=== PATIENT | female | born 1945 | race Caucasian/White ===

== ENCOUNTER 2019-04-22 11:31 | Outpatient (CLI) | payer MEDICARE, SELFPAY ==
--- NOTE | 2019-04-22 | USCV_ITS ---
Shilpi Nicole Age: 73 Gender: F : 1945 Exam Date: 04/22/2019 11:58 Ordering Phys: Gaurav Olivera MD Technologist: Mckay Doe Exam Location: [facility] [place] Indication: Abnormal EKG Rhythm: Sinus Patient History: Chest pain, Diabetes mellitus, Hypertension, Hyperlipidemia, Family history Cardiac Medications: Aspirin, Statin, Beta felicitas Medications in past 24 hours: NONE Contrast: Total Dose (mL): Stress Results Protocol: Pharmacologic Peak Dose (???g/kg/min): 40 Duration (min:sec): 11:15 Atropine:(mg) 0.5 Target HR: 123 Double Product: [id number] Resting HR: 77 Resting BP: 182 / 75 Peak HR: 136 Peak BP: 264 / 85 Max Predicted HR: 145 94 % Max Predicted HR Stress Summary: The patient exhibited a hypertensive response with stress. The patient's target heart rate was achieved. BP Response: Abnormal flat BP response during stress Reason for Termination: The patients target heart rate was achieved Cardiac Symptoms: Short of Breath ECG Analysis Resting EKG: The resting EKG reveals sinus rhythm with unusual R wave progression and one premature ventricular contraction. Stress EKG: The stress EKG was without ST changes and is negative for ischemia. Arrhythmia: None MEASUREMENTS (Male/Female) Normal Values FINDINGS Patient's resting blood pressure was 182/75 and increased to 264/71. An adequate heart rate response was achieved to 95% of the maximum predicted heart rate. The baseline echocardiogram reveals normal chamber sizes and normal wall motion. The EKG with dobutamine infusion revealed no new ST changes. The ultrasound with dobutamine revealed no new wall motion disturbances. CONCLUSIONS Dobutamine stress echo negative for ischemia or infarction Baseline hypertension with significant hypertensive response to dobutamine infusion. Dr. Javier Franklin MD (Electronically Signed) Final Date: 22 April 2019 14:59 MTDD
[2019-04-22 11:39] VITALS: BMI 24.5
--- NOTE | 2019-04-22 11:44 | ECG_ITS ---
NAME OF STUDY: DOBUTAMINE STRESS ECHOCARDIOGRAM INDICATION: [Abnormal EKG] RESULTS TO ISAAC POLK MD The study is dictated under a different electronic health record. Please see those notes for details. Electronically Signed On 04-22-2019 14:56:13 LINE SERVICE ATTENDANT by Javier Franklin M.D. [email or web address]
--- NOTE | 2019-04-22 12:01 | SUR.PREOP ---
Patient reports no pain or discomfort prior to the start of the procedure.
[2019-04-22] MEDS: sodium chloride 0.9% 250 ML 100 ML IV (12:21)
[2019-04-22] MEDS: DOBUTtamine 200 MG in sodium chloride 0.9% 34 ML 9 MG IV (12:36)
[2019-04-22] MEDS: atropine 0.1 mg/mL Syr 10 mL 0.5 MG IVP (12:44)
[2019-04-22] MEDS: metoprolol tartrate 1 mg/1 mL SDV 5 mL 5 MG IVP (12:48)
[2019-04-22 13:16] VITALS: BP 179/74; PULSE 82
== END 2019-04-22 11:32 | disposition home or self-care (01) ==
LOC: CDL 11:33
PROVIDERS: Family Provider Family Medicine; PCP Family Medicine; Visit Provider Family Medicine
DX: R94.31 Abnormal electrocardiogram [ECG] [EKG] (principal); R07.9 Chest pain, unspecified; I10 Essential (primary) hypertension; E11.9 Type 2 diabetes mellitus without complications; E78.5 Hyperlipidemia, unspecified; R06.02 Shortness of breath; Z79.82 Long term (current) use of aspirin
CPT/HCPCS: 93017; 93350; 96375; J0461; J1250; J3490; J7050

== ENCOUNTER 2019-07-08 07:31 | Outpatient (CLI) | payer MEDICARE, SELFPAY ==
--- NOTE | 2019-07-08 07:53 | MM_ITS ---
WS: [id number] LEFT DIGITAL MAMMOGRAPHY WITH CAD CLINICAL INFORMATION: LEFT BREAST 6 MO FOLLOW UP HISTORY: Six-month follow-up COMPARISON: December 16, 2018 FINDINGS: Scattered fibroglandular densities of the left breast. Again seen is the well-circumscribed lesion up per outer left breast with associated palpable marker. This is increased in size from previous today measuring 1.9 cm compared to 1.1 cm previous. Adjacent biopsy marker. Additional previously biopsied nodule mid and anterior left breast with adjacent biopsy marker measur ing 7 mm appears stable. Stable scattered punctate calcifications. Ultrasound is pending. ULTRASOUND BREAST LEFT TECHNIQUE: Ultrasound left breast focused area of concern. CLINICAL INFORMATION: LEFT BREAST 6 MO FOLLOW UP COMPARISON: December 16, 2018 FINDINGS: Ultrasound left breast 2:00 position 5 cm from the nipple. Interval increase in size of the complex c ystic left breast lesion with internal and peripheral nodularity and debris. Today this measures 2.1 x 1.5 x 2.1 cm compared to 1.3 x 1.0 cm previous. CONSIDERING INTERVAL INCREASE IN SIZE RECOMMEND REP EAT BIOPSY AND ASPIRATION. Stable cluster of small complex cystic lesions 2:00 position appears stable in size largest measuring 7 to 8 mm Additional cluster of microcysts previously biopsied in the 3:00 position with adjacent biopsy marker appears stable compared to the prior examination measuring 7 x 6 x 7 mm today. MM/[place] [id number] IMPRESSION: BI-RADS: 4B-Suspicious: Intermediate FOLLOW UP: US Guided Biopsy Recommended
== END 2019-07-08 07:32 | disposition home or self-care (01) ==
LOC: RADSHAW 07:34
PROVIDERS: Family Provider Family Medicine; PCP Family Medicine; Visit Provider Family Medicine
DX: R92.8 Other abnormal and inconclusive findings on diagnostic imaging of breast (principal); N64.89 Other specified disorders of breast; N60.02 Solitary cyst of left breast
CPT/HCPCS: 76642; 77065

== ENCOUNTER 2019-07-26 11:43 | Outpatient (CLI) | payer MEDICARE, SELFPAY ==
--- NOTE | 2019-07-26 | US_ITS ---
WS: [id number] ULTRASOUND-GUIDED LEFT BREAST BIOPSY CLINICAL INFORMATION: CYST COMPARISON: None. FINDINGS: The procedure including risks, benefits, and complications were discussed with the patient who agreed to proceed. Using sterile technique patient was prepped and draped in the usual sterile fashion. The complex cystic and solid left breast lesion at the 2:00 position was localized. After 1% lidocain e utilizing real-time ultrasound guidance, utilizing a 20-gauge and 16-gauge aspiration needle, appro ximately 5 cc of bloody fluid was aspirated. Fluid was sent for cytology. Next [id number] cores wer e obtained of the solid components of the 2:00 breast lesion. Subsequently a titanium clip was placed in the biopsy cavity. No immediate complications. Pathology demonstrates: Initial aspirate demonstrates cellular components with inflammation, blood, and cellular debris. Cons ider intraductal papilloma. Additional sampling/tissue recommended. FINAL PATHOLOGY LEFT BREAST TISSUE AT 2:00, CORE NEEDLE BIOPSY: - Benign breast parenchyma with focal fibrosis, chronic inflammation, and features of benign cyst - No calcifications, atypia, or malignancy seen US/[place] [id number] IMPRESSION: 1. Uncomplicated ultrasound-guided left breast biopsy and aspiration. 2. The pathology demonstrates benign breast parenchyma with focal fibrosis and chronic inflammation. No malignancy or atypia. 3. RECOMMEND 6 MONTH LEFT DIAGNOSTIC MAMMOGRAM AND ULTRASOUND POSTBIOPSY TO CO NFIRM STABILITY. BI-RADS: 3-Probably Benign FOLLOW UP: 6 Month Follow-up
--- NOTE | 2019-07-26 | US_ITS ---
WS: [id number] ULTRASOUND-GUIDED LEFT BREAST BIOPSY CLINICAL INFORMATION: CYST COMPARISON: None. FINDINGS: The procedure including risks, benefits, and complications were discussed with the patient who agreed to proceed. Using sterile technique patient was prepped and draped in the usual sterile fashion. The complex cystic and solid left breast lesion at the 2:00 position was localized. After 1% lidocain e utilizing real-time ultrasound guidance, utilizing a 20-gauge and 16-gauge aspiration needle, appro ximately 5 cc of bloody fluid was aspirated. Fluid was sent for cytology. Next [id number] cores wer e obtained of the solid components of the 2:00 breast lesion. Subsequently a titanium clip was placed in the biopsy cavity. No immediate complications. Pathology demonstrates: Initial aspirate demonstrates cellular components with inflammation, blood, and cellular debris. Cons ider intraductal papilloma. Additional sampling/tissue recommended. FINAL PATHOLOGY LEFT BREAST TISSUE AT 2:00, CORE NEEDLE BIOPSY: - Benign breast parenchyma with focal fibrosis, chronic inflammation, and features of benign cyst - No calcifications, atypia, or malignancy seen US/[place] [id number] IMPRESSION: 1. Uncomplicated ultrasound-guided left breast biopsy and aspiration. 2. The pathology demonstrates benign breast parenchyma with focal fibrosis and chronic inflammation. No malignancy or atypia. 3. RECOMMEND 6 MONTH LEFT DIAGNOSTIC MAMMOGRAM AND ULTRASOUND POSTBIOPSY TO CO NFIRM STABILITY. BI-RADS: 3-Probably Benign FOLLOW UP: 6 Month Follow-up
== END 2019-07-26 11:44 | disposition home or self-care (01) ==
LOC: RAD 11:50
PROVIDERS: PCP Family Medicine; Visit Provider Pathology Anatomic Pathology & Clinical Pathology
DX: N63.21 Unspecified lump in the left breast, upper outer quadrant (principal); N60.32 Fibrosclerosis of left breast
CPT/HCPCS: 19000; 19083; 76942; 88112; 88304; 88305; J2001

== ENCOUNTER 2019-08-07 19:53 | Inpatient (IN) | payer MEDICARE, SELFPAY ==
[2019-08-07 19:59] VITALS: BP 128/59; PULSE 87; RESP 16; TEMP 36.7; O2SAT 94; BMI 25.4
--- NOTE | 2019-08-07 20:30 | W.ED.WEAKNES ---
HPI - Weakness General: Chief complaint: Weakness Stated complaint: SOB/ FEVER/ BODY ACHES Time Seen by Provider: 08/07/19 19:56 History of Present Illness: HPI Narrative: 73-year-old female presents with generalized weakness, shortness of breath, and some dizziness. She notes that she began to feel this way last night, but was worse today. At one point walking across her home to get into bed, she could not make it, sat down on the floor, and could not get back up. She was there for several hours, around 4-5. She finally made it to her phone to call EMS. Complaint: generalized weakness Onset (ago): hour(s) Duration: constant Location: generalized Migration: none Severity: severe Relieving factors: none Exacerbating factors: none Context: new medication Associated symptoms: Reports diaphoresis and short of breath; Denies chest pain, chills, confusion, melena, dysuria, fever(s), syncope or vomiting Review of Systems Const: Reports: diaphoresis; Denies: fever(s) or chills Eyes: Denies: blurry vision ENMT: Denies: swelling of lips/tongue, bleeding gums, epistaxis or sinus pain Card: Denies: chest pain or syncope Resp: Denies: dyspnea, productive cough, non-productive cough or wheezing GI: Denies: vomiting or melena : Denies: dysuria, urinary frequency, urinary urgency or hematuria Musc: Denies: neck pain, back pain, joint redness or joint warmth Skin/Breast: Denies: rash, pruritus or erythema Neuro: Denies: confusion Psych: Denies: anxiety PFSH ED PFSH: Medical History Abnormal colonoscopy [address] White Arthralgia Contact dermatitis Diabetes Fibula fracture Gastroenteritis Heart failure with preserved ejection fraction Grade 1 diastolic dysfunction, EF 65% 08/23/2018 HTN (hypertension) Hx of cataract Hypercalcemia IBS (irritable bowel syndrome) Internal hemorrhoids Normal cardiac stress test Osteoporosis Ovarian cancer 1964 Ovarian cancer in remission Retinal detachment Sigmoid polyp Surgical History H/O detached retina repair 1991 H/O oophorectomy 1964 Hx of cholecystectomy Family History Other CAD (coronary artery disease) Hx of myocardial infarction Social History (Updated 08/08/19 @ 00:44 by Michi Villarreal MD) Smoking and tobacco status: never smoked Alcohol intake: never Substance/Drug Use: never Lives independently: Yes Housing: House Physical Exam Const: COMMON NORMALS: patient oriented x3 GENERAL APPEARANCE: well developed ORIENTATION/CONSCIOUSNESS: Yes oriented to person, Yes oriented to place and Yes oriented to time HENMT: COMMON NORMALS: normocephalic, external ears normal and Normal external nose present HEAD & SCALP: normocephalic FACE & SINUS: normal facial exam NOSE: Normal external nose present and No nasal discharge present EXTERNAL EAR: Yes external ears normal MOUTH: tongue normal Eye: COMMON NORMALS: Equal, round and reactive pupils present, EOMs intact bilaterally and conjunctivae normal EYELID: eyelids normal CONJUNCTIVA: Yes conjunctivae normal PUPIL: Yes Equal, round and reactive pupils present Neck/C-Spine: GENERAL: No tracheal deviation Chest: COMMONS NORMALS: normal inspection of the chest CHEST: No tenderness Resp: COMMON NORMALS: clear to auscultation bilaterally EFFORT & INSPECTION: No tachypneic, No respiratory distress, No retractions, No uses accessory muscles and No tracheal deviation AUSCULTATION: clear to auscultation bilaterally, no rhonchi, no wheezes and lung sounds not diminished Cardio: COMMON NORMALS: regular rate and regular rhythm RATE: regular rate RHYTHM: regular rhythm HEART SOUNDS: no murmurs PERIPHERAL PULSES: radial pulses present GI: INSPECTION: No abdominal distension AUSCULTATION: No Hyperactive bowel sounds present and No Hypoactive bowel sounds present PALPATION: No Guarding due to palpation present (GI) and No Rigid due to palpation PERCUSSION: no dullness to percussion and no tympanic to percussion Neuro: COMMON NORMALS: patient oriented x3 and moves all extremities SENSORIUM/ORIENTATION: Yes oriented to person, Yes oriented to place and Yes oriented to time CRANIAL NERVES: Yes CN normal except as noted COORDINATION/BALANCE: [id number] test normal and Normal rapid alternating movements of the distal upper extremity present (Neuro) SPEECH: speech normal GAIT: Yes Unable to assess gait SENSORY EXAM: Yes extremities (Intact) MOTOR EXAM: Pronator motor function not present COORDINATION: [id number] test normal and rapid alternating movement UE normal Psych: COMMON NORMALS: mental status grossly normal Skin: COMMON NORMALS: no rashes or lesions noted GENERAL SKIN EXAM: no rashes or lesions noted Course Vital Signs: Vital signs: Vital Signs Temperature 98.1 F 08/07/19 19:59 Pulse Rate 78 08/08/19 00:09 Respiratory Rate 18 08/08/19 00:09 Blood Pressure 153/73 08/08/19 00:09 Pulse Oximetry 96 08/08/19 00:09 MDM - Weakness MDM Narrative: Medical decision making narrative: 73-year-old female with generalized weakness and shortness of breath. She had a period of diaphoresis as well. Her hemoglobin is 8.3. She says she does not have a history of anemia. Her white blood cell count is 19.4 with left shift. Her bicarbonate level is 19, and CK is mildly elevated. She does not have a fever. There is no pneumonia or urinary tract infection. Her belly is nontender. She will be tested for the coronavirus, although she does not appear to have significant symptoms of that. She lives at home alone. She will be admitted for generalized weakness, and further work-up for her anemia, and leukocytosis with significantly elevated CRP. Lab Data: Labs: Lab Results 08/07/19 08/07/19 08/07/19 Range/Units 20:49 20:49 20:49 WBC 19.4 H (4.0-10.0) 10^3/ uL RBC 2.88 L (4.1-5.3) 10^6/u L Hgb 8.3 L (11.5-15.3) g/dL Hct 26.7 L (37.0-47.0) % MCV 92.7 (81-99) fL MCH 28.8 (28.0-34.0) pg MCHC 31.1 (30.0-36.0) g/dL RDW 15.2 H (12.1-15.1) % Plt Count 282 (130-400) 10^3/c mm MPV 10.6 H (7.4-10.4) fL Neut % (Auto) 86.7 % Lymph % (Auto) 4.9 % [place] % (Auto) 7.1 % Eos % (Auto) 0.4 % Baso % (Auto) 0.2 % Neut # (Auto) 16.8 H (1.8-7.7) 10^3/u L Lymph # (Auto) 1.0 (0.8-4.8) 10^3/u L [place] # (Auto) 1.4 H (0.2-0.9) 10^3/u L Eos # (Auto) 0.1 (0.0-0.8) 10^3/u L Baso # (Auto) 0.0 (0.0-0.1) 10^3/u L Nucleated RBC % (a uto) 0 % Nucleated RBCs # 0.0 /100WBC Sodium 130 L (136-145) mmol/L Potassium 4.1 (3.5-5.1) mmol/L Chloride 95 L (98-107) mmol/L Carbon Dioxide 19 L (22-29) mmol/L Anion Gap 20.1 H (5-19) BUN 27 H (8-23) mg/dL Creatinine 2.2 H (0.5-0.9) mg/dL Glucose 264 H (65-115) mg/dL Calculated Osmolal ity 276 L (285-295) mOsm/k g Lactate 2.1 (0.5-2.2) mmol/L Calcium 9.9 (8.5-10.5) mg/dL Total Bilirubin 0.5 (0.15-1.2) mg/dL AST 40 H (0-32) U/L ALT 26 (0-33) U/L Alkaline Phosphata se 123 H (35-105) IU/L Creatine Kinase 418 H* (26-192) U/L Troponin T Baselin e (0-10) ng/mL Troponin T 120 Min [place] (0-10) ng/mL Delta Troponin T (0-10) ABS# C-Reactive Protein 328.8 H (0.0-4.9) mg/L Total Protein 6.2 L (6.6-8.7) g/dL Albumin 3.1 L (3.5-5.2) g/dL Globulin 3.1 (1.3-4.6) g/dL Procalcitonin (0-0.5) ng/mL Urine Color (Yellow) Urine Appearance (CLEAR) Urine pH (5-7) Ur Specific Gravit y (1.005-1.030) Urine Protein (Negative) Urine Glucose (UA) (Normal) Urine Ketones (Negative) Urine Blood (Negative) Urine Nitrate (Negative) Urine Bilirubin (NEGATIVE) Urine Urobilinogen (Negative) mg/dL Ur Leukocyte Abby ase (Negative) Urine RBC (0-2) /hpf Urine WBC (0-5) /hpf Ur Squamous Epith Cells (0-5) Ur Transition Epit h Cell /hpf Amorphous Sediment Urine Bacteria (NONE) Urine Mucus 08/07/19 08/07/19 08/07/19 Range/Units 20:49 20:49 20:49 WBC (4.0-10.0) 10^3/ uL RBC (4.1-5.3) 10^6/u L Hgb (11.5-15.3) g/dL Hct (37.0-47.0) % MCV (81-99) fL MCH (28.0-34.0) pg MCHC (30.0-36.0) g/dL RDW (12.1-15.1) % Plt Count (130-400) 10^3/c mm MPV (7.4-10.4) fL Neut % (Auto) % Lymph % (Auto) % [place] % (Auto) % Eos % (Auto) % Baso % (Auto) % Neut # (Auto) (1.8-7.7) 10^3/u L Lymph # (Auto) (0.8-4.8) 10^3/u L [place] # (Auto) (0.2-0.9) 10^3/u L Eos # (Auto) (0.0-0.8) 10^3/u L Baso # (Auto) (0.0-0.1) 10^3/u L Nucleated RBC % (a uto) % Nucleated RBCs # /100WBC Sodium (136-145) mmol/L Potassium (3.5-5.1) mmol/L Chloride (98-107) mmol/L Carbon Dioxide (22-29) mmol/L Anion Gap (5-19) BUN (8-23) mg/dL Creatinine (0.5-0.9) mg/dL Glucose (65-115) mg/dL Calculated Osmolal ity (285-295) mOsm/k g Lactate (0.5-2.2) mmol/L Calcium (8.5-10.5) mg/dL Total Bilirubin (0.15-1.2) mg/dL AST (0-32) U/L ALT (0-33) U/L Alkaline Phosphata se (35-105) IU/L Creatine Kinase Cancelled (26-192) U/L Troponin T Baselin e 102 H* (0-10) ng/mL Troponin T 120 Min [place] (0-10) ng/mL Delta Troponin T (0-10) ABS# C-Reactive Protein Cancelled (0.0-4.9) mg/L Total Protein (6.6-8.7) g/dL Albumin (3.5-5.2) g/dL Globulin (1.3-4.6) g/dL Procalcitonin 3.51 H (0-0.5) ng/mL Urine Color (Yellow) Urine Appearance (CLEAR) Urine pH (5-7) Ur Specific Gravit y (1.005-1.030) Urine Protein (Negative) Urine Glucose (UA) (Normal) Urine Ketones (Negative) Urine Blood (Negative) Urine Nitrate (Negative) Urine Bilirubin (NEGATIVE) Urine Urobilinogen (Negative) mg/dL Ur Leukocyte Abby ase (Negative) Urine RBC (0-2) /hpf Urine WBC (0-5) /hpf Ur Squamous Epith Cells (0-5) Ur Transition Epit h Cell /hpf Amorphous Sediment Urine Bacteria (NONE) Urine Mucus 08/07/19 08/07/19 Range/Units 22:30 22:55 WBC (4.0-10.0) 10^3/ uL RBC (4.1-5.3) 10^6/u L Hgb (11.5-15.3) g/dL Hct (37.0-47.0) % MCV (81-99) fL MCH (28.0-34.0) pg MCHC (30.0-36.0) g/dL RDW (12.1-15.1) % Plt Count (130-400) 10^3/c mm MPV (7.4-10.4) fL Neut % (Auto) % Lymph % (Auto) % [place] % (Auto) % Eos % (Auto) % Baso % (Auto) % Neut # (Auto) (1.8-7.7) 10^3/u L Lymph # (Auto) (0.8-4.8) 10^3/u L [place] # (Auto) (0.2-0.9) 10^3/u L Eos # (Auto) (0.0-0.8) 10^3/u L Baso # (Auto) (0.0-0.1) 10^3/u L Nucleated RBC % (a uto) % Nucleated RBCs # /100WBC Sodium (136-145) mmol/L Potassium (3.5-5.1) mmol/L Chloride (98-107) mmol/L Carbon Dioxide (22-29) mmol/L Anion Gap (5-19) BUN (8-23) mg/dL Creatinine (0.5-0.9) mg/dL Glucose (65-115) mg/dL Calculated Osmolal ity (285-295) mOsm/k g Lactate (0.5-2.2) mmol/L Calcium (8.5-10.5) mg/dL Total Bilirubin (0.15-1.2) mg/dL AST (0-32) U/L ALT (0-33) U/L Alkaline Phosphata se (35-105) IU/L Creatine Kinase (26-192) U/L Troponin T Baselin e (0-10) ng/mL Troponin T 120 Min [place] 89.45 H (0-10) ng/mL Delta Troponin T -12.55 L (0-10) ABS# C-Reactive Protein (0.0-4.9) mg/L Total Protein (6.6-8.7) g/dL Albumin (3.5-5.2) g/dL Globulin (1.3-4.6) g/dL Procalcitonin (0-0.5) ng/mL Urine Color Yellow (Yellow) Urine Appearance Sl hazy (CLEAR) Urine pH 6.5 (5-7) Ur Specific Gravit y 1.010 (1.005-1.030) Urine Protein 3+ H (Negative) Urine Glucose (UA) Trace H (Normal) Urine Ketones 1+ H (Negative) Urine Blood Neg (Negative) Urine Nitrate Negative (Negative) Urine Bilirubin Neg (NEGATIVE) Urine Urobilinogen Norm (Negative) mg/dL Ur Leukocyte Abby ase Negative (Negative) Urine RBC 0-4 H (0-2) /hpf Urine WBC 0-4 H (0-5) /hpf Ur Squamous Epith Cells 5-10 H (0-5) Ur Transition Epit h Cell 0-4 /hpf Amorphous Sediment Trace Urine Bacteria 1+ H (NONE) Urine Mucus Trace Discharge Plan Discharge Patient Disposition: Admitted As Inpatient Admit Provider: Michi Villarreal Clinical Impression: Generalized weakness, Leukocytosis, Anemia Condition: Stable Discharge Date/Time: 08/08/19 00:46 Coding Level of Care Code ED Dope House Operator Helper for Chg Fwd Exam Comprehensive
--- NOTE | 2019-08-07 20:38 | CTR_ITS ---
PROCEDURE INFORMATION: Exam: CT Head Without Contrast Exam date and time: 08/07/2019 8:39 PM Age: 73 years old Clinical indication: Malaise or fatigue; Additional info: Weakness TECHNIQUE: Imaging protocol: Computed tomography of the head without contrast. Radiation optimization: All CT scans at this facility use at least one of these dose optimization techniques: automated exposure control; mA and/or kV adjustment per patient size (includes targeted exams where dose is matched to clinical indication); or iterative reconstruction. COMPARISON: No relevant prior studies available. RADIATION DOSE METRICS: Total DLP: 727.44 mGy-cm FINDINGS: Brain: There is mild cortical atrophy. No hemorrhage. Unremarkable white matter. No mass effect. Ventricles: Normal. No ventriculomegaly. Bones/joints: Unremarkable. No acute fracture. Sinuses: Visualized sinuses are unremarkable. No fluid levels. Mastoid air cells: Visualized mastoid air cells are well aerated. Vasculature: Atherosclerotic calcifications are seen in carotid, vertebral and basilar arteries. Soft tissues: Unremarkable. CT/CT head wo con* [id number] IMPRESSION: No acute intracranial abnormality. Radiation Dose CTDIVOL = (mGy): DLP = 727.44 (mGy-cm)
--- NOTE | 2019-08-07 20:38 | XR_ITS ---
WS: [id number] XR chest 1V portable [id number] REASON FOR EXAM: weakness FINDINGS: Low-grade atelectasis in the basilar portion of the left lower lung. This was not seen on p revious exam of September 24, 2016. There is arteriosclerotic changes in the arch the aorta. The remaining lung scruggs are normal. XR/XR chest 1V portable [id number] IMPRESSION: Subsegmental atelectasis left lung base Arteriosclerotic changes.
--- NOTE | 2019-08-07 20:38 | ECG_ITS ---
Measurements Intervals [place] Rate: 90 P: 28 NH: 149 QRS: -17 QRSD: 93 T: 44 QT: 379 QTc: 465 SINUS RHYTHM Compared to ECG 09/14/2016 21:16:54 No significant changes Electronically Signed On 08-08-2019 17:03:39 CDT by Javier Franklin M.D. [email or web address]
[2019-08-07] MEDS: sodium chloride 0.9% 1,000 ML 999 ML IV (20:49)
[2019-08-07 21:07] LABS: Basophils % 0.2 %; Eosinophils # 0.1 10^3/uL (0.0-0.8); Eosinophils % 0.4 %; Hematocrit 26.7 % (37.0-47.0); Hemoglobin 8.3 g/dL (11.5-15.3); Lymphocytes % 4.9 %; Mean Corpuscular HGB Conc 31.1 g/dL (30.0-36.0); Mean Corpuscular Hemoglobin 28.8 pg (28.0-34.0); Mean Corpuscular Volume 92.7 fL (81-99); Mean Platelet Volume 10.6 fL (7.4-10.4); Monocytes # 1.4 10^3/uL (0.2-0.9); Monocytes % 7.1 %; Neutrophils # 16.8 10^3/uL (1.8-7.7); Neutrophils % 86.7 %; Nucleated Red Blood Cells % 0 %; Platelet Count 282 10^3/cmm (130-400); Red Blood Count 2.88 10^6/uL (4.1-5.3); Red Cell Distribution Width 15.2 % (12.1-15.1); White Blood Count 19.4 10^3/uL (4.0-10.0)
[2019-08-07 21:25] LABS: Alanine Aminotransferase 26 U/L (0-33); Albumin Level 3.1 g/dL (3.5-5.2); Alkaline Phosphatase 123 IU/L (35-105); Anion Gap 20.1 (5-19); Aspartate Amino Transferase 40 U/L (0-32); Blood Urea Nitrogen 27 mg/dL (8-23); C Reactive Protein 328.8 mg/L (0.0-4.9); Calcium 9.9 mg/dL (8.5-10.5); Carbon Dioxide 19 mmol/L (22-29); Chloride 95 mmol/L (98-107); Globulin 3.1 g/dL (1.3-4.6); Glucose 264 mg/dL (65-115); Osmolality Calculated 276 mOsm/kg (285-295); Potassium 4.1 mmol/L (3.5-5.1); Sodium 130 mmol/L (136-145); Total Bilirubin 0.5 mg/dL (0.15-1.2); Total Protein 6.2 g/dL (6.6-8.7)
[2019-08-07 21:26] LABS: Lactate (Lactic Acid level) 2.1 mmol/L (0.5-2.2)
[2019-08-07 21:36] LABS: Creatine Phosphokinase 418 U/L (26-192)
[2019-08-07 21:37] VITALS: BP 132/56; PULSE 95; RESP 16; O2SAT 94
[2019-08-07 21:37] LABS: Troponin(5th) Baseline 102 ng/mL (0-10)
--- NOTE | 2019-08-07 22:38 | ECG_ITS ---
Measurements Intervals [place] Rate: 85 P: 26 TX: 179 QRS: -4 QRSD: 90 T: 51 QT: 371 QTc: 443 SINUS RHYTHM Compared to ECG 09/14/2016 21:16:54 No significant changes Electronically Signed On 08-08-2019 17:07:09 CDT by Javier Franklin M.D. [email or web address]
[2019-08-07 22:55] LABS: Troponin 5 2HR 89.45 ng/mL (0-10); Troponin 5 2HR Delta -12.55 ABS# (0-10)
[2019-08-07 23:07] VITALS: BP 134/80; PULSE 87; RESP 18; O2SAT 94
[2019-08-07 23:20] LABS: Add Urine Microscopic? YES; Bilirubin Urine Neg (NEGATIVE); Blood Urine Neg (Negative); Glucose Urine UA Trace (Normal); Ketones Urine 1+ (Negative); Leukocyte Esterase Urine Negative (Negative); Nitrate Urine Negative (Negative); Protein Urine 3+ (Negative); Urine Appearance SL Hazy (CLEAR); Urine Color Yellow (Yellow); Urobilinogen Urine Norm (Negative); pH Urine 6.5 (5-7)
[2019-08-07 23:21] LABS: RBC Urine 0-4 /hpf (0-2); WBC Urine 0-4 /hpf (0-5)
[2019-08-07 23:22] LABS: Add Urine Culture? No; Amorphous Sediment Urine TRACE; Bacteria Urine 1+; Mucus Urine TRACE; Transitional Epi Cells Urine 0-4 /hpf
--- NOTE | 2019-08-07 23:41 | PM.HP ---
Providers/Chief Complaint Primary Care Provider: Vitaliy Morales MD Chief Complaint: SOB/ FEVER/ BODY ACHES History of Present Illness Shilpi Nicole is a 73 year old female who carries diagnosis of hypertension, recently had negative dobutamine stress echo with no prior history of OK or stroke, came in with chief complaint of generalized weakness. she was in her usual state of health i.e. lives alone, independent for daily activities, has not visited her family lately, recently started taking hydrochlorothiazide for hypertension, she is able to carry out her daily activities on her own without any limitations until 1 day ago she started experiencing myalgias and dry hacking cough, she did not notice any fever, chills, nausea, vomiting, diarrhea or dysuria. She is denying constipation, cold intolerance. No recent sick contacts, no exposure to COVID suspects. Her recent [facility] visit was about 3 to 4 weeks ago. She is stating that her myalgia and weakness has gotten so worse to the point that when she got out of her bathroom this evening she felt very dizzy and laid down on the floor. She had no energy to get up and called EMS, she was on the floor for 3 to 4 hours, she was awake, alert, no falls, she did not notice any palpitations, chest pain or weakness of her extremities. After 4 hours she put a lot of effort to get up and called EMS and came to the ER. Diagnosis in the ER revealed normal hemodynamics, orthostasis were not checked in the ER, by the time I saw her she received 1 L normal saline Low sodium and chloride level Positive leukocytosis without any source of infection, chest x-ray showing possible infiltrate in right lower lobe, saturating well on room air Anemia hemoglobin 8.3 Abnormal creatinine, lactic acid normal High CRP EKG is normal however troponin baseline 102 Recent dobutamine stress echo was negative Denying urinary tract infection, UA is negative CK 418 Rectal exam was negative for FOBT the ER, Patient has started taking hydrochlorothiazide, her p.o. intake is very poor, she feels dehydrated Review of Systems Const: Reports: chills, body aches, change in appetite, fatigue and malaise; Denies: fever(s) Eyes: Denies: change in vision ENMT: Denies: throat pain Card: Denies: chest pain Resp: Reports: non-productive cough; Denies: dyspnea GI: Denies: abdominal pain or nausea : Denies: flank pain or difficulty voiding Musc: Reports: muscle cramps; Denies: extremity pain, joint swelling or joint stiffness Skin/Breast: Denies: rash Neuro: Denies: headache(s) Psych: Denies: anxiety Endo: Denies: polyuria José Miguel/Lymph: Denies: easy bruising All/Imm: Denies: urticaria Medications/Allergies Home Medications Medication Instructions Recorded Confirmed Last Taken Type doxycycline hyclate 100 mg capsule 100 mg PO BID #60 cap 05/03/19 Unknown Rx Allergies Allergy/AdvReac Type Severity Reaction Status Date / Time No Known Allergies Allergy Verified 04/22/19 11:59 PFSH Acute PFSH: Medical History Abnormal colonoscopy [address] White Arthralgia Contact dermatitis Diabetes Fibula fracture Gastroenteritis Heart failure with preserved ejection fraction Grade 1 diastolic dysfunction, EF 65% 08/23/2018 HTN (hypertension) Hx of cataract Hypercalcemia IBS (irritable bowel syndrome) Internal hemorrhoids Normal cardiac stress test Osteoporosis Ovarian cancer 1963 Ovarian cancer in remission Retinal detachment Sigmoid polyp Surgical History H/O detached retina repair 1991 H/O oophorectomy 1964 Hx of cholecystectomy Family History Other CAD (coronary artery disease) Hx of myocardial infarction Social History (Updated 08/08/19 @ 00:44 by Michi Villarreal MD) Smoking and tobacco status: never smoked Alcohol intake: never Substance/Drug Use: never Lives independently: Yes Housing: House Vitals/I&O/Wt Last Vital Signs Temp 98.1 F 08/07/19 19:59 Pulse 87 08/07/19 23:07 Resp 18 08/07/19 23:07 BP 134/80 08/07/19 23:07 Pulse Ox 94 08/07/19 23:07 Weight last 48 hrs Weight 58.967 kg Physical Exam Narrative: EXAM NARRATIVE: Head to toe examination Patient laying comfortably in her bed saturating well on room air Experiencing dry and hacking cough S1, S2 no tachycardia Afebrile Abdomen soft nontender nondistended bowel sound present Lungs are clear to auscultation without adventitious sounds J alert oriented x3 GCS 15 No cerebellar signs Neurologically nonfocal exam Good strength of upper and lower extremities on flexion and extension Her mood seems to be low Seems lethargic No signs of hypothyroidism Dry buccal mucosa EOMI, PERRLA Data : 08/07/19 20:49 08/07/19 20:49 A&P Assessment and plan (1) Community acquired pneumonia: Status: Acute (2) Generalized weakness: Status: Acute (3) Leukocytosis: Status: Acute (4) ANA ROSA (acute kidney injury): Status: Acute (5) Diarrhea: Status: Acute (6) Acute blood loss anemia: Status: Acute (7) Dehydration: Status: Acute Additional A&P Information Generalized weakness Acute onset generalized weakness without any active signs of stroke, CT head negative She has been experiencing dry hacking cough No exposure to COVID suspects She recently started taking hydrochlorothiazide for hypertension, she feels dehydrated, she has already received 1 L normal saline in the ER, orthostasis were not obtained before fluid resuscitation Check TSH and B12 level Leukocytosis without sepsis Lactic acid normal, she is not tachycardic, afebrile Saturating well on room air My suspicion is high for community-acquired pneumonia with developing infiltrate/atelectasis of right lower lobe I would start ceftriaxone and azithromycin COVID to be ruled out, will check d-dimer, ferritin, CRP, procalcitonin Acute kidney injury due to dehydration and hydrochlorothiazide use Anticipating provement with slow fluid resuscitation Clinically looks dry Normocytic anemia of unknown etiology 2017 her hemoglobin was 10, current hemoglobin is 8.3 Rectal exam is negative for occult blood She has history of internal hemorrhoids, history of sigmoid polyp She has not noticed any dark-colored stool or active bleeding Chronic diarrhea Patient is stating that she gets diarrhea after taking metformin, No fever or abdominal pain We will check C. difficile panel however risk of C. 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
[2019-08-08] VITALS (59 sets, daily range): BP systolic 108–193; BP diastolic 53–118; PULSE 78–153; RESP 4–52; TEMP 36.7–37.6; O2SAT 92–99
[2019-08-08] MEDS: sodium chloride 0.9% 1,000 ML 100 ML IV (00:03)
[2019-08-08 00:20] LABS: Procalcitonin 3.51 ng/mL (0-0.5)
[2019-08-08 01:24] LABS: D Dimer 3.88 ug/mIFEU (0-0.59)
[2019-08-08 01:34] LABS: Lactate Dehydrogenase 209 U/L (135-214); NT Pro B Type Natriuretic Pept 3773 pg/mL (0-450); Thyroid Stimulating Hormone 1.04 uIU/mL (0.27-4.20)
[2019-08-08] MEDS: albuterol 8 gm MDI 2 PUFF INHALATION ×2 (01:59→09:20)
[2019-08-08 03:36] LABS: Basophils % 0.2 %; Eosinophils % 0.1 %; Hematocrit 23.7 % (37.0-47.0); Hemoglobin 7.1 g/dL (11.5-15.3); Mean Corpuscular Hemoglobin 28.2 pg (28.0-34.0); Mean Platelet Volume 11.4 fL (7.4-10.4); Monocytes # 1.2 10^3/uL (0.2-0.9); Monocytes % 7.4 %; Neutrophils % 85.8 %; Nucleated Red Blood Cells % 0 %; Platelet Count 248 10^3/cmm (130-400); Red Blood Count 2.52 10^6/uL (4.1-5.3); Red Cell Distribution Width 15.4 % (12.1-15.1); White Blood Count 16.3 10^3/uL (4.0-10.0)
[2019-08-08 03:48] LABS: Troponin 5 6HR 79.79 ng/mL (0-10)
[2019-08-08 03:49] LABS: Alanine Aminotransferase 21 U/L (0-33); Albumin Level 2.7 g/dL (3.5-5.2); Alkaline Phosphatase 103 IU/L (35-105); Anion Gap 15.8 (5-19); Aspartate Amino Transferase 31 U/L (0-32); Blood Urea Nitrogen 24 mg/dL (8-23); Calcium 8.2 mg/dL (8.5-10.5); Carbon Dioxide 17 mmol/L (22-29); Chloride 104 mmol/L (98-107); Globulin 2.3 g/dL (1.3-4.6); Glucose 190 mg/dL (65-115); Osmolality Calculated 278 mOsm/kg (285-295); Potassium 3.8 mmol/L (3.5-5.1); Sodium 133 mmol/L (136-145); Total Bilirubin 0.4 mg/dL (0.15-1.2)
[2019-08-08 03:57] LABS: Ferritin 125 ng/mL (15-150); Iron 7 ug/dL (37-145)
[2019-08-08 03:58] LABS: Vitamin B12 > 2000 pg/mL (232-1245)
[2019-08-08 03:59] LABS: Troponin 5 6HR Delta -22.21 ng/L (0-12)
[2019-08-08 04:04] LABS: Creatine Phosphokinase 469 U/L (26-192)
[2019-08-08] MEDS: acetaminophen 325 mg Tablet 650 MG PO ×2 (05:54→22:32)
--- NOTE | 2019-08-08 08:10 | PC.NURSE ---
PT had a BM but there was also urine in the hat when staff went to collect the specimen.
--- NOTE | 2019-08-08 08:50 | PM.PN ---
Subjective Subjective: Interval history: She denies any complaints at this time. Denies shortness of breath, but does confirm she has intermittent cough. Denies any chest pain. When questioned about it does report some orthopnea. Vitals/I&O/Wt Last Vital Signs Temp 98.1 F 08/08/19 08:15 Pulse 87 08/08/19 08:15 Resp 34 H 08/08/19 08:15 BP 152/61 08/08/19 08:15 Pulse Ox 96 08/08/19 08:15 08/07/19 08/08/19 08/08/19 22:59 06:59 14:59 Intake Total 1000 / 1000 240 / 240 Output Total 200 / 200 Balance 1000 / 1000 40 / 40 Weight last 48 hrs Weight 58.967 kg Physical Exam Const: COMMON NORMALS: no acute distress and patient oriented x3 HENMT: COMMON NORMALS: oropharynx normal Neck/C-Spine: GENERAL: Yes JVD Resp: COMMON NORMALS: normal respiratory effort and clear to auscultation bilaterally AUSCULTATION: clear to auscultation bilaterally Cardio: COMMON NORMALS: regular rhythm, S1 normal heart sound present, S2 normal heart sound present and No murmurs present (Cardio) RHYTHM: regular rhythm HEART SOUNDS: S1 normal heart sound present and S2 normal heart sound present GI: COMMON NORMALS: Normal to inspection, nondistended, normoactive bowel sounds present, Soft to palpation and non-tender PALPATION: Yes Soft to palpation Extremity: COMMON NORMALS: no joint enlargement and no pedal edema Neuro: COMMON NORMALS: patient oriented x3 and moves all extremities Skin: COMMON NORMALS: no rashes or lesions noted GENERAL SKIN EXAM: no rashes or lesions noted Data : 08/08/19 02:55 08/08/19 02:55 A&P Assessment and plan (1) Community acquired pneumonia: Intermittent cough during my visit, although otherwise lungs do not sound bad. She is doing all right on room air. Continue antibiotics at this time. Does report some orthopnea. Appears to have some JVD. Will discontinue IV fluids at this time. Pending COVID-19 results. TTE once results are back. Status: Acute (2) Generalized weakness: TSH is normal. At this time treat pneumonia. Does have mild rhabdomyolysis. I do not see a statin, but home medications need to be reconciled. Status: Acute (3) Leukocytosis: With mild improvement Status: Acute (4) ANA ROSA (acute kidney injury): Her baseline creatinine is not known. Looking back she had 2.1 creatinine back in 2017. Today creatinine slightly better 1.9, although has been receiving IV hydration. At this time IV fluid needs to be stopped as above. When asked about it she states that she has had on and off problems with her kidneys. She denies taking NSAIDs at home. Status: Acute (5) Diarrhea: Chronic diarrhea. Pending C. difficile. On metformin. Status: Acute (6) Acute blood loss anemia: CBC with hemoglobin decreased down to 7 this morning. Pending Hemoccult. Started on Protonix twice daily. Continue at this time. Denies NSAID use at home. Some of this most likely is delusional as she has been receiving IV fluids. There is some decrease across all cell lines. We will request iron studies. Ferritin is not elevated. LDH is normal. B12 is not low. Check folic acid. Rectal exam is negative for occult blood She has history of internal hemorrhoids, history of sigmoid polyp She has not noticed any dark-colored stool or active bleeding Status: Acute (7) Dehydration: Resolved. Status: Acute Attestations Medical Necessity Statement*: Continue admission for assessment of management of pneumonia, generalized weakness, anemia, acute kidney injury, in the setting of chronic diarrhea. 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
[2019-08-08] MEDS: pantoprazole DR 40 mg Tablet PO ×2 (09:01→17:12)
[2019-08-08] MEDS: cefTRIAXone 1,000 MG in sodium chloride 0.9% (plus) 50 ML 100 MG IV (09:01)
[2019-08-08] MEDS: azithromycin 250 mg Tablet 500 MG PO (09:01)
[2019-08-08 10:26] LABS: Iron 7 ug/dL (37-145); Percent Saturation 3.4 % (20-50); Total Iron Binding Capacity 203 mcg/dl; Unsaturated Iron Binding 196 ug/dL (112-347)
[2019-08-08 10:51] LABS: Folate Level > 20.0 ng/mL (4.8-37.3)
--- NOTE | 2019-08-08 11:09 | ECG_ITS ---
Measurements Intervals [place] Rate: 120 P: SD: 0 QRS: 7 QRSD: 95 T: 32 QT: 302 QTc: 427 ATRIAL FIBRILLATION WITH RAPID VENTRICULAR RESPONSE ABNORMAL RHYTHM ECG WARNING: DATA QUALITY MAY AFFECT INTERPRETATION INTERPRETATION BASED ON A DEFAULT AGE OF 40 YEARS Compared to ECG 09/14/2016 21:16:54 Sinus rhythm no longer present Electronically Signed On 08-08-2019 17:07:42 CDT by Javier Franklin M.D. [email or web address]
[2019-08-08 11:10] LABS: Glucose Point of Care 173 mg/dL (70-110)
[2019-08-08 11:13] LABS: Glucose Point of Care 236 mg/dL (70-110)
[2019-08-08] MEDS: mirtazapine 15 mg Tablet PO (11:54)
[2019-08-08] MEDS: carvedilol 25 mg Tablet PO ×2 (11:54→22:23)
[2019-08-08] MEDS: FUROsemide 10 mg/mL SDV 4mL 40 MG IVP (12:58)
[2019-08-08] MEDS: ALPRAZolam 0.25 mg Tablet PO ×2 (12:58→17:12)
[2019-08-08 13:05] LABS: Hemoglobin 6.9 g/dL (11.5-15.3)
[2019-08-08] MEDS: metoprolol tartrate 1 mg/1 mL SDV 5 mL 5 MG IV ×2 (14:15→14:40)
[2019-08-08 14:31] LABS: Coronavirus Lab Test PTC NOT DETECTED
--- NOTE | 2019-08-08 15:31 | PC.RESP ---
no treatment due to hhr
[2019-08-08] MEDS: digoxin 250 mcg/ml INJ 2 mL IVP (17:03)
[2019-08-08 17:20] LABS: Partial Thromboplastin Time 37.2 SECONDS (23.9-36.7)
[2019-08-08 17:27] LABS: Magnesium 1.5 mg/dL (1.7-2.3)
--- NOTE | 2019-08-08 17:35 | PC.NURSE ---
Pt taken off bipap for approx 3 min. got very typnic and asking to be put back on bipap. PRBC stated, Dr. Luna on floor, journalists and other writers asked him if he would take and additional look at pt before starting the heparin drip do to drop in Hemaglobin through out day. breath smells like blood some. this was reported also.
--- NOTE | 2019-08-08 17:39 | XR_ITS ---
WS: [id number] XR chest 1V portable [id number] REASON FOR EXAM: dyspnea FINDINGS: Comparisons were made to 11/07 2019. The heart is not enlarged with arteriosclerotic changes . The peripheral lungs are well aerated. There is chronic changes seen in both lung scruggs suggesting m ild interstitial disease. The hilum and apices normal. XR/XR chest 1V portable [id number] IMPRESSION: Chronic obstructive pulmonary disease with mild fibrosis.
[2019-08-08] MEDS: heparin drip 25,000 UNIT/500 ML PREMIX 20 UNIT IV (17:47)
[2019-08-08] MEDS: sodium chloride 0.9% (100 ml) 100 ML 10 ML (18:05)
[2019-08-08] MEDS: FUROsemide 10 mg/mL SDV 4mL 60 MG IVP (19:29)
[2019-08-08] MEDS: magnesium sulfate premix 2 GM/50 ML PIGGYBACK IV ×2 (19:29→20:23)
--- NOTE | 2019-08-08 19:34 | PC.NURSE ---
unable to hang magnesium at this time do to IV compatability. Night nurse, Lulu CRABTREE states she will hang when the blood is done running in IV.
[2019-08-08] MEDS: ipratropium-albuterol 3 mL Neb INHALATION (19:45)
--- NOTE | 2019-08-08 19:46 | PC.NURSE ---
Assessment Upon entry to room pt is resting with eyes closed, Bipap on. Settings 16/6 Fio2 30%. respiratory rate remain fast and shallow at 30bpm. Lungs diminished throughout. Alert and oriented X 4. Apical rhythm is afib, rate improved from dayshift 99-115. 2+ pulses throughout, non-pitting edema to BLE.Skin is pale, dry, with cap refill < 3 seconds. Carver draining clear pale urine. Pt denies pain. Blood and heparin gtt infusing at this time. Call light within reach.
[2019-08-08 22:18] LABS: Glucose Point of Care 200 mg/dL (70-110)
[2019-08-08] MEDS: digoxin 250 mcg/ml INJ 2 mL 125 MCG IVP (22:23)
--- NOTE | 2019-08-08 22:34 | PC.NURSE ---
Heart Rate PRN 125mcg of IV digoxin given at this time for HR afib 120'-130's. BP 165/91.
[2019-08-09] VITALS (74 sets, daily range): BP systolic 83–196; BP diastolic 44–146; PULSE 89–138; RESP 6–59; TEMP 36.6–37.5; O2SAT 90–98
[2019-08-09 00:48] LABS: Hematocrit 27.7 % (37.0-47.0); Hemoglobin 8.8 g/dL (11.5-15.3)
[2019-08-09 00:52] LABS: Partial Thromboplastin Time 151.5 SECONDS (23.9-36.7)
--- NOTE | 2019-08-09 00:59 | PC.NURSE ---
Critical Lab Dr. Villarreal notified by phone at this time for critical PTT 151.5. Received orders to stop drip for three hours, redraw PTT with AM labs and restart drip per protocol. Heparin gtt stopped at this time.
[2019-08-09] MEDS: FUROsemide 10 mg/mL SDV 4mL 60 MG IVP (05:09)
[2019-08-09] MEDS: ALPRAZolam 0.25 mg Tablet PO (05:21)
[2019-08-09] MEDS: acetaminophen 325 mg Tablet 650 MG PO ×2 (05:21→20:10)
[2019-08-09 05:30] LABS: Basophils # 0.1 10^3/uL (0.0-0.1); Basophils % 0.4 %; Eosinophils % 0.2 %; Hemoglobin 9.2 g/dL (11.5-15.3); Lymphocytes # 0.9 10^3/uL (0.8-4.8); Lymphocytes % 6.4 %; Mean Corpuscular HGB Conc 31.7 g/dL (30.0-36.0); Mean Corpuscular Volume 88.1 fL (81-99); Mean Platelet Volume 11.4 fL (7.4-10.4); Monocytes # 0.7 10^3/uL (0.2-0.9); Monocytes % 5.2 %; Neutrophils # 12.3 10^3/uL (1.8-7.7); Neutrophils % 87.1 %; Nucleated Red Blood Cells % 0 %; Platelet Count 271 10^3/cmm (130-400); Red Blood Count 3.29 10^6/uL (4.1-5.3); Red Cell Distribution Width 17.1 % (12.1-15.1); White Blood Count 14.2 10^3/uL (4.0-10.0)
[2019-08-09 05:35] LABS: Partial Thromboplastin Time 36.9 SECONDS (23.9-36.7)
[2019-08-09 05:50] LABS: Alanine Aminotransferase 22 U/L (0-33); Albumin Level 2.9 g/dL (3.5-5.2); Alkaline Phosphatase 125 IU/L (35-105); Anion Gap 17.9 (5-19); Aspartate Amino Transferase 32 U/L (0-32); Blood Urea Nitrogen 28 mg/dL (8-23); Calcium 8.9 mg/dL (8.5-10.5); Carbon Dioxide 18 mmol/L (22-29); Chloride 99 mmol/L (98-107); Globulin 2.1 g/dL (1.3-4.6); Glucose 178 mg/dL (65-115); Osmolality Calculated 273 mOsm/kg (285-295); Potassium 3.9 mmol/L (3.5-5.1); Sodium 131 mmol/L (136-145); Total Bilirubin 0.6 mg/dL (0.15-1.2)
[2019-08-09 05:51] LABS: Digoxin 0.7 ng/mL (0.6-1.2)
[2019-08-09 05:54] LABS: Creatine Phosphokinase 473 U/L (26-192)
--- NOTE | 2019-08-09 06:00 | XR_ITS ---
WS: [id number] XR chest 1V portable [id number] REASON FOR EXAM: Hypoxia FINDINGS: Alveolar infiltrate in the left lower lung is seen. The heart is normal Arteriosclerotic changes in the arch the aorta. The hilum and apices normal. XR/XR chest 1V portable [id number] IMPRESSION: Pneumonia left lower lung.
[2019-08-09 07:14] LABS: Glucose Point of Care 239 mg/dL (70-110)
[2019-08-09 07:45] LABS: Glucose Point of Care 210 mg/dL (70-110)
[2019-08-09] MEDS: mirtazapine 15 mg Tablet PO (08:27)
[2019-08-09] MEDS: azithromycin 250 mg Tablet 500 MG PO (08:27)
[2019-08-09] MEDS: metoprolol tartrate 25 mg Tablet PO ×2 (08:27→15:45)
[2019-08-09] MEDS: cefTRIAXone 1,000 MG in sodium chloride 0.9% (plus) 50 ML 100 MG IV (08:28)
[2019-08-09] MEDS: digoxin 125 mcg Tablet PO (08:28)
[2019-08-09] MEDS: pantoprazole DR 40 mg Tablet PO ×2 (08:29→17:17)
--- NOTE | 2019-08-09 08:34 | NM_ITS ---
WS: [id number] NM pul vent and perfus* [id number] REASON FOR EXAM: dyspnea, AFib, assess for PE TECHNICAL: Ventilation scan with M.D. PA aerosol and perfusion scan with 5.8 mCi technetium labeled M AA FINDINGS: Normal ventilation changes are identified. In the left lung there is prominent perfusion deformity seen in the middle and lower left lung high p robability of pulmonary embolus. NM/NM pul vent and perfus* [id number] IMPRESSION: High probability of pulmonary embolus involving the left lung.
[2019-08-09] MEDS: ipratropium-albuterol 3 mL Neb INHALATION ×3 (08:54→15:03)
--- NOTE | 2019-08-09 09:12 | PM.PN ---
Subjective Subjective: Interval history: She says she is not feeling a whole lot better. Still feeling achy all over. Still feeling dyspneic. No chest pain. No abdominal pain. Vitals/I&O/Wt Last Vital Signs Temp 98.5 F 08/09/19 08:00 Pulse 89 08/09/19 08:54 Resp 22 H 08/09/19 08:54 BP 129/80 08/09/19 08:00 Pulse Ox 94 08/09/19 08:54 08/08/19 08/09/19 08/09/19 22:59 06:59 14:59 Intake Total 690 / 1220 385.667 / 1605.667 Output Total 1330 / 1830 500 / 2330 Balance -640 / -610 -114.333 / -724.333 Weight last 48 hrs Weight 58.967 kg Physical Exam Const: COMMON NORMALS: no acute distress and patient oriented x3 OTHER: Appears in some discomfort. HENMT: COMMON NORMALS: oropharynx normal Neck/C-Spine: GENERAL: Yes JVD Resp: COMMON NORMALS: normal respiratory effort and clear to auscultation bilaterally AUSCULTATION: clear to auscultation bilaterally Cardio: COMMON NORMALS: regular rhythm, S1 normal heart sound present, S2 normal heart sound present and No murmurs present (Cardio) RHYTHM: regular rhythm HEART SOUNDS: S1 normal heart sound present and S2 normal heart sound present GI: COMMON NORMALS: Normal to inspection, nondistended, normoactive bowel sounds present, Soft to palpation and non-tender PALPATION: Yes Soft to palpation Extremity: COMMON NORMALS: no joint enlargement and no pedal edema Neuro: COMMON NORMALS: patient oriented x3 and moves all extremities Skin: COMMON NORMALS: no rashes or lesions noted GENERAL SKIN EXAM: no rashes or lesions noted Urinary Catheter Management^: Carver: Cath Placed During This Visit: yes Reason for Continuing Indwelling Catheter: Accurate Measurement of Urinary Output in Critically Ill Patients Urinary Catheter Date of Insertion: 08/08/19 Urinary Catheter Time of Insertion: 13:00 Data : 08/09/19 04:23 08/09/19 04:23 A&P Assessment and plan (1) Community acquired pneumonia: He is presently feeling dyspneic, with some persistent leukocytosis, hypoxia, will switch out antibiotics to Levaquin, Zosyn. Check MRSA PCR. With dyspnea, hypoxia, A. fib, will also assess for possible PE with VQ scan. Lower extremity Dopplers. Intermittent cough, although otherwise lungs do not sound bad. Likely COPD and mild fibrosis noted on x-ray. Pending TTE COVID-19 negative. Status: Acute (2) Atrial fibrillation with RVR: Yesterday heart rates noted in 130s. New onset A. fib with RVR. He is today improved temporarily after 2 doses of metoprolol IV. Subsequently again heart rates elevated, blood pressure is soft, was given 2 doses of digoxin 0.5 mg by IV. This morning blood pressures are somewhat better. We will switch over from her home dose carvedilol. At this time continue metoprolol 25 mg twice a day. Continue digoxin, level this morning is therapeutic. Assess to exclude possible PE as above. Continue treatment of pneumonia. Continue anticoagulation. If no other obvious cause of her generalized weakness, fatigability, consideration may need to be given to cardioversion. Status: Acute (3) Generalized weakness: TSH is normal. At this time treat pneumonia. Does have mild rhabdomyolysis. Etiology of CK elevation is actually not clear. Will check CK fractions. Check LDH. Troponin T sometimes may be muscular in origin, and concerned may be for inflammatory myopathy. Will request send out troponin I as she did have some elevation. Alternatively troponin may also be elevated secondary to her new onset A. fib with RVR. She does take statin at home, although this has been held. Status: Acute (4) Leukocytosis: With mild improvement Status: Acute (5) ANA ROSA (acute kidney injury): Her baseline creatinine is not known. Looking back she had 2.1 creatinine back in 2017. Today creatinine slightly better 1.9, although has been receiving IV hydration. At this time IV fluid needs to be stopped as above. When asked about it she states that she has had on and off problems with her kidneys. She denies taking NSAIDs at home. Status: Acute (6) Diarrhea: Chronic diarrhea. Pending C. difficile. On metformin. Status: Acute (7) Acute blood loss anemia: She responded well to PRBC transfusion, hemoglobin was down as low as 6.9, up to 8.8. Has tolerated anticoagulation so far. Hemoglobin 9.2 today. We will recheck late this evening. CBC with hemoglobin decreased down to 7 this morning. Pending Hemoccult. Started on Protonix twice daily. Continue at this time. Denies NSAID use at home. Some of this most likely is dilutional as she has been receiving IV fluids. There is some decrease across all cell lines. Again with noted iron deficiency. Once she is out of acute infective episode would benefit from replacement. Ferritin is not elevated. LDH is normal. B12 is not low. Folic acid is not low. Rectal exam is negative for occult blood She has history of internal hemorrhoids, history of sigmoid polyp She has not noticed any dark-colored stool or active bleeding Status: Acute (8) Dehydration: Resolved. Status: Acute Attestations Medical Necessity Statement*: Continue admission for assessment and management of pneumonia, A. fib with RVR, generalized weakness. Coding Level of Care Code Acute Visual Developer for [facility] Fwd Exam Comprehensive Diagnoses Community acquired pneumonia J18.9 Atrial fibrillation with RVR I48.91 Generalized weakness R53.1 Leukocytosis D72.829 ANA ROSA (acute kidney injury) N17.9 Diarrhea R19.7 Acute blood loss anemia D62 Dehydration E86.0
[2019-08-09 10:19] LABS: CKMB 1.8 ng/mL (0-5.34); Lactate Dehydrogenase 231 U/L (135-214)
[2019-08-09 10:29] LABS: Creatine Phosphokinase 450 U/L (26-192)
[2019-08-09] MEDS: levofloxacin-dextrose 5 % 750 MG/150 ML PREMIX 100 MG IV (10:39)
[2019-08-09] MEDS: sodium chloride 0.9% (100 ml) 100 ML (10:42)
[2019-08-09 10:52] LABS: Partial Thromboplastin Time 90.2 SECONDS (23.9-36.7)
[2019-08-09 11:31] LABS: Glucose Point of Care 170 mg/dL (70-110)
[2019-08-09] MEDS: piperacillin-tazobactam 3.375 GM in sodium chloride 0.9% (plus) 50 ML IV ×2 (11:38→21:25)
--- NOTE | 2019-08-09 14:59 | USCV_ITS ---
Shilpi Nicole Age: 73 Gender: F : 1945 Exam Date: 08/09/2019 06:39 Ordering Phys: Willi Torres MD Technologist: Cathy Pruett [place] [facility] [place]: CHF BP: 103 / 58 HR: 115 Rhythm: Sinus Technical Quality: Adequate MEASUREMENTS (Male / Female) Normal Values 2D ECHO LV Diastolic Diameter PLAX 3.7 cm 4.2 - 5.9 / 3.9 - 5.3 cm LV Systolic Diameter PLAX 2.1 cm LV Chamber Size 2.5 cm IVS Diastolic Thickness 1.3 cm 0.6 - 1.0 / 0.6 - 0.9 cm IVS Systolic Thickness 1.6 cm LVPW Diastolic Thickness 1.8 cm 0.6 - 1.0 / 0.6 - 0.9 cm LVPW Systolic Thickness 2.0 cm RV Chamber Size 2.8 cm LVOT Diameter 2.0 cm LV Ejection Fraction 2D Teich 74.7 % LV Ejection Fraction MOD 2C 46.0 % LV Ejection Fraction 2C AL 45.2 % LA Diameter 4.4 cm LA Width 3.8 cm LA Height 4.2 cm RA Width 2.7 cm RA Height 3.5 cm Aorta at Sinotubular Diameter 1.7 cm M-MODE LV Diastolic Diameter MM 4.4 cm 4.2 - 5.9 / 3.9 - 5.3 cm LV Systolic Diameter MM 2.6 cm LV Ejection Fraction MM Teich 72.0 % IVS Diastolic Thickness MM 1.0 cm 0.6 - 1.0 / 0.6 - 0.9 cm IVS Systolic Thickness MM 1.7 cm LVPW Diastolic Thickness MM 0.9 cm 0.6 - 1.0 / 0.6 - 0.9 cm LVPW Systolic Thickness MM 1.6 cm Aortic Annulus Diameter 2.6 cm LA Ao Ratio MM 1.7 MV E Point Septal Separation 0.4 cm DOPPLER AV Peak Velocity 227.0 cm/s LVOT Peak Velocity 110.0 cm/s AV Area Cont Eq vti 1.9 cm squared AV Area Cont Eq pk 1.5 cm squared MV Area PHT 2.8 cm squared Mitral E to A Ratio 2.7 MV E' Velocity 13.0 cm/s Mitral E to MV E' Ratio 7.8 Mitral E to LV E' Lateral Ratio 7.7 Mitral E to LV E' Septal Ratio 7.9 TR Peak Velocity 328.0 cm/s TR Peak Gradient 43.0 mmHg TV Peak E Velocity 70.0 cm/s Right Atrial Pressure 3.0 mmHg Pulmonary Artery Systolic Pressu 46.0 mmHg PV Peak Velocity 112.0 cm/s RV Acceleration Time 0.1 s RV Ejection Time 0.3 s RV AcT/ET 0.3 FINDINGS Left Ventricle Normal left ventricular size and systolic function, EF 65 %. Mild to moderate left ventricular hypertrophy. No gross wall motion normalities. Patient was found to be in atrial fibrillation with rapid ventricular rate, during the study. Segmental wall motion analysis is difficult Right Ventricle Appears to be of normal size ejection fraction Right Atrium Mildly increased right atrial size. Left Atrium Mildly increased left atrial size. Mitral Valve Thickened mitral valve. Moderate mitral annular calcification. Aortic Valve Thickened aortic valve. Tricuspid Valve Mild tricuspid valve regurgitation. Pulmonic Valve Trace pulmonary valve regurgitation. Pericardium No pericardial effusion. Aorta Normal aortic annulus size. CONCLUSIONS Normal left ventricular size and systolic function, EF 65 %. Mild to moderate left ventricular hypertrophy. No gross wall motion normalities. Patient was found to be in atrial fibrillation with rapid ventricular rate, during the study. Segmental wall motion analysis is difficult. Thickened aortic and mitral valves. Moderate mitral annular calcification. Mild biatrial enlargement. Mild tricuspid valve regurgitation. Trace pulmonary valve regurgitation. Mild pulmonary hypertension with an estimated pulmonary artery peak systolic pressure of 46 mmHg. The PA pressure calculation could be misleading because of the poor Doppler signals Because of the arrhythmia and the difference in the technical quality, comparison with the previous study from 08/23/2018 is difficult. The biatrial enlargement appears to be new Dr Cal Torres MD [facility] (Electronically Signed) Final Date: 09 August 2019 09:50 S
--- NOTE | 2019-08-09 16:54 | USCV_ITS ---
Shilpi Nicole Age: 73 Gender: F : 1945 Exam Date: 08/09/2019 06:52 Ordering Phys: Willi Torres MD Technologist: Cathy Pruett Exam Location: [facility] – [place] Indication: EVAL FOR DVT HISTORY: DVT. PROCEDURES: Venous duplex imaging was performed in bilateral lower extremities. In addition, the posterior tibial and peroneal trunk were evaluated. In addition, the posterior tibial and peroneal trunk were evaluated. Serial compression, augmentation maneuvers, and spectral Doppler flow evaluation were performed. FINDINGS: Normal 2-D Doppler and augmentation and compressibility throughout the lower extremity venous structures. Additional imaging through the proximal calf veins also reveals no thrombus. Limited evaluation of the greater saphenous vein is patent with no thrombus.. There is a left lower extremity Landa's cyst noted. CONCLUSIONS No evidence of DVT in the above-mentioned identifiable veins. Possible Landa's cyst in the left popliteal fossa Dr Cal Torres MD [facility] (Electronically Signed) Final Date: 09 August 2019 20:35 S
[2019-08-09 17:11] LABS: Glucose Point of Care 127 mg/dL (70-110)
[2019-08-09] MEDS: metoprolol tartrate 50 mg Tablet PO (17:17)
[2019-08-09 18:04] LABS: Partial Thromboplastin Time 79.6 SECONDS (23.9-36.7)
[2019-08-09] MEDS: labetalol 5 mg/mL SDV 20mL IVP (20:02)
[2019-08-09] MEDS: levalbuterol 0.63 mg/3 mL Neb INHALATION (20:24)
[2019-08-09 20:28] LABS: Gamma Glutamyl Transferase 45 U/L (5-36)
[2019-08-09 21:29] LABS: Glucose Point of Care 151 mg/dL (70-110)
[2019-08-09 22:01] LABS: Hemoglobin 8.8 g/dL (11.5-15.3)
[2019-08-10] VITALS (44 sets, daily range): BP systolic 83–164; BP diastolic 46–104; PULSE 84–114; RESP 6–51; TEMP 36.6–37; O2SAT 94–100
[2019-08-10] MEDS: acetaminophen 325 mg Tablet 650 MG PO ×2 (00:47→20:16)
[2019-08-10 01:04] LABS: Partial Thromboplastin Time 78.7 SECONDS (23.9-36.7)
[2019-08-10] MEDS: heparin drip 25,000 UNIT/500 ML PREMIX 13 UNIT IV (03:30)
--- NOTE | 2019-08-10 06:38 | PC.NURSE ---
SHIFT SUMMARY PT HAS REMAINED ALERT AND ORIENTATED. PT HAS HAD ADEQUATE URINE OUTPUT. PT HAS NO COMPLAINTS AT THIS TIME. PT HAS BEEN ON NC SINCE AROUND MIDNIGHT. PT HAS BEEN TURNED AT HER REQUEST. PT IV REMAINS PATENT. HEPARIN DRIP REMAINS AT 13MLS. WAITING FOR MORNING PTT.
[2019-08-10 06:45] LABS: Basophils % 0.3 %; Eosinophils % 0.3 %; Hematocrit 27.6 % (37.0-47.0); Lymphocytes # 0.9 10^3/uL (0.8-4.8); Lymphocytes % 6.3 %; Mean Corpuscular HGB Conc 32.6 g/dL (30.0-36.0); Mean Corpuscular Hemoglobin 28.6 pg (28.0-34.0); Mean Corpuscular Volume 87.6 fL (81-99); Mean Platelet Volume 10.2 fL (7.4-10.4); Monocytes # 0.8 10^3/uL (0.2-0.9); Monocytes % 5.3 %; Neutrophils # 12.7 10^3/uL (1.8-7.7); Neutrophils % 87.3 %; Nucleated Red Blood Cells % 0 %; Platelet Count 292 10^3/cmm (130-400); Red Blood Count 3.15 10^6/uL (4.1-5.3); White Blood Count 14.6 10^3/uL (4.0-10.0)
[2019-08-10 06:57] LABS: Alanine Aminotransferase 23 U/L (0-33); Albumin Level 2.5 g/dL (3.5-5.2); Alkaline Phosphatase 121 IU/L (35-105); Anion Gap 19.2 (5-19); Aspartate Amino Transferase 44 U/L (0-32); Blood Urea Nitrogen 34 mg/dL (8-23); Carbon Dioxide 18 mmol/L (22-29); Chloride 96 mmol/L (98-107); Globulin 2.7 g/dL (1.3-4.6); Glucose 80 mg/dL (65-115); Osmolality Calculated 266 mOsm/kg (285-295); Potassium 3.2 mmol/L (3.5-5.1); Sodium 130 mmol/L (136-145); Total Bilirubin 0.3 mg/dL (0.15-1.2); Total Protein 5.2 g/dL (6.6-8.7)
[2019-08-10 07:01] LABS: Partial Thromboplastin Time 77.7 SECONDS (23.9-36.7)
[2019-08-10 08:17] LABS: ABG PH Result 7.42 (7.35-7.45); HCO3 ABG 17.9 mmol/L (22-26); PO2 ABG 87.8 mmHg (80.0-100.0)
[2019-08-10 08:18] LABS: Base Excess ABG -5.6 mmol/L (-2.0-2.0); Blood Gas Operator Identificat VOSSA; Oxygen Saturation ABG 97.6; Potassium Level - ABG 3.1 mmol/L (3.5-5.0)
[2019-08-10 08:19] LABS: Blood Gas Sample Type ARTERIAL; HGB O2 Sat 96.1 % (95-100); Ionized Calcium Level - ABG 1.2 mmol/L (1.1-1.4); Oxygen Device NC; Total Hemoglobin 10.4 g/dL (12-16)
[2019-08-10 08:20] LABS: Carboxyhemoglobin 0.6 %THgb (0.4-20.1)
[2019-08-10] MEDS: heparin drip 25,000 UNIT/500 ML PREMIX 12 UNIT IV (08:25)
[2019-08-10 08:32] LABS: Glucose Point of Care 72 mg/dL (70-110)
[2019-08-10] MEDS: mirtazapine 15 mg Tablet PO (09:11)
[2019-08-10] MEDS: metoprolol tartrate 50 mg Tablet PO ×2 (09:11→17:01)
[2019-08-10] MEDS: digoxin 125 mcg Tablet PO (09:11)
[2019-08-10] MEDS: pantoprazole DR 40 mg Tablet PO ×2 (09:11→16:59)
[2019-08-10] MEDS: piperacillin-tazobactam 3.375 GM in sodium chloride 0.9% (plus) 50 ML IV ×2 (10:44→22:21)
[2019-08-10 11:24] LABS: Glucose Point of Care 212 mg/dL (70-110)
[2019-08-10 13:41] LABS: Partial Thromboplastin Time 50.7 SECONDS (23.9-36.7)
[2019-08-10] MEDS: heparin 5,000 unit/mL INJ 1 mL IV ×2 (14:01→20:17)
--- NOTE | 2019-08-10 14:34 | P.PN_ITS ---
Vitals/I&O/Wt Last Vital Signs Temp 97.8 F 08/10/19 07:30 Pulse 99 08/10/19 13:00 Resp 31 H 08/10/19 13:00 BP 142/81 08/10/19 13:00 Pulse Ox 100 08/10/19 13:00 08/09/19 08/10/19 08/10/19 22:59 06:59 14:59 Intake Total 390 / 552.667 241 / 793.667 472.967 / 472.967 Output Total 300 / 1050 550 / 1600 Balance 90 / -497.333 -309 / -806.333 472.967 / 472.967 Physical Exam Const: COMMON NORMALS: no acute distress and patient oriented x3 OTHER: Appears in some discomfort. HENMT: COMMON NORMALS: oropharynx normal Neck/C-Spine: GENERAL: Yes JVD Resp: COMMON NORMALS: normal respiratory effort and clear to auscultation bilaterally AUSCULTATION: clear to auscultation bilaterally Cardio: COMMON NORMALS: regular rhythm, S1 normal heart sound present, S2 normal heart sound present and No murmurs present (Cardio) RHYTHM: regular rhythm HEART SOUNDS: S1 normal heart sound present and S2 normal heart sound present GI: COMMON NORMALS: Normal to inspection, nondistended, normoactive bowel sounds present, Soft to palpation and non-tender PALPATION: Yes Soft to palpation Extremity: COMMON NORMALS: no joint enlargement and no pedal edema Neuro: COMMON NORMALS: patient oriented x3 and moves all extremities Skin: COMMON NORMALS: no rashes or lesions noted GENERAL SKIN EXAM: no rashes or lesions noted Urinary Catheter Management^: Carver: Cath Placed During This Visit: yes Reason for Continuing Indwelling Catheter: Accurate Measurement of Urinary Output in Critically Ill Patients Urinary Catheter Date of Insertion: 08/08/19 Urinary Catheter Time of Insertion: 13:00 Data : 08/10/19 06:32 08/10/19 06:32 Micro: Microbiology 08/09/19 11:45 MRSA Culture - Final Nose A&P Assessment and plan (1) Pulmonary embolism: Hypermobility PE on VQ scan. Hypoxia, A. fib. Elevated pulmonary artery pressure on TTE. Blood pressure has been stable. Continues on heparin drip for anticoagulation due to history of anemia, although so far hemoglobin appears stable. She does get quite dyspneic, as well as with some anxiety, and appears has been needing some BiPAP support intermittently. This morning doing alright on NC. Should be safe to transfer to C[facility]. If hemoglobin remains stable may transition to PO anticoagulation. Wanted to give her a bit longer time given significant anemia on presentaiton. Status: Acute (2) Community acquired pneumonia: With hypoxic respiratory failure. Appears multifactorial, definitely PE, and perhaps PE may be contributing entirely to her symptoms. She reports cough, nonproductive. Denies hemoptysis. Does not have chest pain. Has been having, however, persistent neutrophilic leukocytosis. Continue antibiotic treatment for now due to concern for pneumonia in addition to PE. MRSA PCR is negative. Obtain sputum culture if possible. Urine bacterial antigens. Also with persistent acute kidney injury, very high CRP, proteinuria, will assess DIANA, ANCA, complement level. Renal ultrasound. Appreciate additional nephrology assessment regarding whether there is some possibility of adding in condition. With dyspnea, hypoxia, A. fib, will also assess for possible PE with VQ scan. Lower extremity Dopplers. Intermittent cough, although otherwise lungs do not sound bad. Likely COPD and mild fibrosis noted on x-ray. Pending TTE COVID-19 negative. Degree of mild pulmonary fibrosis on XR? Emphysema? She denies Hx COPD. Status: Acute (3) Atrial fibrillation with RVR: Tachycardia appears improved slightly with treatment, also switching to Xopenex. Continue treatment underlying conditions as above. Continue metoprolol, digoxin. With renal failure, reassess dig level tomorrow. Continue anticoagulation. Status: Acute (4) Generalized weakness: TSH is normal. At this time treat pneumonia, PE, A. fib with RVR. Does have mild rhabdomyolysis. Etiology of CK elevation is actually not clear. LDH is very mildly high. CK MB is normal. Somewhat mixed picture, troponin I send out mildly elevated at 0.11 (normal below 0.05). Definitely some troponin leakage secondary to A. fib, demand ischemia with hypoxia, PE, arrhythmia. Difficult to say why total CK is elevated, not CK-MB. Does have rather high CRP. Difficult to exclude some inflammatory myopathy although CK elevation is not very impressive. With reported perhaps mild pulmonary fibrosis on XR? ILD can be associated w PM. Will request autoantibodies. Consider follow up possibly biopsy, EMG. Strangely has been having muscle aches, although these are not feature of PM/DM. At the same time CK is usually normal w something like PMR. Transfer to CSU. PT evaluation. Status: Acute (5) Leukocytosis: With mild improvement Status: Acute (6) ANA ROSA (acute kidney injury): Persistent ANA ROSA, versus ANA ROSA on CKD. Will assess renal ultrasound, check urine urea, creatinine. With noted proteinuria. Otherwise somewhat mixed clinical picture as above with elevated CRP, unclear elevation of CK. Additional assessment as above. Appreciate nephrology expertise. When asked about it she states that she has had on and off problems with her kidneys. She denies taking NSAIDs at home. Status: Acute (7) Diarrhea: Chronic diarrhea. Pending C. difficile. On metformin. Status: Acute (8) Acute blood loss anemia: Iron deficiency anemia. Onset of acute episode started replacement. TIBC is on the low side, may have component of anemia chronic disease. Elevated CRP. Started on Protonix twice daily. Continue at this time. Denies NSAID use at home. Ferritin is not elevated. LDH is normal to very mildly elevated. B12 is not low. Folic acid is not low. Rectal exam was negative for occult blood She has history of internal hemorrhoids, history of sigmoid polyp She has not noticed any dark-colored stool or active bleeding Status: Acute (9) Dehydration: Resolved. Status: Acute Attestations Medical Necessity Statement*: Continue admission for assessment and management of respiratory failure, A. fib with RVR, PE, need for anticoagulation in setting of anemia, pneumonia, acute kidney injury on chronic kidney disease. Coding Level of Care Code Acute Bend Sorter for [facility] Diagnoses Pulmonary embolism I26.99 Community acquired pneumonia J18.9 Atrial fibrillation with RVR I48.91 Generalized weakness R53.1 Leukocytosis D72.829 ANA ROSA (acute kidney injury) N17.9 Diarrhea R19.7 Acute blood loss anemia D62 Dehydration E86.0
--- NOTE | 2019-08-10 15:22 | P.CONIM_ITS ---
Providers/Reason For Consult Consulting Physican/Specialty*: mendy burnette md Reason for Consult*: ANA ROSA on CKD Attending Physician: Willi Torres Primary Care Provider: Vitaliy Morales MD History of Present Illness History of Present Illness Shilpi Nicole is a 73 year old female admitted w/ SOB- dx w/ PE and PNA. she has h/o htn, recently started on hctz and jennifer-i. pt presented w/ myalgias, cough. she was weak and orthostatic on thursday08/07/19 on day of admission. based on chart review, she has underlying cr of 1.3- 2.1 mg/dl. here she has devloped ANA ROSA. she has been treated w/ IVF, then lasix. she was found to be anemic on admission w/ hgb of 8.3 - hgb dropped to 6.9- treated w/ protonix and she was transfussed w/ PRBC. she was found to have a fib w/ RVR on 08/09/19- she had a perfusion scan c/w PE. she has persistent leukocytosis. ABG today w/ resp alkalosis and met acidosis. her electrolytes are significant for na 130, k 3.2, bicarb 18, cr has gone from 1.9 on 08/07 to 2.5 on 08/08 to 2.9 today(08/10/19) of note on urinalysis on admission she had 3+ proteinuria, no significant hematuria Review of Systems General: Reports: 10 or more systems reviewed and unremarkable except in HPI and below Narrative: weak, poor appetite, no n/v/f/c/leung. diarrhea is improving. no edema. no visual changes. +palps, depressed Meds/Allergies Home Medications and Allergies Home Medications Medication Instructions Recorded Confirmed Last Taken Type doxycycline hyclate 100 mg capsule 100 mg PO BID #60 cap 05/03/19 08/08/19 Unknown Rx Lipitor 10 mg PO DAILY 08/08/19 08/08/19 Unknown History allopurinol 100 mg PO DAILY 08/08/19 08/08/19 1 Day Ago History ~08/07/19 alprazolam 0.25 mg PO BID 08/08/19 08/08/19 1 Day Ago History ~08/07/19 aspirin 81 mg PO DAILY 08/08/19 08/08/19 Unknown History benazepril 40 mg PO DAILY 08/08/19 08/08/19 1 Day Ago History ~08/07/19 carvedilol 25 mg PO BID 08/08/19 08/08/19 1 Day Ago History ~08/07/19 chlorthalidone 25 mg PO DAILY 08/08/19 08/08/19 1 Day Ago History ~08/07/19 clonidine HCl 0.1 mg PO DAILY 08/08/19 08/08/19 1 Day Ago History ~08/07/19 glimepiride 8 mg PO DAILY 08/08/19 08/08/19 1 Day Ago History ~08/07/19 hydralazine 50 mg PO BID 08/08/19 08/08/19 Unknown History metformin 1,000 mg PO DAILY 08/08/19 08/08/19 Unknown History metoclopramide HCl 10 mg PO QID PRN 08/08/19 08/08/19 Unknown History mirtazapine 15 mg PO DAILY 08/08/19 08/08/19 1 Day Ago History ~08/07/19 ondansetron 4 mg PO Q8H PRN 08/08/19 08/08/19 Unknown History Allergies Allergy/AdvReac Type Severity Reaction Status Date / Time No Known Allergies Allergy Verified 04/22/19 11:59 Current Medications Current Medications Generic Name Dose Route Start Last Admin Trade Name Freq PRN Reason Stop Dose Admin Acetaminophen 650 mg 08/08/19 01:00 08/10/19 00:47 Tylenol PO 650 mg Q4H PRN Administration MILD PAIN OR INCREASE TEMP Alprazolam 0.25 mg 08/08/19 17:50 08/09/19 05:21 Xanax PO 0.25 mg QID PRN Administration ANXIETY Digoxin 125 mcg 08/09/19 09:00 08/10/19 09:11 Lanoxin PO 125 mcg DAILY ROGELIO Administration Furosemide 60 mg 08/08/19 18:00 08/09/19 05:09 Lasix IVP 60 mg Q12H ROGELIO Administration Heparin Sodium (Beef Lung) 0 unit 08/08/19 14:59 08/10/19 14:01 Heparin IV 1,200 unit PRN PRN Administration Heparin weight-base protocol Protocol Heparin Sodium/Sodium Chloride 25,000 unit in 500 mls @ 0 mls/hr 08/08/19 15:00 08/10/19 08:25 Heparin Drip IV 10.18 unit/kg/hr .Q0M ROGELIO 12 mls/hr Administration Protocol Per Protocol Piperacillin Sod/Tazobactam 50 mls @ 12.5 mls/hr 08/09/19 10:00 08/10/19 10:44 Sod 3.375 gm/ Sodium Chloride IV 12.5 mls/hr Q12H ROGELIO Administration Protocol Insulin Aspart 0 unit 08/08/19 18:00 08/10/19 11:50 Novolog SUBCUT 4 unit TIDWM ROGELIO Administration Protocol Levalbuterol HCl 0.63 mg 08/09/19 16:00 08/09/19 20:24 Xopenex INHALATION 0.63 mg Q4H.RESPIRATORY PRN Administration SHORTNESS OF BREATH Metoprolol Tartrate 50 mg 08/09/19 18:00 08/10/19 09:11 Lopressor PO 50 mg BID ROGELIO Administration Mirtazapine 15 mg 08/08/19 11:10 08/10/19 09:11 Remeron PO 15 mg DAILY ROGELIO Administration Pantoprazole Sodium 40 mg 08/08/19 09:00 08/10/19 09:11 Protonix PO 40 mg BID ROGELIO Administration PFSH Acute PFSH: Medical History Abnormal colonoscopy [address] White Arthralgia Contact dermatitis Diabetes Fibula fracture Gastroenteritis Heart failure with preserved ejection fraction Grade 1 diastolic dysfunction, EF 65% 08/23/2018 HTN (hypertension) Hx of cataract Hypercalcemia IBS (irritable bowel syndrome) Internal hemorrhoids Normal cardiac stress test Osteoporosis Ovarian cancer 1963 Ovarian cancer in remission Retinal detachment Sigmoid polyp Surgical History H/O detached retina repair 1991 H/O oophorectomy 1964 Hx of cholecystectomy Family History Other CAD (coronary artery disease) Hx of myocardial infarction Social History (Updated 08/08/19 @ 00:44 by iMchi Villarreal MD) Smoking and tobacco status: never smoked Alcohol intake: never Substance/Drug Use: never Lives independently: Yes Housing: House Vitals/I&O/Wt Last Vital Signs Temp 97.8 F 08/10/19 07:30 Pulse 99 08/10/19 13:00 Resp 31 H 08/10/19 13:00 BP 142/81 08/10/19 13:00 Pulse Ox 100 08/10/19 13:00 08/10/19 08/10/19 08/10/19 06:59 14:59 22:59 Intake Total 241 / 793.667 472.967 / 472.967 Output Total 550 / 1600 Balance -309 / -806.333 472.967 / 472.967 Physical Exam Narrative: EXAM NARRATIVE: comfortable in bed on nc 02 heent- nc/at neck no jvp, supple lungs rt wheezes heart irreg irreg, +RAVEN abd soft, nt, nd, +BS ext no edema neuro- a,a, o x 3 Urinary Catheter Management^: Carver: Cath Placed During This Visit: yes Reason for Continuing Indwelling Catheter: Accurate Measurement of Urinary Output in Critically Ill Patients Urinary Catheter Date of Insertion: 08/08/19 Urinary Catheter Time of Insertion: 13:00 Data Micro: Micro: Microbiology 08/09/19 11:45 MRSA Culture - Fin al Nose A&P Additional A&P Information 73 yr old female 1. underlying ckd - likely stage 3- b/l cr 1.3- 2.1- etiology is likely long standing dm and htn 2. ANA ROSA - i am concnearned for prerenal azotemia vs ATN vs renal vein thrombosis vs AIN -she is non-oliguric -repeat us, check renal us -d/c lasix- give ivf 3. PE - eval as per hospitalist 4. anemia - unclear etiology. check ldh, retic, haptoglobin - normal plts check spep/ sife 5. acidosis - has a resp alkalosis from pna/ pe has met acidosis from ana rosa on ckd 6. hypokalemia - d/c lasix, replete and monitor 7. paroxysmal a fib Consult Attestations Medical Necessity Statement: ana rosa, PE, pna, anemia Time Spent in Patient Care: Greater than 35 minutes Coding Level of Care Code Acute Contact Finger Assembler for [facility]
[2019-08-10 15:37] LABS: Complement C3 117 mg/dL (90-180)
[2019-08-10 15:39] LABS: Ferritin 442 ng/mL (15-150)
[2019-08-10 16:08] LABS: Hepatitis C Virus Antibody Non-Reactive (Nonreactive)
[2019-08-10 16:54] LABS: Glucose Point of Care 158 mg/dL (70-110)
[2019-08-10] MEDS: sodium chloride 0.9% 1,000 ML 75 ML IV (17:01)
[2019-08-10 17:27] LABS: Lactate Dehydrogenase 186 U/L (135-214)
[2019-08-10 17:30] LABS: Potassium, Radom Urine 39 mmol/L; Urine Creatinine 74 mg/dL (28-217); Urine Random Sodium 25 mmol/L
[2019-08-10 17:31] LABS: Urine Random Chloride 17 mmol/L
[2019-08-10 18:02] LABS: Erythrocyte Sedimentation Rate 96 mm/hr (0-15)
[2019-08-10 19:04] LABS: Urea Nitrogen,Urine Random 313 mg/dL
--- NOTE | 2019-08-10 19:47 | PC.NURSE ---
Patients heparin drip is running at 13mls per hour and on the heparin drip protocol this is correct. was not changed on the infuse/titrate sheet.
[2019-08-10 19:55] LABS: Partial Thromboplastin Time 53.5 SECONDS (23.9-36.7)
[2019-08-10] MEDS: lanolin oint 7 gm 1 APPLIC TOPICAL (20:15)
[2019-08-10] MEDS: ALPRAZolam 0.25 mg Tablet PO (20:16)
[2019-08-10 20:44] LABS: Glucose Point of Care 193 mg/dL (70-110)
[2019-08-10 20:47] LABS: LAB Peripheral Smear Sent for Review
--- NOTE | 2019-08-10 21:17 | PC.NURSE ---
Patient was boosted in bed with 2 assist and turned to her right side. Brief and bottom sheet clean and dry.
[2019-08-11] VITALS (8 sets, daily range): BP systolic 125–163; BP diastolic 77–93; PULSE 88–109; RESP 22–35; TEMP 36.3–36.8; O2SAT 92–100
[2019-08-11 02:06] LABS: Basophils % 0.2 %; Eosinophils # 0.1 10^3/uL (0.0-0.8); Eosinophils % 0.7 %; Hematocrit 25.7 % (37.0-47.0); Hemoglobin 8.3 g/dL (11.5-15.3); Lymphocytes # 1.1 10^3/uL (0.8-4.8); Lymphocytes % 8.3 %; Mean Corpuscular HGB Conc 32.3 g/dL (30.0-36.0); Mean Corpuscular Hemoglobin 28.1 pg (28.0-34.0); Mean Corpuscular Volume 87.1 fL (81-99); Mean Platelet Volume 10.4 fL (7.4-10.4); Monocytes # 0.9 10^3/uL (0.2-0.9); Monocytes % 6.5 %; Neutrophils # 11.4 10^3/uL (1.8-7.7); Neutrophils % 83.1 %; Nucleated Red Blood Cells % 0 %; Platelet Count 330 10^3/cmm (130-400); Red Blood Count 2.95 10^6/uL (4.1-5.3); Red Cell Distribution Width 17.1 % (12.1-15.1); White Blood Count 13.7 10^3/uL (4.0-10.0)
[2019-08-11 02:23] LABS: Alanine Aminotransferase 28 U/L (0-33); Albumin Level 2.4 g/dL (3.5-5.2); Alkaline Phosphatase 132 IU/L (35-105); Anion Gap 17.9 (5-19); Aspartate Amino Transferase 56 U/L (0-32); Blood Urea Nitrogen 45 mg/dL (8-23); Calcium 8.9 mg/dL (8.5-10.5); Carbon Dioxide 18 mmol/L (22-29); Chloride 98 mmol/L (98-107); Digoxin 1.3 ng/mL (0.6-1.2); Globulin 2.9 g/dL (1.3-4.6); Glucose 138 mg/dL (65-115); Magnesium 1.7 mg/dL (1.7-2.3); Osmolality Calculated 270 mOsm/kg (285-295); Phosphorus 2.6 mg/dL (2.5-4.5); Potassium 3.9 mmol/L (3.5-5.1); Sodium 130 mmol/L (136-145); Total Bilirubin 0.3 mg/dL (0.15-1.2); Total Protein 5.3 g/dL (6.6-8.7)
[2019-08-11 02:26] LABS: Partial Thromboplastin Time 82.8 SECONDS (23.9-36.7)
[2019-08-11 03:07] LABS: Calcium 8.5 mg/dL (8.5-10.5)
[2019-08-11 03:43] LABS: Iron 10 ug/dL (37-145); Percent Saturation 6.5 % (20-50); Total Iron Binding Capacity 152 mcg/dl; Unsaturated Iron Binding 142 ug/dL (112-347)
--- NOTE | 2019-08-11 06:12 | PC.NURSE ---
End of shift: Patient rested well this shift. Patient has been NPO for her tests this morning. Patient wore her Bipap from roughly 1030 til 0145. Patient rested on her Nasal cannula and saturations stayed above 95%. Patient had Tylenol for pain x1. Patient remains AxO x3 and has been repositioned throughout the shift.
--- NOTE | 2019-08-11 07:00 | PM.PN ---
Subjective Subjective: Interval history: pt still sob and anxious. no n/v/f/c/c/leung/d Medications: Reviewed: Yes Medication Review Details: Current Medications Acetaminophen (Tylenol) 650 mg PO Q4H PRN PRN Reason: MILD PAIN OR INCREASE TEMP Last Admin: 08/10/19 20:16 Dose: 650 mg Documented by: Alprazolam (Xanax) 0.25 mg PO QID PRN PRN Reason: ANXIETY Last Admin: 08/10/19 20:16 Dose: 0.25 mg Documented by: Dextrose (D50w) 25 ml IVP ONCE PRN; Protocol PRN Reason: hypoglycemia protocol Dextrose (D50w) 50 ml IVP PRN PRN; Protocol PRN Reason: hypoglycemia protocol Digoxin (Lanoxin) 125 mcg PO DAILY [facility] Last Admin: 08/10/19 09:11 Dose: 125 mcg Documented by: Glucagon (Glucagen) 1 mg IM ONCE PRN; Protocol PRN Reason: Adult Acute Hypoglycemia Prot. Heparin Sodium (Beef Lung) (Heparin) 0 unit IV PRN PRN; Protocol PRN Reason: Heparin weight-base protocol Last Admin: 08/10/19 20:17 Dose: 1,200 unit Documented by: Heparin Sodium/Sodium Chloride (Heparin Drip) 25,000 unit in 500 mls @ 0 mls/hr IV .Q0M ROGELIO; Protocol Last Titration: 08/11/19 02:59 Dose: 11.02 unit/kg/hr, 13 mls/hr Documented by: Dextrose (D5w) 500 mls @ 100 mls/hr IV ONCE PRN; Protocol PRN Reason: Adult Acute Hypoglycemia Prot Piperacillin Sod/Tazobactam (Sod 3.375 gm/ Sodium Chloride) 50 mls @ 12.5 mls/hr IV Q12H ROGELIO; Protocol Last Infusion: 08/11/19 02:46 Dose: Infused Documented by: Levofloxacin/Dextrose (Levaquin-D5w) 500 mg in 100 mls @ 100 mls/hr IV Q48H ROGELIO Sodium Chloride (Sodium Chloride 0.9%) 1,000 mls @ 75 mls/hr IV .[id number] ROGELIO Last Admin: 08/10/19 17:01 Dose: 75 mls/hr Documented by: Insulin Aspart (Novolog) 0 unit SUBCUT TIDWM ROGELIO; Protocol Last Admin: 08/10/19 17:02 Dose: 2 unit Documented by: Lanolin (Lanolin Oint) 1 applic TOPICAL PRN PRN PRN Reason: DRYNESS Last Admin: 08/10/19 20:15 Dose: 1 applic Documented by: Levalbuterol HCl (Xopenex) 0.63 mg INHALATION Q4H.RESPIRATORY PRN PRN Reason: SHORTNESS OF BREATH Last Admin: 08/09/19 20:24 Dose: 0.63 mg Documented by: Metoprolol Tartrate (Lopressor) 50 mg PO BID [facility] Last Admin: 08/10/19 17:01 Dose: 50 mg Documented by: Mirtazapine (Remeron) 15 mg PO DAILY [facility] Last Admin: 08/10/19 09:11 Dose: 15 mg Documented by: Pantoprazole Sodium (Protonix) 40 mg PO BID [facility] Last Admin: 08/10/19 16:59 Dose: 40 mg Documented by: Vitals/I&O/Wt Last Vital Signs Temp 98 F 08/11/19 04:00 Pulse 91 08/11/19 04:00 Resp 30 H 08/11/19 04:00 BP 146/77 08/11/19 04:00 Pulse Ox 98 08/11/19 04:00 08/10/19 08/11/19 08/11/19 22:59 06:59 14:59 Intake Total 1143.8 / 1976.767 142.167 / 2118.934 Output Total 100 / 450 300 / 750 Balance 1043.8 / 1526.767 -157.833 / 1368.934 Physical Exam Narrative: EXAM NARRATIVE: comfortable in bed on nc 02 heent- nc/at neck no jvp, supple lungs b/l basal crackles heart irreg irreg, +RAVEN abd soft, nt, nd, +BS ext no edema neuro- a,a, o x 3 Urinary Catheter Management^: Carver: Cath Placed During This Visit: yes Reason for Continuing Indwelling Catheter: Accurate Measurement of Urinary Output in Critically Ill Patients Urinary Catheter Date of Insertion: 08/08/19 Urinary Catheter Time of Insertion: 13:00 Data : 08/11/19 01:48 08/11/19 01:48 Micro: Microbiology 08/09/19 17:45 C.difficile Toxin B Gene (PCR) - Final Stool Occult Blood (FIT) - Final 08/10/19 19:35 Blood Culture - Preliminary Blood SPECIMEN COLLECTED 08/10/19 19:30 Blood Culture - Preliminary Blood SPECIMEN COLLECTED 08/09/19 15:31 Bacterial Antigens - Final Urine,Clean Catch 08/09/19 15:31 Legionella Urinary Antigen - Final Urine Catheterized 08/09/19 11:45 MRSA Culture - Final Nose A&P Additional A&P Information 73 yr old female 1. underlying ckd - likely stage 3- b/l cr 1.3- 2.1- etiology is likely long standing dm and htn -pth 93 2. ANA ROSA - d dx is prerenal azotemia vs ATN vs renal vein thrombosis vs AIN -she is non-oliguric -renal us pending - renal fxn stable- cont gentle ivf is okay w/ medicine 3. PE - eval as per hospitalist 4. anemia - unclear etiology. check ldh, retic, haptoglobin - normal plts check spep/ sife 5. acidosis - has a resp alkalosis from pna/ pe has met acidosis from ana rosa on ckd 6. hypokalemia -improved 7. hyponatremia -from PE, lasix. monitro w/ fluid restriction and ivf 8. paroxysmal a fib Attestations Medical Necessity Statement*: ana rosa, hyponatremia, PE Time Spent in Patient Care: 16 - 35 minutes Coding Level of Care Code Acute Banana Grader for [place]
[2019-08-11 07:44] LABS: Lactate Dehydrogenase 210 U/L (135-214)
--- NOTE | 2019-08-11 08:20 | PC.NURSE ---
Patient's Dig level is 1.3. Administration clarified with Dr. Torres. Physician ordered for today's dose to be held, and for the patient to start receiving every other day.
[2019-08-11] MEDS: mirtazapine 15 mg Tablet PO (08:36)
[2019-08-11] MEDS: pantoprazole DR 40 mg Tablet PO ×2 (08:36→17:15)
[2019-08-11] MEDS: metoprolol tartrate 50 mg Tablet PO ×2 (08:36→17:15)
[2019-08-11] MEDS: acetaminophen 325 mg Tablet 650 MG PO ×2 (08:37→21:21)
[2019-08-11] MEDS: lanolin oint 7 gm 1 APPLIC TOPICAL (08:41)
[2019-08-11 09:21] LABS: Partial Thromboplastin Time 66.8 SECONDS (23.9-36.7)
--- NOTE | 2019-08-11 09:59 | PC.SOCIAL ---
IMM Update Pg 2 of IMM updated. Initialed, dated, and timed, copy provided to patient.
[2019-08-11] MEDS: ferric gluconate 125 MG in sodium chloride 0.9% (100 ml) 100 ML 110 MG IV (10:00)
[2019-08-11] MEDS: piperacillin-tazobactam 3.375 GM in sodium chloride 0.9% (plus) 50 ML IV ×2 (11:03→23:01)
--- NOTE | 2019-08-11 11:17 | PC.NURSE ---
Upon rounding on patient at 1100, patient found to be clammy and diaphoretic. Patient alert and oriented. Blood sugar assessed. BG is 68. Patient drank 2 cartons of orange juice. Nurse to reassess.
[2019-08-11 11:19] LABS: Glucose Point of Care 68 mg/dL (70-110)
--- NOTE | 2019-08-11 11:35 | PC.NURSE ---
Blood sugar reassessed. BG currently 86. Patient now asymptomatic. Nurse to continue to monitor.
[2019-08-11 11:38] LABS: Glucose Point of Care 86 mg/dL (70-110)
--- NOTE | 2019-08-11 11:45 | PC.NURSE ---
Dr. Torres updated on patient condition. No new orders at this time.
[2019-08-11 11:55] LABS: Glucose Point of Care 102 mg/dL (70-110)
[2019-08-11 11:55] LABS: Glucose Point of Care 65 mg/dL (70-110)
[2019-08-11 13:07] LABS: Glucose Point of Care 123 mg/dL (70-110)
--- NOTE | 2019-08-11 13:07 | XR_ITS ---
WS: [id number] XR chest 1V portable [id number] REASON FOR EXAM: pna FINDINGS: Comparisons were made to August 09, 2019. The pneumonia in the lingula segment and left lower lung is improving but not completely cleared. There is normal heart size. There is arteriosclerotic changes in the arch of the aorta. The right lung was normal no pneumonia, pleural effusion, pulmonary edema, or mass effect. The hilum and apices normal. XR/XR chest 1V portable [id number] IMPRESSION: Resolving lingula pneumonia and left lower lung pneumonia
--- NOTE | 2019-08-11 13:48 | PC.NURSE ---
Dr. Torres instructed nurse to pause heparin gtt while patient is gone to MRI. No additional med coverage is needed during that time. Drip is to be restarted when patient is back to floor.
--- NOTE | 2019-08-11 14:24 | PC.NURSE ---
[facility] arrived to transport patient to MRI. Heparin gtt and IV fluids paused at this time.
--- NOTE | 2019-08-11 14:30 | US_ITS ---
NOTE: Report was unsigned for reason: Order was edited. Original Signature date and time was: 08/11/19 122 WS: [id number] Examination: Renal ultrasound Possible clots FINDINGS: The right kidney shows a solid lesion with increased flow measures 2.63 x 2.57 x 2.64 cm this has irregular margins and is suspicious of a questionable neoplasm. The right kidney also shows multiple small cystic structures The left kidney shows a cortex a 1.61 cm measured 9.64 x 5.57 x 4.07 cm a cyst measured 1.5 x 1.49 x 1.49 is seen along the midportion. An additional cyst measured 1.99 x 1.39 x 1.97 cm is noted Additional smaller cysts are seen in the left kidney. The aorta was normal. The right kidney measured 9.93 x 6.35 x 5.64 cm. The cortex measured 1.24 cm. MTDD US/US renal BI with bladder Impression: A solid mass is seen along the superior pole of the right kidney we recommend f ollow-up with either MRI or CT with contrast be made. The left kidney shows multiple cystic changes There is scattered cysts seen also in the right kidney.
--- NOTE | 2019-08-11 14:30 | MR_ITS ---
WS: [id number] MRI abdomen, noncontrast. HISTORY: Renal mass, RIGHT. Mass versus infection. Contrast is contraindicated. COMPARISON: CT 05/25/2015, renal ultrasound 08/11/2019. No significant effusions. Liver and spleen are normal size. Atrophic pancreas with no adjacent inflam mation. No pancreatic duct abnormality. No adrenal masses. Numerous bilateral renal cysts and mild perinephric stranding. No obstruction. There is no mass from the upper pole of the RIGHT kidney that is solid. There is a cyst in the upper pole measuring 12 mm. In the posterior upper pole of the LEFT kidney is a 2.0 cm mass which is not cystic. May be prior hem orrhage in this cyst that was previously described on a prior CT from 05/25/2015. MR/MR abdomen wo con [id number] IMPRESSION: 1. Study is limited without IV contrast. 2. No solid masses are identified. There are bilateral renal cysts and perineph jo ann stranding.
[2019-08-11] MEDS: sodium chloride 0.9% 1,000 ML 30 ML IV (16:00)
[2019-08-11] MEDS: levofloxacin-dextrose 5 % 500 MG/100 ML PREMIX 100 MG IV (16:01)
--- NOTE | 2019-08-11 16:09 | USCV_ITS ---
Shilpi Nicole Age: 73 Gender: F : 1945 Exam Date: 08/11/2019 06:36 Ordering Phys: Willi Torres MD Technologist: Cynthia Pandya [place]am Location[place] [facility] [place]: Aortic Velocity @ SMA (cm/s) 91.5 RIGHT KIDNEY LEFT KIDNEY Velocity (cm/s) Velocity (cm/s) Sys/Argueta Sys/Argueta Resistive Index Resistive Index 55.9 / 9.2 0.84 Proximal Renal Artery 58.1 / 13.8 0.76 48.4 / 9.8 0.80 Mid Renal Artery 37.7 / 13.8 0.63 42.1 / 9.8 0.77 Distal Renal Artery 30.5 / 8.0 0.74 41.5 / 13.2 0.68 Hilar 75.2 / 14.6 0.81 61.1 / 19.0 0.69 Upper Pole 15.8 / 6.5 0.59 40.0 / 16.0 0.60 Mid Pole 12.6 / 9.8 0.23 31.0 / 14.1 0.55 Lower Pole 27.5 / 9.2 0.67 0.60 Renal Aortic Ratio 0.63 Accleration Index (cm/sec2) 4867.0 Hilar 1836.0 0 0 822.00 Upper Pole 307.00 893.00 Mid Pole 139.00 639.00 Lower Pole 469.00 103.1 Kidney Length (mm) 90.5 FINDINGS Normal kidney dimensions bilaterally Normal Doppler flow velocities and ratios Normal indicis CONCLUSIONS 1. No evidence of any significant renal artery stenosis, based on the above findings 2. Normal kidney dimensions 3. Technically somewhat limited study No similar previous studies are available for comparison Dr Cal Torres MD [facility] (Electronically Signed) Final Date: 11 August 2019 17:55 S
--- NOTE | 2019-08-11 16:18 | PC.NURSE ---
Dr. Torres notified that patient back to floor from MRI at 1551. EMT reported to nurse that patient systolic BP was 180s-190s while at MRI and during transport. Nurse reported to physician, patient Systolic BP now 160-170s. IVF running at 75 ml/hr clarified with Dr. Torres, physician ordered for nurse to turn IVFs down to 30 ml/hr. No further interventions at this time. Nurse to continue to monitor.
--- NOTE | 2019-08-11 16:19 | P.CONIM_ITS ---
Providers/Reason For Consult Consulting Physican/Specialty*: Urology/[place] Reason for Consult*: Renal mass Attending Physician: Willi Torres Primary Care Provider: Vitaliy Morales MD History of Present Illness History of Present Illness Shilpi Nicole is a 73 year old female who I have seen in the clinic for many years for recurrent urinary tract infections consistent with CHRONIC CYSTITIS. Her last office visit was in January 2019. She has undergone multiple imaging modalities including ultrasound and CT scan in the past for renal masses and was discovered to have primarily cystic changes with no solid masses. This hospital stay was initiated with initially complaints of generalized weakness, dizziness, and inability to perform baseline functions and was brought to the hospital by ambulance. Was found to have leukocytosis, possible pneumonia but no other clear obvious source of infection. Was also noted to have acute kidney injury. She is being worked up for pulmonary embolism. Renal ultrasound showed no hydronephrosis but showed possibly a renal mass with solid character in the right upper pole. She has been known to have bilateral renal cysts on previous examinations and in the same area there was a cystic lesion back in 2014 or 2015. Today an MRI was performed that showed no obvious solid mass in that position but only cystic change more consistent with previous imaging. The MRI was without contrast. The size of the cystic lesion in this area appears about the same as it did 5 years ago. She denies any renal colicky symptoms. No gross hematuria. No stone passage. No progressive UTI type symptoms currently. I reviewed the MRI findings with her along with our previous imaging studies in comparison. Can consider reimaging with ultrasound if has progressive infectious symptoms with localization of flank pain on that right side etc. but at this point I think the risk is low regarding this finding given its stable status for years. Review of Systems Const: Reports: body aches, fatigue and malaise; Denies: fever(s) Eyes: Denies: change in vision or yellow eyes ENMT: Denies: throat pain or change in hearing Card: Denies: chest pain, palpitations or edema Resp: Denies: dyspnea or wheezing GI: Reports: abdominal pain; Denies: vomiting or diarrhea : Denies: flank pain, difficulty voiding, urinary frequency or hematuria Musc: Denies: joint swelling or deformity Skin/Breast: Denies: rash, erythema or changing lesions Neuro: Denies: confusion, Slurred speech present or seizure-like activity Psych: Denies: irritability or paranoia Endo: Denies: polydipsia or hot flashes José Miguel/Lymph: Denies: easy bruising or easy bleeding All/Imm: Denies: urticaria or acute wheezing Meds/Allergies Home Medications and Allergies Home Medications Medication Instructions Recorded Confirmed Last Taken Type doxycycline hyclate 100 mg capsule 100 mg PO BID #60 cap 05/03/19 08/08/19 Unknown Rx Lipitor 10 mg PO DAILY 08/08/19 08/08/19 Unknown History allopurinol 100 mg PO DAILY 08/08/19 08/08/19 1 Day Ago History ~08/07/19 alprazolam 0.25 mg PO BID 08/08/19 08/08/19 1 Day Ago History ~08/07/19 aspirin 81 mg PO DAILY 08/08/19 08/08/19 Unknown History benazepril 40 mg PO DAILY 08/08/19 08/08/19 1 Day Ago History ~08/07/19 carvedilol 25 mg PO BID 08/08/19 08/08/19 1 Day Ago History ~08/07/19 chlorthalidone 25 mg PO DAILY 08/08/19 08/08/19 1 Day Ago History ~08/07/19 clonidine HCl 0.1 mg PO DAILY 08/08/19 08/08/19 1 Day Ago History ~08/07/19 glimepiride 8 mg PO DAILY 08/08/19 08/08/19 1 Day Ago History ~08/07/19 hydralazine 50 mg PO BID 08/08/19 08/08/19 Unknown History metformin 1,000 mg PO DAILY 08/08/19 08/08/19 Unknown History metoclopramide HCl 10 mg PO QID PRN 08/08/19 08/08/19 Unknown History mirtazapine 15 mg PO DAILY 08/08/19 08/08/19 1 Day Ago History ~08/07/19 ondansetron 4 mg PO Q8H PRN 08/08/19 08/08/19 Unknown History Allergies Allergy/AdvReac Type Severity Reaction Status Date / Time No Known Allergies Allergy Verified 04/22/19 11:59 Current Medications Current Medications Generic Name Dose Route Start Last Admin Trade Name Freq PRN Reason Stop Dose Admin Acetaminophen 650 mg 08/08/19 01:00 08/11/19 08:37 Tylenol PO 650 mg Q4H PRN Administration MILD PAIN OR INCREASE TEMP Alprazolam 0.25 mg 08/08/19 17:50 08/10/19 20:16 Xanax PO 0.25 mg QID PRN Administration ANXIETY Heparin Sodium (Beef Lung) 0 unit 08/08/19 14:59 08/10/19 20:17 Heparin IV 1,200 unit PRN PRN Administration Heparin weight-base protocol Protocol Heparin Sodium/Sodium Chloride 25,000 unit in 500 mls @ 0 mls/hr 08/08/19 15:00 08/11/19 15:49 Heparin Drip IV 11.02 unit/kg/hr .Q0M ROGELIO 13 mls/hr Titration Protocol Per Protocol Piperacillin Sod/Tazobactam 50 mls @ 12.5 mls/hr 08/09/19 10:00 08/11/19 16:04 Sod 3.375 gm/ Sodium Chloride IV Infused Q12H ROGELIO Infusion Protocol Levofloxacin/Dextrose 500 mg in 100 mls @ 100 mls/hr 08/11/19 14:30 08/11/19 16:01 Levaquin-D5w IV 100 mls/hr Q48H ROGELIO Administration Ferric Sodium Gluconate 125 mg 110 mls @ 110 mls/hr 08/11/19 10:00 08/11/19 11:03 / Sodium Chloride IV 08/18/19 10:59 Infused Q24H ROGELIO Infusion Sodium Chloride 1,000 mls @ 30 mls/hr 08/11/19 16:00 08/11/19 16:00 Sodium Chloride 0.9% IV 30 mls/hr .Q24H ROGELIO Administration Insulin Aspart 0 unit 08/08/19 18:00 08/11/19 11:29 Novolog SUBCUT Not Given TIDWM ROGELIO Protocol Lanolin 1 applic 08/10/19 19:56 08/11/19 08:41 Lanolin Oint TOPICAL 1 tube PRN PRN Administration DRYNESS Levalbuterol HCl 0.63 mg 08/09/19 16:00 08/09/19 20:24 Xopenex INHALATION 0.63 mg Q4H.RESPIRATORY PRN Administration SHORTNESS OF BREATH Metoprolol Tartrate 50 mg 08/09/19 18:00 08/11/19 08:36 Lopressor PO 50 mg BID ROGELIO Administration Mirtazapine 15 mg 08/08/19 11:10 08/11/19 08:36 Remeron PO 15 mg DAILY ROGELIO Administration Pantoprazole Sodium 40 mg 08/08/19 09:00 08/11/19 08:36 Protonix PO 40 mg BID ROGELIO Administration PFSH Acute PFSH: Medical History Abnormal colonoscopy [address] White Arthralgia Contact dermatitis Diabetes Fibula fracture Gastroenteritis Heart failure with preserved ejection fraction Grade 1 diastolic dysfunction, EF 65% 08/23/2018 HTN (hypertension) Hx of cataract Hypercalcemia IBS (irritable bowel syndrome) Internal hemorrhoids Normal cardiac stress test Osteoporosis Ovarian cancer 1963 Ovarian cancer in remission Retinal detachment Sigmoid polyp Surgical History H/O detached retina repair 1991 H/O oophorectomy 1964 Hx of cholecystectomy Family History Other CAD (coronary artery disease) Hx of myocardial infarction Social History (Updated 08/08/19 @ 00:44 by Michi Villarreal MD) Smoking and tobacco status: never smoked Alcohol intake: never Substance/Drug Use: never Lives independently: Yes Housing: House Vitals/I&O/Wt Last Vital Signs Temp 98.1 F 08/11/19 08:42 Pulse 88 08/11/19 11:19 Resp 25 H 08/11/19 11:19 BP 138/90 08/11/19 11:19 Pulse Ox 92 08/11/19 11:19 08/11/19 08/11/19 08/11/19 06:59 14:59 22:59 Intake Total 142.167 / 2118.934 1540.292 / 1540.292 0 / 1540.292 Output Total 300 / 750 400 / 400 Balance -157.833 / 0897.422 5655.292 / 1140.292 0 / 1140.292 Physical Exam Const: COMMON NORMALS: no acute distress, alert and well nourished GENERAL APPEARANCE: well kempt and well developed ORIENTATION/CONSCIOUSNESS: not confused HENMT: COMMON NORMALS: normocephalic and atraumatic HEAD & SCALP: normocephalic and atraumatic Resp: EFFORT & INSPECTION: No labored, No Actively coughing and No audible wheezes (Does appear to be short of breath though.) Neuro: SENSORIUM/ORIENTATION: Yes alert Psych: COMMON NORMALS: mental status grossly normal APPEARANCE: Yes grossly normal and Yes well kempt ATTITUDE: Yes calm and Yes engaged Urinary Catheter Management^: Carver: Cath Placed During This Visit: yes Reason for Continuing Indwelling Catheter: Acute Urinary Retention or Obstruction Urinary Catheter Date of Insertion: 08/08/19 Urinary Catheter Time of Insertion: 13:00 Data Micro: Micro: Microbiology 08/09/19 17:45 C.difficile Toxin B Gene (PCR) - Fin al Stool Occult Blood (FIT) - Final 08/10/19 19:35 Blood Culture - Pr eliminary Blood SPECIMEN [facility] 08/10/19 19:30 Blood Culture - Pr eliminary Blood SPECIMEN [facility] 08/09/19 15:31 Bacterial Antigens - Final Urine,Clean Catch 08/09/19 15:31 Legionella Urinary Antigen - Final Urine Catheterize d 08/09/19 11:45 MRSA Culture - Fin al Nose A&P Assessment and plan (1) Bilateral renal cysts: Status: Acute (2) History of chronic cystitis: Status: Inactive Consult Attestations Medical Necessity Statement: See attending Coding Level of Care Code Acute [employer] Agent for [employer] Diagnoses Bilateral renal cysts N28.1 History of chronic cystitis Z87.448
[2019-08-11 16:41] LABS: Partial Thromboplastin Time 63.4 SECONDS (23.9-36.7)
[2019-08-11 16:53] LABS: Glucose Point of Care 148 mg/dL (70-110)
--- NOTE | 2019-08-11 17:40 | PC.NURSE ---
Dr. Torres notified patient has had three loose stools on this shift. Patient informed nurse that diarrhea is a chronic problem for her and that she takes Imodium at home to relieve symptoms. Physician to input order.
--- NOTE | 2019-08-11 17:43 | PM.PN ---
Subjective Subjective: Interval history: She is doing well after MRI study. Today overall feeling a little bit better. Breathing slightly easier. Some dry cough. Denies chest pain. Vitals/I&O/Wt Last Vital Signs Temp 97.3 F L 08/11/19 16:00 Pulse 89 08/11/19 16:00 Resp 28 H 08/11/19 16:00 BP 163/93 08/11/19 16:00 Pulse Ox 100 08/11/19 16:00 08/11/19 08/11/19 08/11/19 06:59 14:59 22:59 Intake Total 142.167 / 2118.934 1540.292 / 1540.292 100 / 1640.292 Output Total 300 / 750 400 / 400 Balance -157.833 / 2869.776 9540.292 / 1140.292 100 / 1240.292 Physical Exam Const: COMMON NORMALS: no acute distress and patient oriented x3 OTHER: Comfortable. Up in chair. HENMT: COMMON NORMALS: oropharynx normal Neck/C-Spine: GENERAL: Yes JVD Resp: COMMON NORMALS: normal respiratory effort and clear to auscultation bilaterally AUSCULTATION: clear to auscultation bilaterally Cardio: COMMON NORMALS: regular rhythm, S1 normal heart sound present, S2 normal heart sound present and No murmurs present (Cardio) RHYTHM: regular rhythm HEART SOUNDS: S1 normal heart sound present and S2 normal heart sound present GI: COMMON NORMALS: Normal to inspection, nondistended, normoactive bowel sounds present, Soft to palpation and non-tender PALPATION: Yes Soft to palpation Extremity: COMMON NORMALS: no joint enlargement and no pedal edema Neuro: COMMON NORMALS: patient oriented x3 and moves all extremities Skin: COMMON NORMALS: no rashes or lesions noted GENERAL SKIN EXAM: no rashes or lesions noted Urinary Catheter Management^: Carver: Cath Placed During This Visit: yes Reason for Continuing Indwelling Catheter: Acute Urinary Retention or Obstruction Urinary Catheter Date of Insertion: 08/08/19 Urinary Catheter Time of Insertion: 13:00 Data : 08/11/19 01:48 08/11/19 01:48 Micro: Microbiology 08/11/19 16:03 Blood Culture - Preliminary Blood SPECIMEN COLLECTED 08/11/19 16:10 Blood Culture - Preliminary Blood SPECIMEN COLLECTED 08/09/19 17:45 C.difficile Toxin B Gene (PCR) - Final Stool Occult Blood (FIT) - Final 08/10/19 19:35 Blood Culture - Preliminary Blood SPECIMEN COLLECTED 08/10/19 19:30 Blood Culture - Preliminary Blood SPECIMEN COLLECTED 08/09/19 15:31 Bacterial Antigens - Final Urine,Clean Catch 08/09/19 15:31 Legionella Urinary Antigen - Final Urine Catheterized 08/09/19 11:45 MRSA Culture - Final Nose A&P Assessment and plan (1) Pulmonary embolism: HR improving today. Subjectively doing better. Blood count slightly down. Of note Hemoccult positive. Reported colonoscopy several years ago. Not aware of upper endoscopy. For now maintain PPI BID, heparin drip. Will request H pylori serologies, stool bacterial panel. High probability of PE on VQ scan. Hypoxia, A. fib. Elevated pulmonary artery pressure on TTE. Questionable irregular renal mass on R kidney on renal US, but no mass visible on MR (wo contrast due to renal insufficiency). Appreciate urology assessment. With finding of renal cysts, cystic lesion similar in appearance to 5 years ago. Consideration was given to reimaging with US. Blood pressure has been stable. Continues on heparin drip for anticoagulation due to history of anemia, although so far hemoglobin appears stable. She does get quite dyspneic, as well as with some anxiety, and appears has been needing some BiPAP support intermittently. This morning doing alright on NC. Should be safe to transfer to [facility]. If hemoglobin remains stable may transition to PO anticoagulation. Wanted to give her a bit longer time given significant anemia on presentaiton. Status: Acute (2) Community acquired pneumonia: With hypoxic respiratory failure. Appears multifactorial, definitely PE, and perhaps PE may be contributing entirely to her symptoms. She reports cough, nonproductive. Denies hemoptysis. Does not have chest pain. Has been having, however, persistent neutrophilic leukocytosis. Continue antibiotic treatment for now due to concern for pneumonia in addition to PE. MRSA PCR is negative. Obtain sputum culture if possible. Urine bacterial antigens. Also with persistent acute kidney injury, very high CRP, proteinuria, will assess DIANA, ANCA, complement level. Renal ultrasound. Appreciate additional nephrology assessment regarding whether there is some possibility of adding in condition. With dyspnea, hypoxia, A. fib, will also assess for possible PE with VQ scan. Lower extremity Dopplers. Intermittent cough, although otherwise lungs do not sound bad. Likely COPD and mild fibrosis noted on x-ray. Pending TTE COVID-19 negative. Degree of mild pulmonary fibrosis on XR? Emphysema? She denies Hx COPD. Status: Acute (3) Atrial fibrillation with RVR: Tachycardia appears improved slightly with treatment, also switching to Xopenex. Continue treatment underlying conditions as above. Continue metoprolol, digoxin. With renal failure, reassess dig level tomorrow. Continue anticoagulation. Status: Acute (4) Generalized weakness: At this time treat pneumonia, PE, A. fib with RVR. Monitor anemia. Overall she is starting to feel better. PT assessment. Does have mild rhabdomyolysis. Etiology of CK elevation is actually not clear. LDH is very mildly high. CK MB is normal. Somewhat mixed picture, troponin I send out mildly elevated at 0.11 (normal below 0.05). Definitely some troponin leakage secondary to A. fib, demand ischemia with hypoxia, PE, arrhythmia. Difficult to say why total CK is elevated, not CK-MB. Does have rather high CRP. Difficult to exclude some inflammatory myopathy although CK elevation is not very impressive. With reported perhaps mild pulmonary fibrosis on XR? ILD can be associated w PM. Requested autoantibodies. Consider follow up possibly biopsy, EMG. Strangely has been having muscle aches, although these are not feature of PM/DM. At the same time CK is usually normal w something like PMR. TSH is normal. Status: Acute (5) Leukocytosis: With mild improvement Status: Acute (6) ANA ROSA (acute kidney injury): Persistent ANA ROSA on CKD. Renal ultrasound wo obstruction. Appreciate nephrology reccomendations. Gentle IVF. Hypertensive, so will decrease rate. With noted proteinuria. When asked about it she states that she has had on and off problems with her kidneys. She denies taking NSAIDs at home. Status: Acute (7) Diarrhea: Chronic diarrhea. Pending C. difficile. On metformin. Status: Acute (8) Acute blood loss anemia: Occult blood positive. Blood count slightly down. Reported colonoscopy several years ago. Not aware of upper endoscopy. For now maintain PPI BID, heparin drip. Will request H pylori serologies, stool bacterial panel due to recurrent/chronic diarrhea. C diff was negative. Iron deficiency anemia. Onset of acute episode started replacement. TIBC is on the low side, may have component of anemia chronic disease. Elevated CRP. Started on Protonix twice daily. Continue at this time. Denies NSAID use at home. Ferritin is not elevated. LDH is normal to very mildly elevated. B12 is not low. Folic acid is not low. Rectal exam was negative for occult blood She has history of internal hemorrhoids, history of sigmoid polyp She has not noticed any dark-colored stool or active bleeding Status: Acute (9) Dehydration: Resolved. Status: Acute (10) Bilateral renal cysts: Questionable irregular renal mass on R kidney on renal US, but no mass visible on MR (wo contrast due to renal insufficiency). Appreciate urology assessment. With finding of renal cysts, cystic lesion similar in appearance to 5 years ago. Consideration was given to reimaging with US. Status: Acute Attestations Medical Necessity Statement*: Continue admission for assessment of management of PE, requiring anticoagulation, in the setting of multifactorial anemia, possibly with component of slow slow GI bleed, acute kidney injury on chronic kidney disease, pneumonia. Coding Level of Care Code Acute [facility] Rep[employer] Diagnoses Pulmonary embolism I26.99 Community acquired pneumonia J18.9 Atrial fibrillation with RVR I48.91 Generalized weakness R53.1 Leukocytosis D72.829 ANA ROSA (acute kidney injury) N17.9 Diarrhea R19.7 Acute blood loss anemia D62 Dehydration E86.0 Bilateral renal cysts N28.1
[2019-08-11] MEDS: levalbuterol 0.63 mg/3 mL Neb INHALATION (17:52)
[2019-08-11] MEDS: loperamide 2 mg Capsule PO (19:15)
--- NOTE | 2019-08-11 19:57 | PC.NURSE ---
Assessed patient and she is resting in bed. Patient is alert and oriented. Heparin drip is at 13mls/hr. Patient denies pain at this time.
[2019-08-11 20:01] LABS: H. Pylori IgG Antibody Negative (Negative)
[2019-08-11 20:35] LABS: Glucose Point of Care 206 mg/dL (70-110)
[2019-08-11] MEDS: ALPRAZolam 0.25 mg Tablet PO (21:21)
[2019-08-11] MEDS: heparin 5,000 unit/mL INJ 1 mL IV (23:01)
[2019-08-12] VITALS (18 sets, daily range): BP systolic 144–182; BP diastolic 47–111; PULSE 89–110; RESP 17–28; TEMP 36.6–36.8; O2SAT 94–100
[2019-08-12] MEDS: heparin drip 25,000 UNIT/500 ML PREMIX 14 UNIT IV (01:51)
[2019-08-12] MEDS: levalbuterol 0.63 mg/3 mL Neb INHALATION ×3 (02:10→15:41)
[2019-08-12 05:30] LABS: Basophils # 0.1 10^3/uL (0.0-0.1); Basophils % 0.4 %; Eosinophils # 0.3 10^3/uL (0.0-0.8); Eosinophils % 2.4 %; Hematocrit 25.7 % (37.0-47.0); Hemoglobin 8.1 g/dL (11.5-15.3); Lymphocytes # 1.3 10^3/uL (0.8-4.8); Lymphocytes % 10.3 %; Mean Corpuscular HGB Conc 31.5 g/dL (30.0-36.0); Mean Corpuscular Hemoglobin 27.8 pg (28.0-34.0); Mean Corpuscular Volume 88.3 fL (81-99); Mean Platelet Volume 10.5 fL (7.4-10.4); Monocytes # 0.9 10^3/uL (0.2-0.9); Monocytes % 7.1 %; Neutrophils # 9.8 10^3/uL (1.8-7.7); Neutrophils % 77.6 %; Nucleated Red Blood Cells % 0.2 %; Platelet Count 356 10^3/cmm (130-400); Red Blood Count 2.91 10^6/uL (4.1-5.3); Red Cell Distribution Width 17.3 % (12.1-15.1); White Blood Count 12.6 10^3/uL (4.0-10.0)
[2019-08-12 05:58] LABS: Partial Thromboplastin Time 96.6 SECONDS (23.9-36.7)
[2019-08-12 06:00] LABS: Alanine Aminotransferase 29 U/L (0-33); Albumin Level 2.3 g/dL (3.5-5.2); Alkaline Phosphatase 130 IU/L (35-105); Anion Gap 18.6 (5-19); Aspartate Amino Transferase 47 U/L (0-32); Blood Urea Nitrogen 42 mg/dL (8-23); Carbon Dioxide 17 mmol/L (22-29); Chloride 107 mmol/L (98-107); Digoxin 0.9 ng/mL (0.6-1.2); Globulin 2.7 g/dL (1.3-4.6); Glucose 167 mg/dL (65-115); Magnesium 1.7 mg/dL (1.7-2.3); Osmolality Calculated 290 mOsm/kg (285-295); Phosphorus 2.9 mg/dL (2.5-4.5); Potassium 3.6 mmol/L (3.5-5.1); Sodium 139 mmol/L (136-145); Total Bilirubin 0.2 mg/dL (0.15-1.2)
[2019-08-12 06:28] LABS: Glucose Point of Care 158 mg/dL (70-110)
--- NOTE | 2019-08-12 06:35 | PC.NURSE ---
End of shift: Patient had a uneventful shift. Patient rested on her bipap for a few hours. Patient tolerated well. Patient heparin drip is currently at 10mls/hr.
[2019-08-12] MEDS: digoxin 125 mcg Tablet PO (08:36)
[2019-08-12] MEDS: metoprolol tartrate 50 mg Tablet PO ×2 (08:37→17:02)
[2019-08-12] MEDS: pantoprazole DR 40 mg Tablet PO ×2 (08:37→17:02)
[2019-08-12] MEDS: mirtazapine 15 mg Tablet PO (08:37)
[2019-08-12] MEDS: acetaminophen 325 mg Tablet 650 MG PO ×2 (08:48→19:28)
[2019-08-12 09:46] LABS: PROTEIN, TOTAL 4.6 g/dL (6.1-8.1)
[2019-08-12] MEDS: ferric gluconate 125 MG in sodium chloride 0.9% (100 ml) 100 ML 110 MG IV (10:22)
[2019-08-12 11:46] LABS: Glucose Point of Care 257 mg/dL (70-110)
[2019-08-12 12:27] LABS: Partial Thromboplastin Time 118.4 SECONDS (23.9-36.7)
[2019-08-12] MEDS: piperacillin-tazobactam 3.375 GM in sodium chloride 0.9% (plus) 50 ML IV ×2 (12:32→22:13)
--- NOTE | 2019-08-12 13:11 | P.PN_ITS ---
Subjective Subjective: Interval history: She is breathing a little more comfortably today with slight cough. Eating and drinking ok. HR is irregular. Hemodynamics otherwise appear stable. Passing urine normally. Denies uremic Sx Medications: Reviewed: Yes Medication Review Details: Current Medications Acetaminophen (Tylenol) 650 mg PO Q4H PRN PRN Reason: MILD PAIN OR INCREASE TEMP Last Admin: 08/10/19 20:16 Dose: 650 mg Documented by: Alprazolam (Xanax) 0.25 mg PO QID PRN PRN Reason: ANXIETY Last Admin: 08/10/19 20:16 Dose: 0.25 mg Documented by: Dextrose (D50w) 25 ml IVP ONCE PRN; Protocol PRN Reason: hypoglycemia protocol Dextrose (D50w) 50 ml IVP PRN PRN; Protocol PRN Reason: hypoglycemia protocol Digoxin (Lanoxin) 125 mcg PO DAILY ROGELIO Last Admin: 08/10/19 09:11 Dose: 125 mcg Documented by: Glucagon (Glucagen) 1 mg IM ONCE PRN; Protocol PRN Reason: Adult Acute Hypoglycemia Prot. Heparin Sodium (Beef Lung) (Heparin) 0 unit IV PRN PRN; Protocol PRN Reason: Heparin weight-base protocol Last Admin: 08/10/19 20:17 Dose: 1,200 unit Documented by: Heparin Sodium/Sodium Chloride (Heparin Drip) 25,000 unit in 500 mls @ 0 mls/hr IV .Q0M ROGELIO; Protocol Last Titration: 08/11/19 02:59 Dose: 11.02 unit/kg/hr, 13 mls/hr Documented by: Dextrose (D5w) 500 mls @ 100 mls/hr IV ONCE PRN; Protocol PRN Reason: Adult Acute Hypoglycemia Prot Piperacillin Sod/Tazobactam (Sod 3.375 gm/ Sodium Chloride) 50 mls @ 12.5 mls/hr IV Q12H ROGELIO; Protocol Last Infusion: 08/11/19 02:46 Dose: Infused Documented by: Levofloxacin/Dextrose (Levaquin-D5w) 500 mg in 100 mls @ 100 mls/hr IV Q48H ROGELIO Sodium Chloride (Sodium Chloride 0.9%) 1,000 mls @ 75 mls/hr IV .[id number] [facility] Last Admin: 08/10/19 17:01 Dose: 75 mls/hr Documented by: Insulin Aspart (Novolog) 0 unit SUBCUT TIDWM [facility]; Protocol Last Admin: 08/10/19 17:02 Dose: 2 unit Documented by: Lanolin (Lanolin Oint) 1 applic TOPICAL PRN PRN PRN Reason: DRYNESS Last Admin: 08/10/19 20:15 Dose: 1 applic Documented by: Levalbuterol HCl (Xopenex) 0.63 mg INHALATION Q4H.RESPIRATORY PRN PRN Reason: SHORTNESS OF BREATH Last Admin: 08/09/19 20:24 Dose: 0.63 mg Documented by: Metoprolol Tartrate (Lopressor) 50 mg PO BID [facility] Last Admin: 08/10/19 17:01 Dose: 50 mg Documented by: Mirtazapine (Remeron) 15 mg PO DAILY [facility] Last Admin: 08/10/19 09:11 Dose: 15 mg Documented by: Pantoprazole Sodium (Protonix) 40 mg PO BID [facility] Last Admin: 08/10/19 16:59 Dose: 40 mg Documented by: Vitals/I&O/Wt Last Vital Signs Temp 98 F 08/12/19 04:00 Pulse 99 08/12/19 10:04 Resp 17 08/12/19 09:58 BP 168/47 08/12/19 08:00 Pulse Ox 98 08/12/19 09:58 08/11/19 08/12/19 08/12/19 22:59 06:59 14:59 Intake Total 460 / 2000.292 331.883 / 2332.175 609 / 609 Output Total 650 / 1050 Balance 460 / 1600.292 -318.117 / 1282.175 609 / 609 Physical Exam Narrative: EXAM NARRATIVE: Exam performed via telemed with the aid of the bedside RN Const: COMMON NORMALS: no acute distress, patient oriented x3, alert and well nourished GENERAL APPEARANCE: well kempt and well developed ORIENTATION/CONSCIOUSNESS: Yes oriented to person, Yes oriented to place and Yes oriented to time; not confused OTHER: Comfortable. Up in chair. HENMT: COMMON NORMALS: normocephalic, atraumatic, external ears normal, Normal external nose present and oropharynx normal HEAD & SCALP: normocephalic and atraumatic FACE & SINUS: normal facial exam NOSE: Normal external nose present and No nasal discharge present EXTERNAL EAR: Yes external ears normal MOUTH: tongue normal Eye: COMMON NORMALS: Equal, round and reactive pupils present, EOMs intact bilaterally and conjunctivae normal EYELID: eyelids normal CONJUNCTIVA: Yes conjunctivae normal PUPIL: Yes Equal, round and reactive pupils present Neck/C-Spine: GENERAL: No tracheal deviation and Yes JVD Chest: COMMONS NORMALS: normal inspection of the chest CHEST: No tenderness Resp: COMMON NORMALS: normal respiratory effort and clear to auscultation bilaterally EFFORT & INSPECTION: No tachypneic, No respiratory distress, No labored, No Actively coughing, No retractions, No uses accessory muscles, No audible wheezes (Does appear to be short of breath though.) and No tracheal deviation AUSCULTATION: clear to auscultation bilaterally, no rhonchi, no wheezes and lung sounds not diminished Cardio: COMMON NORMALS: regular rate, regular rhythm, S1 normal heart sound present, S2 normal heart sound present and No murmurs present (Cardio) RATE: regular rate RHYTHM: regular rhythm HEART SOUNDS: S1 normal heart sound present, S2 normal heart sound present and no murmurs PERIPHERAL PULSES: radial pulses present GI: COMMON NORMALS: Normal to inspection, nondistended, normoactive bowel sounds present, Soft to palpation and non-tender INSPECTION: No abdominal distension AUSCULTATION: No Hyperactive bowel sounds present and No Hypoactive bowel sounds present PALPATION: Yes Soft to palpation, No Guarding due to palpation present (GI) and No Rigid due to palpation PERCUSSION: no dullness to percussion and no tympanic to percussion Extremity: COMMON NORMALS: no joint enlargement and no pedal edema Neuro: COMMON NORMALS: patient oriented x3 and moves all extremities SENSORIUM/ORIENTATION: Yes alert, Yes oriented to person, Yes oriented to place and Yes oriented to time CRANIAL NERVES: Yes CN normal except as noted COORDINATION/BALANCE: [id number] test normal and Normal rapid alternating movements of the distal upper extremity present (Neuro) SPEECH: speech normal GAIT: Yes Unable to assess gait SENSORY EXAM: Yes extremities (Intact) MOTOR EXAM: Pronator motor function not present COORDINATION: [id number] test normal and rapid alternating movement UE normal Psych: COMMON NORMALS: mental status grossly normal APPEARANCE: Yes grossly normal and Yes well kempt ATTITUDE: Yes calm and Yes engaged Skin: COMMON NORMALS: no rashes or lesions noted GENERAL SKIN EXAM: no rashes or lesions noted Urinary Catheter Management^: Carver: Cath Placed During This Visit: yes Reason for Continuing Indwelling Catheter: Acute Urinary Retention or Obstruction Urinary Catheter Date of Insertion: 08/08/19 Urinary Catheter Time of Insertion: 13:00 Data : 08/12/19 05:00 08/12/19 05:00 Micro: Microbiology 08/11/19 19:15 Enteric Pathogens (PCR) - Final Stool 08/10/19 19:35 Blood Culture - Preliminary Blood NEGATIVE TO DATE 08/10/19 19:30 Blood Culture - Preliminary Blood NEGATIVE TO DATE 08/11/19 16:03 Blood Culture - Preliminary Blood SPECIMEN COLLECTED 08/11/19 16:10 Blood Culture - Preliminary Blood SPECIMEN COLLECTED A&P Additional A&P Information 1. ANA ROSA - creatinine came down after volume yesterday suggesting that this is in part hemodynamically mediated - auto-immune w/u sent - given fragile volume status will defer both ivf and diuretics today - avoid the usuals 2. PE on heparin gtt for time being 3. Pneumonia on Zosyn 4. Lytes - minor aberration with acidosis - no need for alkalinization; will monitor closely Attestations Medical Necessity Statement*: eval for ANA ROSA Coding Level of Care Code Acute Lunchroom Monitor for [place]
--- NOTE | 2019-08-12 13:49 | P.PN_ITS ---
Subjective Subjective: Interval history: Feels she is slowly improving. He has tried working with physical therapy. Vitals/I&O/Wt Last Vital Signs Temp 98 F 08/12/19 04:00 Pulse 94 08/12/19 12:00 Resp 26 H 08/12/19 12:00 BP 182/91 08/12/19 12:00 Pulse Ox 97 08/12/19 12:00 08/11/19 08/12/19 08/12/19 22:59 06:59 14:59 Intake Total 460 / 2000.292 331.883 / 2332.175 609 / 609 Output Total 650 / 1050 Balance 460 / 1600.292 -318.117 / 1282.175 609 / 609 Physical Exam Const: COMMON NORMALS: no acute distress and patient oriented x3 OTHER: Comfortable. Calm. HENMT: COMMON NORMALS: oropharynx normal Neck/C-Spine: GENERAL: Yes JVD Resp: COMMON NORMALS: normal respiratory effort and clear to auscultation brenda aterally AUSCULTATION: clear to auscultation bilaterally Cardio: COMMON NORMALS: regular rhythm, S1 normal heart sound present, S2 normal heart sound present and No murmurs present (Cardio) RHYTHM: regular rhythm HEART SOUNDS: S1 normal heart sound present and S2 normal heart sound present GI: COMMON NORMALS: Normal to inspection, nondistended, normoactive bowel sounds present, Soft to palpation and non-tender PALPATION: Yes Soft to palpation Extremity: COMMON NORMALS: no joint enlargement and no pedal edema Neuro: COMMON NORMALS: patient oriented x3 and moves all extremities Skin: COMMON NORMALS: no rashes or lesions noted GENERAL SKIN EXAM: no rashes or lesions noted Urinary Catheter Management^: Carver: Cath Placed During This Visit: yes Reason for Continuing Indwelling Catheter: Acute Urinary Retention or Obstruction Urinary Catheter Date of Insertion: 08/08/19 Urinary Catheter Time of Insertion: 13:00 Data : 08/12/19 05:00 08/12/19 05:00 Micro: Microbiology 08/11/19 19:15 Enteric Pathogens (PCR) - Final Stool 08/10/19 19:35 Blood Culture - Preliminary Blood NEGATIVE TO DATE 08/10/19 19:30 Blood Culture - Preliminary Blood NEGATIVE TO DATE 08/11/19 16:03 Blood Culture - Preliminary Blood SPECIMEN COLLECTED 06/04/20 16:10 Blood Culture - Preliminary Blood SPECIMEN COLLECTED A&P Assessment and plan (1) Pulmonary embolism: Overall improving. Oxygen requirement is coming down. However, at the same time Hemoccult positive stool, and blood count has been slowly trending down, today down to 8.1. 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 With recommendation to watch hemoglobin a bit longer, and if continues to decline, may transfuse if needed, and consider endoscopic evaluation during this hos pitalization to see if source of bleeding can be identified. Discussed with her, in eventuality if more severe bleeding develops, with inability to identify/control source, may need to consider IVC filter, although she would like to avoid unless necessary. With regards to anticoagulation if it were possible she actually prefers DOAC anticoagulation as her used to be on warfarin in the past, and has had a very bad experience. She understands that reversal agents are not readily accessible for this agent. For now maintain PPI BID, heparin drip. H. pylori serum antibody is negative. Stool antigen pending. Stool bacterial panel. High probability of PE on VQ scan. Hypoxia, A. fib. Elevated pulmonary artery pressure on TTE. Questionable irregular renal mass on R kidney on renal US, but no mass visible on MR (wo contrast due to renal insufficiency). Appreciate urology assessment. With finding of renal cysts, cystic lesion similar in appearance to 5 years ago. Consideration was given to reimaging with US. Blood pressure has been stable. Status: Acute (2) Community acquired pneumonia: Gradually improving. Persistent leukocytosis. Cont Zosyn for now. With hypoxic respiratory failure. Appears multifactorial, definitely PE, and perhaps PE may be contributing entirely to her symptoms. She reports cough, nonproductive. Denies hemoptysis. Does not have chest pain. MRSA PCR is negative. Obtain sputum culture if possible. Urine bacterial antigens negative. Also with persistent acute kidney injury, very high CRP, proteinuria, will assess DIANA, ANCA. Complement level OK. Renal ultrasound with cysts, no obstruction, no RA stenosis. Appreciate additional nephrology assessment. Likely COPD and mild fibrosis noted on x-ray. COVID-19 negative. Degree of mild pulmonary fibrosis on XR? Emphysema? She denies Hx COPD. Will need PFT after DC. Status: Acute (3) Atrial fibrillation with RVR: Improving. Heart rates are better. Digoxin only every other day due to renal failure. Monitor levels. Metoprolol. Continue treatment underlying conditions as above. Continue anticoagulation. Status: Acute (4) Generalized weakness: Gradually improving. PT. Remove Carver. At this time treat pneumonia, PE, A. fib with RVR. Monitor anemia. Does have mild rhabdomyolysis. Etiology of CK elevation is actually not clear. LDH is very mildly high. CK MB is normal. Somewhat mixed picture, troponin I send out mildly elevated at 0.11 (normal below 0.05). Definitely some troponin leakage secondary to A. fib, demand ischemia with hypoxia, PE, arrhythmia. Difficult to say why total CK is elevated, not CK-MB. Does have rather high CRP. Difficult to exclude some inflammatory myopathy although CK elevation is not very impressive. With reported perhaps mild pulmonary fibrosis on XR? ILD can be associated w PM. Requested autoantibodies. Consider follow up possibly biopsy, EMG. Strangely has been having muscle aches, although these are not feature of PM/DM. At the same time CK is usually normal w something like PMR. TSH is normal. Status: Acute (5) Leukocytosis: With mild improvement Status: Acute (6) ANA ROSA (acute kidney injury): Persistent ANA ROSA on CKD. Renal ultrasound wo obstruction. Appreciate nephrology reccomendations. Gentle IVF. Hypertensive, so will decrease rate. With noted proteinuria. When asked about it she states that she has had on and off problems with her kidneys. She denies taking NSAIDs at home. Status: Acute (7) Diarrhea: Chronic diarrhea. Pending C. difficile. On metformin. Status: Acute (8) Acute blood loss anemia: Occult blood positive. Blood count slightly down. Reported colonoscopy several years ago. Not aware of upper endoscopy. For now maintain PPI BID, heparin drip. Will request H pylori serologies, stool bacterial panel due to recurrent/chronic diarrhea. C diff was negative. Iron deficiency anemia. Onset of acute episode started replacement. TIBC is on the low side, may have component of anemia chronic disease. Elevated CRP. Started on Protonix twice daily. Continue at this time. Denies NSAID use at home. Ferritin is not elevated. LDH is normal to very mildly elevated. B12 is not low. Folic acid is not low. Rectal exam was negative for occult blood She has history of internal hemorrhoids, history of sigmoid polyp She has not noticed any dark-colored stool or active bleeding Status: Acute (9) Dehydration: Resolved. Status: Acute (10) Bilateral renal cysts: Questionable irregular renal mass on R kidney on renal US, but no mass v isible on MR (wo contrast due to renal insufficiency). Appreciate urology assessment. With finding of renal cysts, cystic lesion similar in appearance to 5 years ago. Consideration was given to reimaging with US. Status: Acute (11) HTN (hypertension): Poorly controlled blood pressure today, added hydralazine. Monitor blood pressures. Fluids held for now. Continue metoprolol. May need additional antihypertensives if not improving. Continue cardiac diet. Status: Acute Additional A&P Information Attestations Medical Necessity Statement*: Continue admission for assessment of management of anemia, in the setting of need of anticoagulation with PE, treatment of pneumonia, assessment and management of ANA ROSA, generalized weakness. Coding Level of Care Code Acute Health Benefits Specialist for Chg Fwd Diagnoses Pulmonary embolism I26.99 Community acquired pneumonia J18.9 Atrial fibrillation with RVR I48.91 Generalized weakness R53.1 Leukocytosis D72.829 ANA ROSA (acute kidney injury) N17.9 Diarrhea R19.7 Acute blood loss anemia D62 Dehydration E86.0 Bilateral renal cysts N28.1 HTN (hypertension) I10
[2019-08-12 14:01] LABS: Anti-Double Strand DNA AB <1 IU/mL; JO-1 Antibody <1.0 NEG AI (<1.0 NEG); SS A Ro Sjogrens Antibody <1.0 NEG AI (<1.0 NEG); SS-B/LA IGG <1.0 NEG AI (<1.0 NEG); Sm/RNP Antibody <1.0 NEG AI (<1.0 NEG)
[2019-08-12 14:25] LABS: Anti-Nuclear Antibody Screen NEGATIVE (NEGATIVE)
[2019-08-12 15:25] LABS: ALPHA 1 GLOBULIN 0.6 g/dL (0.2-0.3); BETA 1 GLOBULIN 0.4 g/dL (0.4-0.6); BETA 2 GLOBULIN 0.4 g/dL (0.2-0.5); GAMMA GLOBULIN 0.3 g/dL (0.8-1.7)
[2019-08-12] MEDS: hyDRALAzine 20 mg/mL INJ 1 mL 5 MG IVP (16:00)
[2019-08-12 16:25] LABS: Glucose Point of Care 190 mg/dL (70-110)
[2019-08-12 16:51] LABS: Creatinine, Random Urine 72 mg/dL (20-275); Protein, Total, Random 151 mg/dL (5-24); Protein/Creatinine Ratio 2.097 (0.021-0.161); Protein/Creatinine Ratio 2097 mg/g creat (21-161)
[2019-08-12] MEDS: loperamide 2 mg Capsule PO (17:02)
--- NOTE | 2019-08-12 19:14 | PC.NURSE ---
Room Air Per RT, pt is off nasal cannula and in room air. Pt O2 sat remains around 94-96%. Will monitor.
[2019-08-12] MEDS: ALPRAZolam 0.25 mg Tablet PO (19:28)
[2019-08-12 19:39] LABS: Partial Thromboplastin Time 60.2 SECONDS (23.9-36.7)
--- NOTE | 2019-08-12 19:39 | PC.NURSE ---
Assumed care of patient. Received bedside report from LEYDA Saul. Patient c/o increased SOB. Current SpO2 at 95% on RA. Notified RT. Assessment as documented. Administered Xanax and Tylenol as ordered. Bipap placed by RT. Patient reports feeling some better. Will continue to monitor.
[2019-08-12 20:16] LABS: Glucose Point of Care 135 mg/dL (70-110)
[2019-08-13] VITALS (13 sets, daily range): BP systolic 147–201; BP diastolic 69–96; PULSE 85–94; RESP 16–41; TEMP 36.4–36.6; O2SAT 93–100
[2019-08-13] MEDS: acetaminophen 325 mg Tablet 650 MG PO ×4 (01:51→20:21)
[2019-08-13 02:19] LABS: Basophils # 0.1 10^3/uL (0.0-0.1); Basophils % 0.5 %; Eosinophils # 0.5 10^3/uL (0.0-0.8); Eosinophils % 3.8 %; Hematocrit 26.6 % (37.0-47.0); Hemoglobin 8.3 g/dL (11.5-15.3); Lymphocytes # 1.8 10^3/uL (0.8-4.8); Lymphocytes % 13.4 %; Mean Corpuscular HGB Conc 31.2 g/dL (30.0-36.0); Mean Corpuscular Hemoglobin 27.7 pg (28.0-34.0); Mean Corpuscular Volume 88.7 fL (81-99); Mean Platelet Volume 10.2 fL (7.4-10.4); Monocytes # 1.1 10^3/uL (0.2-0.9); Monocytes % 8.1 %; Neutrophils # 9.2 10^3/uL (1.8-7.7); Neutrophils % 68.5 %; Nucleated Red Blood Cells % 0.1 %; Platelet Count 425 10^3/cmm (130-400); Red Cell Distribution Width 17.6 % (12.1-15.1); White Blood Count 13.4 10^3/uL (4.0-10.0)
[2019-08-13 02:30] LABS: Partial Thromboplastin Time 49.9 SECONDS (23.9-36.7)
[2019-08-13 02:31] LABS: Alanine Aminotransferase 29 U/L (0-33); Albumin Level 2.5 g/dL (3.5-5.2); Alkaline Phosphatase 143 IU/L (35-105); Anion Gap 16.6 (5-19); Aspartate Amino Transferase 38 U/L (0-32); Blood Urea Nitrogen 39 mg/dL (8-23); Calcium 9.1 mg/dL (8.5-10.5); Carbon Dioxide 18 mmol/L (22-29); Chloride 108 mmol/L (98-107); Globulin 2.9 g/dL (1.3-4.6); Glucose 203 mg/dL (65-115); Magnesium 1.7 mg/dL (1.7-2.3); Osmolality Calculated 291 mOsm/kg (285-295); Phosphorus 2.7 mg/dL (2.5-4.5); Potassium 3.6 mmol/L (3.5-5.1); Sodium 139 mmol/L (136-145); Total Bilirubin 0.2 mg/dL (0.15-1.2); Total Protein 5.4 g/dL (6.6-8.7)
[2019-08-13] MEDS: heparin 5,000 unit/mL INJ 1 mL IV ×2 (02:38→09:19)
[2019-08-13 03:00] LABS: Slide Review Slide Review Perform
[2019-08-13] MEDS: hyDRALAzine 20 mg/mL INJ 1 mL 5 MG IVP ×2 (04:04→08:37)
--- NOTE | 2019-08-13 04:08 | PC.NURSE ---
Patient current BP 195/84. Patient denies any discomforts at this time. Hydralazine IVP given as ordered. Will reassess BP in 30min. No distress observed. Patient cleaned with brief change. Patient tolerated well.
--- NOTE | 2019-08-13 05:26 | PC.NURSE ---
Patient resting with eyes closed and even respirations noted. Passed ice and removed trash at this time. Weight obtained and documented in clinical data. No distress observed.
[2019-08-13 06:31] LABS: Glucose Point of Care 149 mg/dL (70-110)
[2019-08-13] MEDS: metoprolol tartrate 50 mg Tablet PO ×2 (08:02→17:13)
[2019-08-13] MEDS: mirtazapine 15 mg Tablet PO (08:02)
[2019-08-13] MEDS: ALPRAZolam 0.25 mg Tablet PO ×3 (08:03→20:21)
[2019-08-13] MEDS: pantoprazole DR 40 mg Tablet PO ×2 (08:03→17:13)
[2019-08-13] MEDS: levoFLOXacin 750 mg Tablet PO (08:37)
[2019-08-13] MEDS: cloNIDine 0.1 mg Tablet PO (08:37)
--- NOTE | 2019-08-13 08:57 | ECG_ITS ---
Measurements Intervals [place] Rate: 85 P: 30 RI: 198 QRS: 7 QRSD: 94 T: 14 QT: 377 QTc: 450 SINUS RHYTHM INTERPRETATION BASED ON A DEFAULT AGE OF 40 YEARS Compared to ECG 08/08/2019 11:26:08 Atrial fibrillation no longer present Electronically Signed On 08-13-2019 18:20:50 CDT by Michi West M.D. [id number]
--- NOTE | 2019-08-13 08:57 | XRR_ITS ---
PROCEDURE INFORMATION: Exam: XR Chest, 1 View Exam date and time: 08/13/2019 9:04 AM Age: 73 years old Clinical indication: Dyspnea TECHNIQUE: Imaging protocol: XR of the chest Views: 1 view. COMPARISON: CR XR chest 1V portable [id number] 08/11/2019 1:11 PM FINDINGS: Lungs: There is left lower lobe airspace disease which can be due to pneumonia. This is not significantly changed. Pleural space: There is a small left pleural effusion, slightly larger than on the prior comparison exam. Heart/Mediastinum: The cardiac silhouette is not enlarged. The mediastinal contours are normal. Vasculature: The thoracic aorta is atherosclerotic and tortuous. Bones/joints: No acute osseous abnormality. XR/XR chest 1V portable [id number] IMPRESSION: 1. No significant change in left lower lobe airspace disease. 2. Slight increase in volume of the left pleural effusion.
[2019-08-13 08:58] LABS: Partial Thromboplastin Time 44.9 SECONDS (23.9-36.7)
--- NOTE | 2019-08-13 09:12 | PC.SOCIAL ---
*IMM* Updated, initialled and placed in the chart. Patient received another copy.
[2019-08-13 09:29] LABS: Chol HDL Ratio 6.33 mg/dL (0.0-4.40); Cholesterol 95 mg/dL (0-200); HDL Cholesterol 15 mg/dL (60-100); LDL Cholesterol Calculated 18 mg/dL (50-129); Triglycerides 312 mg/dL (0-150); VLDL Cholestrol Calculation 62 mg/dL (0-30)
[2019-08-13 09:42] LABS: Lipase 22 U/L (13-60)
[2019-08-13 10:24] LABS: HIV 1 & 2 Antibody Non-Reactive (Non-Reactiv); HIV 1 & 2 Antigen Non-Reactive (Non-Reactiv)
--- NOTE | 2019-08-13 11:06 | PM.PN ---
Subjective Subjective: Interval history: Feels weak but she is making steady progress. Eating and drinking. No SOB at rest but some exertion. Passing urine well and no uremic Sx. Medications: Reviewed: Yes Medication Review Details: Current Medications Acetaminophen (Tylenol) 650 mg PO Q4H PRN PRN Reason: MILD PAIN OR INCREASE TEMP Last Admin: 08/10/19 20:16 Dose: 650 mg Documented by: Alprazolam (Xanax) 0.25 mg PO QID PRN PRN Reason: ANXIETY Last Admin: 08/10/19 20:16 Dose: 0.25 mg Documented by: Dextrose (D50w) 25 ml IVP ONCE PRN; Protocol PRN Reason: hypoglycemia protocol Dextrose (D50w) 50 ml IVP PRN PRN; Protocol PRN Reason: hypoglycemia protocol Digoxin (Lanoxin) 125 mcg PO DAILY [facility] Last Admin: 08/10/19 09:11 Dose: 125 mcg Documented by: Glucagon (Glucagen) 1 mg IM ONCE PRN; Protocol PRN Reason: Adult Acute Hypoglycemia Prot. Heparin Sodium (Beef Lung) (Heparin) 0 unit IV PRN PRN; Protocol PRN Reason: Heparin weight-base protocol Last Admin: 08/10/19 20:17 Dose: 1,200 unit Documented by: Heparin Sodium/Sodium Chloride (Heparin Drip) 25,000 unit in 500 mls @ 0 mls/hr IV .Q0M [facility]; Protocol Last Titration: 08/11/19 02:59 Dose: 11.02 unit/kg/hr, 13 mls/hr Documented by: Dextrose (D5w) 500 mls @ 100 mls/hr IV ONCE PRN; Protocol PRN Reason: Adult Acute Hypoglycemia Prot Piperacillin Sod/Tazobactam (Sod 3.375 gm/ Sodium Chloride) 50 mls @ 12.5 mls/hr IV Q12H [facility]; Protocol Last Infusion: 08/11/19 02:46 Dose: Infused Documented by: Levofloxacin/Dextrose (Levaquin-D5w) 500 mg in 100 mls @ 100 mls/hr IV Q48H [facility] Sodium Chloride (Sodium Chloride 0.9%) 1,000 mls @ 75 mls/hr IV .[id number] [facility] Last Admin: 08/10/19 17:01 Dose: 75 mls/hr Documented by: Insulin Aspart (Novolog) 0 unit SUBCUT TIDWM [facility]; Protocol Last Admin: 08/10/19 17:02 Dose: 2 unit Documented by: Lanolin (Lanolin Oint) 1 applic TOPICAL PRN PRN PRN Reason: DRYNESS Last Admin: 08/10/19 20:15 Dose: 1 applic Documented by: Levalbuterol HCl (Xopenex) 0.63 mg INHALATION Q4H.RESPIRATORY PRN PRN Reason: SHORTNESS OF BREATH Last Admin: 08/09/19 20:24 Dose: 0.63 mg Documented by: Metoprolol Tartrate (Lopressor) 50 mg PO BID [facility] Last Admin: 08/10/19 17:01 Dose: 50 mg Documented by: Mirtazapine (Remeron) 15 mg PO DAILY [facility] Last Admin: 08/10/19 09:11 Dose: 15 mg Documented by: Pantoprazole Sodium (Protonix) 40 mg PO BID [facility] Last Admin: 08/10/19 16:59 Dose: 40 mg Documented by: Vitals/I&O/Wt Last Vital Signs Temp 97.9 F 08/13/19 00:00 Pulse 88 08/13/19 09:30 Resp 18 08/13/19 09:30 BP 147/69 08/13/19 09:30 Pulse Ox 95 08/13/19 09:30 08/12/19 08/13/19 08/13/19 22:59 06:59 14:59 Intake Total 91.8 / 700.8 90.7 / 791.5 165.683 / 165.683 Output Total 550 / 550 Balance -458.2 / 150.8 90.7 / 241.5 165.683 / 165.683 Weight last 48 hrs Weight 65.952 kg Physical Exam Narrative: EXAM NARRATIVE: Exam performed via telemed with the aid of the bedside RN Const: COMMON NORMALS: no acute distress, patient oriented x3, alert and well nourished GENERAL APPEARANCE: well kempt and well developed ORIENTATION/CONSCIOUSNESS: Yes oriented to person, Yes oriented to place and Yes oriented to time; not confused OTHER: Comfortable. Up in chair. HENMT: COMMON NORMALS: normocephalic, atraumatic, external ears normal, Normal external nose present and oropharynx normal HEAD & SCALP: normocephalic and atraumatic FACE & SINUS: normal facial exam NOSE: Normal external nose present and No nasal discharge present EXTERNAL EAR: Yes external ears normal MOUTH: tongue normal Eye: COMMON NORMALS: Equal, round and reactive pupils present, EOMs intact bilaterally and conjunctivae normal EYELID: eyelids normal CONJUNCTIVA: Yes conjunctivae normal PUPIL: Yes Equal, round and reactive pupils present Neck/C-Spine: GENERAL: No tracheal deviation and Yes JVD Chest: COMMONS NORMALS: normal inspection of the chest CHEST: No tenderness Resp: COMMON NORMALS: normal respiratory effort and clear to auscultation bilaterally EFFORT & INSPECTION: No tachypneic, No respiratory distress, No labored, No Actively coughing, No retractions, No uses accessory muscles, No audible wheezes (Does appear to be short of breath though.) and No tracheal deviation AUSCULTATION: clear to auscultation bilaterally, no rhonchi, no wheezes and lung sounds not diminished Cardio: COMMON NORMALS: regular rate, regular rhythm, S1 normal heart sound present, S2 normal heart sound present and No murmurs present (Cardio) RATE: regular rate RHYTHM: regular rhythm HEART SOUNDS: S1 normal heart sound present, S2 normal heart sound present and no murmurs PERIPHERAL PULSES: radial pulses present GI: COMMON NORMALS: Normal to inspection, nondistended, normoactive bowel sounds present, Soft to palpation and non-tender INSPECTION: No abdominal distension AUSCULTATION: No Hyperactive bowel sounds present and No Hypoactive bowel sounds present PALPATION: Yes Soft to palpation, No Guarding due to palpation present (GI) and No Rigid due to palpation PERCUSSION: no dullness to percussion and no tympanic to percussion Extremity: COMMON NORMALS: no joint enlargement and no pedal edema Neuro: COMMON NORMALS: patient oriented x3 and moves all extremities SENSORIUM/ORIENTATION: Yes alert, Yes oriented to person, Yes oriented to place and Yes oriented to time CRANIAL NERVES: Yes CN normal except as noted COORDINATION/BALANCE: [id number] test normal and Normal rapid alternating movements of the distal upper extremity present (Neuro) SPEECH: speech normal GAIT: Yes Unable to assess gait SENSORY EXAM: Yes extremities (Intact) MOTOR EXAM: Pronator motor function not present COORDINATION: [id number] test normal and rapid alternating movement UE normal Psych: COMMON NORMALS: mental status grossly normal APPEARANCE: Yes grossly normal and Yes well kempt ATTITUDE: Yes calm and Yes engaged Skin: COMMON NORMALS: no rashes or lesions noted GENERAL SKIN EXAM: no rashes or lesions noted Urinary Catheter Management^: Carver: Cath Placed During This Visit: yes, but has since been removed by the nurse Reason for Continuing Indwelling Catheter: Decision to DC Catheter Urinary Catheter Date of Insertion: 08/08/19 Urinary Catheter Time of Insertion: 13:00 Date Urinary Catheter Removed: 08/12/19 Time Urinary Catheter Discontinued: 15:00 Data : 08/13/19 02:06 08/13/19 02:06 Micro: Microbiology 08/11/19 16:03 Blood Culture - Preliminary Blood NEGATIVE TO DATE 08/11/19 16:10 Blood Culture - Preliminary Blood NEGATIVE TO DATE 08/11/19 19:15 Enteric Pathogens (PCR) - Final Stool A&P Additional A&P Information 1. ANA ROSA - creatinine came down after volume yesterday suggesting that this is in part hemodynamically mediated; and continues to slowly improve - auto-immune w/u sent - given fragile volume status will defer both ivf and diuretics today - avoid the usuals 2. PE on heparin gtt for time being 3. Pneumonia on Zosyn 4. 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
[2019-08-13 11:40] LABS: Glucose Point of Care 181 mg/dL (70-110)
[2019-08-13] MEDS: ferric gluconate 125 MG in sodium chloride 0.9% (100 ml) 100 ML 110 MG IV (11:58)
[2019-08-13] MEDS: apixaban 5 mg Tablet 10 MG PO ×2 (14:13→23:33)
[2019-08-13 15:47] LABS: Partial Thromboplastin Time 64.6 SECONDS (23.9-36.7)
--- NOTE | 2019-08-13 16:32 | PM.PN ---
Subjective Subjective: Interval history: Today she states overall doing about the same. Nurse states that she had reported some musculoskeletal pain earlier. She does get somewhat easily tired with exertion. Vitals/I&O/Wt Last Vital Signs Temp 97.9 F 08/13/19 00:00 Pulse 86 08/13/19 13:00 Resp 18 08/13/19 13:00 BP 187/83 08/13/19 13:00 Pulse Ox 97 08/13/19 13:00 08/13/19 08/13/19 08/13/19 06:59 14:59 22:59 Intake Total 90.7 / 791.5 285.683 / 285.683 Balance 90.7 / 241.5 285.683 / 285.683 Weight last 48 hrs Weight 65.952 kg Physical Exam Const: COMMON NORMALS: no acute distress and patient oriented x3 OTHER: Awake, alert, pleasant. Keeps eyes closed when speaking, but denies any photophobia, headache. HENMT: COMMON NORMALS: oropharynx normal Neck/C-Spine: GENERAL: Yes JVD Resp: COMMON NORMALS: normal respiratory effort and clear to auscultation bilaterally AUSCULTATION: clear to auscultation bilaterally Cardio: COMMON NORMALS: regular rhythm, S1 normal heart sound present, S2 normal heart sound present and No murmurs present (Cardio) RHYTHM: regular rhythm HEART SOUNDS: S1 normal heart sound present and S2 normal heart sound present GI: COMMON NORMALS: Normal to inspection, nondistended, normoactive bowel sounds present, Soft to palpation and non-tender PALPATION: Yes Soft to palpation Extremity: COMMON NORMALS: no joint enlargement and no pedal edema Neuro: COMMON NORMALS: patient oriented x3 and moves all extremities Skin: COMMON NORMALS: no rashes or lesions noted GENERAL SKIN EXAM: no rashes or lesions noted Urinary Catheter Management^: Carver: Cath Placed During This Visit: yes, but has since been removed by the nurse Reason for Continuing Indwelling Catheter: Decision to DC Catheter Urinary Catheter Date of Insertion: 08/08/19 Urinary Catheter Time of Insertion: 13:00 Date Urinary Catheter Removed: 08/12/19 Time Urinary Catheter Discontinued: 15:00 Data : 08/13/19 02:06 08/13/19 02:06 Micro: Microbiology 08/11/19 16:03 Blood Culture - Preliminary Blood NEGATIVE TO DATE 08/11/19 16:10 Blood Culture - Preliminary Blood NEGATIVE TO DATE 08/11/19 19:15 Enteric Pathogens (PCR) - Final Stool A&P Assessment and plan (1) Pulmonary embolism: Oxygenation is slowly improving, however, she is quite significantly deconditioned, possibly due to prolonged course of illness, gets very dyspneic, tires out easily with activity. With PT heart rate also is rising. Recommended to her discharge to SNF prior to return home for rehabilitation. PT is also of similar opinion. She is agreeable. Today hemoglobin appears to have somewhat stabilized at 8.3. Will attempt to switch over to oral anticoagulant. Additional endoscopic evaluation and IVC filter were considered. With regards to anticoagulation if it were possible she actually prefers DOAC anticoagulation as her used to be on warfarin in the past, and has had a very bad experience. She understands that reversal agents are not readily accessible for this agent. For now maintain PPI BID H. pylori serum antibody is negative. Stool antigen pending. Stool bacterial neg. High probability of PE on VQ scan. Hypoxia, A. fib. Elevated pulmonary artery pressure on TTE. Questionable irregular renal mass on R kidney on renal US, but no mass visible on MR (wo contrast due to renal insufficiency). Appreciate urology assessment. With finding of renal cysts, cystic lesion similar in appearance to 5 years ago. Consideration was given to reimaging with US. Blood pressure has been stable. Status: Acute (2) Community acquired pneumonia: Gradually improving. Persistent leukocytosis. Switch to Levaquin. With hypoxic respiratory failure. Appears multifactorial, definitely PE, and perhaps PE may be contributing entirely to her symptoms. She reports cough, nonproductive. Denies hemoptysis. Does not have chest pain. MRSA PCR is negative. Obtain sputum culture if possible. Urine bacterial antigens negative. Also with persistent acute kidney injury, very high CRP, proteinuria, will assess DIANA, ANCA. Complement level OK. Renal ultrasound with cysts, no obstruction, no RA stenosis. Appreciate additional nephrology assessment. Likely COPD and mild fibrosis noted on x-ray. COVID-19 negative. Degree of mild pulmonary fibrosis on XR? Emphysema? She denies Hx COPD. Will need PFT after DC. Status: Acute (3) Atrial fibrillation with RVR: Improving. Heart rates are better. Digoxin only every other day due to renal failure. Monitor levels. Metoprolol. Continue treatment underlying conditions as above. Continue anticoagulation. Status: Acute (4) Generalized weakness: Gradually improving. PT. Needs rehab. At this time treat pneumonia, PE, A. fib with RVR. Monitor anemia. Does have mild rhabdomyolysis. Etiology of CK elevation is actually not clear. LDH is very mildly high. CK MB is normal. Somewhat mixed picture, troponin I send out mildly elevated at 0.11 (normal below 0.05). Definitely some troponin leakage secondary to A. fib, demand ischemia with hypoxia, PE, arrhythmia. Difficult to say why total CK is elevated, not CK-MB. Does have rather high CRP. Difficult to exclude some inflammatory myopathy although CK elevation is not very impressive. With reported perhaps mild pulmonary fibrosis on XR? ILD can be associated w PM. Requested autoantibodies. Consider follow up possibly biopsy, EMG. Strangely has been having muscle aches, although these are not feature of PM/DM. At the same time CK is usually normal w something like PMR. TSH is normal. Status: Acute (5) Leukocytosis: Persistent leukocytosis, neutrophilic. Peripheral smear with granulocytosis. Discussed with her results. This may be some persistent infection. At this time switch antibiotic over to Levaquin. In view of chronic diarrhea, possibly Status: Acute (6) ANA ROSA (acute kidney injury): Persistent ANA ROSA on CKD, although some improvement. Renal ultrasound wo obstruction. Appreciate nephrology reccomendations. Mild perinephric stranding non-specific. Urine culture was negative. Gentle IVF. Hypertensive, so will decrease rate. With noted proteinuria. When asked about it she states that she has had on and off problems with her kidneys. She denies taking NSAIDs at home. Status: Acute (7) Diarrhea: Chronic diarrhea. Neg C. difficile. Negative enteric bacterial panel. With persistent diarrhea, persistent leukocytosis, hypoproteinemia, will check for ova and parasites. Check for celiac serology. Check HIV. May need additional follow-up, possibly gastroenterology with consideration of other condition, tropical sprue? On metformin at home, but still loose stools, despite holding metformin. Status: Acute (8) Acute blood loss anemia: Hemoglobin stabilized around 8.3. This been stable for the past 3 days. Will attempt switch to oral anticoagulation. If still not tolerating on follow-up with decreasing hemoglobin, consideration is given to additional endoscopic evaluation, or possibly IVC filter. H pylori serology negative. Continue PPI. Occult blood positive. Iron deficiency anemia. Onset of acute episode started replacement. TIBC is on the low side, may have component of anemia chronic disease. Elevated CRP. Started on Protonix twice daily. Continue at this time. Denies NSAID use at home. Ferritin is not elevated. LDH is normal to very mildly elevated. B12 is not low. Folic acid is not low. Rectal exam was negative for occult blood She has history of internal hemorrhoids, history of sigmoid polyp She has not noticed any dark-colored stool or active bleeding Status: Acute (9) Dehydration: Resolved. Status: Acute (10) Bilateral renal cysts: Questionable irregular renal mass on R kidney on renal US, but no mass visible on MR (wo contrast due to renal insufficiency). Appreciate urology assessment. With finding of renal cysts, cystic lesion similar in appearance to 5 years ago. Consideration was given to reimaging with US. Status: Acute (11) HTN (hypertension): Continue hydralazine. Extra dose today. Resume home clonidine. Fluids held for now. Continue metoprolol. May need additional antihypertensives if not improving. Continue cardiac diet. Status: Acute Additional A&P Information Attestations Medical Necessity Statement*: Continue admission for assessment and management of multifactorial respiratory failure, PE, in the setting of anemia, possible low-grade GI bleed, acute kidney injury, chronic diarrhea, generalized weakness and deconditioning. 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
[2019-08-13 17:06] LABS: Glucose Point of Care 106 mg/dL (70-110)
[2019-08-13] MEDS: hyDRALAzine 50 mg Tablet PO (17:14)
[2019-08-13 19:50] LABS: Glucose Point of Care 112 mg/dL (70-110)
[2019-08-14] VITALS (12 sets, daily range): BP systolic 151–200; BP diastolic 62–91; PULSE 85–99; RESP 20–28; TEMP 36.3–36.8; O2SAT 91–98
[2019-08-14] MEDS: hyDRALAzine 20 mg/mL INJ 1 mL 5 MG IVP ×2 (00:26→12:54)
[2019-08-14] MEDS: acetaminophen 325 mg Tablet 650 MG PO ×3 (00:26→21:24)
[2019-08-14] MEDS: ALPRAZolam 0.25 mg Tablet PO (04:43)
[2019-08-14] MEDS: loperamide 2 mg Capsule PO ×2 (04:46→15:24)
[2019-08-14 05:41] LABS: Basophils # 0.1 10^3/uL (0.0-0.1); Basophils % 0.6 %; Eosinophils # 0.5 10^3/uL (0.0-0.8); Eosinophils % 4.2 %; Hemoglobin 8.6 g/dL (11.5-15.3); Lymphocytes # 1.3 10^3/uL (0.8-4.8); Lymphocytes % 12.1 %; Mean Corpuscular HGB Conc 30.7 g/dL (30.0-36.0); Mean Corpuscular Hemoglobin 27.7 pg (28.0-34.0); Mean Corpuscular Volume 90.3 fL (81-99); Mean Platelet Volume 10.1 fL (7.4-10.4); Monocytes # 0.8 10^3/uL (0.2-0.9); Monocytes % 7.3 %; Neutrophils # 7.4 10^3/uL (1.8-7.7); Neutrophils % 67.3 %; Nucleated Red Blood Cells % 0.2 %; Platelet Count 423 10^3/cmm (130-400); Positive C 1; Positive M 1
[2019-08-14 05:57] LABS: Alanine Aminotransferase 30 U/L (0-33); Albumin Level 2.5 g/dL (3.5-5.2); Alkaline Phosphatase 145 IU/L (35-105); Anion Gap 15.7 (5-19); Aspartate Amino Transferase 38 U/L (0-32); Blood Urea Nitrogen 30 mg/dL (8-23); Calcium 9.3 mg/dL (8.5-10.5); Carbon Dioxide 18 mmol/L (22-29); Chloride 107 mmol/L (98-107); Globulin 2.9 g/dL (1.3-4.6); Glucose 117 mg/dL (65-115); Osmolality Calculated 282 mOsm/kg (285-295); Potassium 3.7 mmol/L (3.5-5.1); Sodium 137 mmol/L (136-145); Total Bilirubin 0.2 mg/dL (0.15-1.2); Total Protein 5.4 g/dL (6.6-8.7)
[2019-08-14 06:10] LABS: Glucose Point of Care 119 mg/dL (70-110)
[2019-08-14 06:15] LABS: Slide Review Slide Review Perform
--- NOTE | 2019-08-14 06:40 | PC.NURSE ---
Shift Summary pt had multiple c/o generalized pain, requiring Tylenol every four hours. pt up to [facility]SC with standby assist and transferred well. pt became a little anxious during one transfer and requested to wear her bipap. pt was given her NC with 1L O2 and fell right to sleep with no problems. pt encouraged to get up to use the BSC instead of bedpan to help regain strength.
[2019-08-14 08:37] LABS: PROTEIN, TOTAL 4.2 g/dL (6.1-8.1)
--- NOTE | 2019-08-14 08:39 | P.PN_ITS ---
Subjective Subjective: Interval history: poor appetite. not eating well. nausea. dec sob. no leung, no cp, no urinbary complaints, no diarrhea Medications: Reviewed: Yes Medication Review Details: Current Medications Acetaminophen (Tylenol) 650 mg PO Q4H PRN PRN Reason: MILD PAIN OR INCREASE TEMP Last Admin: 08/14/19 04:43 Dose: 650 mg Documented by: Alprazolam (Xanax) 0.25 mg PO QID PRN PRN Reason: ANXIETY Last Admin: 08/14/19 04:43 Dose: 0.25 mg Documented by: Apixaban (Eliquis) 10 mg PO Q12H [facility] Last Admin: 08/13/19 23:33 Dose: 10 mg Documented by: Clonidine HCl (Catapres) 0.1 mg PO DAILY [facility] Last Admin: 08/13/19 08:37 Dose: 0.1 mg Documented by: Dextrose (D50w) 25 ml IVP ONCE PRN; Protocol PRN Reason: hypoglycemia protocol Dextrose (D50w) 50 ml IVP PRN PRN; Protocol PRN Reason: hypoglycemia protocol Digoxin (Lanoxin) 125 mcg PO Q48H [facility] Last Admin: 08/12/19 08:36 Dose: 125 mcg Documented by: Glucagon (Glucagen) 1 mg IM ONCE PRN; Protocol PRN Reason: Adult Acute Hypoglycemia Prot. Hydralazine HCl (Apresoline) 5 mg IVP Q8H PRN PRN Reason: HYPERTENSION Last Admin: 08/14/19 00:26 Dose: 5 mg Documented by: Hydralazine HCl (Apresoline) 50 mg PO BID [facility] Last Admin: 08/13/19 17:14 Dose: 50 mg Documented by: Dextrose (D5w) 500 mls @ 100 mls/hr IV ONCE PRN; Protocol PRN Reason: Adult Acute Hypoglycemia Prot Ferric Sodium Gluconate 125 mg (/ Sodium Chloride) 110 mls @ 110 mls/hr IV Q24H [facility] Stop: 08/18/19 10:59 Last Admin: 08/13/19 11:58 Dose: 110 mls/hr Documented by: Insulin Aspart (Novolog) 0 unit SUBCUT TIDWM [facility]; Protocol Last Admin: 08/13/19 17:04 Dose: Not Given Documented by: Lanolin (Lanolin Oint) 1 applic TOPICAL PRN PRN PRN Reason: DRYNESS Last Admin: 08/11/19 08:41 Dose: 1 tube Documented by: Levalbuterol HCl (Xopenex) 0.63 mg INHALATION Q4H.RESPIRATORY PRN PRN Reason: SHORTNESS OF BREATH Last Admin: 08/12/19 15:41 Dose: 0.63 mg Documented by: Levofloxacin (Levaquin) 750 mg PO Q48H [facility]; Protocol Last Admin: 08/13/19 08:37 Dose: 750 mg Documented by: Loperamide HCl (Imodium Capsule) 2 mg PO QID PRN PRN Reason: DIARRHEA Last Admin: 08/14/19 04:46 Dose: 2 mg Documented by: Metoprolol Tartrate (Lopressor) 50 mg PO BID [facility] Last Admin: 08/13/19 17:13 Dose: 50 mg Documented by: Mirtazapine (Remeron) 15 mg PO DAILY [facility] Last Admin: 08/13/19 08:02 Dose: 15 mg Documented by: Pantoprazole Sodium (Protonix) 40 mg PO BID [facility] Last Admin: 08/13/19 17:13 Dose: 40 mg Documented by: Vitals/I&O/Wt Last Vital Signs Temp 98 F 08/14/19 04:20 Pulse 92 08/14/19 04:20 Resp 28 H 08/14/19 04:20 BP 174/81 08/14/19 04:20 Pulse Ox 95 08/14/19 04:20 08/13/19 08/14/19 08/14/19 22:59 06:59 14:59 Output Total 100 / 100 200 / 300 Balance -100 / 185.683 -200 / -14.317 Weight last 48 hrs Weight 65.952 kg Physical Exam Narrative: EXAM NARRATIVE: comfortable in bed on nc 02 heent- nc/at neck no jvp, supple lungs -rt base dull, otherwise clear heart irreg irreg, +RAVEN abd soft, nt, nd, +BS ext no edema neuro- a,a, o x 3 Urinary Catheter Management^: Carver: Cath Placed During This Visit: yes, but has since been removed by the nurse Reason for Continuing Indwelling Catheter: Decision to DC Catheter Urinary Catheter Date of Insertion: 08/08/19 Urinary Catheter Time of Insertion: 13:00 Date Urinary Catheter Removed: 08/12/19 Time Urinary Catheter Discontinued: 15:00 Data : 08/14/19 04:40 08/14/19 04:40 A&P Additional A&P Information 1. ANA ROSA - creatinine improved to baseline -likely ATN 2. 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 renal cysts vs mass- agree w/ urology f/u. Per urology, they apprear to be stable for years- outpt f/u 4. PE on heparin gtt for time being - okay w/ eliquis 2.5 bid 5. Pneumonia- abx as per medicine - i believe completed course 6. a fib- a/c 7. anemia - iron def- received iv iron -hgb slowly improving 8. mild AGMA and non AGMA from renal disease- give sodium bicarb pills 9. 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
[2019-08-14] MEDS: sodium bicarbonate 650 mg Tablet PO ×3 (09:34→20:19)
[2019-08-14] MEDS: pantoprazole DR 40 mg Tablet PO ×2 (09:34→17:39)
[2019-08-14] MEDS: mirtazapine 15 mg Tablet PO (09:34)
[2019-08-14] MEDS: digoxin 125 mcg Tablet PO (09:34)
[2019-08-14] MEDS: hyDRALAzine 50 mg Tablet PO ×3 (09:35→20:19)
[2019-08-14] MEDS: cloNIDine 0.1 mg Tablet PO ×3 (09:35→20:19)
[2019-08-14] MEDS: metoprolol tartrate 50 mg Tablet PO ×2 (09:35→17:39)
[2019-08-14] MEDS: ferric gluconate 125 MG in sodium chloride 0.9% (100 ml) 100 ML 110 MG IV (09:36)
[2019-08-14 11:30] LABS: Glucose Point of Care 260 mg/dL (70-110)
[2019-08-14] MEDS: apixaban 5 mg Tablet 10 MG PO (12:30)
--- NOTE | 2019-08-14 12:55 | PC.NURSE ---
Contacted Dr Fernandez BP 200/91 PRN Hyralazine IV given.
--- NOTE | 2019-08-14 13:22 | PM.PN ---
Subjective Subjective: Interval history: Breathing improving but very very slowly. Gets dyspneic easily. Dry cough is triggered easily with deep inspiration. Vitals/I&O/Wt Last Vital Signs Temp 97.5 F L 08/14/19 12:49 Pulse 88 08/14/19 12:49 Resp 28 H 08/14/19 04:20 BP 200/91 08/14/19 12:49 Pulse Ox 98 08/14/19 12:49 08/13/19 08/14/19 08/14/19 22:59 06:59 14:59 Output Total 100 / 100 200 / 300 300 / 300 Balance -100 / 295.683 -200 / 95.683 -300 / -300 Weight last 48 hrs Weight 65.952 kg Physical Exam Const: COMMON NORMALS: no acute distress and patient oriented x3 OTHER: Awake, alert, pleasant. Sitting up in chair. HENMT: COMMON NORMALS: oropharynx normal Neck/C-Spine: GENERAL: Yes JVD Resp: COMMON NORMALS: normal respiratory effort OTHER: Coughs with deep inspiration, but otherwise few rhonchi. Cardio: COMMON NORMALS: regular rhythm, S1 normal heart sound present, S2 normal heart sound present and No murmurs present (Cardio) RHYTHM: regular rhythm HEART SOUNDS: S1 normal heart sound present and S2 normal heart sound present GI: COMMON NORMALS: Normal to inspection, nondistended, normoactive bowel sounds present, Soft to palpation and non-tender PALPATION: Yes Soft to palpation Extremity: COMMON NORMALS: no joint enlargement and no pedal edema Neuro: COMMON NORMALS: patient oriented x3 and moves all extremities Skin: COMMON NORMALS: no rashes or lesions noted GENERAL SKIN EXAM: no rashes or lesions noted Urinary Catheter Management^: Carver: Cath Placed During This Visit: yes, but has since been removed by the nurse Reason for Continuing Indwelling Catheter: Decision to DC Catheter Urinary Catheter Date of Insertion: 08/08/19 Urinary Catheter Time of Insertion: 13:00 Date Urinary Catheter Removed: 08/12/19 Time Urinary Catheter Discontinued: 15:00 Data : 08/14/19 04:40 08/14/19 04:40 Micro: Microbiology 08/13/19 15:25 Parasite Antigen Panel - Final Stool A&P Assessment and plan (1) HTN (hypertension): Severe hypertensive episodes, blood pressure today 200/91. Requiring IV hydralazine. Increase IV hydralazine dosing to 3 times a day. Home dose clonidine was resumed. Metoprolol. Continue cardiac diet. Status: Acute (2) Pulmonary embolism: She is very slowly improving, still gets easily dyspneic on exertion, dry cough triggered by inspiration. Significantly deconditioned. Pending arrangements for prison placement. Eliquis renally adjusted dose of 2.5 mg twice a day as recommended per nephrology. Hemoglobin so far has been stable. Continue PPI BID. She reports history of gastric ulcer. High probability of PE on VQ scan. Hypoxia, A. fib. Elevated pulmonary artery pressure on TTE. No clear trigger. Status: Acute (3) Community acquired pneumonia: Gradually improving. Persistent leukocytosis. Switch to Levaquin. With hypoxic respiratory failure. Appears multifactorial, definitely PE, and perhaps PE may be contributing entirely to her symptoms. She reports cough, nonproductive. Denies hemoptysis. Does not have chest pain. COVID-19 negative. MRSA PCR is negative. Obtain sputum culture if possible. Urine bacterial antigens negative. Also with persistent acute kidney injury, very high CRP, proteinuria. DIANA, complement level OK. Renal ultrasound with cysts, no obstruction, no RA stenosis. ANCA pending. Likely COPD and mild fibrosis noted on x-ray. She denies Hx COPD. Will need PFT after DC. Status: Acute (4) Atrial fibrillation with RVR: Improving. Heart rates are better. Digoxin only every other day due to renal failure. Recheck level. Metoprolol. Continue treatment underlying conditions as above. Continue anticoagulation. Status: Acute (5) Generalized weakness: Does have mild rhabdomyolysis of unclear etiology. Persistent despite not being on statin since admission. TSH normal. Had muscle aches on presentation. Not currently. Deconditioned, but does not appear to have particularly pronounced proximal weakness. CRP 328. LDH is very mildly high. CK MB is normal, with total CK elevated, giving a likely CK MM fraction elevation. Troponin I send out mildly elevated at 0.11 (normal below 0.05). Definitely some troponin leakage secondary to A. fib, demand ischemia with hypoxia, PE, arrhythmia. Difficult to say why total CK is elevated, not CK-MB. Does have rather high CRP. Difficult to exclude some inflammatory myopathy although CK elevation is not very impressive. With reported perhaps mild pulmonary fibrosis on XR? ILD can be associated w PM. This is not usually associated with muscle aches, however, and PMR is not usually associated with CK elevation. ANCA pending but other autoantibodies which have been requested appear negative. Consider follow-up with neurology for additional assessment to see if there is utility in additional evaluation with EMG, muscle MRI. Gradually improving. PT. Pending approval for SNF. At this time treat pneumonia, PE, A. fib with RVR. Monitor anemia. Status: Acute (6) Leukocytosis: Persistent leukocytosis, neutrophilic. Today slightly lower. Peripheral smear with granulocytosis. Discussed with her results. This may be some persistent infection. At this time switch antibiotic over to Levaquin. In view of chronic diarrhea. C. difficile, enteric bacterial panel, and also checked ova and parasites, all negative. Possibly slowly resolving pneumonia. Appears to have responded better to Levaquin, with resolution of neutrophilia. All cultures negative so far. Please follow-up final results. Consider follow-up with gastroenterology regarding chronic diarrhea. Assessment for possible other conditions, possibly tropical sprue? Status: Acute (7) ANA ROSA (acute kidney injury): Persistent ANA ROSA on CKD, although some improvement. Renal ultrasound wo obstruction. Appreciate nephrology reccomendations. Mild perinephric stranding non-specific. Urine culture was negative. Gentle IVF. Hypertensive, so will decrease rate. With noted proteinuria. When asked about it she states that she has had on and off problems with her kidneys. She denies taking NSAIDs at home. Status: Acute (8) Diarrhea: C. difficile, enteric bacterial panel, and also checked ova and parasites, all negative. Possibly slowly resolving pneumonia. Appears to have responded better to Levaquin, with resolution of neutrophilia. All cultures negative so far. Please follow-up final results. Consider follow-up with gastroenterology regarding chronic diarrhea. Assessment for possible other conditions, possibly tropical sprue? Based on electrophoresis appears to have malabsorption. Proteinuria is not high enough for nephrotic syndrome. HIV negative. H. pylori serology negative. Pending celiac serology. On metformin at home, but this does not appear to be the cause of her diarrhea as she is having episodes here while this has been on hold since admission. Status: Acute (9) Acute blood loss anemia: Hemoglobin stabilized around 8.5. Attempt in process to switch to oral anticoagulation. If still not tolerating on follow-up with decreasing hemoglobin, consideration is given to additional endoscopic evaluation, or possibly IVC filter. Heme positive stool. Will need close follow-up of hemoglobin after discharge given variable renal function, reassessment of safety and dosing of Eliquis depending on changes. Iron deficiency anemia. Received IV iron. Continue replacement after discharge. TIBC is on the low side, may have component of anemia chronic disease. Elevated CRP, PLT. H pylori serology negative. Continue PPI. She has history of internal hemorrhoids, history of sigmoid polyp. Reports history of colonoscopy several years ago. Reports history of gastric ulcer. Status: Acute (10) Dehydration: Resolved. Status: Acute (11) Bilateral renal cysts: Questionable irregular renal mass on R kidney on renal US, but no mass visible on MR (wo contrast due to renal insufficiency). Appreciate urology assessment. With finding of renal cysts, cystic lesion similar in appearance to 5 years ago. Consideration was given to reimaging with US. Status: Acute Additional A&P Information Attestations Medical Necessity Statement*: Continue admission currently for optimization of medical management of episodic extremely high blood pressures, pending approval for placement to SNF for rehabilitation, initiation of anticoagulation in the setting of chronic kidney disease, and anemia for PE, treatment of pneumonia, chronic diarrhea with possible malabsorption. Coding Level of Care Code Acute Service Order Dispatcher for Chg Fwd Diagnoses HTN (hypertension) I10 Pulmonary embolism I26.99 Community acquired pneumonia J18.9 Atrial fibrillation with RVR I48.91 Generalized weakness R53.1 Leukocytosis D72.829 ANA ROSA (acute kidney injury) N17.9 Diarrhea R19.7 Acute blood loss anemia D62 Dehydration E86.0 Bilateral renal cysts N28.1
--- NOTE | 2019-08-14 13:41 | PC.NURSE ---
Per Dr Fletcher hold decreased dose of eliquis at 1300
[2019-08-14 16:42] LABS: Glucose Point of Care 174 mg/dL (70-110)
--- NOTE | 2019-08-14 19:55 | PC.NURSE ---
Patient was lifted up in bed. Patient has no concerns or complaints at this time.
[2019-08-14 20:32] LABS: Glucose Point of Care 218 mg/dL (70-110)
--- NOTE | 2019-08-14 21:26 | PC.NURSE ---
Patient hits call light and states my mouth is dry. Patient is given a sip of water. Patient asks for PRN Tylenol but when asked if she is hurting states no. Patient was repositioned on her right side with pillows placed with 2 assist.
[2019-08-15] VITALS (14 sets, daily range): BP systolic 165–196; BP diastolic 69–100; PULSE 80–98; RESP 16–24; TEMP 36.6–36.9; O2SAT 92–97
[2019-08-15] MEDS: apixaban 5 mg Tablet 2.5 MG PO ×2 (01:01→13:59)
--- NOTE | 2019-08-15 04:17 | PC.NURSE ---
Patient had uneventful night. Patient has been assisted to bedside commode three times so far this shift. Will continue to monitor.
--- NOTE | 2019-08-15 04:36 | PC.NURSE ---
Patient had soft BM. Patient's bowel movement was not watery, but soft. Patient still requested PRN Imodium.
[2019-08-15] MEDS: loperamide 2 mg Capsule PO (04:40)
--- NOTE | 2019-08-15 04:44 | PC.NURSE ---
Patient's blood pressure is currently 196/92. PRN Hydralazine given. Will recheck blood pressure.
[2019-08-15] MEDS: hyDRALAzine 20 mg/mL INJ 1 mL 5 MG IVP ×2 (04:45→05:33)
--- NOTE | 2019-08-15 04:51 | PC.NURSE ---
Patient was lifted up in bed and pillows placed with 2 assist. Patient stated she was not able to cover herself up. Patient was encouraged to try and nurse would assist if she was not able to. Patient was able to cover herself up with the blanket well without assistance. Patient asked when she had a BM if the nurse could wipe her. Nurse encouraged patient to try it herself in order to keep her strength up and that the nurse would assist if she was not able to. Patient was able to wipe herself without any issues. Will continue to monitor and help patient if needed.
[2019-08-15 05:03] LABS: Hematocrit 26.3 % (37.0-47.0); Hemoglobin 8.2 g/dL (11.5-15.3); Mean Corpuscular HGB Conc 31.2 g/dL (30.0-36.0); Mean Corpuscular Hemoglobin 27.8 pg (28.0-34.0); Mean Corpuscular Volume 89.2 fL (81-99); Mean Platelet Volume 9.7 fL (7.4-10.4); Nucleated Red Blood Cells # 0.1 /100WBC; Nucleated Red Blood Cells % 0.4 %; Platelet Count 491 10^3/cmm (130-400); Red Blood Count 2.95 10^6/uL (4.1-5.3); Red Cell Distribution Width 17.5 % (12.1-15.1); White Blood Count 12.4 10^3/uL (4.0-10.0)
[2019-08-15 05:21] LABS: Alanine Aminotransferase 20 U/L (0-33); Albumin Level 2.5 g/dL (3.5-5.2); Alkaline Phosphatase 116 IU/L (35-105); Anion Gap 15.5 (5-19); Aspartate Amino Transferase 21 U/L (0-32); Blood Urea Nitrogen 25 mg/dL (8-23); Calcium 9.1 mg/dL (8.5-10.5); Carbon Dioxide 19 mmol/L (22-29); Chloride 109 mmol/L (98-107); Globulin 2.6 g/dL (1.3-4.6); Glucose 196 mg/dL (65-115); Osmolality Calculated 292 mOsm/kg (285-295); Potassium 3.5 mmol/L (3.5-5.1); Sodium 140 mmol/L (136-145); Total Bilirubin 0.2 mg/dL (0.15-1.2); Total Protein 5.1 g/dL (6.6-8.7)
[2019-08-15 05:24] LABS: Digoxin 0.9 ng/mL (0.6-1.2)
--- NOTE | 2019-08-15 05:26 | PC.NURSE ---
Dr. Villarreal notified of patient's blood pressure of 196/92. 5 mg PRN order for systolic >190 Hydralazine given. Patient's blood pressure is now 188/85. Ordered to give another 5 mg Hydralazine.
--- NOTE | 2019-08-15 05:53 | PC.NURSE ---
Dr. Villarreal notified of blood pressure of 187/96 after 2nd dose of Hydralazine.
--- NOTE | 2019-08-15 05:56 | PC.NURSE ---
Ordered to give morning dose of PO Catapres early.
[2019-08-15] MEDS: cloNIDine 0.1 mg Tablet PO ×3 (05:57→21:17)
[2019-08-15 06:21] LABS: Glucose Point of Care 190 mg/dL (70-110)
[2019-08-15 06:29] LABS: Slide Review Slide Review Perform
[2019-08-15 06:31] LABS: Absolute Eosinophils 0.2 10^3/cmm (0.0-0.7); Absolute Segmented Neutrophil 8.6 10/cmm (1.6-7.1); Band Neutrophils Absolute 0.2 10^3/cmm (0.0-1.2); Eosinophils 2 %; Lymphocytes 17 %; Monocytes Absolute 0.7 10^3/cmm (0.1-0.6); Segmented Neutrophils 70 %; Total Cells Counted 100 (0-100)
[2019-08-15 06:32] LABS: Absolute Neutrophil 8.9 10^3/cmm (1.4-6.5); Anisocytosis 1+; Platelet Estimate Increased (Normal)
--- NOTE | 2019-08-15 06:47 | PM.PN ---
Subjective Subjective: Interval history: weak , sob, taveras, poor appetite. no leung, + nausea, constipated Medications: Reviewed: Yes Medication Review Details: Current Medications Acetaminophen (Tylenol) 650 mg PO Q4H PRN PRN Reason: MILD PAIN OR INCREASE TEMP Last Admin: 08/14/19 21:24 Dose: 650 mg Documented by: Alprazolam (Xanax) 0.25 mg PO QID PRN PRN Reason: ANXIETY Last Admin: 08/14/19 04:43 Dose: 0.25 mg Documented by: Apixaban (Eliquis) 2.5 mg PO Q12H COUNTS INCLUDE 234 BEDS AT THE [facility] Last Admin: 08/15/19 01:01 Dose: 2.5 mg Documented by: Clonidine HCl (Catapres) 0.1 mg PO TID COUNTS INCLUDE 234 BEDS AT THE [facility] Last Admin: 08/15/19 05:57 Dose: 0.1 mg Documented by: Dextrose (D50w) 25 ml IVP ONCE PRN; Protocol PRN Reason: hypoglycemia protocol Dextrose (D50w) 50 ml IVP PRN PRN; Protocol PRN Reason: hypoglycemia protocol Digoxin (Lanoxin) 125 mcg PO Q48H COUNTS INCLUDE 234 BEDS AT THE [facility] Last Admin: 08/14/19 09:34 Dose: 125 mcg Documented by: Glucagon (Glucagen) 1 mg IM ONCE PRN; Protocol PRN Reason: Adult Acute Hypoglycemia Prot. Hydralazine HCl (Apresoline) 5 mg IVP Q8H PRN PRN Reason: HYPERTENSION Last Admin: 08/15/19 04:45 Dose: 5 mg Documented by: Hydralazine HCl (Apresoline) 50 mg PO TID COUNTS INCLUDE 234 BEDS AT THE [facility] Last Admin: 08/14/19 20:19 Dose: 50 mg Documented by: Dextrose (D5w) 500 mls @ 100 mls/hr IV ONCE PRN; Protocol PRN Reason: Adult Acute Hypoglycemia Prot Ferric Sodium Gluconate 125 mg (/ Sodium Chloride) 110 mls @ 110 mls/hr IV Q24H COUNTS INCLUDE 234 BEDS AT THE [facility] Stop: 08/18/19 10:59 Last Admin: 08/14/19 09:36 Dose: 110 mls/hr Documented by: Insulin Aspart (Novolog) 0 unit SUBCUT TIDWM ROGELIO; Protocol Last Admin: 08/14/19 17:39 Dose: 2 unit Documented by: Lanolin (Lanolin Oint) 1 applic TOPICAL PRN PRN PRN Reason: DRYNESS Last Admin: 08/11/19 08:41 Dose: 1 tube Documented by: Levalbuterol HCl (Xopenex) 0.63 mg INHALATION Q4H.RESPIRATORY PRN PRN Reason: SHORTNESS OF BREATH Last Admin: 08/12/19 15:41 Dose: 0.63 mg Documented by: Levofloxacin (Levaquin) 750 mg PO Q48H COUNTS INCLUDE 234 BEDS AT THE [facility]; Protocol Last Admin: 08/13/19 08:37 Dose: 750 mg Documented by: Loperamide HCl (Imodium Capsule) 2 mg PO QID PRN PRN Reason: DIARRHEA Last Admin: 08/15/19 04:40 Dose: 2 mg Documented by: Metoprolol Tartrate (Lopressor) 50 mg PO BID COUNTS INCLUDE 234 BEDS AT THE [facility] Last Admin: 08/14/19 17:39 Dose: 50 mg Documented by: Mirtazapine (Remeron) 15 mg PO DAILY COUNTS INCLUDE 234 BEDS AT THE [facility] Last Admin: 08/14/19 09:34 Dose: 15 mg Documented by: Pantoprazole Sodium (Protonix) 40 mg PO BID COUNTS INCLUDE 234 BEDS AT THE [facility] Last Admin: 08/14/19 17:39 Dose: 40 mg Documented by: Sodium Bicarbonate (Sodium Bicarbonate) 650 mg PO TID COUNTS INCLUDE 234 BEDS AT THE [facility] Last Admin: 08/14/19 20:19 Dose: 650 mg Documented by: Vitals/I&O/Wt Last Vital Signs Temp 97.8 F 08/15/19 03:08 Pulse 88 08/15/19 03:08 Resp 24 H 08/15/19 03:08 BP 187/96 08/15/19 05:57 Pulse Ox 92 08/15/19 03:08 08/14/19 08/14/19 08/15/19 14:59 22:59 06:59 Intake Total 290 / 290 150 / 440 Output Total 900 / 900 200 / 1100 550 / 1650 Balance -900 / -900 90 / -810 -400 / -1210 Physical Exam Narrative: EXAM NARRATIVE: comfortable in bed on nc 02 heent- nc/at neck no jvp, supple lungs -rt base dull, otherwise clear heart irreg irreg, +RAVEN abd soft, nt, nd, +BS ext no edema neuro- a,a, o x 3 Urinary Catheter Management^: Carver: Cath Placed During This Visit: yes, but has since been removed by the nurse Reason for Continuing Indwelling Catheter: Decision to DC Catheter Urinary Catheter Date of Insertion: 08/08/19 Urinary Catheter Time of Insertion: 13:00 Date Urinary Catheter Removed: 08/12/19 Time Urinary Catheter Discontinued: 15:00 Data : 08/15/19 04:15 08/15/19 04:15 Micro: Microbiology 08/13/19 15:25 Parasite Antigen Panel - Final Stool A&P Additional A&P Information 1. ANA ROSA - creatinine improved to baseline -likely ATN 2. 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 renal cysts vs mass- agree w/ urology f/u. Per urology, they apprear to be stable for years- outpt f/u 4. PE on eliquis 2.5 bid for PE and a fib 5. Pneumonia- abx as per medicine - levaquin 6. a fib- a/c 7. anemia - iron def- received iv iron -hgb relatively stable 8. mild AGMA and non AGMA from renal disease- give sodium bicarb pills -replace k 9. htn- not controlled on hydralazine 50 tid, metoprolol 50 bid, clonidine 0. 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
[2019-08-15] MEDS: sodium bicarbonate 650 mg Tablet PO ×3 (08:13→21:17)
[2019-08-15] MEDS: mirtazapine 15 mg Tablet PO (08:13)
[2019-08-15] MEDS: levoFLOXacin 750 mg Tablet PO (08:13)
[2019-08-15] MEDS: pantoprazole DR 40 mg Tablet PO ×2 (08:13→17:20)
[2019-08-15] MEDS: hyDRALAzine 50 mg Tablet PO ×3 (08:13→21:17)
[2019-08-15] MEDS: amlodipine 5 mg Tablet PO (08:13)
[2019-08-15] MEDS: metoprolol tartrate 50 mg Tablet PO ×2 (08:14→17:21)
[2019-08-15 09:25] LABS: Albumin,Urine Random 58 %; Alpha-1-Globulins Urine Random 4 %; Alpha-2-Globulins Urine Random 14 %; Beta-Globulin,Urine Random 12 %; Gamma Globulin,Urine Random 12 %
[2019-08-15 12:10] LABS: Glucose Point of Care 237 mg/dL (70-110)
[2019-08-15 12:15] LABS: ALBUMIN 1.8 g/dL (3.8-4.8); ALPHA 1 GLOBULIN 0.5 g/dL (0.2-0.3); BETA 1 GLOBULIN 0.3 g/dL (0.4-0.6); BETA 2 GLOBULIN 0.3 g/dL (0.2-0.5); GAMMA GLOBULIN 0.3 g/dL (0.8-1.7)
--- NOTE | 2019-08-15 14:30 | PC.SOCIAL ---
*IMM* Patient was given the IM from [facility]. Placed in chart. Patient received a copy.
[2019-08-15] MEDS: ferric gluconate 125 MG in sodium chloride 0.9% (100 ml) 100 ML 110 MG IV (14:54)
--- NOTE | 2019-08-15 14:59 | P.PN_ITS ---
Subjective Subjective: Interval history: Patient not feeling well today. Reports feeling very tired and weak. Not much of an appetite but did okay with her lunch. Seems a bit down with everything that has happened. She has been accepted at [facility]. Current blood pressures though are 180s to 190s over 90s to 100s. Patient historically has blood pressure that can be difficult to control being on BURT inhibitor, carvedilol, chlorthalidone, clonidine and hydralazine at home. Also note that she has benzodiazepines at home. At home they are twice a day as needed and it does not look like she gets them filled too frequently. Looks like the hypertension has been an issue prior to admission with several medication adjustments in the outpatient setting lately. Clonidine was added scheduled yesterday by nephrology. Amlodipine was added today. The amlodipine had been tried outpatient as well. Vitals/I&O/Wt Last Vital Signs Temp 98.4 F 08/15/19 07:27 Pulse 91 08/15/19 12:00 Resp 22 H 08/15/19 12:00 BP 181/100 08/15/19 12:00 Pulse Ox 93 08/15/19 12:00 08/14/19 08/15/19 08/15/19 22:59 06:59 14:59 Intake Total 290 / 290 150 / 440 Output Total 200 / 1100 550 / 1650 350 / 350 Balance 90 / -810 -400 / -1210 -350 / -350 Physical Exam Const: OTHER: Alert, oriented x3, cooperative HENMT: OTHER: Normocephalic atraumatic, moist mucus membranes Eye: OTHER: Pupils equally reactive bilaterally Neck/C-Spine: OTHER: Supple Resp: OTHER: No rales rhonchi or wheezes noted, no accessory muscle use Cardio: OTHER: Regular rate and rhythm. JVD. GI: OTHER: Abdomen soft, nontender, nondistended with positive bowel sounds Extremity: NARRATIVE EXTREMITY EXAM: No pitting edema Neuro: OTHER: Face symmetric, speech clear, moves all extremities Psych: OTHER: Somewhat flat affect but responds appropriately to questions Skin: OTHER: Skin dry, no rashes noted Urinary Catheter Management^: Carver: Cath Placed During This Visit: yes, but has since been removed by the nurse Reason for Continuing Indwelling Catheter: Decision to DC Catheter Urinary Catheter Date of Insertion: 08/08/19 Urinary Catheter Time of Insertion: 13:00 Date Urinary Catheter Removed: 08/12/19 Time Urinary Catheter Discontinued: 15:00 Data : 08/15/19 04:15 08/15/19 04:15 Other Labs: H. Pylori IgG antibody negative Hepatitis C nonreactive HIV nonreactive COVID 19 not detected DIANA screen negative C3 and C4 normal Serum protein electrophoresis with increased alpha globulins but no M spike MRSA screen negative Urine Legionella antigen negative Urine bacterial antigens negative C. difficile negative Hemoccult positive Blood culture 08/10 no growth to date Stool study for parasites and enteric pathogens negative (NO Giardia, Entamoeba, Cryptosporidium, Shigella, Shigella, Campylobacter or Salmonella identified) Micro: Microbiology 08/13/19 15:25 Parasite Antigen Panel - Final Stool A&P Assessment and plan (1) Pulmonary embolism: Diagnosed via VQ scan secondary to renal function. High probability study. Bilateral Dopplers of the lower extremities were negative for DVT. Started on Eliquis this hospital stay. Status: Acute Qualifiers: Pulmonary embolism type: other Chronicity: acute Acute cor pulmonale presence: without acute cor pulmonale Qualified Code(s): I26.99 - Other pulmonary embolism without acute cor pulmonale (2) HTN (hypertension): Chronically with difficult to control blood pressure for unclear reasons. Currently with evidence of PE and elevated right ventricular systolic pressures. In discussion with Mrs. Lam, she has had difficult to control blood pressures for quite some time. May have been exacerbated lately due to above. Status: Acute Qualifiers: Hypertension type: other secondary hypertension Qualified Code(s): I15.8 - Other secondary hypertension (3) Atrial fibrillation with RVR: Suspect secondary to PE, started on anticoagulation. Currently in sinus rhythm. On digoxin with acceptable level. Status: Acute (4) ANA ROSA (acute kidney injury): Showing some improvement today compared to yesterday Status: Acute (5) Stage 3 chronic kidney disease: Looks like baseline creatinine is around 2. Mild anion gap metabolic acidosis associated Status: Chronic (6) Iron deficiency anemia: [place] to have acute blood loss anemia given heme positive stools. Likely with some chronic blood loss but could also be secondary to chronic kidney disease progressively worsening. Associated thrombocytosis. Getting iron replacement for iron level of 7 during this hospital stay. Status: Acute Qualifiers: Iron deficiency anemia type: unspecified iron deficiency Qualified Code(s): D50.9 - Iron deficiency anemia, unspecified (7) Diarrhea: Has been going on for some time, still with loose stools here. Has a diagnosis of IBS. On Imodium as needed. Work-up unremarkable so far. Status: Acute Qualifiers: Diarrhea type: unspecified type Qualified Code(s): R19.7 - Diarrhea, unspecified (8) Generalized weakness: Persistent, suspect multifactorial. Does not appear more proximal than distal. Status: Acute (9) Leukocytosis: Persistent, though generally trending downwards Status: Acute Qualifiers: Leukocytosis type: unspecified Qualified Code(s): D72.829 - Elevated white blood cell count, unspecified (10) Community acquired pneumonia: Presumptive diagnosis at the time of admission based on abnormalities on chest x-ray and elevated procalcitonin. Required BiPAP initially. Official chest x-ray interpretation demonstrated evidence of atelectasis. Has been on antibiotics with Levaquin since admission Status: Acute Qualifiers: Laterality: left Lung location: lower lobe of lung Qualified Code(s): J18.9 - Pneumonia, unspecified organism (11) Bilateral renal cysts: Questionable irregular renal mass on R kidney on renal US, but no mass visible on MR (wo contrast due to renal insufficiency). Seen by urology during hospital stay. With finding of renal cysts, cystic lesion similar in appearance to 5 years ago. Status: Chronic (12) Diabetes: Status: Chronic Qualifiers: Diabetes mellitus type: type 2 Diabetes mellitus intermediate manager insulin use: without chcf use Diabetes mellitus complication status: with kidney complications Chronic kidney disease stage: stage 3 (moderate) Diabetes mellitus complication detail: with chronic kidney disease Qualified Code(s): E11.22 - Type 2 diabetes mellitus with diabetic chronic kidney disease; N18.3 - Chronic kidney disease, stage 3 (moderate) (13) Heart failure with preserved ejection fraction: Status: Chronic Qualifiers: Heart failure chronicity: chronic Qualified Code(s): I50.32 - Chronic diastolic (congestive) heart failure (14) Dehydration: Status: Resolved Additional A&P Information Dyslipidemia with low HDL and high triglycerides Normal TSH Continue Eliquis at renal dosing Currently on scheduled clonidine 3 times a day (08/13), amlodipine 5 mg daily (08/14), oral hydralazine 50 mg 3 times a day 08/11), metoprolol 50 mg twice a day (08/08 >> had been on carvedilol at home 25 twice daily), hydralazine IV as needed Off of home chlorthalidone and BURT inhibitor Considering stopping digoxin, monitor response Appreciate nephrology input On sodium bicarbonate by mouth Receiving ferric gluconate IV As needed Imodium PT and OT evaluation Discontinue Levaquin after today's dose Recheck CK and CRP as well as procalcitonin Sliding scale insulin for diabetes On PPI twice daily secondary to heme positive stools Caden provides appropriate VTE prophylaxis Has been accepted at [facility] when medically stable Full code Attestations Medical Necessity Statement*: Requires ongoing inpatient stay for further adjustment of antihypertensive medications and other medicines as noted. Anticipate disposition to skilled facility in the next couple of days we can get blood pressure under better control. Coding Level of Care Code Acute Shear Operator Automatic for Chg Fwd Diagnoses Pulmonary embolism I26.99 Pulmonary embolism type: other Chronicity: acute Acute cor pulmonale presence: without acute cor pulmonale HTN (hypertension) I15.8 Hypertension type: other secondary hypertension Atrial fibrillation with RVR I48.91 ANA ROSA (acute kidney injury) N17.9 Stage 3 chronic kidney disease N18.3 Iron deficiency anemia D50.9 Iron deficiency anemia type: unspecified iron deficiency Diarrhea R19.7 Diarrhea type: unspecified type Generalized weakness R53.1 Leukocytosis D72.829 Leukocytosis type: unspecified Community acquired pneumonia J18.9 Laterality: left Lung location: lower lobe of lung Bilateral renal cysts N28.1 Diabetes E11.22; N18.3 Diabetes mellitus type: type 2 Diabetes mellitus chcf insulin use: without intermediate manager use Diabetes mellitus complication status: with kidney complications Chronic kidney disease stage: stage 3 (moderate) Diabetes mellitus complication detail: with chronic kidney disease Heart failure with preserved ejection fraction I50.32 Heart failure chronicity: chronic Dehydration E86.0
[2019-08-15] MEDS: ALPRAZolam 0.25 mg Tablet PO (17:20)
[2019-08-15] MEDS: acetaminophen 325 mg Tablet 650 MG PO (17:21)
[2019-08-15 18:16] LABS: Glucose Point of Care 112 mg/dL (70-110)
--- NOTE | 2019-08-15 20:07 | PC.NURSE ---
REPORT WAS RECIEVED FROM OFF GOING NURSE. PT IS IN BED AND WAS REPOSITIONED BY THIS NURSE. PT DENIES PAIN AT THIS TIME. WILL CONTINUE TO MONITOR.
[2019-08-16] VITALS (8 sets, daily range): BP systolic 151–166; BP diastolic 66–81; PULSE 79–99; RESP 16–18; TEMP 36.6–36.8; O2SAT 93–97
[2019-08-16] MEDS: acetaminophen 325 mg Tablet 650 MG PO (02:00)
[2019-08-16] MEDS: apixaban 5 mg Tablet 2.5 MG PO ×2 (02:01→14:19)
[2019-08-16] MEDS: ALPRAZolam 0.25 mg Tablet PO (02:11)
--- NOTE | 2019-08-16 04:37 | PC.NURSE ---
NURSE WAS CALLED DOWN TO PT ROOM. PT WANTED A TYLENOL AND A XANAX. PT REPORTED PAIN AT A 8/10 AND WAS ANXIOUS. MEDICATION WAS GIVEN AND PT THIS MORNING STATES THAT IT WAS EFFECTIVE.
[2019-08-16 04:38] LABS: Basophils % 0.3 %; Eosinophils # 0.5 10^3/uL (0.0-0.8); Eosinophils % 3.4 %; Hematocrit 25.7 % (37.0-47.0); Lymphocytes # 1.4 10^3/uL (0.8-4.8); Lymphocytes % 10.5 %; Mean Corpuscular HGB Conc 31.1 g/dL (30.0-36.0); Mean Corpuscular Hemoglobin 27.9 pg (28.0-34.0); Mean Corpuscular Volume 89.5 fL (81-99); Mean Platelet Volume 9.4 fL (7.4-10.4); Monocytes # 0.8 10^3/uL (0.2-0.9); Monocytes % 6.3 %; Neutrophils # 9.4 10^3/uL (1.8-7.7); Neutrophils % 71.6 %; Nucleated Red Blood Cells % 0.2 %; Platelet Count 462 10^3/cmm (130-400); Red Blood Count 2.87 10^6/uL (4.1-5.3); Red Cell Distribution Width 17.5 % (12.1-15.1); White Blood Count 13.1 10^3/uL (4.0-10.0)
[2019-08-16 04:56] LABS: Creatine Phosphokinase 76 U/L (26-192); Magnesium 1.1 mg/dL (1.7-2.3)
[2019-08-16 04:57] LABS: Alanine Aminotransferase 18 U/L (0-33); Albumin Level 2.5 g/dL (3.5-5.2); Alkaline Phosphatase 103 IU/L (35-105); Anion Gap 17.5 (5-19); Aspartate Amino Transferase 20 U/L (0-32); Blood Urea Nitrogen 19 mg/dL (8-23); Calcium 9.8 mg/dL (8.5-10.5); Carbon Dioxide 19 mmol/L (22-29); Chloride 106 mmol/L (98-107); Globulin 2.8 g/dL (1.3-4.6); Glucose 223 mg/dL (65-115); Osmolality Calculated 291 mOsm/kg (285-295); Potassium 3.5 mmol/L (3.5-5.1); Sodium 139 mmol/L (136-145); Total Bilirubin 0.2 mg/dL (0.15-1.2); Total Protein 5.3 g/dL (6.6-8.7)
[2019-08-16 04:59] LABS: Procalcitonin 0.49 ng/mL (0-0.5)
[2019-08-16 05:09] LABS: Phosphorus 2.4 mg/dL (2.5-4.5)
[2019-08-16 05:27] LABS: Slide Review Slide Review Perform
--- NOTE | 2019-08-16 06:11 | PC.NURSE ---
PT DID WELL THROUGH THE NIGHT. PT DID GET ANXIOUS, BUT QUICKLY RESOLVED. PT DENIES PAIN AT THIS TIME. PT WAS A SBA TO [facility]. WILL GIVE REPORT TO ONCOMING SHIFT.
[2019-08-16 06:42] LABS: Glucose Point of Care 211 mg/dL (70-110)
--- NOTE | 2019-08-16 07:46 | P.PN_ITS ---
Subjective Subjective: Interval history: feels better. less sob. she is worried about her htn Medications: Reviewed: Yes Medication Review Details: Current Medications Acetaminophen (Tylenol) 650 mg PO Q4H PRN PRN Reason: MILD PAIN OR INCREASE TEMP Last Admin: 08/16/19 02:00 Dose: 650 mg Documented by: Alprazolam (Xanax) 0.25 mg PO BID PRN PRN Reason: ANXIETY Last Admin: 08/16/19 02:11 Dose: 0.25 mg Documented by: Amlodipine Besylate (Norvasc) 5 mg PO DAILY [facility] Last Admin: 08/15/19 08:13 Dose: 5 mg Documented by: Apixaban (Eliquis) 2.5 mg PO Q12H [facility] Last Admin: 08/16/19 02:01 Dose: 2.5 mg Documented by: Clonidine HCl (Catapres) 0.1 mg PO TID [facility] Last Admin: 08/15/19 21:17 Dose: 0.1 mg Documented by: Dextrose (D50w) 25 ml IVP ONCE PRN; Protocol PRN Reason: hypoglycemia protocol Dextrose (D50w) 50 ml IVP PRN PRN; Protocol PRN Reason: hypoglycemia protocol Glucagon (Glucagen) 1 mg IM ONCE PRN; Protocol PRN Reason: Adult Acute Hypoglycemia Prot. Hydralazine HCl (Apresoline) 50 mg PO TID [facility] Last Admin: 08/15/19 21:17 Dose: 50 mg Documented by: Hydralazine HCl (Apresoline) 10 mg IVP Q8H PRN PRN Reason: HYPERTENSION Dextrose (D5w) 500 mls @ 100 mls/hr IV ONCE PRN; Protocol PRN Reason: Adult Acute Hypoglycemia Prot Ferric Sodium Gluconate 125 mg (/ Sodium Chloride) 110 mls @ 110 mls/hr IV Q24H [facility] Stop: 08/18/19 10:59 Last Admin: 08/15/19 14:54 Dose: 110 mls/hr Documented by: Insulin Aspart (Novolog) 0 unit SUBCUT TIDWM [facility]; Protocol Last Admin: 08/15/19 18:31 Dose: Not Given Documented by: Lanolin (Lanolin Oint) 1 applic TOPICAL PRN PRN PRN Reason: DRYNESS Last Admin: 08/11/19 08:41 Dose: 1 tube Documented by: Levalbuterol HCl (Xopenex) 0.63 mg INHALATION Q4H.RESPIRATORY PRN PRN Reason: SHORTNESS OF BREATH Last Admin: 08/12/19 15:41 Dose: 0.63 mg Documented by: Levofloxacin (Levaquin) 750 mg PO Q48H [facility]; Protocol Last Admin: 08/15/19 08:13 Dose: 750 mg Documented by: Loperamide HCl (Imodium Capsule) 2 mg PO QID PRN PRN Reason: DIARRHEA Last Admin: 08/15/19 04:40 Dose: 2 mg Documented by: Metoprolol Tartrate (Lopressor) 50 mg PO BID [facility] Last Admin: 08/15/19 17:21 Dose: 50 mg Documented by: Mirtazapine (Remeron) 15 mg PO DAILY [facility] Last Admin: 08/15/19 08:13 Dose: 15 mg Documented by: Pantoprazole Sodium (Protonix) 40 mg PO BID [facility] Last Admin: 08/15/19 17:20 Dose: 40 mg Documented by: Sodium Bicarbonate (Sodium Bicarbonate) 650 mg PO TID [facility] Last Admin: 08/15/19 21:17 Dose: 650 mg Documented by: Vitals/I&O/Wt Last Vital Signs Temp 98.1 F 08/16/19 07:17 Pulse 86 08/16/19 07:17 Resp 18 08/16/19 07:17 BP 166/81 08/16/19 07:17 Pulse Ox 93 08/16/19 07:17 08/15/19 08/16/19 08/16/19 22:59 06:59 14:59 Intake Total 360 / 360 Output Total 400 / 750 200 / 950 Balance -40 / -390 -200 / -590 Physical Exam Narrative: EXAM NARRATIVE: comfortable in bed on nc 02 heent- nc/at neck no jvp, supple lungs -rt base dull, otherwise clear heart irreg irreg, +RAVEN abd soft, nt, nd, +BS ext no edema neuro- a,a, o x 3 Urinary Catheter Management^: Carver: Cath Placed During This Visit: yes, but has since been removed by the nurse Reason for Continuing Indwelling Catheter: Decision to DC Catheter Urinary Catheter Date of Insertion: 08/08/19 Urinary Catheter Time of Insertion: 13:00 Date Urinary Catheter Removed: 08/12/19 Time Urinary Catheter Discontinued: 15:00 Data : 08/16/19 04:04 06/09/20 04:04 Micro: Microbiology 08/10/19 19:35 Blood Culture - Final Blood NO GROWTH AFTER 5 DAYS 08/10/19 19:30 Blood Culture - Final Blood NO GROWTH AFTER 5 DAYS A&P Additional A&P Information 1. ANA ROSA - creatinine improved to baseline 1.8 mgm/dl -likely ATN 2. CKD stage 3b to 4 from dm and renal cysts on us -monitor phos on low side 3. renal cysts vs mass- agree w/ urology f/u. Per urology, they apprear to be stable for years- outpt f/u 4. PE on eliquis 2.5 bid for PE and a fib 5. Pneumonia- abx as per medicine - levaquin 6. a fib- a/c - ensure k is 4 and mag of 2 7. anemia - iron def- received iv iron -hgb down to 8 -no epo w/ acute PE 8. mild AGMA and non AGMA from renal disease- give sodium bicarb pills -replace k 9. htn- not controlled on hydralazine 50 tid, metoprolol 50 bid, clonidine 0. 1 tid, and norvasc 5 mg daily- monitor -may need lasix, once electrolytes are improved Attestations Medical Necessity Statement*: PE, pna, ANA ROSA- improved, CKD stage 3 b, htn Time Spent in Patient Care: 16 - 35 minutes Coding Level of Care Code Acute Business Affairs Manager for [place]
[2019-08-16] MEDS: sodium bicarbonate 650 mg Tablet PO ×2 (08:40→14:20)
[2019-08-16] MEDS: hyDRALAzine 50 mg Tablet PO ×2 (08:40→14:20)
[2019-08-16] MEDS: metoprolol tartrate 50 mg Tablet PO (08:40)
[2019-08-16] MEDS: pantoprazole DR 40 mg Tablet PO (08:40)
[2019-08-16] MEDS: cloNIDine 0.1 mg Tablet PO ×2 (08:41→14:20)
[2019-08-16] MEDS: amlodipine 5 mg Tablet PO (08:41)
[2019-08-16] MEDS: mirtazapine 15 mg Tablet PO (08:41)
[2019-08-16 10:54] LABS: Glucose Point of Care 248 mg/dL (70-110)
[2019-08-16] MEDS: ferric gluconate 125 MG in sodium chloride 0.9% (100 ml) 100 ML 110 MG IV (11:26)
--- NOTE | 2019-08-16 13:31 | PM.DCS ---
Discharge Providers Date of Admission: 08/08/19 15:58 Date of Discharge: August 16, 2019 Attending Provider at Admission: Michi Villarreal MD Attending Provider at Discharge: Britt Monaco MD Primary Care Provider: Vitaliy Morales MD Diagnoses at Discharge Discharge Diagnosis (1) Pulmonary embolism: Status: Acute Problem details: Diagnosed August 2019 Qualifiers: Acute cor pulmonale presence: without acute cor pulmonale Chronicity: acute Pulmonary embolism type: other Qualified Code(s): I26.99 - Other pulmonary embolism without acute cor pulmonale (2) HTN (hypertension): Status: Acute Problem details: Chronically difficult to control - on clonidine scheduled, metoprolol, amlodipine, hydralizine. Qualifiers: Hypertension type: other secondary hypertension Qualified Code(s): I15.8 - Other secondary hypertension (3) Atrial fibrillation with RVR: Status: Acute Problem details: August 2019, suspect paroxysmal secondary to PE. (4) ANA ROSA (acute kidney injury): Status: Acute (5) Stage 3 chronic kidney disease: Status: Chronic (6) Iron deficiency anemia: Status: Acute Qualifiers: Iron deficiency anemia type: unspecified iron deficiency Qualified Code(s): D50.9 - Iron deficiency anemia, unspecified (7) Diarrhea: Status: Acute Qualifiers: Diarrhea type: unspecified type Qualified Code(s): R19.7 - Diarrhea, unspecified (8) Generalized weakness: Status: Acute (9) Leukocytosis: Status: Acute Qualifiers: Leukocytosis type: unspecified Qualified Code(s): D72.829 - Elevated white blood cell count, unspecified (10) Community acquired pneumonia: Status: Acute Qualifiers: Laterality: left Lung location: lower lobe of lung Qualified Code(s): J18.9 - Pneumonia, unspecified organism (11) Bilateral renal cysts: Status: Chronic Problem details: long standing, evaluated 08/26 (12) Diabetes: Status: Chronic Qualifiers: Chronic kidney disease stage: stage 3 (moderate) Diabetes mellitus complication detail: with chronic kidney disease Diabetes mellitus complication status: with kidney complications Diabetes mellitus joint terminal attack controller insulin use: without prison use Diabetes mellitus type: type 2 Qualified Code(s): E11.22 - Type 2 diabetes mellitus with diabetic chronic kidney disease; N18.3 - Chronic kidney disease, stage 3 (moderate) (13) Heart failure with preserved ejection fraction: Status: Chronic Problem details: Grade 1 diastolic dysfunction, EF 65% 08/23/2018 Qualifiers: Heart failure chronicity: chronic Qualified Code(s): I50.32 - Chronic diastolic (congestive) heart failure (14) Dehydration: Status: Resolved Reason for Visit Reason for Visit: SOB/ FEVER/ BODY ACHES Hospital Course Hospital Course: Mrs. Lam is a 73-year-old female who presented to the emergency room with chief complaint of shortness of breath, fever and body aches. She was treated for pneumonia. Chest x-ray demonstrated possibility of right lower lobe infiltrate. COVID testing was done and was not detected. She had multiple abnormalities including acute kidney injury on chronic kidney disease stage III, iron deficiency anemia with heme positive stools necessitating a unit of blood, reported diarrhea and significant weakness. She did require BiPAP initially. Official chest x-rays were interpreted as atelectasis. She did continue to receive Levaquin. Patient ultimately ended up having some A. fib with RVR and was later identified as having high probability VQ scan consistent with a diagnosis of pulmonary embolism. She was started on Eliquis at renal dosing due to acute kidney injury and chronic kidney disease. Hemoglobin was monitored throughout the hospital stay. She had a slight trend downward but no signs of gross bleeding. H&H will need to continue to be monitored closely. I did discuss with her that she may have to stop anticoagulation but with the strong suspicion for PE based on studies we will try to continue it for now. She expressed understanding. Patient received iron replacement while here. Iron level was as low as 7. She will be discharged with oral iron replacement. Blood pressures were difficult to control during the hospital stay. She had been on an BURT inhibitor and diuretic therapy, both of which were stopped due to acute kidney injury. She was changed from carvedilol to metoprolol during the hospital stay as well. She was requiring 3 times daily scheduled clonidine, twice daily metoprolol, 3 times daily hydralazine and daily amlodipine with pressures running 150s to 160s over 70s to 80s. This was an improvement from 190s over 100s earlier in the hospital stay. Because of the A. fib with RVR, patient was started on digoxin for additional rate control. Digoxin level was checked after being on it for a few days and was at 0.9. Dosing is every other day. I suspect she will be able to come off of this after she has been on some treatment for PE for a bit. Considered stopping while here but had some remittent tachycardia/SVT so it was continued. Patient will need follow-up with nephrology. Specific etiology of pulmonary embolism is unclear at this point in time either she has been getting deconditioned. It was felt to be present at the time of admission. Extensive work-up was done with results as noted below. On the day of discharge, patient was awake and alert, overall feeling better. She had clear lungs with no wheezes or rhonchi noted. She continued to be weak but was improving overall. She had a regular rhythm with sinus rhythm noted on the monitor. She was felt stable for disposition to skilled facility for ongoing strengthening and close monitoring while she is being initiated on anticoagulation and other treatment as indicated. I briefly discussed patient's case with her primary care provider Dr. Morales prior to discharge. Patient will need CBC checked this week. I recommend BMP and digoxin level next week. Physical Exam Urinary Catheter Management^: Carver: Cath Placed During This Visit: yes, but has since been removed by the nurse Reason for Continuing Indwelling Catheter: Decision to DC Catheter Urinary Catheter Date of Insertion: 08/08/19 Urinary Catheter Time of Insertion: 13:00 Date Urinary Catheter Removed: 08/12/19 Time Urinary Catheter Discontinued: 15:00 Discharge Data Data Completed and Pending: Completed Studies During Hospitalization Category Date Time Status CT head wo con* 7 0450 Urgent Cat Scan 08/07/19 20:38 Completed XR chest 1V max ble [id number] Routine Exams 08/09/19 06:00 Completed XR chest 1V max ble [id number] Routine Exams 08/11/19 13:07 Completed XR chest 1V max ble [id number] Routine Exams 08/13/19 08:57 Completed XR chest 1V max ble [id number] Urgent Exams 08/07/19 20:38 Completed XR chest 1V max ble [id number] Urgent Exams 08/08/19 17:39 Completed MR abdomen wo con [id number] Routine MRI 08/11/19 14:30 Completed NM pul vent and p erfus* [id number] Routi ne Nuc Med 08/09/19 08:34 Completed CV echo complete* [id number] Routine Ultrasound 08/09/19 14:59 Completed CV renal doppler 10559 Routine Ultrasound 08/11/19 16:09 [place] [id number] Routin e Ultrasound 08/09/19 16:54 Completed US renal BI* [id number] Routine Ultrasound 08/11/19 14:30 Completed Pending at discharge Category Date Time Status Anti-Neutrophil C utoplasmic AB Rout ine Lab 08/10/19 16:00 Received Blood Culture Sta t Lab 08/11/19 16:03 Results Gliadin Antibody IgG and IgA Routin e Lab 08/13/19 09:11 Received Tissue Transgluta minase AB [place]rickson Rout ine Lab 08/13/19 09:11 Received Labs from last 24 hours 08/16/19 08/16/19 08/16/19 10:46 06:35 04:04 WBC RBC Hgb Hct MCV MCH MCHC RDW Plt Count MPV Neut % (Auto) Lymph % (Auto) [place] % (Auto) Eos % (Auto) Baso % (Auto) Neut # (Auto) Lymph # (Auto) [place] # (Auto) Eos # (Auto) Baso # (Auto) Nucleated RBC % (a uto) Nucleated RBCs # Sodium Potassium Chloride Carbon Dioxide Anion Gap BUN Creatinine Glucose POC Glucose 248 211 Calculated Osmolal ity Calcium Phosphorus Magnesium Total Bilirubin AST ALT Alkaline Phosphata se Creatine Kinase 76 C-Reactive Protein 19.0 H Total Protein Albumin Globulin Procalcitonin Stool H. pylori Ag 08/16/19 08/16/19 08/16/19 04:04 04:04 04:04 WBC 13.1 H RBC 2.87 L Hgb 8.0 L Hct 25.7 L MCV 89.5 MCH 27.9 L MCHC 31.1 RDW 17.5 H Plt Count 462 H MPV 9.4 Neut % (Auto) 71.6 Lymph % (Auto) 10.5 [place] % (Auto) 6.3 Eos % (Auto) 3.4 Baso % (Auto) 0.3 Neut # (Auto) 9.4 H Lymph # (Auto) 1.4 [place] # (Auto) 0.8 Eos # (Auto) 0.5 Baso # (Auto) 0.0 Nucleated RBC % (a uto) 0.2 Nucleated RBCs # 0.0 Sodium 139 Potassium 3.5 Chloride 106 Carbon Dioxide 19 L Anion Gap 17.5 BUN 19 Creatinine 1.8 H Glucose 223 H POC Glucose Calculated Osmolal ity 291 Calcium 9.8 Phosphorus Magnesium 1.1 L Total Bilirubin 0.2 AST 20 ALT 18 Alkaline Phosphata se 103 Creatine Kinase C-Reactive Protein Total Protein 5.3 L Albumin 2.5 L Globulin 2.8 Procalcitonin Stool H. pylori Ag 08/16/19 08/15/19 08/11/19 04:04 17:28 19:15 WBC RBC Hgb Hct MCV MCH MCHC RDW Plt Count MPV Neut % (Auto) Lymph % (Auto) [place] % (Auto) Eos % (Auto) Baso % (Auto) Neut # (Auto) Lymph # (Auto) [place] # (Auto) Eos # (Auto) Baso # (Auto) Nucleated RBC % (a uto) Nucleated RBCs # Sodium Potassium Chloride Carbon Dioxide Anion Gap BUN Creatinine Glucose POC Glucose 112 Calculated Osmolal ity Calcium Phosphorus 2.4 L Magnesium Total Bilirubin AST ALT Alkaline Phosphata se Creatine Kinase C-Reactive Protein Total Protein Albumin Globulin Procalcitonin 0.49 Stool H. pylori Ag See note Addt'l Data from Hospital Stay: H. Pylori IgG antibody negative Hepatitis C nonreactive HIV nonreactive COVID 19 not detected DIANA screen negative C3 and C4 normal Serum protein electrophoresis with increased alpha globulins but no M spike MRSA screen negative Urine Legionella antigen negative Urine bacterial antigens negative C. difficile negative Hemoccult positive Blood culture 6/4 with 1/4 bottles with gram positive alireza on day 5, felt likely contamination Stool study for parasites and enteric pathogens negative (NO Giardia, Entamoeba, Cryptosporidium, Shigella, Shigella, Campylobacter or Salmonella identified) Procedures Performed: CT of the head at admission showed no acute abnormalities VQ scan was high probability of PE in the left lung Echocardiogram showed ejection fraction of 65% with mild to moderate left ventricular hypertrophy but no gross wall motion abnormalities. Mild pulmonary hypertension was noted with estimated pulmonary artery peak systolic pressure 46 mmHg Venous Dopplers of the lower extremities with no DVT Renal ultrasound showed evidence of a solid mass in the superior pole of the right kidney for which MRI or CT was recommended. Contrast was recommended but contraindication in the setting of acute kidney injury/CKD Cardiovascular renal Doppler with no evidence of significant renal artery stenosis although was a somewhat technically limited study Abdominal MRI without contrast showed no evidence of solid renal masses with bilateral renal cyst and perinephric stranding identified Vitals: Last Vital Signs Temp 98.1 F 08/16/19 07:17 Pulse 99 08/16/19 08:39 Resp 17 08/16/19 07:44 BP 154/70 08/16/19 08:41 Pulse Ox 93 08/16/19 07:44 Discharge Plan Discharge Patient Disposition: Xfer SNF Condition: Stable Prescriptions: New clonidine HCl 0.1 mg Tablet 0.1 mg PO TID Qty: 90 RF: 0 acetaminophen 325 mg Tablet 650 mg PO Q4H PRN (Reason: Mild Pain Or Increase Temp) Qty: 30 RF: 0 amlodipine 5 mg Tablet 5 mg PO DAILY Qty: 30 RF: 0 alprazolam 0.25 mg Tablet 0.25 mg PO BID PRN (Reason: Anxiety) Qty: 30 RF: 0 hydralazine 50 mg Tablet 50 mg PO TID Qty: 90 RF: 0 Eliquis 5 mg Tablet 2.5 mg PO Q12H Qty: 60 RF: 0 Lanolin (HPA) 100 % Cream 1 applic topical PRN PRN (Reason: Dryness) Qty: 7 RF: 0 loperamide 2 mg Capsule 2 mg PO QID PRN (Reason: Diarrhea) Qty: 30 RF: 0 sodium bicarbonate 650 mg Tablet 650 mg PO TID Qty: 90 RF: 0 pantoprazole 40 mg Tablet,Delayed Release (Dr/Ec) 40 mg PO BID Qty: 60 RF: 0 metoprolol tartrate 50 mg Tablet 50 mg PO BID Qty: 60 RF: 0 Novolog U-100 Insulin aspart 100 unit/mL Solution See Rx Instructions .ROUTE .COMPLEX Qty: 10 RF: 0 digoxin 125 mcg (0.125 mg) tablet 125 mcg PO Q48H Qty: 15 RF: 0 ferrous gluconate 324 mg (38 mg iron) tablet 324 mg PO BID Qty: 60 RF: 0 Continued mirtazapine 15 mg tablet 15 mg PO DAILY RF: 0 allopurinol 100 mg tablet 100 mg PO DAILY Qty: 60 RF: 0 ondansetron 4 mg Tablet,Disintegrating 4 mg PO Q8H PRN (Reason: Nausea And Vomiting) Qty: 30 RF: 0 Lipitor 10 mg PO DAILY Qty: 60 RF: 0 Held aspirin 81 mg Tablet,Chewable 81 mg PO DAILY RF: 0 Hold Instructions: Holding secondary to initiation of eliquis and heme positive stools Discontinued doxycycline hyclate 100 mg capsule 100 mg PO BID Qty: 60 RF: 2 alprazolam 0.25 mg tablet 0.25 mg PO BID RF: 0 clonidine HCl 0.1 mg tablet 0.1 mg PO DAILY RF: 0 chlorthalidone 25 mg PO DAILY RF: 0 carvedilol 25 mg tablet 25 mg PO BID RF: 0 metformin 1,000 mg tablet 1,000 mg PO DAILY RF: 0 hydralazine 50 mg tablet 50 mg PO BID RF: 0 glimepiride 4 mg tablet 8 mg PO DAILY RF: 0 benazepril 40 mg tablet 40 mg PO DAILY RF: 0 metoclopramide HCl 10 mg Tablet 10 mg PO QID PRN (Reason: Nausea And Vomiting) RF: 0 Discharge Orders: Discharge Order (Routine); Ordered 08/16/19 Ordered By: Britt Monaco Referrals: Nephrology [Provider Group] - 1 month [facility] [Outside] Vitaliy Morales MD [Primary Care Provider] - 2 weeks Discharge Diet: Diabetic Discharge Activity: As per PT/OT instructions Patient Instructions: Metoprolol (By mouth), Digoxin (By mouth), Clonidine (By mouth), Loperamide (By mouth), Acetaminophen (By mouth), Alprazolam (By mouth), Hydralazine (By mouth), Amlodipine (By mouth), Pantoprazole (By mouth), Insulin Aspart, Recombinant (Injection), Sodium Bicarbonate (By mouth), Apixaban (By mouth), Lanolin (On the skin), Pulmonary Embolism (DC) Activity Restrictions/Additional Instructions: PT/ OT eval and treat Glucerna 2-3 per day Currently off of oral hypoglycemics secondary to acute kidney injury and chronic kidney disease On low-dose sliding scale insulin; this will need to be adjusted with addition of long-acting versus resumption of oral medications as oral intake and laboratory studies improved CBC on August 18; hemoglobin on the day of discharge was 8.0 Started on Eliquis during this hospital stay On day of discharge, blood culture, / bottles came back with gram negative rods on day 5. Suspect contamination. Identification pending. Received Levaquin while in hospital, completing course. Discharge Attestations Time Spent in Discharge Care*: greater than 30 min Specific Discharge Activities: Specific discharge activities: educating patient, educating and/or supporting family/caregiver, discussing with senior case manager/social workers/dc planners, documenting/other paperwork and evaluating patient/reviewing data Status at Discharge: Cognitive status at discharge: cognitively intact, Behavioral status at discharge: cooperative, Functional status at discharge: uses cane/walker Overall status at discharge: patient is not back to baseline Quality Metrics Clinical Quality Measures During this hospital stay, did patient experience: VTE Contraindication to Overlap Therapy: Overlap treatment not indicated VTE Discharge Education: Education about anticoagulant therapy/Care Notes given, Education about treatment options/disease process and Medication side effects education Deep Vein Thrombosis/Pulmonary Embolism Present on Admission: Yes Coding Level of Care Code Acute Cancellation Clerk for g Fwd Diagnoses Pulmonary embolism I26.99 Acute cor pulmonale presence: without acute cor pulmonale Chronicity: acute Pulmonary embolism type: other HTN (hypertension) I15.8 Hypertension type: other secondary hypertension Atrial fibrillation with RVR I48.91 ANA ROSA (acute kidney injury) N17.9 Stage 3 chronic kidney disease N18.3 Iron deficiency anemia D50.9 Iron deficiency anemia type: unspecified iron deficiency Diarrhea R19.7 Diarrhea type: unspecified type Generalized weakness R53.1 Leukocytosis D72.829 Leukocytosis type: unspecified Community acquired pneumonia J18.9 Laterality: left Lung location: lower lobe of lung Bilateral renal cysts N28.1 Diabetes E11.22; N18.3 Chronic kidney disease stage: stage 3 (moderate) Diabetes mellitus complication detail: with chronic kidney disease Diabetes mellitus complication status: with kidney complications Diabetes mellitus prison insulin use: without joint terminal attack controller use Diabetes mellitus type: type 2 Heart failure with preserved ejection fraction I50.32 Heart failure chronicity: chronic Dehydration E86.0
--- NOTE | 2019-08-16 15:45 | PC.NURSE ---
discharged to [facility] rehab...transported by [facility] at [id number]
[2019-08-17 10:51] LABS: ANCA Interp Negative (Negative)
== END 2019-08-16 15:15 | disposition skilled nursing facility (03) | DRG 193 ==
LOC: ER 20:34 → ICU 23:57 → CSU 08-10 19:04
PROVIDERS: Emergency Medicine; Internal Medicine; Internal Medicine Nephrology; Admitting Provider Internal Medicine; PCP Family Medicine; Visit Provider Hospitalist
DX: J18.9 Pneumonia, unspecified organism (principal); I26.99 Other pulmonary embolism without acute cor pulmonale; J96.01 Acute respiratory failure with hypoxia; I13.0 Hypertensive heart and chronic kidney disease with heart failure and stage 1 through stage 4 chronic kidney disease, or unspecified chronic kidney disease; I50.32 Chronic diastolic (congestive) heart failure; D62 Acute posthemorrhagic anemia; N17.9 Acute kidney failure, unspecified; M62.82 Rhabdomyolysis; E87.4 Mixed disorder of acid-base balance; E11.22 Type 2 diabetes mellitus with diabetic chronic kidney disease; N18.3 Chronic kidney disease, stage 3 (moderate); K58.0 Irritable bowel syndrome with diarrhea; M81.0 Age-related osteoporosis without current pathological fracture; Z85.43 Personal history of malignant neoplasm of ovary; E86.0 Dehydration; Z20.828 Contact with and (suspected) exposure to other viral communicable diseases; I48.0 Paroxysmal atrial fibrillation; J84.10 Pulmonary fibrosis, unspecified; E87.6 Hypokalemia; N28.1 Cyst of kidney, acquired; N30.20 Other chronic cystitis without hematuria; Z87.440 Personal history of urinary (tract) infections
CPT/HCPCS: 12345; 36415; 36416; 51702; 70450; 71045; 74181; 76770; 76857; 78014; 80051; 80053; 80061; 80162; 80500; 81001; 82274; 82310; 82436; 82550; 82553; 82570; 82607; 82728; 82746; 82810; 82962; 82977; 83010; 83516; 83540; 83550; 83605; 83615; 83690; 83735; 83880; 83970; 83986; 84100; 84133; 84145; 84155; 84165; 84300; 84443; 84484; 84540; 85007; 85014; 85018; 85025; 85045; 85378; 85651; 85730; 86140; 86160; 86403; 86677; 86803; 86850; 86900; 86920; 87040; 87205; 87338; 87449; 87493; 87506; 87635; 87641; 87806; 93005; 93306; 93970; 93975; 94640; 94660; 96372; 96375; 97110; 97116; 97161; 97530; 99284; A9540; A9567; G0378; J0360; J0696; J1160; J1644; J1815; J1940; J1956; J2543; J2916; J3475; J3490; J3535; J7030; J7614; P9016; Q0144; Q3014

== ENCOUNTER → 2019-09-28 08:17 | Outpatient (BNVA) | payer MEDICARE, SELFPAY | PROVIDERS: PCP Family Medicine; Visit Provider Urology | DX: Z87.448 Personal history of other diseases of urinary system (principal); N30.20 Other chronic cystitis without hematuria; N28.1 Cyst of kidney, acquired | CPT/HCPCS: 81001 ==

== ENCOUNTER → 2019-10-18 11:51 | Outpatient (BNVA) | payer MEDICARE, SELFPAY | PROVIDERS: PCP Family Medicine; Referring Provider Family Medicine; Visit Provider Internal Medicine Cardiovascular Disease | DX: I50.33 Acute on chronic diastolic (congestive) heart failure (principal); N17.9 Acute kidney failure, unspecified; R06.02 Shortness of breath; D50.9 Iron deficiency anemia, unspecified; Z79.01 Long term (current) use of anticoagulants; I48.91 Unspecified atrial fibrillation; I26.99 Other pulmonary embolism without acute cor pulmonale; E11.22 Type 2 diabetes mellitus with diabetic chronic kidney disease; E11.65 Type 2 diabetes mellitus with hyperglycemia; I13.0 Hypertensive heart and chronic kidney disease with heart failure and stage 1 through stage 4 chronic kidney disease, or unspecified chronic kidney disease; N18.3 Chronic kidney disease, stage 3 (moderate) | CPT/HCPCS: 80048; 83880; 85025 ==

== ENCOUNTER 2020-05-22 20:17 | Emergency (ER) | payer MEDICARE, SELFPAY ==
[2020-05-22 20:21] VITALS: BP 233/98; PULSE 92; RESP 20; TEMP 36.5; O2SAT 96; BMI 26.4
--- NOTE | 2020-05-22 20:24 | XR_ITS ---
WS: [id number] XR chest 1V portable [id number] REASON FOR EXAM: Hypertension FINDINGS: Moderate tortuosity thoracic aorta without aneurysmal dilatation. Normal heart size. There is a curvi linear calcification overlying the cardiac silhouette which may represent aortic valve calcification. Calcified granulomatous disease in both hemithoraces. No active pulmonary parenchymal or pleural dise ase. Bony thorax is intact. XR/XR chest 1V portable [id number] IMPRESSION: Moderate tortuosity of the thoracic aorta with possible aortic valve calcificat ion which has significant relation to aortic stenosis.
[2020-05-22 20:25] VITALS: BP 229/98; PULSE 91; RESP 17; O2SAT 96
--- NOTE | 2020-05-22 20:25 | ECG_ITS ---
[facility] Test Date: 2020-05-22 Pat Name: Shilpi Nicole Department: Room: Gender: Female Order Filler: : 1945 Requested By: Alan Velarde Order Number: [id number] Dionne MD: Karen Spain M.D. Measurements Intervals [place] Rate: 88 P: 35 ID: [id number] QRS: -28 QRSD: 98 T: 55 QT: 368 QTc: 446 Interpretive Statements SINUS RHYTHM WITH OCCASIONAL SUPRAVENTRICULAR PREMATURE COMPLEXES BORDERLINE LEFT AXIS DEVIATION [QRS AXIS < -20] Compared to ECG 08/13/2019 09:48:36 No significant changes Electronically Signed On 05-23-2020 7:27:48 CDT by Karen Spain M.D. [email or web address]
--- NOTE | 2020-05-22 20:26 | W.ED.CHESTPA ---
HPI - Chest Pain General: Chief Complaint: Nausea/Vomiting/Diarrhea Stated Complaint: NAUSEA Time Seen by Provider: 05/22/20 20:22 Source: patient and RN notes reviewed Limitations: no limitations History of Present Illness: HPI narrative: This patient presents to the emergency department stating that she has not felt well today. Patient states that she has high blood pressure but has not had her medications tonight. Patient is on multiple medications for the same. Patient states her blood pressure usually runs around 160-170. On arrival her blood pressure is 223 systolic. Patient describes as fatigue and not feeling well. Patient only describes nausea. Patient denies vomiting or diarrhea. Patient denies chest pain or chest discomfort. Onset (ago): day(s) (5) Severity: moderate Associated symptoms: Reports abdominal pain; Deny dyspnea, fever(s), nausea, palpitations or vomiting Review of Systems General: Reports: 10 or more systems reviewed and unremarkable except in HPI and below Const: Reports: fatigue; Denies: fever(s) Eyes: Denies: change in vision or blurry vision ENMT: Denies: throat pain, hoarseness or mouth pain Card: Denies: palpitations Resp: Denies: dyspnea GI: Reports: abdominal pain; Denies: nausea or vomiting : Reports: flank pain; Denies: difficulty voiding, dysuria, urinary frequency, urinary urgency or urinary hesitancy Musc: Denies: neck pain, back pain, extremity pain, extremity swelling, joint pain, joint swelling, joint redness, joint warmth or limited range of motion Skin/Breast: Denies: rash, pruritus, erythema or skin tenderness Neuro: Denies: headache(s), numbness in extremities or weakness in extremities Psych: Denies: anxiety or depression PFS ED PFSH: Medical History (Updated 05/22/20 @ 23:40 by Alan Velarde MD) Abnormal colonoscopy [address] White, sigmoid polyp Chronic cystitis Diabetes Fibula fracture Heart failure with preserved ejection fraction Grade 1 diastolic dysfunction, EF 65% 08/23/2018 HTN (hypertension) Chronically difficult to control - on clonidine scheduled, metoprolol, amlodipine, hydralizine. Hx of cataract IBS (irritable bowel syndrome) Internal hemorrhoids Iron deficiency anemia Normal cardiac stress test Osteoporosis Ovarian cancer in remission 1963 Pulmonary embolism Diagnosed August 2019 Stage 3 chronic kidney disease Type 2 diabetes mellitus Surgical History H/O detached retina repair 1991 H/O oophorectomy 1964 Hx of cholecystectomy Family History Other CAD (coronary artery disease) Hx of myocardial infarction Social History Smoking and tobacco status: never smoked Alcohol intake: never Lives independently: Yes Housing: House Physical Exam Const: COMMON NORMALS: no acute distress, average body habitus, patient oriented x3, no limitations, healthy appearing, alert and well nourished HENMT: COMMON NORMALS: normocephalic, atraumatic, external ears normal, EAC's normal, TM's normal bilaterally, Normal external nose present and Normal nasal mucous membranes and turbinates present HEAD & SCALP: normocephalic and atraumatic NOSE: Normal external nose present and Normal nasal mucous membranes and turbinates present EXTERNAL EAR: Yes external ears normal EXTERNAL AUDITORY CANAL: EAC's normal TYMPANIC MEMBRANE: TM's normal bilaterally Neck/C-Spine: COMMON NORMALS: full ROM, no lymphadenopathy, supple, no meningeal signs, no JVD, Thyroid normal and No carotid bruits THYROID: Thyroid normal Chest: COMMONS NORMALS: normal inspection of the chest, normal palpation of entire chest wall, normal inspection of the breasts and normal palpation of the breasts Breast/axilla inspection: Yes normal inspection of the breasts BREAST/AXILLA PALPATION: Yes normal palpation of the breasts Resp: COMMON NORMALS: normal respiratory effort, No retractions, No use of accessory muscles, clear to auscultation bilaterally and percussion normal AUSCULTATION: clear to auscultation bilaterally PERCUSSION: percussion normal Cardio: COMMON NORMALS: no JVD, regular rate, regular rhythm, S1 normal heart sound present, S2 normal heart sound present, No gallops present (Cardio), No clicks present (Cardio), No murmurs present (Cardio), No rub (Cardio) and Peripheral pulses 2+ throughout RATE: regular rate RHYTHM: regular rhythm HEART SOUNDS: S1 normal heart sound present and S2 normal heart sound present PERIPHERAL PULSES: Peripheral pulses 2+ throughout GI: COMMON NORMALS: Normal to inspection, nondistended, normoactive bowel sounds present, Soft to palpation, non-tender, No hepatosplenomegaly present, no masses and no bruits PALPATION: Yes Soft to palpation and Yes No hepatosplenomegaly present Back/Pelvis: COMMON NORMALS: thoracic and lumbar spine normal to inspection, no thoracic nor lumbar tenderness, thoraco-lumbar ROM normal and straight leg raise negative bilaterally Extremity: COMMON NORMALS: normal to inspection, full ROM, capillary refill normal, no joint enlargement, no clubbing, cyanosis or edema, no calf tenderness and no pedal edema Neuro: COMMON NORMALS: patient oriented x3 SENSORIUM/ORIENTATION: Yes alert MENINGEAL SIGNS: Yes no meningeal signs Course Reevaluation(s): Reevaluation #1: Patient is much improved without complaint. Blood pressure is 153/77. Awaiting 2-hour troponin Time: 22:33 Reevaluation #2: Patient is resting comfortable. Has no complaints at this time. 2-hour troponin negative for any acute changes. Patient will be discharged home per her request. EKG were unremarkable. Patient is to continue all home medications and follow-up with her PCP as instructed. Time: 23:36 Vital Signs: Vital signs: Vital Signs Temperature 97.7 F 05/22/20 20:21 Pulse Rate 83 05/22/20 22:52 Respiratory Rate 16 05/22/20 22:52 Blood Pressure 153/77 05/22/20 22:52 Pulse Oximetry 98 05/22/20 22:52 MDM - Chest Pain Medical Records: Attestation: I reviewed the patient's medical records. Lab Data: Attestation: I reviewed the patient's lab results. Labs: Lab Results 05/22/20 05/22/20 05/22/20 Range/Units 20:45 20:45 20:45 WBC 10.7 H (4.0-10.0) 10^3/ uL RBC 2.82 L (4.1-5.3) 10^6/u L Hgb 8.4 L (11.5-15.3) g/dL Hct 26.9 L (37.0-47.0) % MCV 95.4 (81-99) fL MCH 29.8 (28.0-34.0) pg MCHC 31.2 (30.0-36.0) g/dL RDW 14.5 (12.1-15.1) % Plt Count 304 (130-400) 10^3/c mm MPV 9.9 (7.4-10.4) fL Neut % (Auto) 80.0 % Lymph % (Auto) 11.1 % [place] % (Auto) 6.3 % Eos % (Auto) 1.7 % Baso % (Auto) 0.4 % Neut # (Auto) 8.58 H (1.8-7.7) 10^3/u L Lymph # (Auto) 1.2 (0.8-4.8) 10^3/u L [place] # (Auto) 0.7 (0.2-0.9) 10^3/u L Eos # (Auto) 0.2 (0.0-0.8) 10^3/u L Baso # (Auto) 0.0 (0.0-0.1) 10^3/u L Nucleated RBC % (a uto) 0 % Nucleated RBCs # 0.0 /100WBC PT 14.00 (12.1-14.9) SECO NDS INR 1.05 (0.8-1.2) APTT 29.3 (23.9-36.7) SECO NDS Sodium 140 (136-145) mmol/L Potassium 3.9 (3.5-5.1) mmol/L Chloride 103 (98-107) mmol/L Carbon Dioxide 24 (22-29) mmol/L Anion Gap 16.9 (5-19) BUN 27 H (8-23) mg/dL Creatinine 2.6 H (0.5-0.9) mg/dL GFR Calculation Not Reportable Glucose 188 H (65-115) mg/dL Calculated Osmolal ity 300 H (285-295) mOsm/k g Calcium 9.0 (8.5-10.5) mg/dL Total Bilirubin 0.2 (0.15-1.2) mg/dL AST 14 (0-32) U/L ALT 12 (0-33) U/L Alkaline Phosphata se 74 (35-105) IU/L Troponin T Gen 5 n g/L (0-10) ng/L Troponin T 120 Min [place] (0-10) ng/L Delta Troponin T (0-10) ABS# NT-Pro-B Natriuret Pep 1989 H (0-450) pg/mL Total Protein 5.6 L (6.6-8.7) g/dL Albumin 3.8 (3.5-5.2) g/dL Globulin 1.8 (1.3-4.6) g/dL Urine Color (Yellow) Urine Appearance (CLEAR) Urine pH (5-7) Ur Specific Gravit y (1.005-1.030) Urine Protein (Negative) Urine Glucose (UA) (Normal) Urine Ketones (Negative) Urine Blood (Negative) Urine Nitrate (Negative) Urine Bilirubin (Negative) Urine Urobilinogen (Negative) mg/dL Ur Leukocyte Abby ase (Negative) Urine RBC (0-2) /hpf Urine WBC (0-5) /hpf Ur Squamous Epith Cells (0-5) /hpf Amorphous Sediment Urine Bacteria (NONE) /hpf 05/22/20 05/22/20 05/22/20 Range/Units 20:45 22:36 22:56 WBC (4.0-10.0) 10^3/ uL RBC (4.1-5.3) 10^6/u L Hgb (11.5-15.3) g/dL Hct (37.0-47.0) % MCV (81-99) fL MCH (28.0-34.0) pg MCHC (30.0-36.0) g/dL RDW (12.1-15.1) % Plt Count (130-400) 10^3/c mm MPV (7.4-10.4) fL Neut % (Auto) % Lymph % (Auto) % [place] % (Auto) % Eos % (Auto) % Baso % (Auto) % Neut # (Auto) (1.8-7.7) 10^3/u L Lymph # (Auto) (0.8-4.8) 10^3/u L [place] # (Auto) (0.2-0.9) 10^3/u L Eos # (Auto) (0.0-0.8) 10^3/u L Baso # (Auto) (0.0-0.1) 10^3/u L Nucleated RBC % (a uto) % Nucleated RBCs # /100WBC PT (12.1-14.9) SECO NDS INR (0.8-1.2) APTT (23.9-36.7) SECO NDS Sodium (136-145) mmol/L Potassium (3.5-5.1) mmol/L Chloride (98-107) mmol/L Carbon Dioxide (22-29) mmol/L Anion Gap (5-19) BUN (8-23) mg/dL Creatinine (0.5-0.9) mg/dL GFR Calculation Glucose (65-115) mg/dL Calculated Osmolal ity (285-295) mOsm/k g Calcium (8.5-10.5) mg/dL Total Bilirubin (0.15-1.2) mg/dL AST (0-32) U/L ALT (0-33) U/L Alkaline Phosphata se (35-105) IU/L Troponin T Gen 5 n g/L 78 H (0-10) ng/L Troponin T 120 Min [place] 71.72 H (0-10) ng/L Delta Troponin T -6.28 L (0-10) ABS# NT-Pro-B Natriuret Pep (0-450) pg/mL Total Protein (6.6-8.7) g/dL Albumin (3.5-5.2) g/dL Globulin (1.3-4.6) g/dL Urine Color Yellow (Yellow) Urine Appearance Clear (CLEAR) Urine pH 6.5 (5-7) Ur Specific Gravit y 1.020 (1.005-1.030) Urine Protein 2+ H (Negative) Urine Glucose (UA) 1+ (Normal) Urine Ketones Negative (Negative) Urine Blood Neg (Negative) Urine Nitrate Negative (Negative) Urine Bilirubin Neg (Negative) Urine Urobilinogen Norm (Negative) mg/dL Ur Leukocyte Abby ase Trace H (Negative) Urine RBC 0-4 H (0-2) /hpf Urine WBC 10-15 H (0-5) /hpf Ur Squamous Epith Cells 5-10 H (0-5) /hpf Amorphous Sediment Not Reportable Urine Bacteria Trace (NONE) /hpf Imaging Data^: CXR: Attestation: I personally reviewed and interpreted this imaging study as follows: My impression: Negative for acute findings EKG Data^: EKG 1: Attestation: I personally reviewed and interpreted this EKG as follows: EKG interpretation date: 05/22/20 EKG interpretation time: 20:36 Prior EKG tracings: available for review Interpretation: Sinus rhythm with occasional PVC left axis deviation heart rate 88 nondiagnostic EKG EKG 2: Attestation: I personally reviewed and interpreted this EKG as follows: EKG interpretation date: 05/22/20 EKG interpretation time: 23:22 Prior EKG tracings: available for review Computer generated interpretation: Unchanged from previous heart rate 79 Discharge Plan Discharge Clinical Impression: HTN (hypertension), Stage 3 chronic kidney disease Condition: Stable Prescriptions: No Action metformin 1,000 mg tablet 1,000 mg PO BID@0900,2100 RF: 0 glimepiride 4 mg tablet 4 mg PO DAILY@0900 RF: 0 losartan 100 mg tablet 100 mg PO BEDTIME@2100 RF: 0 bumetanide 1 mg tablet 1 mg PO DAILY@0900 RF: 0 potassium chloride 10 mEq capsule, extended release 10 meq PO DAILY@0900 RF: 0 Eliquis 5 mg Tablet 2.5 mg PO Q12H Qty: 60 RF: 0 losartan 50 mg tablet 50 mg PO DAILY@0900 RF: 0 atorvastatin 10 mg tablet 10 mg PO BEDTIME@2100 RF: 0 carvedilol 25 mg tablet 25 mg PO BID@0900,2100 RF: 0 diltiazem HCl 240 mg capsule,extended release 24hr 240 mg PO DAILY@0900 RF: 0 allopurinol 100 mg tablet 100 mg PO DAILY@0800 RF: 0 sodium bicarbonate 650 mg tablet 650 mg PO TID@0900,1200,2100 RF: 0 hydralazine 100 mg tablet 100 mg PO TID@09,12,21 RF: 0 pantoprazole 40 mg tablet,delayed release (DR/EC) 40 mg PO BID@0900,2100 RF: 0 acetaminophen 325 mg Tablet 325 - 650 mg PO Q6H PRN (Reason: Pain) RF: 0 Discharge Orders: Discharge ED (Routine); Ordered 05/22/20 Ordered By: Alan Velarde Referrals: Vtialiy Morales MD [Primary Care Provider] - Discharge Diet: Usual diet Discharge Activity: Resume usual activity Activity Restrictions/Additional Instructions: Continue all home medications. Keep a blood pressure log and follow-up with your primary care physician in 2 to 3 days. Return to the emergency department if symptoms fail to improve or worsen. Coding Level of Care Code ED Insurance Advisor for Chg Fwd Exam Comprehensive
[2020-05-22] MEDS: hyDRALAzine 20 mg/mL INJ 1 mL 10 MG IVP (21:03)
[2020-05-22 21:04] LABS: Basophils % 0.4 %; Eosinophils # 0.2 10^3/uL (0.0-0.8); Eosinophils % 1.7 %; Hematocrit 26.9 % (37.0-47.0); Hemoglobin 8.4 g/dL (11.5-15.3); Lymphocytes # 1.2 10^3/uL (0.8-4.8); Lymphocytes % 11.1 %; Mean Corpuscular HGB Conc 31.2 g/dL (30.0-36.0); Mean Corpuscular Hemoglobin 29.8 pg (28.0-34.0); Mean Corpuscular Volume 95.4 fL (81-99); Mean Platelet Volume 9.9 fL (7.4-10.4); Monocytes # 0.7 10^3/uL (0.2-0.9); Monocytes % 6.3 %; Neutrophils # 8.58 10^3/uL (1.8-7.7); Nucleated Red Blood Cells % 0 %; Platelet Count 304 10^3/cmm (130-400); Red Blood Count 2.82 10^6/uL (4.1-5.3); Red Cell Distribution Width 14.5 % (12.1-15.1); White Blood Count 10.7 10^3/uL (4.0-10.0)
[2020-05-22 21:13] LABS: INR 1.05 (0.8-1.2)
[2020-05-22 21:14] LABS: Partial Thromboplastin Time 29.3 SECONDS (23.9-36.7)
[2020-05-22 21:16] VITALS: BP 174/78; PULSE 88; RESP 16; O2SAT 96
[2020-05-22 21:20] LABS: Troponin T (5th) Once 78 ng/L (0-10)
[2020-05-22 21:23] VITALS: BP 188/77
[2020-05-22] MEDS: losartan 50 mg Tablet 100 MG PO (21:23)
[2020-05-22] MEDS: carvedilol 25 mg Tablet PO (21:24)
--- NOTE | 2020-05-22 21:33 | ECG_ITS ---
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
[2020-05-22 22:00] LABS: Alanine Aminotransferase 12 U/L (0-33); Albumin Level 3.8 g/dL (3.5-5.2); Alkaline Phosphatase 74 IU/L (35-105); Anion Gap 16.9 (5-19); Aspartate Amino Transferase 14 U/L (0-32); Blood Urea Nitrogen 27 mg/dL (8-23); Carbon Dioxide 24 mmol/L (22-29); Chloride 103 mmol/L (98-107); Globulin 1.8 g/dL (1.3-4.6); Glucose 188 mg/dL (65-115); NT Pro B Type Natriuretic Pept 1989 pg/mL (0-450); Osmolality Calculated 300 mOsm/kg (285-295); Potassium 3.9 mmol/L (3.5-5.1); Sodium 140 mmol/L (136-145); Total Bilirubin 0.2 mg/dL (0.15-1.2); Total Protein 5.6 g/dL (6.6-8.7)
[2020-05-22 22:52] VITALS: BP 153/77; PULSE 83; RESP 16; O2SAT 98
[2020-05-22 23:03] LABS: Protein Urine 2+ (Negative); Urine Appearance Clear (CLEAR); Urine Color Yellow (Yellow); pH Urine 6.5 (5-7)
[2020-05-22 23:04] LABS: Add Urine Microscopic? YES; Bilirubin Urine Neg (Negative); Blood Urine Neg (Negative); Glucose Urine UA 1+ (Normal); Ketones Urine Negative (Negative); Leukocyte Esterase Urine Trace (Negative); Nitrate Urine Negative (Negative); RBC Urine 0-4 /hpf (0-2); Urobilinogen Urine Norm (Negative)
[2020-05-22 23:05] LABS: Add Urine Culture? Yes; Bacteria Urine TRACE /hpf
[2020-05-22 23:18] LABS: Troponin 5 2HR 71.72 ng/L (0-10)
[2020-05-22 23:23] LABS: Troponin 5 2HR Delta -6.28 ABS# (0-10)
[2020-05-23 00:05] VITALS: BP 161/73; PULSE 82; RESP 14; O2SAT 97
== END 2020-05-23 00:07 | disposition home or self-care (01) ==
PROVIDERS: Emergency Provider Emergency Medicine; PCP Family Medicine
DX: I13.0 Hypertensive heart and chronic kidney disease with heart failure and stage 1 through stage 4 chronic kidney disease, or unspecified chronic kidney disease (principal); E11.22 Type 2 diabetes mellitus with diabetic chronic kidney disease; N18.30 Chronic kidney disease, stage 3 unspecified; I50.9 Heart failure, unspecified; Z79.84 Long term (current) use of oral hypoglycemic drugs; Z85.43 Personal history of malignant neoplasm of ovary
CPT/HCPCS: 71045; 80053; 81001; 83880; 84484; 85025; 85610; 85730; 87077; 87086; 87186; 93005; 96374; 99284; J0360

== ENCOUNTER → 2020-06-14 16:48 | Outpatient (BNVA) | payer MEDICARE, SELFPAY | PROVIDERS: PCP Family Medicine; Visit Provider Internal Medicine Cardiovascular Disease | DX: I50.33 Acute on chronic diastolic (congestive) heart failure (principal); N17.9 Acute kidney failure, unspecified; R06.02 Shortness of breath; D50.9 Iron deficiency anemia, unspecified; Z79.01 Long term (current) use of anticoagulants; I48.91 Unspecified atrial fibrillation; M79.89 Other specified soft tissue disorders; M79.606 Pain in leg, unspecified | CPT/HCPCS: 80048; 83880; 85025 ==

== ENCOUNTER 2020-08-07 09:17 | Outpatient (CLI) | payer MEDICARE, SELFPAY ==
[2020-08-07 10:29] LABS: Basophils % 0.4 %; Eosinophils # 0.3 10^3/uL (0.0-0.8); Eosinophils % 2.9 %; Hematocrit 26.6 % (37.0-47.0); Hemoglobin 8.1 g/dL (11.5-15.3); Lymphocytes # 1.3 10^3/uL (0.8-4.8); Lymphocytes % 14.1 %; Mean Corpuscular HGB Conc 30.5 g/dL (30.0-36.0); Mean Corpuscular Hemoglobin 29.1 pg (28.0-34.0); Mean Corpuscular Volume 95.7 fL (81-99); Mean Platelet Volume 10.8 fL (7.4-10.4); Monocytes # 0.6 10^3/uL (0.2-0.9); Monocytes % 6.5 %; Neutrophils # 7.06 10^3/uL (1.8-7.7); Neutrophils % 75.1 %; Nucleated Red Blood Cells % 0 %; Platelet Count 304 10^3/cmm (130-400); Red Blood Count 2.78 10^6/uL (4.1-5.3); Red Cell Distribution Width 15.4 % (12.1-15.1); White Blood Count 9.4 10^3/uL (4.0-10.0)
[2020-08-07 12:11] LABS: Reticulocyte % 2.4 % (0.5-2.0)
[2020-08-07 12:58] LABS: Immunoglobulin IGA 178 mg/dL (70-400); Immunoglobulin IGG 329 mg/dL (700-1600); Immunoglobulin IGM 28 mg/dL (40-230)
[2020-08-07 13:01] LABS: Folate Level 12.1 ng/mL (4.8-37.3)
[2020-08-07 13:09] LABS: Ferritin 35 ng/mL (15-150); Iron 146 ug/dL (37-145); Percent Saturation 49.8 % (20-50); Total Iron Binding Capacity 293 mcg/dl; Unsaturated Iron Binding 147 ug/dL (112-347)
[2020-08-07 13:25] LABS: Vitamin B12 598 pg/mL (232-1245)
--- NOTE | 2020-08-07 17:24 | ONC CON_ITS ---
Dr. Walsh New Patient Note Patient: Shilpi Nicole Unit #: [id number]: 1945 Dicatated By: Annie Walsh M.D.Date of Visit: Aug 07, 2020 Onc MED New Patient/Consult Referring Physician: NIYAH Hunter History of Present Illness: Ms. Shilpi Nicole is a 74-year-old female with history of progressive renal insufficiency CKD stage 5, anemia, diabetes, hypertension As per patient she was diagnosed with anemia 3 or 4 years ago but never required any blood transfusion has not taken any iron supplements, she was told that it was due to progressive renal insufficiency, now hemodialysis under consideration but she does not want it. And her routine lab work-up done on July 26, 2020 showed kappa free light chain 110.2 lambda free light chains 34.9 kappa/lambda ratio 3.16 whereas serum protein electrophoresis done on same day showed no restricted band or M protein. Patient denies any bony pains, denies any recurrent fever or infections, denies any weight loss, denies any night sweats, denies any peripheral lymphadenopathy, denies any abdominal fullness, Patient has history of polyp removal, about [address] White and next follow-up was recommended 3 to 5 years from that time. Patient has history of ovarian tumor removal at age 17, as per patient part of other ovary was removed and she was offered radiation therapy at that time Past Medical History: Ms. Nicole's medical history consists of anemia, chronic kidney disease (stage V), diastolic heat failure, gastroesophageal reflux disease, gout, history of ovarian cancer, history of pulmonary embolism, hypertension, iiritable bowel syndrome, osteoporosis, and type II diabetes. Past Surgical History: Ms. Nicole's surgical/procedural history consists of cholecystectomy, repair of detatched retina, covid vaccine #2 moderna in 2020, covid vaccine #1 moderna in 2020, and oopherectomy in 1963. Medications: Allopurinol (100 mg) Tablet Oral b.i.d., Apixaban (2.5 mg) Tablet Oral b.i.d., Bumetanide (1 mg) Tablet Oral daily, Carvedilol 2 (25 mg) Tablet Oral b.i.d., dilTIAZem HCl ER (120 mg) Capsule SR 24 HR Oral daily, Glimepiride (8 mg) Tablet Oral daily, hydrALAZINE HCl (100 mg) Tablet Oral daily, Losartan Potassium (100 mg) Tablet Oral daily, Mirtazapine (15 mg) Tablet Oral daily, Pantoprazole Sodium (40 mg) Tablet, enteric coated Oral b.i.d., Sodium Bicarbonate (650 mg) Tablet Oral t.i.d. Allergies: No Known Allergies. Social History: Ms. Nicole is . Ms. Nicole has never smoked. She has no history of drinking. Family History: There is no documented family history. Review Of Symptoms: Review of Systems is not available for this patient. Vital Signs: Performed on Aug 07, 2020 10:23: 6, 0, 25.51, 1.60 sq.m, 61 in, 98 %, 94 /min, 18 /min, 152/71 mm(hg) (HIGH), 97.9 F (LOW), and 135 lbs (HIGH). Performance Status: 0 - Fully active, able to carry on all predisease activities without restrictions. (ECOG) Physical Examination: ENMT - No mouth sores, no thrush, no jaundice, no cervical lymphadenopathy, Respiratory - Lungs are clear to auscultation, Cardiovascular - Regular rate and rhythm of heart, Abdomen - Soft, bowel sounds present, Extremities - No visible edema. Lab/Imaging: Most recent lab results are not available for this patient. Impression: Elevated serum light chains, etiology unclear, could be due to low renal clearance or underlying plasma cell disorder but less likely, or lymphoproliferative disorder labs done on July 26, 2020 shows SPEP with no M spike, but elevated kappa/lambda ratio 3.16 and kappa light chain 110.2 lambda light chain 34.9, normocytic normochromic anemia probably multifactorial CKD stage V Diabetes Plan: Discussed with patient regarding her labs white blood count 9.4 hemoglobin 8.1 hematocrit 26.6 platelets 304,000 MCV 95.7 Clinically, patient doing well with no acute symptoms except generalized weakness and fatigue, her lab work-up done recently showed elevated serum light chain which could be due to low renal clearance due to progressive renal insufficiency, hemodialysis under consideration, other possibility could be underlying plasma cell disorder or lymphoproliferative, but less likely At this point, will consider repeat sputum light chain assay, quantitative immunoglobulins, beta-2 microglobulin, SPEP and immunofixation As far as moderate anemia is concerned, patient has well compensated anemia which could be multifactorial, including due to renal insufficiency or considering her age underlying myelodysplasia cannot be ruled out or combined iron deficiency/B12 deficiency Patient has history of colon polyp removed 3 years ago, as per patient she was supposed to go for follow-up with Dr. White, she was advised to follow-up with Dr. White We will consider iron studies, B12, folate level and reticulocyte count and then patient return to clinic in 2 weeks with CBC Signed By: Annie Walsh M.D. <<Signature on File>>
[2020-08-08 14:22] LABS: KAPPA LIGHT CHAIN, FREE, SERUM 107.9 mg/L (3.3-19.4); KAPPA/LAMBDA LIGHT CHAINS FREE 3.01 (0.26-1.65); LAMBDA LIGHT CHAIN, FREE, SERU 35.8 mg/L (5.7-26.3)
== END 2020-08-07 09:18 | disposition home or self-care (01) ==
PROVIDERS: PCP Family Medicine; Visit Provider Internal Medicine Hematology & Oncology
DX: R74.8 Abnormal levels of other serum enzymes (principal); D64.9 Anemia, unspecified; E11.22 Type 2 diabetes mellitus with diabetic chronic kidney disease; N18.5 Chronic kidney disease, stage 5; Z79.899 Other long term (current) drug therapy
CPT/HCPCS: 36415; 82607; 82728; 82746; 82784; 83540; 83550; 83883; 85025; 85045; 99205

== ENCOUNTER 2020-09-03 14:02 | Outpatient (CLI) | payer MEDICARE, SELFPAY ==
[2020-09-03 15:58] LABS: Immunoglobulin IGA 168 mg/dL (70-400); Immunoglobulin IGG 317 mg/dL (700-1600); Immunoglobulin IGM 26 mg/dL (40-230)
[2020-09-03 17:02] LABS: Ferritin 43 ng/mL (15-150); Iron 55 ug/dL (37-145); Percent Saturation 17.8 % (20-50); Total Iron Binding Capacity 308 mcg/dl; Unsaturated Iron Binding 253 ug/dL (112-347)
[2020-09-03 17:16] LABS: Vitamin B12 417 pg/mL (232-1245)
[2020-09-04 07:52] LABS: PROTEIN, TOTAL 5.9 g/dL (6.1-8.1)
[2020-09-04 11:46] LABS: Beta-2-Microglobulin 11.16 mg/L (< OR = 2.51); KAPPA LIGHT CHAIN, FREE, SERUM 102.4 mg/L (3.3-19.4); KAPPA/LAMBDA LIGHT CHAINS FREE 2.92 (0.26-1.65); LAMBDA LIGHT CHAIN, FREE, SERU 35.1 mg/L (5.7-26.3)
[2020-09-04 13:28] LABS: ABNORMAL PROTEIN BAND 1 0.1 g/dL (NONE DETECTED); ALBUMIN 3.4 g/dL (3.8-4.8); ALPHA 1 GLOBULIN 0.4 g/dL (0.2-0.3); BETA 1 GLOBULIN 0.4 g/dL (0.4-0.6); BETA 2 GLOBULIN 0.3 g/dL (0.2-0.5); GAMMA GLOBULIN 0.4 g/dL (0.8-1.7)
== END 2020-09-03 14:03 | disposition home or self-care (01) ==
LOC: ONCMED 14:11
PROVIDERS: PCP Family Medicine; Visit Provider Internal Medicine Medical Oncology
DX: D64.9 Anemia, unspecified (principal); E53.8 Deficiency of other specified B group vitamins; R74.8 Abnormal levels of other serum enzymes; R79.89 Other specified abnormal findings of blood chemistry; Z79.899 Other long term (current) drug therapy
CPT/HCPCS: 36415; 82232; 82607; 82728; 82746; 82784; 83540; 83550; 83883; 84155; 84165; 85045

== ENCOUNTER 2020-09-05 06:06 | Outpatient (CLI) | payer MEDICARE, SELFPAY ==
--- NOTE | 2020-09-05 17:13 | ONC FU_ITS ---
Dr. Walsh follow up note Patient: Shilpi Nicole Unit #: [id number]: 1945 Dicatated By: Annie Walsh M.D.Date of Visit:Sep 05, 2020 Onc Med Follow-up/Prog Note History of Present Illness: Ms. Shilpi Nicole is a 74-year-old female with history of progressive renal insufficiency CKD stage 5, anemia, diabetes, hypertension As per patient she was diagnosed with anemia 3 or 4 years ago but never required any blood transfusion has not taken any iron supplements, she was told that it was due to progressive renal insufficiency, now hemodialysis under consideration but she does not want it. And her routine lab work-up done on July 26, 2020 showed kappa free light chain 110.2 lambda free light chains 34.9 kappa/lambda ratio 3.16 whereas serum protein electrophoresis done on same day showed no restricted band or M protein. Patient denies any bony pains, denies any recurrent fever or infections, denies any weight loss, denies any night sweats, denies any peripheral lymphadenopathy, denies any abdominal fullness, Patient has history of polyp removal, about [address] White and next follow-up was recommended 3 to 5 years from that time. Patient has history of ovarian tumor removal at age 17, as per patient part of other ovary was removed and she was offered radiation therapy at that time Repeat quantitative immunoglobin shows IgA 168, IgG 317 which is low normal at 700-16 100, IgM 26, kappa free light chain 102.4 lambda 35.1,/lambda ratio 2.92, iron saturation 17.8% ferritin 43, iron 55, folic acid 11, TIBC 308, B12 417, beta-2 microglobulin 11.16 normal being less than 2.5 reticulocyte count 2 Came for follow-up, denies any specific complaint except mild generalized weakness and fatigue but no nausea or vomiting, no diarrhea or constipation, no fever chills, no dysuria or hematuria, no sinus related signs symptoms Medications: Allopurinol (100 mg) Tablet Oral b.i.d., Apixaban (2.5 mg) Tablet Oral b.i.d., Bumetanide (1 mg) Tablet Oral daily, Carvedilol 2 (25 mg) Tablet Oral b.i.d., dilTIAZem HCl ER (120 mg) Capsule SR 24 HR Oral daily, Glimepiride (8 mg) Tablet Oral daily, hydrALAZINE HCl (100 mg) Tablet Oral daily, Losartan Potassium (100 mg) Tablet Oral daily, Mirtazapine (15 mg) Tablet Oral daily, Pantoprazole Sodium (40 mg) Tablet, enteric coated Oral b.i.d., Sodium Bicarbonate (650 mg) Tablet Oral t.i.d. Allergies: No Known Allergies. Review of Systems: Review of Systems is not available for this patient. Vital Signs: Performed on Sep 05, 2020 09:44 Height - 61.00 in Weight - 132.4 lbs (LOW) BSA - 1.59 sq.m BMI - 25.02 Temperature - 98.2 F (LOW) Pulse - 77 /min Respiration - 18 /min BP - 148/67 mm(hg) (HIGH) O2 Sat - 98 % Pain - 0 Fatigue - 5 Performance Status: 1 - No physically strenuous activity, but ambulatory and able to carry out light or sedentary work (e.g. office work, light house work). (ECOG) Physical Examination: ENMT - No mouth sores, no thrush, no cervical or axillary lymphadenopathy, Respiratory - Lungs are clear to auscultation, Cardiovascular - Regular rate and rhythm of heart, Abdomen - Soft, bowel sounds present, Extremities - No visible edema or rash. Lab/Imaging: Most recent lab results are not available for this patient. Impression: Elevated serum light chains, etiology unclear, could be due to low renal clearance or underlying plasma cell disorder but less likely, or lymphoproliferative disorder labs done on July 26, 2020 shows SPEP with no M spike, but elevated kappa/lambda ratio 3.16 and kappa light chain 110.2 lambda light chain 34.9, Quantitative immunoglobulins done on September 03, 2020 showed shows hypogammaglobulinemia, IgG 317 normal being 700-1600, IgM 26 normal being 40-230, IgA 168 normal being 70-400. Beta-2 microglobulin 11.16 normal being less than 2.5, normocytic normochromic anemia probably multifactorial, Anemia work-up Done on September 03, 2020 shows iron saturation 17.8% which is low, ferritin 43, folic acid 11, iron 55, TIBC 308, B12 470, reticulocyte count 2.0 CKD stage V Diabetes Plan: Discussed with patient regarding her labs, further work-up showed hypogammaglobulinemia and and elevated beta-2 microglobulin, her anemia work-up is inconclusive, with low iron saturation and iron on the low side of normal range, she may have underlying iron deficiency or functional iron deficiency but concern is generalized weakness and fatigue, inconclusive anemia work-up, elevated beta-2 microglobulin, elevated serum light chains with hypogammaglobulinemia, at this point will proceed with bone marrow evaluation, if bone marrow shows plasma cell within normal range then light chain will be elevated due to slow secretion due to renal insufficiency on the other hand if bone marrow shows extensive plasma cell then renal insufficiency could be due to increase light chain due to plasma cell disorder. Or she may have lymphoplasmacytic lymphoproliferative disorder which can explain hypogammaglobulinemia as well as elevated serum light chains and elevated beta-2 microglobulin. Return to clinic 2 weeks after bone marrow evaluation, we will send her bone marrow sample for FISH for MDS, FISH for lymphoproliferative disorder and myeloma and routine histopathology as well as flow cytometry and cytogenetics Signed By: Annie Walsh M.D. <<Signature on File>>
== END 2020-09-05 06:07 | disposition home or self-care (01) ==
LOC: ONCMED 06:08
PROVIDERS: PCP Family Medicine; Visit Provider Internal Medicine Hematology & Oncology
DX: D80.1 Nonfamilial hypogammaglobulinemia (principal); D64.9 Anemia, unspecified; E11.22 Type 2 diabetes mellitus with diabetic chronic kidney disease; N18.5 Chronic kidney disease, stage 5; Z79.899 Other long term (current) drug therapy
CPT/HCPCS: 99214

== ENCOUNTER → 2020-09-14 09:13 | Outpatient (BNVA) | payer MEDICARE, SELFPAY | PROVIDERS: PCP Family Medicine; Visit Provider Internal Medicine Hematology & Oncology | DX: Z01.812 Encounter for preprocedural laboratory examination (principal); Z20.822 Contact with and (suspected) exposure to COVID-19 | CPT/HCPCS: 87635 ==

== ENCOUNTER 2020-09-18 09:40 | Day surgery (SDC) | payer MEDICARE, SELFPAY ==
[2020-09-18 10:10] VITALS: BP 152/90; PULSE 62; RESP 18; TEMP 36.3; O2SAT 99
[2020-09-18 10:39] LABS: Glucose Point of Care 219 mg/dL (70-110)
[2020-09-18] MEDS: sodium chloride 0.9% 1,000 ML 30 ML IV (10:39)
[2020-09-18 10:48] LABS: Basophils % 0.5 %; Eosinophils # 0.2 10^3/uL (0.0-0.8); Eosinophils % 2.3 %; Hemoglobin 7.6 g/dL (11.5-15.3); Lymphocytes # 1.5 10^3/uL (0.8-4.8); Lymphocytes % 18.3 %; Mean Corpuscular HGB Conc 30.4 g/dL (30.0-36.0); Mean Corpuscular Hemoglobin 29.5 pg (28.0-34.0); Mean Corpuscular Volume 96.9 fL (81-99); Mean Platelet Volume 10.5 fL (7.4-10.4); Monocytes # 0.6 10^3/uL (0.2-0.9); Monocytes % 6.8 %; Neutrophils # 5.79 10^3/uL (1.8-7.7); Neutrophils % 71.6 %; Nucleated Red Blood Cells % 0 %; Platelet Count 332 10^3/cmm (130-400); Red Blood Count 2.58 10^6/uL (4.1-5.3); Red Cell Distribution Width 15.5 % (12.1-15.1); White Blood Count 8.1 10^3/uL (4.0-10.0)
--- NOTE | 2020-09-18 11:40 | P.ANESASSM_ITS ---
Pre-Anesthetic Assessment Pre-Anesthetic Assessment: Height/Weight: Height 1.55 m Weight 59.874 kg Temp Pulse Resp BP Pulse Ox 97.3 F L 62 18 152/90 99 09/18/20 10:10 09/18/20 10:10 09/18/20 10:10 09/18/20 10:10 09/18/20 10:10 Proposed Procedure: Operation Date: 09/18/20 11:30 Proposed Procedures p Bone Marrow Biospy With Aspiration D64.9(Not Applicable) - Annie Walsh MD Was Beta Casa taken within 24 hours: Yes Was Clonidine taken within 24 hours: N/A Last intake: Intake Last Liquid Date 09/17/20 Last Liquid Time 23:30 Last Solid Date 09/17/20 Last Solid Time 23:30 Social: Social History: No alcohol and No tobacco Exam: Pre-Anes Outpt Exam: alert, oriented x 3 and clear to auscultation bilaterally Airway: Submandibular: WNL Cervical ROM: WNL MP: 2 Dentition: False CV/HEM: CV/HEM: Afib, Anemia and HTN : : Chronic renal Insufficiency GI: GI: GERD Metabolic: Metabolic: DM Anesthetic Plan: ASA status: 3 Anesthesia: MAC Risk of > 500 ml blood loss (7ml/kg in children): No Meds/Allergies Current Medications: Current Medications Generic Name Dose Route Start Last Admin Trade Name Freq PRN Reason Stop Dose Admin Sodium Chloride 1,000 mls @ 30 ml s/hr 09/18/20 10:30 09/18/20 10:39 Sodium Chloride 0.9% IV 09/19/20 10:29 30 mls/hr .Q24H ROGELIO Administration PFSH Anesthesia PFSH: Medical History Abnormal colonoscopy [address] White, sigmoid polyp Chronic cystitis Diabetes Fibula fracture Heart failure with preserved ejection fraction Grade 1 diastolic dysfunction, EF 65% 08/23/2018 HTN (hypertension) Chronically difficult to control - on clonidine scheduled, metoprolol, amlodipine, hydralizine. Hx of cataract IBS (irritable bowel syndrome) Internal hemorrhoids Iron deficiency anemia Normal cardiac stress test Osteoporosis Ovarian cancer in remission 1963 Pulmonary embolism Diagnosed August 2019 Stage 3 chronic kidney disease Type 2 diabetes mellitus Surgical History H/O detached retina repair 1991 H/O oophorectomy 1964 Hx of cholecystectomy Family History Father CAD (coronary artery disease) Hx of myocardial infarction Mother CAD (coronary artery disease) Hx of myocardial infarction Brother Chronic kidney disease (CKD) Diabetes Family/Other Diabetes Sister Diabetes Denies family history of Clotting disorder Dementia Suicide Anesthesia complication Bleeding disorder Lung disease Cancer Stroke Social History Smoking and tobacco status: never smoked Alcohol intake: never Lives independently: Yes Housing: House Data Anesthesia CBC & Chem 7: 09/18/20 10:33 Other Labs: Laboratory Results - last 48 hr 09/18/20 09/18/20 10:33 10:35 WBC 8.1 RBC 2.58 L Hgb 7.6 L Hct 25.0 L MCV 96.9 MCH 29.5 MCHC 30.4 RDW 15.5 H Plt Count 332 MPV 10.5 H Neut % (Auto) 71.6 Lymph % (Auto) 18.3 [place] % (Auto) 6.8 Eos % (Auto) 2.3 Baso % (Auto) 0.5 Neut # (Auto) 5.79 Lymph # (Auto) 1.5 [place] # (Auto) 0.6 Eos # (Auto) 0.2 Baso # (Auto) 0.0 Nucleated RBC % (auto) 0 Nucleated RBCs # 0.0 POC Glucose 219 H Cardiac Studies: Holter Monitor 11/21/19
--- NOTE | 2020-09-18 11:58 | P.PCN_ITS ---
Bone Marrow Biopsy Bone Marrow Biopsy: I was consulted by [] office regarding bone marrow biopsy on Shilpi Nicole []. Briefly, the patient is a [74] year old [female] with [anemia, increased serum light chain, hypogammaglobulinemia]. In the Outpatient Services Department, with nursing staff and laboratory technologists in attendance, the procedure was discussed with the patient. Appropriate consent form had been signed. Appropriate alternatives, benefits and risks of procedure were discussed with the patient and she was pre- operatively assessed with a history and physical by myself and cleared for the biopsy procedure. The patient did request IV sedation and that was provided by the Anesthesia Department. Under aseptic condition right posterior iliac area was cleaned and prepped, about 10 cc of bone marrow aspirate and core biopsy was obtained, patient tolerated procedure well, specimen was sent for routine histopathology, flow cytometry and cytogenetics and FISH for myeloma and lymphoma panel postprocedure nursing instructions were given Thank you for allowing me to participate in this patient's care and diagnosis. 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
[2020-09-18 11:59] VITALS: BP 105/45; PULSE 61; RESP 16; TEMP 36.2; O2SAT 100
[2020-09-18 12:09] VITALS: BP 121/58; PULSE 67; RESP 18; TEMP 36.1; O2SAT 100
[2020-09-18 12:15] VITALS: BP 125/64; PULSE 67; RESP 18; O2SAT 96
--- NOTE | 2020-09-18 12:22 | PC.NURSE ---
1205 Procedure site dressing clean dry and intact.
--- NOTE | 2020-09-18 12:22 | PC.NURSE ---
1220 Procedure site dressing clean dry and intact.
--- NOTE | 2020-09-18 15:02 | ANE.PACU2 ---
Inpatient post-anesthesia follow up: Airway intact: Yes Vital signs: Temperature 97.0 F Pulse Rate 67 Respiratory Rate 18 Blood Pressure 125/64 Pulse Oximetry 96 Oxygen Delivery Me thod Room Air Oxygen Flow Rate 3 Fraction of Inspir ed Oxygen Hydration adequate: Yes Nausea and vomiting: No Pain level: 1 Mental status: Baseline
[2020-09-20 10:24] LABS: Miscellaneous Test See Scanned Lab Rpt
== END 2020-09-18 11:42 | disposition home or self-care (01) ==
PROVIDERS: PCP Family Medicine; Visit Provider Internal Medicine Hematology & Oncology
PROC: 07DT3ZX Extraction of Bone Marrow, Percutaneous Approach, Diagnostic (ICD-10-PCS; CPT 38222; principal; 2020-09-18 11:30)
DX: D64.9 Anemia, unspecified (principal); D80.1 Nonfamilial hypogammaglobulinemia; I48.91 Unspecified atrial fibrillation; K21.9 Gastro-esophageal reflux disease without esophagitis; M81.0 Age-related osteoporosis without current pathological fracture; E11.22 Type 2 diabetes mellitus with diabetic chronic kidney disease; I12.9 Hypertensive chronic kidney disease with stage 1 through stage 4 chronic kidney disease, or unspecified chronic kidney disease; N18.30 Chronic kidney disease, stage 3 unspecified; Z82.49 Family history of ischemic heart disease and other diseases of the circulatory system; Z83.3 Family history of diabetes mellitus
CPT/HCPCS: 36415; 36416; 38222; 82962; 85025; 88184; 88185; 88237; 88264; 88305; 88311; 88374; 96360; 96361; J2704; J7030

== ENCOUNTER → 2020-10-02 12:45 | Outpatient (BNVA) | payer MEDICARE, SELFPAY | PROVIDERS: PCP Family Medicine; Visit Provider Nurse Practitioner Family | DX: N30.20 Other chronic cystitis without hematuria (principal) | CPT/HCPCS: 81003 ==

== ENCOUNTER 2020-10-10 11:49 | Outpatient (CLI) | payer MEDICARE, SELFPAY ==
[2020-10-10 12:22] LABS: Basophils % 0.4 %; Eosinophils # 0.3 10^3/uL (0.0-0.8); Eosinophils % 2.2 %; Hemoglobin 7.9 g/dL (11.5-15.3); Lymphocytes # 1.6 10^3/uL (0.8-4.8); Lymphocytes % 13.9 %; Mean Corpuscular HGB Conc 30.4 g/dL (30.0-36.0); Mean Corpuscular Hemoglobin 30.4 pg (28.0-34.0); Mean Platelet Volume 10.5 fL (7.4-10.4); Monocytes # 0.5 10^3/uL (0.2-0.9); Monocytes % 4.8 %; Neutrophils # 8.85 10^3/uL (1.8-7.7); Neutrophils % 77.9 %; Nucleated Red Blood Cells % 0 %; Platelet Count 395 10^3/cmm (130-400); Red Cell Distribution Width 15.3 % (12.1-15.1); White Blood Count 11.4 10^3/uL (4.0-10.0)
--- NOTE | 2020-10-10 14:27 | ONC FU_ITS ---
Dr. Walsh follow up note Patient: Shilpi Nicole Unit #: [id number]: 1945 Dicatated By: Annie Walsh M.D.Date of Visit:Oct 10, 2020 Onc Med Follow-up/Prog Note History of Present Illness: Ms. Shilpi Nicole is a 74-year-old female with history of progressive renal insufficiency CKD stage 5, anemia, diabetes, hypertension As per patient she was diagnosed with anemia 3 or 4 years ago but never required any blood transfusion has not taken any iron supplements, she was told that it was due to progressive renal insufficiency, now hemodialysis under consideration but she does not want it. And her routine lab work-up done on July 26, 2020 showed kappa free light chain 110.2 lambda free light chains 34.9 kappa/lambda ratio 3.16 whereas serum protein electrophoresis done on same day showed no restricted band or M protein. Patient denies any bony pains, denies any recurrent fever or infections, denies any weight loss, denies any night sweats, denies any peripheral lymphadenopathy, denies any abdominal fullness, Patient has history of polyp removal, about [address] White and next follow-up was recommended 3 to 5 years from that time. Patient has history of ovarian tumor removal at age 17, as per patient part of other ovary was removed and she was offered radiation therapy at that time Repeat quantitative immunoglobin shows IgA 168, IgG 317 which is low normal at 700-16 100, IgM 26, kappa free light chain 102.4 lambda 35.1,/lambda ratio 2.92, iron saturation 17.8% ferritin 43, iron 55, folic acid 11, TIBC 308, B12 417, beta-2 microglobulin 11.16 normal being less than 2.5 reticulocyte count 2 Bone marrow evaluation done on September 18, 2020 showed normocellular bone marrow, no overt dyspoietic or megaloblastic changes seen, flow cytometry showed no aberrant myeloid or lymphoid cell, FISH for MDS unremarkable Came for follow-up, denies any specific complaint except progressive generalized weakness and fatigue, dyspnea on exertion, palpitation on exertion, no melena or hematochezia, no fever chills, no nausea or vomiting, no diarrhea constipation, no hemoptysis or hematemesis, no jaundice Medications: Allopurinol (100 mg) Tablet Oral b.i.d., Apixaban (2.5 mg) Tablet Oral b.i.d., Bumetanide (1 mg) Tablet Oral daily, Carvedilol 2 (25 mg) Tablet Oral b.i.d., dilTIAZem HCl ER (120 mg) Capsule SR 24 HR Oral daily, Glimepiride (8 mg) Tablet Oral daily, hydrALAZINE HCl (100 mg) Tablet Oral daily, Losartan Potassium (100 mg) Tablet Oral daily, Mirtazapine (15 mg) Tablet Oral daily, Pantoprazole Sodium (40 mg) Tablet, enteric coated Oral b.i.d., Sodium Bicarbonate (650 mg) Tablet Oral t.i.d. Allergies: No Known Allergies. Review of Systems: Review of Systems is not available for this patient. Vital Signs: Vitals are not available for this patient. Performance Status: 1 - No physically strenuous activity, but ambulatory and able to carry out light or sedentary work (e.g. office work, light house work). (ECOG) Physical Examination: ENMT - No mouth sores, no thrush, no jaundice, Respiratory - Lungs are clear to auscultation, Cardiovascular - Regular rate and rhythm of heart, Abdomen - Soft, bowel sounds present, Extremities - No visible edema. Lab/Imaging: Test performed on Sep 03, 2020 14:42 Ferritin 43 ng/mL Folate, Serum 11.0 ng/mL Iron 55 mcg/dL Vitamin B12 417 pg/mL Iron Binding Capacity (TIBC) 308 mcg/dl % Iron Saturation 17.8 % UIBC 253 mcg/dL Retic Count % 2.0 % Beta-2 Microglobulin 11.16 mg/L IgG 317 mg/dL [place] Free Light Chains 102.4 mg/L Lambda Free Light Chains 35.1 mg/L IgA 168 mg/dL [place]/Lambda Free Ratio 2.92 IgM 26 mg/dL Impression: Bone marrow evaluation Done on September 18, 2020 showed no overt dyspoietic or megaloblastic changes seen, adequate iron stores, normocellular marrowElevated serum light chains, etiology unclear, could be due to low renal clearance or underlying plasma cell disorder but less likely, or lymphoproliferative disorder labs done on July 26, 2020 shows SPEP with no M spike, but elevated kappa/lambda ratio 3.16 and kappa light chain 110.2 lambda light chain 34.9, Quantitative immunoglobulins done on September 03, 2020 showed shows hypogammaglobulinemia, IgG 317 normal being 700-1600, IgM 26 normal being 40-230, IgA 168 normal being 70-400. Beta-2 microglobulin 11.16 normal being less than 2.5, normocytic normochromic anemia probably multifactorial, Anemia work-up Done on September 03, 2020 shows iron saturation 17.8% which is low, ferritin 43, folic acid 11, iron 55, TIBC 308, B12 470, reticulocyte count 2.0 CKD stage V Diabetes Plan: Discussed with patient regarding her labs white blood count 11.4 hemoglobin 9.7 g compared to 8.1 g previously hematocrit 26 platelets 395,000 MCV 100.0 reticulocyte count 2 next Bone marrow evaluation Done on September 18, 2020 showed no overt dyspoietic or megaloblastic changes seen, adequate iron stores, normocellular marrow Clinically, patient is symptomatic with progressive/persistent severe anemia, no evidence of gross bleeding, follow-up labs shows hemoglobin less than 8 g and she is symptomatic, at this point will consider type and cross and transfuse 2 units of packed RBC Her bone marrow surprisingly shows no obvious abnormality, no dyspoietic changes no megaloblastic changes adequate iron no other abnormality noted normocellular bone marrow, she may have functional iron deficiency, will try oral iron, other possibility could be anemia of chronic renal disease,, her reticulocyte count is low considering her severe anemia and considering her age, and less than suboptimal bone marrow response whereas bone marrow shows no evidence of MDS, so, we will refer her to [place] [facility] clinic for second opinion and patient return to clinic 1 week after her visit to [place], In the meantime we will check her troponin level. Signed By: Barjinder Walsh, M.D. <<Signature on File>>
[2020-10-11 14:38] LABS: Erythropoietin 13.6 mIU/mL (2.6-18.5)
== END 2020-10-10 11:50 | disposition home or self-care (01) ==
LOC: ONCMED 11:53
PROVIDERS: PCP Family Medicine; Visit Provider Internal Medicine Hematology & Oncology
DX: D80.1 Nonfamilial hypogammaglobulinemia (principal); D64.9 Anemia, unspecified; E11.22 Type 2 diabetes mellitus with diabetic chronic kidney disease; N18.5 Chronic kidney disease, stage 5; Z79.899 Other long term (current) drug therapy
CPT/HCPCS: 36415; 82668; 85025; 86850; 86900; 86920; 99214

== ENCOUNTER 2020-10-11 08:23 | Outpatient (CLI) | payer MEDICARE, SELFPAY ==
[2020-10-11] VITALS (9 sets, daily range): BP systolic 157–184; BP diastolic 85–94; PULSE 72–79; RESP 18; TEMP 36.6–36.9; O2SAT 99–100
[2020-10-11] MEDS: sodium chloride 0.9% 250 ML 999 ML IV (09:30)
[2020-10-11] MEDS: diphenhydrAMINE 25 mg Capsule PO (09:40)
[2020-10-11] MEDS: acetaminophen 325 mg Tablet 650 MG PO (09:40)
[2020-10-11] MEDS: hyDRALAzine 50 mg Tablet 100 MG PO (11:30)
[2020-10-11] MEDS: FUROsemide 10 mg/mL SDV 2mL 20 MG IV (11:40)
== END 2020-10-11 08:24 | disposition home or self-care (01) ==
PROVIDERS: PCP Family Medicine; Visit Provider Internal Medicine Hematology & Oncology
DX: D64.9 Anemia, unspecified (principal); D80.1 Nonfamilial hypogammaglobulinemia; R74.8 Abnormal levels of other serum enzymes; E11.22 Type 2 diabetes mellitus with diabetic chronic kidney disease; N18.5 Chronic kidney disease, stage 5; Z79.899 Other long term (current) drug therapy
CPT/HCPCS: 36430; 86850; 86900; 86920; J1940; J7050; P9016

== ENCOUNTER 2021-11-09 12:00 | Inpatient (IN) | payer MEDICARE, SELFPAY ==
[2021-11-09] VITALS (8 sets, daily range): BP systolic 124–169; BP diastolic 73–87; PULSE 87–122; RESP 16–18; TEMP 36.6–36.8; O2SAT 94–98
--- NOTE | 2021-11-09 12:03 | ECG_ITS ---
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 Measurements Intervals [place] Rate: 98 P: 38 LA: 200 QRS: -51 QRSD: 89 T: 43 QT: 342 QTc: 437 Interpretive Statements SINUS RHYTHM LOW QRS VOLTAGE IN PRECORDIAL LEADS LEFT ANTERIOR FASCICULAR BLOCK INFERIOR MYOCARDIAL INFARCTION , PROBABLY OLD PROBABLE ANTEROLATERAL MYOCARDIAL INFARCTION , PROBABLY OLD Compared to ECG 05/22/2020 23:22:36 Low QRS voltage now present Left anterior fascicular block now present Myocardial infarct finding now present Electronically Signed On 11-10-2021 13:07:49 CDT by Karen Spain M.D. [email or web address] [id number]
--- NOTE | 2021-11-09 12:03 | XRR_ITS ---
PROCEDURE INFORMATION: Exam: XR Chest Exam date and time: 11/09/2021 12:48 PM Age: 76 years old Clinical indication: Cough and dyspnea; Prior surgery; Surgery date: Post-operative (0-2 days); Surgery type: Dialysis port placed 11/08/21; Additional info: Dyspnea/cough TECHNIQUE: Imaging protocol: Radiologic exam of the chest. Views: 1 view. COMPARISON: CR XR chest 1V portable [id number] 05/22/2020 8:45 PM FINDINGS: Tubes, catheters and devices: Right central line extends into the right atrium. Lungs: Unremarkable. No consolidation. Pleural spaces: Unremarkable. No pleural effusion. No pneumothorax. Heart/Mediastinum: Unremarkable. No cardiomegaly. Bones/joints: Unremarkable. XR/XR chest 1V portable [id number] IMPRESSION: 1. No acute findings. 2. Right central line in the right atrium
--- NOTE | 2021-11-09 12:21 | W.ED.ABDPA2 ---
HPI - Abdominal Pain General: Chief Complaint: Abdominal Pain Stated Complaint: WEAKNESS; ABD PAIN Time Seen by Provider: 11/09/21 12:03 Source: patient Mode of arrival: ambulatory Limitations: no limitations History of Present Illness: 76-year-old female presents emergency room complaining of generalized abdominal pain generally not feeling well. Patient has diabetes mellitus and has developed end-stage renal disease yesterday had a tunneled dialysis catheter placed in the right subclavian area. No active bleeding she denies fever sweats or chills she is awake alert oriented denies abdominal pain or chest pain. She is an insulin-dependent diabetic and is also taking glimepiride. No hematochezia melena hematemesis coffee-ground emesis. Patient still does produce some urine has not had any dysuria urgency or frequency. MD elicited complaint: abdominal pain Pertinent past history: other (Placement of tunneled dialysis catheter right subclavian within the last 24 hours) Onset (ago): hour(s) Pain Consistency: constant Location: Diffuse Quality: aching Radiation: none Migration to: no migration Exacerbating factors: nothing Relieving factors: nothing Associated Symptoms: Reports GI cramping and poor appetite; Denies anorexia, belching, bloating, change in bowel habits, change in stool character, chills, coffee ground emesis, constipation, diarrhea, dyspepsia, dysuria, excessive flatus, fever(s), heartburn, hematochezia, hematuria, hematemesis, fecal incontinence, loose stools, melena, nausea, syncope and vomiting Review of Systems Const: Denies: fever(s), chills, fatigue or malaise ENMT: Denies: throat pain, ear or mastoid pain, nasal discharge or nasal congestion Card: Reports: chest pain; Denies: palpitations, irregular heart rhythm, edema or syncope Resp: Denies: dyspnea, productive cough or non-productive cough GI: Reports: GI cramping; Denies: nausea, vomiting, hematemesis, coffee ground emesis, heartburn, diarrhea, constipation, bloating, belching, excessive flatus, fecal incontinence, change in bowel habits, change in stool character, hematochezia or melena : Denies: flank pain, difficulty voiding, dysuria, urinary frequency, urinary urgency or hematuria Skin/Breast: Denies: rash or pruritus PFSH ED PFSH: Medical History Abnormal colonoscopy [address] White, sigmoid polyp Atrial fibrillation with RVR August 2019, suspect paroxysmal secondary to PE. Chronic cystitis Diabetes Fibula fracture Heart failure with preserved ejection fraction Grade 1 diastolic dysfunction, EF 65% 08/23/2018 History of atrial fibrillation Because of the patient's chronic anemia and GI bleed, she is not on any oral anticoagulant. HTN (hypertension) Chronically difficult to control Hx of cataract IBS (irritable bowel syndrome) Internal hemorrhoids Iron deficiency anemia Normal cardiac stress test Osteoporosis Ovarian cancer in remission 1963 Pulmonary embolism Diagnosed August 2019 Stage 3 chronic kidney disease Type 2 diabetes mellitus Surgical History H/O detached retina repair 1991 H/O oophorectomy 1963 Hx of cataract extraction Hx of cholecystectomy Family History Father CAD (coronary artery disease) Hx of myocardial infarction Mother CAD (coronary artery disease) Hx of myocardial infarction Brother Chronic kidney disease (CKD) Diabetes Family/Other Diabetes Sister Diabetes Denies family history of Clotting disorder Dementia Suicide Anesthesia complication Bleeding disorder Lung disease Cancer Stroke Social History Alcohol intake: never Lives independently: Yes Housing: House Physical Exam Const: GENERAL APPEARANCE: cooperative and comfortable ORIENTATION/CONSCIOUSNESS: Yes awake, Yes oriented to person, Yes oriented to place and Yes oriented to time HENMT: COMMON NORMALS: normocephalic, atraumatic and hearing grossly normal bilaterally HEAD & SCALP: normocephalic and atraumatic Resp: COMMON NORMALS: normal respiratory effort, No retractions, No use of accessory muscles and clear to auscultation bilaterally AUSCULTATION: clear to auscultation bilaterally Cardio: COMMON NORMALS: regular rate, regular rhythm and No murmurs present (Cardio) RATE: regular rate RHYTHM: regular rhythm GI: COMMON NORMALS: Soft to palpation and No hepatosplenomegaly present AUSCULTATION: Yes normoactive bowel sounds PALPATION: Yes Soft to palpation, No Tenderness to palpation present (GI), No Guarding due to palpation present (GI) and Yes No hepatosplenomegaly present Extremity: COMMON NORMALS: normal to inspection, capillary refill normal, no clubbing, cyanosis or edema, no calf tenderness and no pedal edema Neuro: SENSORIUM/ORIENTATION: Yes oriented to person, Yes oriented to place and Yes oriented to time Skin: COMMON NORMALS: no rashes or lesions noted GENERAL SKIN EXAM: no rashes or lesions noted Course Vital Signs: Vital signs: Vital Signs Temperature 98.3 F 11/13/21 15:39 Pulse Rate 79 11/13/21 15:39 Respiratory Rate 16 11/13/21 15:39 Blood Pressure 112/65 11/13/21 15:39 Pulse Oximetry 91 11/13/21 15:39 Oxygen Delivery Me thod 11/13/21 11:38 Oxygen Flow Rate 1 11/12/21 08:00 MDM - Abdominal Pain Medical Decision Making To be admitted for dialysis. Of function is worsened she was scheduled next week to get started on dialysis but will need sooner. Has diabetes heart failure and chronic cystitis discussed with hospitalist orders written Medical Records I reviewed the patient's medical records. Lab Data I reviewed the patient's lab results. : 11/13/21 04:29 11/13/21 04:29 Labs/Radiology: Radiology Impressions Chest X-Ray 11/09/21 12:03 IMPRESSION: 1. No acute findings. 2. Right central line in the right atrium Abdomen/Pelvis CT 11/09/21 12:59 IMPRESSION: 1. Inflammatory changes are seen within the proximal duodenal C-loop. 2. Multiple benign bilateral renal cyst. 3. Hiatal hernia 4. Cardiac artery calcifications 5. Cholecystectomy Laboratory Results WBC 27.7 10^3/uL (4.0-10.0) H 11/09/21 12:31 RBC 3.22 10^6/uL (4.1-5.3) L 11/09/21 12:31 Hgb 9.8 g/dL (11.5-15.3) L 11/09/21 12:31 Hct 32.5 % (37.0-47.0) L 11/09/21 12:31 MCV 100.9 fl (81-99) H 11/09/21 12:31 MCH 30.4 pg (28.0-34.0) 11/09/21 12:31 MCHC 30.2 g/dL (30.0-36.0) 11/09/21 12:31 RDW 16.6 % (12.1-15.1) H 11/09/21 12:31 Plt Count 193 10^3/cmm (130-400) 11/09/21 12:31 MPV 10.9 fL (7.4-10.4) H 11/09/21 12:31 Neut % (Auto) 90.2 % 11/09/21 12:31 Lymph % (Auto) 3.9 % 11/09/21 12:31 [place] % (Auto) 4.9 % 11/09/21 12:31 Eos % (Auto) 0.0 % 11/09/21 12:31 Baso % (Auto) 0.2 % 11/09/21 12:31 Neut # (Auto) 25.01 10^3/uL (1.8-7.7) H 11/09/21 12:31 Lymph # (Auto) 1.1 10^3/uL (0.8-4.8) 11/09/21 12:31 [place] # (Auto) 1.4 10^3/uL (0.2-0.9) H 11/09/21 12:31 Eos # (Auto) 0.0 10^3/uL (0.0-0.8) 11/09/21 12:31 Baso # (Auto) 0.1 10^3/uL (0.0-0.1) 11/09/21 12:31 Nucleated RBC % (auto) 0.1 % 11/09/21 12:31 Nucleated RBCs # 0.0 /100WBC 11/09/21 12:31 Sodium 136 mmol/L (136-145) 11/09/21 12:31 Potassium 5.3 mmol/L (3.5-5.1) H 11/09/21 12:31 Chloride 108 mmol/L (98-107) H 11/09/21 12:31 Carbon Dioxide 12 mmol/L (22-29) L 11/09/21 12:31 Anion Gap 21.3 (5-19) H 11/09/21 12:31 BUN 105 mg/dL (8-23) H* D 11/09/21 12:31 Creatinine 4.6 mg/dL (0.5-0.9) H 11/09/21 12:31 GFR Calculation Not Reportable 11/09/21 12:31 Glucose 287 mg/dL (65-115) H 11/09/21 12:31 Calculated Osmolality 325 mOsm/kg (285-295) H 11/09/21 12:31 Lactic Acid 1.2 mmol/L (0.5-2.2) 11/09/21 13:56 Calcium 9.6 mg/dL (8.5-10.5) 11/09/21 12:31 Total Bilirubin 0.3 mg/dL (0.15-1.2) 11/09/21 12:31 AST 19 U/L (0-32) 11/09/21 12:31 ALT 16 U/L (0-33) 11/09/21 12:31 Alkaline Phosphatase 127 U/L (35-105) H 11/09/21 12:31 Total Protein 5.9 g/dL (6.6-8.7) L 11/09/21 12:31 Albumin 3.2 g/dL (3.5-5.2) L 11/09/21 12:31 Globulin 2.7 g/dL (1.3-4.6) 11/09/21 12:31 Urine Color Yellow (Yellow) 11/09/21 12:29 Urine Appearance Cloudy (CLEAR) 11/09/21 12:29 Urine pH 5 (5-7) 11/09/21 12:29 Ur Specific [place] 1.015 (1.005-1.030) 11/09/21 12:29 Urine Protein 1+ (Negative) H 11/09/21 12:29 Urine Glucose (UA) Norm (Normal) 11/09/21 12:29 Urine Ketones Negative (Negative) 11/09/21 12:29 Urine Blood 2+ (Negative) H 11/09/21 12:29 Urine Nitrate Positive (Negative) H 11/09/21 12:29 Urine Bilirubin 1+ (Negative) H 11/09/21 12:29 Urine Urobilinogen Norm mg/dL (Negative) 11/09/21 12:29 Ur Leukocyte Esterase 2+ (Negative) H 11/09/21 12:29 Urine RBC 0-4 /hpf (0-2) H 11/09/21 12:29 Urine WBC Too numerous to cnt /hpf (0-5) H 09/03/22 12:29 Ur Squamous Epith Cells 0-4 /hpf (0-5) H 11/09/21 12:29 Amorphous Sediment Not Reportable 11/09/21 12:29 Urine Bacteria 1+ /hpf (NONE) H 11/09/21 12:29 Discharge Plan Discharge Patient Disposition: Admitted As Inpatient Admit Provider: Magalie Kim Clinical Impression: ESRD (end stage renal disease), Type 2 diabetes mellitus, History of atrial fibrillation, Acute hemodialysis encounter, HTN (hypertension) Condition: Stable Discharge Diet: As Directed Discharge Activity: Increase activity as tolerated Coding Level of Care Code ED 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
[2021-11-09 12:46] LABS: Add Urine Culture? Yes; Add Urine Microscopic? YES; Bacteria Urine 1+ /hpf; Bilirubin Urine 1+ (Negative); Blood Urine 2+ (Negative); Glucose Urine UA Norm (Normal); Ketones Urine Negative (Negative); Leukocyte Esterase Urine 2+ (Negative); Nitrate Urine Positive (Negative); Protein Urine 1+ (Negative); RBC Urine 0-4 /hpf (0-2); Specific Gravity, Urine 1.015 (1.005-1.030); Squamous Epithelial Cell Urine 0-4 /hpf (0-5); Urine Appearance Cloudy (CLEAR); Urine Color Yellow (Yellow); Urobilinogen Urine Norm (Negative); WBC Urine TOO NUMEROUS TO CNT /hpf (0-5); pH Urine 5 (5-7)
[2021-11-09 12:56] LABS: Basophils # 0.1 10^3/uL (0.0-0.1); Basophils % 0.2 %; Hematocrit 32.5 % (37.0-47.0); Hemoglobin 9.8 g/dL (11.5-15.3); Lymphocytes # 1.1 10^3/uL (0.8-4.8); Lymphocytes % 3.9 %; Mean Corpuscular HGB Conc 30.2 g/dL (30.0-36.0); Mean Corpuscular Hemoglobin 30.4 pg (28.0-34.0); Mean Corpuscular Volume 100.9 fl (81-99); Mean Platelet Volume 10.9 fL (7.4-10.4); Monocytes # 1.4 10^3/uL (0.2-0.9); Monocytes % 4.9 %; Neutrophils # 25.01 10^3/uL (1.8-7.7); Neutrophils % 90.2 %; Nucleated Red Blood Cells % 0.1 %; Platelet Count 193 10^3/cmm (130-400); Red Blood Count 3.22 10^6/uL (4.1-5.3); Red Cell Distribution Width 16.6 % (12.1-15.1); White Blood Count 27.7 10^3/uL (4.0-10.0)
--- NOTE | 2021-11-09 12:59 | CTR_ITS ---
PROCEDURE INFORMATION: Exam: CT Abdomen And Pelvis Without Contrast Exam date and time: 11/09/2021 1:22 PM Age: 76 years old Clinical indication: Abdominal pain; Generalized; Prior surgery; Surgery type: Gb, appy; Additional info: Flank pain TECHNIQUE: Imaging protocol: Computed tomography of the abdomen and pelvis without contrast. Radiation optimization: All CT scans at this facility use at least one of these dose optimization techniques: automated exposure control; mA and/or kV adjustment per patient size (includes targeted exams where dose is matched to clinical indication); or iterative reconstruction. COMPARISON: MR abdomen wo con [id number] 08/11/2019 2:49 PM Abdomen and pelvis CT examination 05/25/2015 RADIATION DOSE METRICS: Total DLP (mGy-cm): 388.99 FINDINGS: Chest: The lower lung scruggs are expanded and clear. Heart is normal in size. There is coronary artery calcifications. No evidence of pericardial effusion Liver: Normal. No mass. Gallbladder and bile ducts: Cholecystectomy. No ductal dilation. Pancreas: Normal. No ductal dilation. Spleen: Normal. No splenomegaly. Adrenal glands: Normal. No mass. Kidneys and ureters: Multiple benign cyst are seen. A hyperdense cyst is seen in the upper pole of the left kidney 25 mm x 26 mm. The right kidney shows a 8 mm hyperdense cyst in the medial aspect and a 7 mm hyperdense cyst in the lower pole No hydronephrosis. a few scattered vascular calcifications are present the in both kidneys. Stomach and bowel: The proximal of duodenal C-loop shows thickening of its silva, narrowing of the lumen, and omental inflammatory stranding. These findings were not present on prior examination and suggest localized inflammatory disease. No obstruction. No mucosal thickening. There is a small hiatal hernia present Appendix: Normal examination No evidence of appendicitis. Intraperitoneal space: Unremarkable. No free air. No significant fluid collection. Vasculature: Calcified abdominal aorta without aneurysm. Lymph nodes: Unremarkable. No enlarged lymph nodes. Urinary bladder: Unremarkable as visualized. Reproductive: Unremarkable as visualized. Bones/joints: Unremarkable. No acute fracture. Soft tissues: Unremarkable. CT/CT kidney stone [id number] IMPRESSION: 1. Inflammatory changes are seen within the proximal duodenal C-loop. 2. Multiple benign bilateral renal cyst. 3. Hiatal hernia 4. Cardiac artery calcifications 5. Cholecystectomy
[2021-11-09] MEDS: cefTRIAXone 1,000 MG in sodium chloride 0.9% (plus) 50 ML 100 MG IV (13:07)
[2021-11-09 13:22] LABS: Alanine Aminotransferase 16 U/L (0-33); Albumin Level 3.2 g/dL (3.5-5.2); Alkaline Phosphatase 127 U/L (35-105); Anion Gap 21.3 (5-19); Aspartate Amino Transferase 19 U/L (0-32); Calcium 9.6 mg/dL (8.5-10.5); Carbon Dioxide 12 mmol/L (22-29); Chloride 108 mmol/L (98-107); Globulin 2.7 g/dL (1.3-4.6); Glucose 287 mg/dL (65-115); Osmolality Calculated 325 mOsm/kg (285-295); Potassium 5.3 mmol/L (3.5-5.1); Sodium 136 mmol/L (136-145); Total Bilirubin 0.3 mg/dL (0.15-1.2); Total Protein 5.9 g/dL (6.6-8.7)
[2021-11-09 13:26] LABS: Blood Urea Nitrogen 105 mg/dL (8-23)
--- NOTE | 2021-11-09 13:54 | PM.CONSULT ---
Providers/Reason For Consult Consulting Physician/Specialty*: Kristina Light DO, telenephrology Reason for Consult*: ESRD Primary Care Provider: Vitaliy Morales MD History of Present Illness History of Present Illness Shilpi Nicole is a 76 year old female with planned elective outpatient initiation of hemodialysis presents to ER with CC of abdominal pain. Had tunneled dialysis catheter placed yesterday Medications/Allergies Home Medications Medication Instructions Recorded Confirmed Last Taken Type glimepiride 4 mg tablet 4 mg PO DAILY@0900 09/28/19 01/17/21 09/17/20 History acetaminophen 325 mg tablet 325 - 650 mg PO Q6H PRN Pain 05/22/20 01/17/21 09/16/20 History allopurinol 100 mg tablet 100 mg PO DAILY@0800 05/22/20 01/17/21 09/17/20 History atorvastatin 10 mg tablet 10 mg PO BEDTIME@2100 05/22/20 01/17/21 09/17/20 History pantoprazole 40 mg tablet,delayed 40 mg PO BID@0900,2100 05/22/20 01/17/21 09/17/20 History release sodium bicarbonate 650 mg tablet 650 mg PO TID@0900,1200,2100 05/22/20 01/17/21 09/17/20 History ondansetron HCl 4 mg tablet 4 mg PO .prn PRN nausea and 10/18/20 01/17/21 Unknown History (Zofran) vomiting semaglutide 7 mg tablet 7 mg PO DAILY 10/18/20 01/17/21 Unknown History spironolactone 50 mg tablet 50 mg PO DAILY 10/18/20 01/17/21 Unknown History hydralazine 100 mg tablet 100 mg PO TID@ PRN 01/17/21 01/18/21 Unknown History Hypertensive Emergency mirtazapine 15 mg tablet 15 mg PO DAILY 01/17/21 01/17/21 Unknown History ciprofloxacin HCl 500 mg tablet 500 mg PO BID #20 tabs 02/06/21 Unknown Rx bumetanide 2 mg tablet 2 mg PO DAILY@0900 #90 tabs 06/12/21 Unknown Rx diltiazem HCl 240 mg capsule,24 120 mg PO DAILY #90 caps 06/13/21 Unknown Rx hr,extended release (Tiadylt ER) carvedilol 25 mg tablet See Rx Instructions .Route 08/09/21 Unknown Rx .COMPLEX #180 tabs Allergies Allergy/AdvReac Type Severity Reaction Status Date / Time No Known Allergies Allergy Verified 01/17/21 12:59 PFSH Acute PFSH: Medical History Abnormal colonoscopy [address] White, sigmoid polyp Chronic cystitis Diabetes Fibula fracture Heart failure with preserved ejection fraction Grade 1 diastolic dysfunction, EF 65% 08/23/2018 HTN (hypertension) Chronically difficult to control - on clonidine scheduled, metoprolol, amlodipine, hydralizine. Hx of cataract IBS (irritable bowel syndrome) Internal hemorrhoids Iron deficiency anemia Normal cardiac stress test Osteoporosis Ovarian cancer in remission 1963 Pulmonary embolism Diagnosed August 2019 Stage 3 chronic kidney disease Type 2 diabetes mellitus Surgical History H/O detached retina repair 1991 H/O oophorectomy 1963 Hx of cholecystectomy Family History Father CAD (coronary artery disease) Hx of myocardial infarction Mother CAD (coronary artery disease) Hx of myocardial infarction Brother Chronic kidney disease (CKD) Diabetes Family/Other Diabetes Sister Diabetes Denies family history of Clotting disorder Dementia Suicide Anesthesia complication Bleeding disorder Lung disease Cancer Stroke Social History Alcohol intake: never Lives independently: Yes Housing: House Vitals/I&O/Wt Last Vital Signs Temp 98.3 F 11/09/21 12:04 Pulse 94 11/09/21 13:12 Resp 16 11/09/21 13:12 BP 153/79 11/09/21 13:12 Pulse Ox 95 11/09/21 13:12 O2 Del Method 11/09/21 13:12 Weight last 48 hrs Weight 72.575 kg Data : 11/09/21 12:31 11/09/21 12:31 CXR: Radiologist's impression: Tubes, catheters and devices: Right central line extends into the right atrium. Lungs: Unremarkable. No consolidation. Pleural spaces: Unremarkable. No pleural effusion. No pneumothorax. Heart/Mediastinum: Unremarkable. No cardiomegaly. Bones/joints: Unremarkable. A&P Assessment and plan (1) ESRD (end stage renal disease): Seen via telemedicine with assistance of LEYDA at bedside. Status: Acute Plan 1. ESRD, likely due to diabetic nephropathy and hypertension 2. UTI. 3. Metabolic acidosis 4. Anemia 5. Mild hyperkalemia Recommend: HD today 2h, continue oral sodium bicarbonate. HD again tomorrow or Thursday. Discontinue spironolactone. Panculture; IV antibiotics. 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
[2021-11-09] MEDS: morphine 4 mg/mL SDV 1 mL IVP (14:13)
--- NOTE | 2021-11-09 14:25 | PM.HP ---
Providers/Chief Complaint Primary Care Provider: Vitaliy Morales MD Chief Complaint: WEAKNESS; ABD PAIN History of Present Illness Shilpi Nicole is a 76 year old female with past medical history of of heart failure with preserved EF, iron deficiency anemia, osteoporosis, pulmonary embolism August 2019, hypertension, end-stage renal disease followed by Dr. Chester, diabetes mellitus presented to the hospital today with complaints of abdominal pain and weakness. She states she had a dialysis catheter placed yesterday at [facility] and she was supposed to start dialysis this upcoming Thursday. However she was having worsening abdominal pain and generalized weakness and therefore came to the hospital ER today. She denies any chest pain, shortness of breath, diarrhea, constipation, and nausea. Her main complaint is generalized weakness. She also states that she would like to be a DNR/DNI. She says she has a niece and a [id number] who will be responsible for making healthcare decisions in case she is unable to. He does not have a list of medications with her and goes to [facility]. She would like us to call them and confirm her medications today. Patient was seen at the time she was getting dialyzed today and room 274. She is complaining of generalized weakness. Denies any pain or any other complaints at this time. Patient is on Lantus 20 units at home. ER course: Blood pressure on arrival 153/79, respiratory 16, pulse 94, temperature 98.3, pulse ox 95% on room air. Chest x-ray shows right central line in the right atrium. CT abdomen pelvis shows inflammatory changes within proximal duodenal C-loop, hiatal hernia, cholecystectomy. Proximal duodenal C-loop shows thickening of silva, narrowing of the lumen, omental inflammatory stranding. Localized inflammation suggested. Small hiatal hernia. WBC 27.7, hemoglobin 9.8, potassium 5.3, chloride 108, bicarb 12, BUN 105, creatinine 4.6, glucose 287. Medications/Allergies Home Medications Medication Instructions Recorded Confirmed Last Taken Type glimepiride 4 mg tablet 4 mg PO DAILY@0909/28/19 11/09/21 11/08/21 History acetaminophen 325 mg tablet 325 - 650 mg PO Q6H PRN Pain 05/22/20 11/09/21 09/16/20 History allopurinol 100 mg tablet 100 mg PO DAILY@0800 05/22/20 11/09/21 11/08/21 History atorvastatin 10 mg tablet 10 mg PO BEDTIME@2100 05/22/20 11/09/21 11/08/21 History pantoprazole 40 mg tablet,delayed 40 mg PO BID@0900,2100 05/22/20 11/09/21 11/08/21 History release sodium bicarbonate 650 mg tablet 650 mg PO TID@0900,1200,2100 05/22/20 11/09/21 11/08/21 History spironolactone 50 mg tablet 50 mg PO DAILY 10/18/20 11/09/21 11/08/21 History hydralazine 100 mg tablet 100 mg PO TID@,, PRN 01/17/21 11/09/21 Unknown History Hypertensive Emergency mirtazapine 15 mg tablet 15 mg PO DAILY 01/17/21 11/09/21 11/08/21 History bumetanide 2 mg tablet 2 mg PO DAILY@0900 #90 tabs 06/12/21 11/09/21 11/08/21 Rx diltiazem HCl 240 mg capsule,24 120 mg PO DAILY #90 caps 06/13/21 11/09/21 11/08/21 Rx hr,extended release (Tiadylt ER) carvedilol 25 mg tablet 25 mg PO BID 11/09/21 11/09/21 11/08/21 History insulin glargine 100 unit/mL (3 20 unit SUBCUT BEDTIME 11/09/21 11/09/21 11/08/21 History mL) subcutaneous pen (Lantus Solostar U-100 Insulin) vitamin with calcium 1 tab PO DAILY 11/09/21 11/09/21 11/08/21 History no.72-iron 27 mg-folic acid 1 mg tablet (M-Neo Plus) Allergies Allergy/AdvReac Type Severity Reaction Status Date / Time No Known Allergies Allergy Verified 01/17/21 12:59 PFSH Acute PFSH: Medical History Abnormal colonoscopy [address] White, sigmoid polyp Chronic cystitis Diabetes Fibula fracture Heart failure with preserved ejection fraction Grade 1 diastolic dysfunction, EF 65% 08/23/2018 HTN (hypertension) Chronically difficult to control - on clonidine scheduled, metoprolol, amlodipine, hydralizine. Hx of cataract IBS (irritable bowel syndrome) Internal hemorrhoids Iron deficiency anemia Normal cardiac stress test Osteoporosis Ovarian cancer in remission 1963 Pulmonary embolism Diagnosed August 2019 Stage 3 chronic kidney disease Type 2 diabetes mellitus Surgical History H/O detached retina repair 1991 H/O oophorectomy 1964 Hx of cholecystectomy Family History Father CAD (coronary artery disease) Hx of myocardial infarction Mother CAD (coronary artery disease) Hx of myocardial infarction Brother Chronic kidney disease (CKD) Diabetes Family/Other Diabetes Sister Diabetes Denies family history of Clotting disorder Dementia Suicide Anesthesia complication Bleeding disorder Lung disease Cancer Stroke Social History Alcohol intake: never Lives independently: Yes Housing: House Vitals/I&O/Wt Last Vital Signs Temp 98.3 F 11/09/21 12:04 Pulse 94 11/09/21 13:12 Resp 16 11/09/21 13:12 BP 153/79 11/09/21 13:12 Pulse Ox 95 11/09/21 13:12 O2 Del Method 11/09/21 13:12 11/08/21 11/09/21 11/09/21 22:59 06:59 14:59 Intake Total 50 / 50 Balance 50 / 50 Weight last 48 hrs Weight 72.575 kg Physical Exam Narrative: General: Alert oriented x3, patient seen laying in bed getting dialyzed at this time HEENT: Normocephalic, atraumatic, EOMI, breathing comfortably on room air cardio: Regular rate rhythm, normal S1-S2, no murmurs rubs gallops Respiratory: Clear to auscultation bilaterally, no wheezes, rhonchi GI: Abdomen soft, nontender, nondistended, bowel sounds +, epigastric area nontender Behavior: Appropriate and cooperative Extremities: Trace bilateral lower extremity edema: Data : 11/09/21 12:31 11/09/21 12:31 A&P Assessment and plan (1) ESRD (end stage renal disease): Status: Acute (2) History of atrial fibrillation: Status: Acute (3) Type 2 diabetes mellitus: Status: Acute Qualifiers: Diabetes mellitus custodial insulin use: without intermodal customer service use Diabetes mellitus complication status: with hyperglycemia Qualified Code(s): E11.65 - Type 2 diabetes mellitus with hyperglycemia (4) Chronic cystitis: Status: Acute (5) Heart failure with preserved ejection fraction: Status: Chronic Qualifiers: Heart failure chronicity: chronic Qualified Code(s): I50.32 - Chronic diastolic (congestive) heart failure (6) Diabetes: Status: Chronic Qualifiers: Diabetes mellitus type: type 2 Diabetes mellitus custodial insulin use: without intermodal customer service use Diabetes mellitus complication status: with kidney complications Diabetes mellitus complication detail: with chronic kidney disease Chronic kidney disease stage: stage 3 (moderate) Qualified Code(s): E11.22 - Type 2 diabetes mellitus with diabetic chronic kidney disease; N18.3 - Chronic kidney disease, stage 3 (moderate) (7) Iron deficiency anemia: Status: Acute Qualifiers: Iron deficiency anemia type: unspecified iron deficiency Qualified Code(s): D50.9 - Iron deficiency anemia, unspecified (8) HTN (hypertension): Status: Acute Qualifiers: Hypertension type: essential hypertension Qualified Code(s): I10 - Essential (primary) hypertension (9) ANA ROSA (acute kidney injury): Status: Acute (10) Generalized weakness: Status: Acute Plan #Generalized weakness abdominal pain #Dialysis dependent end-stage renal disease #Iron deficiency anemia #Heart failure preserved ejection fraction #Hypertension #Diabetes mellitus, insulin-dependent #Abnormal urinalysis #Leukocytosis #History of GI bleed. Unsure of details, will do chart review -Consult nephrology. Start dialysis. Appreciate recommendations from nephrology ? Hold patient's antihypertensives at this time. ? Hold insulin at this time. Will cover with sliding scale if needed ? Patient feeling quite weak and hypotensive during dialysis session. ? Check iron studies, FOBT ? Check hepatitis profile ? Confirm patient's medication from pharmacy on Thursday morning as [facility] close tomorrow. ? Continue patient on bicarb tablets -Check labs in a.m. -Continue patient on Protonix 40 twice daily. ? Patient may benefit from EGD. Will consult GI in AM. -Leukocytosis could be secondary to stress response versus real infection. Will check sputum culture, blood cultures, MRSA nares, urine culture. Urinalysis abnormal. ? We will continue on ceftriaxone daily for possible presumed UTI. Will de-escalate as culture data comes in. 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 g Fwd Diagnoses ESRD (end stage renal disease) N18.6 History of atrial fibrillation Z86.79 Type 2 diabetes mellitus E11.65 Diabetes mellitus intermodal customer service insulin use: without intermodal customer service use Diabetes mellitus complication status: with hyperglycemia Chronic cystitis N30.20 Heart failure with preserved ejection fraction I50.32 Heart failure chronicity: chronic Diabetes E11.22; N18.3 Diabetes mellitus type: type 2 Diabetes mellitus intermodal customer service insulin use: without custodial use Diabetes mellitus complication status: with kidney complications Diabetes mellitus complication detail: with chronic kidney disease Chronic kidney disease stage: stage 3 (moderate) Iron deficiency anemia D50.9 Iron deficiency anemia type: unspecified iron deficiency HTN (hypertension) I10 Hypertension type: essential hypertension ANA ROSA (acute kidney injury) N17.9 Generalized weakness R53.1
[2021-11-09 14:31] LABS: Lactic Sepsis W/Reflex 1.2 mmol/L (0.5-2.2)
[2021-11-09 15:54] LABS: Hepatitis B Surface AB 3.5 (11.5-1000); Hepatitis B Surface Antigen Non-Reactive (Nonreactive); Hepatitis C Virus Antibody Non-Reactive (Nonreactive)
[2021-11-09 15:59] LABS: Lactic Sepsis W/Reflex 1.4 mmol/L (0.5-2.2)
[2021-11-09 16:09] LABS: NT Pro B Type Natriuretic Pept 1011 pg/mL (0-450); Procalcitonin 1.02 ng/mL (0-0.5)
[2021-11-09 16:10] LABS: Ferritin 380 ng/mL (15-150); Iron 11 ug/dL (37-145); Percent Saturation 5.4 % (20-50); Thyroid Stimulating Hormone 0.34 uIU/mL (0.27-4.20); Total Iron Binding Capacity 203 mcg/dl; Unsaturated Iron Binding 192 ug/dL (112-347)
[2021-11-09] MEDS: sodium chloride 0.9% 1,000 ML 100 ML IV (18:24)
--- NOTE | 2021-11-09 19:34 | PC.NURSE ---
Addendum entered by Chely Cullen RN 11/09/21 19:49: Spoke with Dr Villarreal in person and will continue to hold these medications until ordered for 11/10. Received verbal order to give cardizem 30mg PO one time. Original Note: Patient's heart rate increased to 130-140s s/p hemodialysis. Patient has Cardizem ER and carvedilol ordered to begin tomorrow. Informed Dr Villarreal and received order to start these medications tonight.
[2021-11-09] MEDS: atorvastatin 40 mg Tablet 20 MG PO (20:19)
[2021-11-09] MEDS: sodium bicarbonate 650 mg Tablet PO (20:19)
[2021-11-09] MEDS: pantoprazole DR 40 mg Tablet PO (20:19)
[2021-11-09] MEDS: dilTIAZem 30 mg Tablet PO (20:19)
[2021-11-09 20:48] LABS: Glucose Point of Care 199 mg/dL (70-110)
[2021-11-09] MEDS: insulin lispro 100 unit/1 mL SUBCUT (20:59)
[2021-11-10] VITALS (8 sets, daily range): BP systolic 87–130; BP diastolic 47–67; PULSE 74–121; RESP 17–20; TEMP 36.7–37.5; O2SAT 92–100
[2021-11-10] MEDS: heparin 5,000 unit/mL INJ 1 mL 5000 UNIT SUBCUT ×4 (00:01→23:32)
[2021-11-10 06:28] LABS: Basophils % 0.2 %; Eosinophils # 0.2 10^3/uL (0.0-0.8); Eosinophils % 0.6 %; Hemoglobin 9.2 g/dL (11.5-15.3); Lymphocytes # 1.5 10^3/uL (0.8-4.8); Lymphocytes % 6.1 %; Mean Corpuscular HGB Conc 31.7 g/dL (30.0-36.0); Mean Corpuscular Hemoglobin 30.2 pg (28.0-34.0); Mean Corpuscular Volume 95.1 fl (81-99); Mean Platelet Volume 11.9 fL (7.4-10.4); Monocytes # 1.8 10^3/uL (0.2-0.9); Monocytes % 7.3 %; Neutrophils # 20.34 10^3/uL (1.8-7.7); Nucleated Red Blood Cells % 0.1 %; Platelet Count 174 10^3/cmm (130-400); Red Blood Count 3.05 10^6/uL (4.1-5.3); Red Cell Distribution Width 16.2 % (12.1-15.1); White Blood Count 23.9 10^3/uL (4.0-10.0)
[2021-11-10 06:35] LABS: Glucose Point of Care 158 mg/dL (70-110)
[2021-11-10 06:47] LABS: Alanine Aminotransferase 13 U/L (0-33); Albumin Level 2.6 g/dL (3.5-5.2); Alkaline Phosphatase 124 U/L (35-105); Aspartate Amino Transferase 22 U/L (0-32); Blood Urea Nitrogen 44 mg/dL (8-23); Calcium 8.8 mg/dL (8.5-10.5); Carbon Dioxide 23 mmol/L (22-29); Chloride 103 mmol/L (98-107); Globulin 2.6 g/dL (1.3-4.6); Glucose 155 mg/dL (65-115); Magnesium 1.4 mg/dL (1.7-2.3); Osmolality Calculated 304 mOsm/kg (285-295); Phosphorus 3.2 mg/dL (2.5-4.5); Sodium 140 mmol/L (136-145); Total Bilirubin 0.4 mg/dL (0.15-1.2); Total Protein 5.2 g/dL (6.6-8.7)
[2021-11-10 07:00] LABS: Anion Gap 18.2 (5-19); Potassium 4.2 mmol/L (3.5-5.1)
[2021-11-10] MEDS: dilTIAZem ER (24HR) 120 mg Capsule PO (08:01)
[2021-11-10] MEDS: sodium bicarbonate 650 mg Tablet PO ×3 (08:01→20:31)
[2021-11-10] MEDS: spironolactone 25 mg Tablet 50 MG PO (08:02)
[2021-11-10] MEDS: allopurinol 100 mg Tablet PO (08:02)
[2021-11-10] MEDS: insulin lispro 100 unit/1 mL SUBCUT ×3 (08:02→21:20)
[2021-11-10] MEDS: pantoprazole DR 40 mg Tablet PO ×2 (08:02→18:23)
[2021-11-10] MEDS: carvedilol 25 mg Tablet PO (08:02)
[2021-11-10] MEDS: bumetanide 1 mg Tablet 2 MG PO (08:02)
[2021-11-10] MEDS: acetaminophen 325 mg Tablet 650 MG PO ×3 (08:02→21:22)
[2021-11-10] MEDS: mirtazapine 15 mg Tablet PO (08:02)
--- NOTE | 2021-11-10 09:50 | PM.PN ---
Subjective Subjective: abdominal pain better, ate coffee and toast for breakfast feels weak Vitals/I&O/Wt Last Vital Signs Temp 98.1 F 11/10/21 08:00 Pulse 106 H 11/10/21 08:00 Resp 18 11/10/21 08:00 BP 124/65 11/10/21 08:00 Pulse Ox 93 11/10/21 08:00 O2 Del Method 11/10/21 08:00 11/09/21 11/10/21 11/10/21 22:59 06:59 14:59 Intake Total 288.333 / 338.333 420 / 758.333 0 / 0 Output Total 100 / 100 0 / 100 Balance 188.333 / 238.333 420 / 658.333 0 / 0 Weight last 48 hrs Weight 72.575 kg Physical Exam Const: COMMON NORMALS: no acute distress and alert Extremity: COMMON NORMALS: no pedal edema Neuro: SENSORIUM/ORIENTATION: Yes alert Data : 11/10/21 05:58 11/10/21 05:58 Other Labs: Mg 1.4, TSAT 5.4%, SF 380, albumin 2.6, Ca 8.8, phos 3.2 urine culture pending Micro: Microbiology 11/09/21 16:42 Blood Culture - Preliminary Blood SPECIMEN COLLECTED 11/09/21 16:40 Blood Culture - Preliminary Blood SPECIMEN COLLECTED CT Abd/Pel: Radiologist's impression: 1. Inflammatory changes are seen within the proximal duodenal C-loop. 2. Multiple benign bilateral renal cyst. 3. Hiatal hernia 4. Cardiac artery calcifications 5. Cholecystectomy A&P Assessment and plan (1) ESRD (end stage renal disease): Seen via telemedicine with assistance of RN at bedside. Status: Acute Plan 1. ESRD, likely due to diabetic nephropathy and hypertension. Outpatient HD scheduled T// 2. UTI, cultures pending, on IV ceftriaxone 3. Metabolic acidosis, resolved 4. Anemia, iron deficient 5. Mild hyperkalemia, resolved 6. Hypomagnesemia Recommend: No indication for HD today, can discontinue oral sodium bicarbonate. Replace magnesium orally if tolerated. IV iron at dialysis. Next HD 11/12/21 Attestations Medical Necessity Statement*: per primary service Time Spent in Patient Care: 16 - 35 minutes Coding Level of Care Code Acute Digital Marketing Project Manager for g Fwd Diagnoses ESRD (end stage renal disease) N18.6
[2021-11-10] MEDS: cefTRIAXone 1,000 MG in sodium chloride 0.9% (plus) 50 ML 100 MG IV (09:56)
--- NOTE | 2021-11-10 11:05 | P.PN_ITS ---
Subjective Subjective: OvernightSeen this morning.. Patient feels a lot better after dialysis session. However she still has generalized weakness. WBC count came down to 23,000 from 27,000. She says she is does have a history of GERD and has reflux from time to time. Does not have any difficulty swallowing and does not have heartburn today. She has had an EGD in the past as well which was a long time ago. I discussed the results of her CAT scan with her regarding inflammation around hiatus. Vitals/I&O/Wt Last Vital Signs Temp 98.1 F 11/10/21 08:00 Pulse 106 H 11/10/21 08:00 Resp 18 11/10/21 08:00 BP 124/65 11/10/21 08:00 Pulse Ox 93 11/10/21 08:00 O2 Del Method 11/10/21 08:00 11/09/21 11/10/21 11/10/21 22:59 06:59 14:59 Intake Total 288.333 / 338.333 420 / 758.333 0 / 0 Output Total 100 / 100 0 / 100 Balance 188.333 / 238.333 420 / 658.333 0 / 0 Weight last 48 hrs Weight 72.575 kg Physical Exam Narrative: General: Alert oriented x3, patient seen laying in bed in room 253. Appears slightly better compared to yesterday. HEENT: Normocephalic, atraumatic, EOMI, breathing comfortably on room air cardio: Regular rate rhythm, normal S1-S2, Respiratory: Clear to auscultation bilaterally, no wheezes, rhonchi GI: Abdomen soft, nontender, nondistended, bowel sounds +, epigastric area nontender Behavior: Appropriate and cooperative Extremities: Trace bilateral lower extremity edema: Data : 11/10/21 05:58 11/10/21 05:58 Micro: Microbiology 11/09/21 16:42 Blood Culture - Preliminary Blood SPECIMEN COLLECTED 11/09/21 16:40 Blood Culture - Preliminary Blood SPECIMEN COLLECTED A&P Assessment and plan (1) ESRD (end stage renal disease): Status: Acute (2) History of atrial fibrillation: Status: Acute (3) Type 2 diabetes mellitus: Status: Acute Qualifiers: Diabetes mellitus superintendent container terminal insulin use: without superintendent container terminal use Diabetes mellitus complication status: with hyperglycemia Qualified Code(s): E11.65 - Type 2 diabetes mellitus with hyperglycemia (4) Chronic cystitis: Status: Acute (5) Heart failure with preserved ejection fraction: Status: Chronic Qualifiers: Heart failure chronicity: chronic Qualified Code(s): I50.32 - Chronic diastolic (congestive) heart failure (6) Diabetes: Status: Chronic Qualifiers: Diabetes mellitus type: type 2 Diabetes mellitus nursing home insulin use: without nursing home use Diabetes mellitus complication status: with kidney complications Diabetes mellitus complication detail: with chronic kidney disease Chronic kidney disease stage: stage 3 (moderate) Qualified Code(s): E11.22 - Type 2 diabetes mellitus with diabetic chronic kidney disease; N18.3 - Chronic kidney disease, stage 3 (moderate) (7) Iron deficiency anemia: Status: Acute Qualifiers: Iron deficiency anemia type: unspecified iron deficiency Qualified Co de(s): D50.9 - Iron deficiency anemia, unspecified (8) HTN (hypertension): Status: Acute Qualifiers: Hypertension type: essential hypertension Qualified Code(s): I10 - Essential (primary) hypertension (9) ANA ROSA (acute kidney injury): Status: Acute (10) Generalized weakness: Status: Acute Plan #Generalized weakness abdominal pain #Dialysis dependent end-stage renal disease #Iron deficiency anemia #Heart failure preserved ejection fraction #Hypertension #Diabetes mellitus, insulin-dependent #Abnormal urinalysis #Leukocytosis #History of GI bleed. Unsure of details, will do chart review -Consult nephrology. Appreciate recommendations from nephrology. Patient got dialyzed yesterday. ? Hold patient's antihypertensives at this time. Blood pressure has been stable without them for now. ? Hold insulin at this time. Will cover with sliding scale if needed ? Patient feeling quite weak and hypotensive during dialysis session. Nephro to see patient today. ? Iron studies complete. We will start her on IV iron. ? Hepatitis profile complete ? Confirm patient's medication from pharmacy on Thursday morning [facility]. ? Continue patient on bicarb tablets -Check labs in a.m. -Continue patient on Protonix 40 twice daily. ? Patient may benefit from EGD. Will discuss with GI. - Will check sputum culture, blood cultures, MRSA nares, urine culture. Urinalysis abnormal. Previous urine culture from 2019 was positive for Klebsiella. ? We will continue on ceftriaxone daily for possible presumed UTI. Will de- escalate as culture data comes in. ? Leukocytosis is improving. Continue ceftriaxone for now. DNR/DNI All questions answered to patient satisfaction DVT prophylaxis: Heparin subcu Attestations Medical Necessity Statement*: Will need continued hospitalization for IV ant ibiotics and until results of urine culture and clearance from nephrology for discharge Coding Level of Care Code Acute Barrel Drum Cutter for Chg Fwd Diagnoses ESRD (end stage renal disease) N18.6 History of atrial fibrillation Z86.79 Type 2 diabetes mellitus E11.65 Diabetes mellitus nursing home insulin use: without superintendent container terminal use Diabetes mellitus complication status: with hyperglycemia Chronic cystitis N30.20 Heart failure with preserved ejection fraction I50.32 Heart failure chronicity: chronic Diabetes E11.22; N18.3 Diabetes mellitus type: type 2 Diabetes mellitus superintendent container terminal insulin use: without nursing home use Diabetes mellitus complication status: with kidney complications Diabetes mellitus complication detail: with chronic kidney disease Chronic kidney disease stage: stage 3 (moderate) Iron deficiency anemia D50.9 Iron deficiency anemia type: unspecified iron deficiency HTN (hypertension) I10 Hypertension type: essential hypertension ANA ROSA (acute kidney injury) N17.9 Generalized weakness R53.1
[2021-11-10] MEDS: sodium chloride 0.9% 250 ML IV ×2 (11:41→16:17)
[2021-11-10 12:07] LABS: Glucose Point of Care 153 mg/dL (70-110)
[2021-11-10 16:50] LABS: Glucose Point of Care 123 mg/dL (70-110)
[2021-11-10] MEDS: atorvastatin 40 mg Tablet 20 MG PO (20:31)
[2021-11-10 21:26] LABS: Glucose Point of Care 212 mg/dL (70-110)
[2021-11-11] VITALS (8 sets, daily range): BP systolic 105–143; BP diastolic 57–67; PULSE 69–83; RESP 16–17; TEMP 36.3–36.9; O2SAT 87–96
[2021-11-11 00:13] LABS: Add Urine Microscopic? YES; Bilirubin Urine 1+ (Negative); Blood Urine 3+ (Negative); Glucose Urine UA Norm (Normal); Ketones Urine 1+ (Negative); Leukocyte Esterase Urine 2+ (Negative); Nitrate Urine Positive (Negative); Protein Urine 2+ (Negative); Urine Appearance Cloudy (CLEAR); Urine Color Yellow (Yellow); Urobilinogen Urine Neg (Negative); pH Urine 5 (5-7)
[2021-11-11 00:15] LABS: Add Urine Culture? No; Bacteria Urine 1+ /hpf; Squamous Epithelial Cell Urine 15-25 /hpf (0-5); WBC Urine TOO NUMEROUS TO CNT /hpf (0-5)
[2021-11-11 05:23] LABS: Basophils % 0.2 %; Eosinophils # 0.3 10^3/uL (0.0-0.8); Eosinophils % 1.6 %; Hematocrit 27.2 % (37.0-47.0); Hemoglobin 8.2 g/dL (11.5-15.3); Lymphocytes # 1.3 10^3/uL (0.8-4.8); Lymphocytes % 7.3 %; Mean Corpuscular HGB Conc 30.1 g/dL (30.0-36.0); Mean Corpuscular Hemoglobin 31.1 pg (28.0-34.0); Monocytes # 1.2 10^3/uL (0.2-0.9); Monocytes % 6.6 %; Neutrophils # 15.08 10^3/uL (1.8-7.7); Neutrophils % 83.5 %; Nucleated Red Blood Cells % 0.1 %; Platelet Count 142 10^3/cmm (130-400); Red Blood Count 2.64 10^6/uL (4.1-5.3); White Blood Count 18.1 10^3/uL (4.0-10.0)
[2021-11-11 05:48] LABS: Blood Urea Nitrogen 51 mg/dL (8-23); Calcium 8.3 mg/dL (8.5-10.5); Carbon Dioxide 21 mmol/L (22-29); Chloride 101 mmol/L (98-107); Glucose 147 mg/dL (65-115); Magnesium 1.3 mg/dL (1.7-2.3); Osmolality Calculated 302 mOsm/kg (285-295); Phosphorus 3.4 mg/dL (2.5-4.5); Sodium 138 mmol/L (136-145)
[2021-11-11 05:49] LABS: Anion Gap 20.2 (5-19); Potassium 4.2 mmol/L (3.5-5.1)
[2021-11-11 06:44] LABS: Glucose Point of Care 161 mg/dL (70-110)
[2021-11-11] MEDS: heparin 5,000 unit/mL INJ 1 mL 5000 UNIT SUBCUT ×3 (08:07→23:06)
[2021-11-11] MEDS: sodium bicarbonate 650 mg Tablet PO (08:08)
[2021-11-11] MEDS: bumetanide 1 mg Tablet 2 MG PO (08:08)
[2021-11-11] MEDS: mirtazapine 15 mg Tablet PO (08:08)
[2021-11-11] MEDS: carvedilol 25 mg Tablet PO ×2 (08:08→18:06)
[2021-11-11] MEDS: allopurinol 100 mg Tablet PO (08:08)
[2021-11-11] MEDS: pantoprazole DR 40 mg Tablet PO ×2 (08:08→18:06)
[2021-11-11] MEDS: insulin lispro 100 unit/1 mL SUBCUT ×3 (08:09→20:56)
--- NOTE | 2021-11-11 08:16 | P.PN_ITS ---
Subjective Subjective: weak, lethargic, poor appetite. Medications: Reviewed: Yes Medication Review Details: Current Medications Acetaminophen (Acetaminophen 325 Mg Tablet) 650 mg PO Q6H PRN PRN Reason: Mild/Mod Pain Or Temp >/= 101 Last Admin: 11/10/21 21:22 Dose: 650 mg Allopurinol (Allopurinol 100 Mg Tablet) 100 mg PO DAILY@0800 [facility] Last Admin: 11/11/21 08:08 Dose: 100 mg Atorvastatin Calcium (Atorvastatin 40 Mg Tablet) 20 mg PO BEDTIME@2100 [facility] Last Admin: 11/10/21 20:31 Dose: 20 mg Bumetanide (Bumetanide 1 Mg Tablet) 2 mg PO DAILY@0900 [facility] Last Admin: 11/11/21 08:08 Dose: 2 mg Carvedilol (Carvedilol 25 Mg Tablet) 25 mg PO BID [facility] Last Admin: 11/11/21 08:08 Dose: 25 mg Dextrose (Dextrose 50% Syringe 50 Ml) 25 ml IVP ONCE PRN; Protocol PRN Reason: hypoglycemia protocol Dextrose (Dextrose 50% Syringe 50 Ml) 50 ml IVP PRN PRN; Protocol PRN Reason: hypoglycemia protocol Diltiazem HCl (Diltiazem Er (24hr) 120 Mg Capsule) 120 mg PO DAILY [facility] Last Admin: 11/10/21 08:01 Dose: 120 mg Glucagon (Glucagon 1 Mg/Ml Inj 1 Ml) 1 mg IM ONCE PRN; Protocol PRN Reason: Adult Acute Hypoglycemia Prot. Heparin Sodium (Porcine) (Heparin 5,000 Unit/Ml Inj 1 Ml) 5,000 unit SUBCUT Q8H [facility] Last Admin: 11/11/21 08:07 Dose: 5,000 unit Hydralazine HCl (Hydralazine 50 Mg Tablet) 100 mg PO TID@,, PRN PRN Reason: Hypertensive Emergency Sodium Chloride (Sodium Chloride 0.9%) 1,000 mls @ 0 mls/hr IV .Q0M PRN PRN Reason: hypotension or symptomatic Ceftriaxone Sodium 1,000 mg/ (Sodium Chloride) 50 mls @ 100 mls/hr IV Q24H [facility]; Protocol Last Infusion: 11/10/21 10:30 Dose: Infused Dextrose (D5w) 500 mls @ 100 mls/hr IV ONCE PRN; Protocol PRN Reason: Adult Acute Hypoglycemia Prot Insulin Glargine (Insulin Glargine 100 Units/1 Ml) 20 unit SUBCUT BEDTIME [facility] Insulin Human Lispro (Insulin Lispro 100 Unit/1 Ml) 0 unit SUBCUT WM&BEDTIME [facility]; Protocol Last Admin: 11/11/21 08:09 Dose: 2 unit Mirtazapine (Mirtazapine 15 Mg Tablet) 15 mg PO DAILY [facility] Last Admin: 11/11/21 08:08 Dose: 15 mg Morphine Sulfate (Morphine 2 Mg/Ml Syr 1 Ml) 2 mg IVP Q4H PRN PRN Reason: SEVERE PAIN Non-Formulary Medication (Pnv,Calcium 60-Ampr-Ysxup Acid [M- Plus]) 1 tab PO DAILY [facility] Last Admin: 11/11/21 08:15 Dose: Not Given Ondansetron HCl (Ondansetron 2 Mg/Ml Sdv 2 Ml) 4 mg IVP Q6H PRN PRN Reason: NAUSEA AND VOMITING Pantoprazole Sodium (Pantoprazole Dr 40 Mg Tablet) 40 mg PO BID [facility] Last Admin: 11/11/21 08:08 Dose: 40 mg Sodium Bicarbonate (Sodium Bicarbonate 650 Mg Tablet) 650 mg PO TID@0900,1200,2100 [facility] Last Admin: 11/11/21 08:08 Dose: 650 mg Spironolactone (Spironolactone 25 Mg Tablet) 50 mg PO DAILY [facility] Last Admin: 11/10/21 08:02 Dose: 50 mg Vitals/I&O/Wt Last Vital Signs Temp 98.1 F 11/11/21 07:24 Pulse 78 11/11/21 07:24 Resp 16 11/11/21 07:24 BP 137/66 11/11/21 07:24 Pulse Ox 96 11/11/21 07:24 O2 Del Method 11/11/21 07:24 11/10/21 11/11/21 11/11/21 22:59 06:59 14:59 Intake Total 370 / 1381.667 120 / 1501.667 Output Total 0 / 0 150 / 150 Balance 370 / 1381.667 -30 / 1351.667 Weight last 48 hrs Weight 72.575 kg Physical Exam Narrative: eak, lethargic, NARD in bed vss heent- nc/at, eomi, anicteric neck supple lungs clear b/l heart reg, + s1, s2 abd- soft, nt, nd, + bs ext 1+ b/l edema neuro- a,a, o x 3, mild asterixis Data : 11/11/21 04:22 11/11/21 04:22 Micro: Microbiology 11/09/21 12:29 Urine Culture - Preliminary Urine,Clean Catch Gamma hemolytic streptococcus 11/09/21 16:42 Blood Culture - Preliminary Blood NEGATIVE TO DATE 11/09/21 16:40 Blood Culture - Preliminary Blood NEGATIVE TO DATE A&P Assessment and plan (1) ESRD (end stage renal disease): 76 yr old femae h/o a fib, IDDM, RAAD, HfpEF, HTN, h/o PE, progressive renal failure. 1. 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 leukocytosis 3. Anemia- high MCV and low iron sat 5.4%, ferritin 380- likely multi-factorial- give iron and epo 4. DM care per medicine 5. replete mag 6. HTN -improving- consider dec meds seen and examined w/ RN- telehealth visit time spent 25+ minutes Status: Acute Plan as above Attestations Medical Necessity Statement*: ESRD, htn, anemia Coding Level of Care Code Acute Timber Deadener for [facility] Diagnoses ESRD (end stage renal disease) N18.6
[2021-11-11] MEDS: epoetin alfa 10,000 unit/mL INJ 10000 UNIT SUBCUT (08:56)
[2021-11-11] MEDS: ferric gluconate 125 MG in sodium chloride 0.9% (100 ml) 100 ML 110 MG IV (09:45)
[2021-11-11] MEDS: cefTRIAXone 1,000 MG in sodium chloride 0.9% (plus) 50 ML 100 MG IV (10:57)
[2021-11-11 11:44] LABS: Glucose Point of Care 215 mg/dL (70-110)
[2021-11-11] MEDS: acetaminophen 325 mg Tablet 650 MG PO ×2 (12:23→20:33)
--- NOTE | 2021-11-11 13:39 | PM.PN ---
Subjective Subjective: No new complaints today, continues to report fatigue. White blood cell count at 18,000. Urine culture showed gamma hemolytic strep. Plan for hemodialysis tomorrow. Outpatient HD chair has been arranged. Blood pressure better since holding several antihypertensives. Medications: Reviewed: Yes Vitals/I&O/Wt Last Vital Signs Temp 98.4 F 11/11/21 12:00 Pulse 83 11/11/21 12:00 Resp 16 11/11/21 12:00 BP 143/67 11/11/21 12:00 Pulse Ox 95 11/11/21 12:00 O2 Del Method 11/11/21 12:00 O2 Flow Rate 1.5 11/11/21 12:00 11/10/21 11/11/21 11/11/21 22:59 06:59 14:59 Intake Total 370 / 1381.667 120 / 1501.667 332 / 332 Output Total 0 / 0 150 / 150 Balance 370 / 1381.667 -30 / 1351.667 332 / 332 Physical Exam Narrative: General: No acute distress, AO x3, chronically ill-appearing woman HEENT: PERRLA, pupils bilaterally equal and reactive, pallors not present Chest: Normal vesicular breath sounds, no added sounds, equal good air entry bilaterally CVS: S1-S2 regular, no murmurs, no tachycardia, no gallops, no rubs Abdomen: Soft, nontender, no organomegaly, bowel sounds present Neuro: No focal deficits, no facial deformity, AO x3, power 5/5 in all limbs Data : 11/11/21 04:22 11/11/21 04:22 Micro: Microbiology 11/09/21 12:29 Urine Culture - Preliminary Urine,Clean Catch Gamma hemolytic streptococcus 11/09/21 16:42 Blood Culture - Preliminary Blood NEGATIVE TO DATE 11/09/21 16:40 Blood Culture - Preliminary Blood NEGATIVE TO DATE A&P Assessment and plan (1) ESRD (end stage renal disease): Status: Acute (2) History of atrial fibrillation: Status: Acute (3) Type 2 diabetes mellitus: Status: Acute Qualifiers: Diabetes mellitus intermission coordinator insulin use: without fpc use Diabetes mellitus complication status: with hyperglycemia Qualified Code(s): E11.65 - Type 2 diabetes mellitus with hyperglycemia (4) Chronic cystitis: Status: Acute (5) Heart failure with preserved ejection fraction: Status: Chronic Qualifiers: Heart failure chronicity: chronic Qualified Code(s): I50.32 - Chronic diastolic (congestive) heart failure (6) Diabetes: Status: Chronic Qualifiers: Diabetes mellitus type: type 2 Diabetes mellitus fpc insulin use: without fpc use Diabetes mellitus complication status: with kidney complications Diabetes mellitus complication detail: with chronic kidney disease Chronic kidney disease stage: stage 3 (moderate) Qualified Code(s): E11.22 - Type 2 diabetes mellitus with diabetic chronic kidney disease; N18.3 - Chronic kidney disease, stage 3 (moderate) (7) Iron deficiency anemia: Status: Acute Qualifiers: Iron deficiency anemia type: unspecified iron deficiency Qualified Code(s): D50.9 - Iron deficiency anemia, unspecified (8) HTN (hypertension): Status: Acute Qualifiers: Hypertension type: essential hypertension Qualified Code(s): I10 - Essential (primary) hypertension (9) ANA ROSA (acute kidney injury): Status: Acute (10) Generalized weakness: Status: Acute Plan #Generalized weakness, abdominal pain CT of the abdomen pelvis from November 09 inflammatory changes in the proximal duodenal C-loop. Normal pancreas. Normal gallbladder and liver. No other evident disease. #Dialysis dependent end-stage renal disease Currently on hemodialysis. This is newly initiated for her. Neck session tomorrow. Outpatient dialysis has been arranged by case management. #Iron deficiency anemia Longstanding, likely to be multifactorial. Patient follows with heme-onc as outpatient. Has had bone marrow biopsies without a conclusive diagnosis in the past. No mention of multiple myeloma or MDS per oncology notes. She has been referred to [facility] hematology for a second opinion and is currently awaiting this consult. #Heart failure preserved ejection fraction Currently on Bumex 2 mg p.o. daily in addition to hemodialysis. Currently appearing to be euvolemic on exam. #Hypertension Blood pressure is better controlled today after holding several medications including Cardizem, hydralazine and Aldactone. #Diabetes mellitus, insulin-dependent Insulin glargine is currently on hold. Fingerstick ranging between 1 23-2 15. #Abnormal urinalysis #Leukocytosis Suspected urinary tract infection. Urine culture with gamma hemolytic Streptococcus. Currently on IV antibiotic treatment with ceftriaxone 1 g every 24. Leukocytosis trending down to 18,[address] of the abdomen and pelvis with bilateral renal cyst, no obstructive process noted. DNR/DNI All questions answered to patient satisfaction DVT prophylaxis: Heparin subcu Attestations Medical Necessity Statement*: Plan hemodialysis tomorrow IV antibiotic treatment for UTI. Monitor leukocytosis. Coding Level of Care Code Acute Ultrasound Manager for Chg Fwd Diagnoses ESRD (end stage renal disease) N18.6 History of atrial fibrillation Z86.79 Type 2 diabetes mellitus E11.65 Diabetes mellitus fpc insulin use: without intermission coordinator use Diabetes mellitus complication status: with hyperglycemia Chronic cystitis N30.20 Heart failure with preserved ejection fraction I50.32 Heart failure chronicity: chronic Diabetes E11.22; N18.3 Diabetes mellitus type: type 2 Diabetes mellitus fpc insulin use: without intermission coordinator use Diabetes mellitus complication status: with kidney complications Diabetes mellitus complication detail: with chronic kidney disease Chronic kidney disease stage: stage 3 (moderate) Iron deficiency anemia D50.9 Iron deficiency anemia type: unspecified iron deficiency HTN (hypertension) I10 Hypertension type: essential hypertension ANA ROSA (acute kidney injury) N17.9 Generalized weakness R53.1
[2021-11-11] MEDS: sennosides-docusate Tablet 1 TAB PO (16:30)
[2021-11-11 17:39] LABS: Glucose Point of Care 131 mg/dL (70-110)
[2021-11-11] MEDS: atorvastatin 40 mg Tablet 20 MG PO (20:33)
[2021-11-11 21:16] LABS: Glucose Point of Care 145 mg/dL (70-110)
[2021-11-12] VITALS (11 sets, daily range): BP systolic 118–171; BP diastolic 60–81; PULSE 73–92; RESP 15–17; TEMP 36.2–37.2; O2SAT 91–97
[2021-11-12] MEDS: acetaminophen 325 mg Tablet 650 MG PO ×2 (04:40→20:39)
[2021-11-12 05:49] LABS: Basophils % 0.1 %; Eosinophils # 0.4 10^3/uL (0.0-0.8); Eosinophils % 2.3 %; Hemoglobin 7.5 g/dL (11.5-15.3); Lymphocytes # 1.2 10^3/uL (0.8-4.8); Lymphocytes % 7.4 %; Mean Corpuscular Hemoglobin 30.4 pg (28.0-34.0); Mean Corpuscular Volume 101.2 fl (81-99); Mean Platelet Volume 11.8 fL (7.4-10.4); Monocytes # 1.2 10^3/uL (0.2-0.9); Monocytes % 7.6 %; Neutrophils # 12.75 10^3/uL (1.8-7.7); Neutrophils % 81.7 %; Nucleated Red Blood Cells # 0.1 /100WBC; Nucleated Red Blood Cells % 0.4 %; Platelet Count 158 10^3/cmm (130-400); Red Blood Count 2.47 10^6/uL (4.1-5.3); Red Cell Distribution Width 16.5 % (12.1-15.1); White Blood Count 15.6 10^3/uL (4.0-10.0)
[2021-11-12 06:16] LABS: Alanine Aminotransferase 13 U/L (0-33); Albumin Level 2.4 g/dL (3.5-5.2); Alkaline Phosphatase 185 U/L (35-105); Anion Gap 16.6 (5-19); Aspartate Amino Transferase 20 U/L (0-32); Blood Urea Nitrogen 51 mg/dL (8-23); Calcium 8.5 mg/dL (8.5-10.5); Carbon Dioxide 20 mmol/L (22-29); Chloride 99 mmol/L (98-107); Globulin 2.5 g/dL (1.3-4.6); Glucose 123 mg/dL (65-115); Magnesium 1.5 mg/dL (1.7-2.3); Osmolality Calculated 289 mOsm/kg (285-295); Phosphorus 3.5 mg/dL (2.5-4.5); Potassium 3.6 mmol/L (3.5-5.1); Sodium 132 mmol/L (136-145); Total Bilirubin 0.3 mg/dL (0.15-1.2); Total Protein 4.9 g/dL (6.6-8.7)
[2021-11-12 06:38] LABS: Glucose Point of Care 154 mg/dL (70-110)
[2021-11-12] MEDS: heparin 5,000 unit/mL INJ 1 mL 5000 UNIT SUBCUT ×3 (06:44→23:05)
[2021-11-12] MEDS: insulin lispro 100 unit/1 mL SUBCUT ×3 (08:29→22:16)
[2021-11-12] MEDS: ferric gluconate 125 MG in sodium chloride 0.9% (100 ml) 100 ML 110 MG IV (08:29)
[2021-11-12] MEDS: carvedilol 25 mg Tablet PO ×2 (08:30→17:41)
[2021-11-12] MEDS: bumetanide 1 mg Tablet 2 MG PO (08:30)
[2021-11-12] MEDS: allopurinol 100 mg Tablet PO (08:30)
[2021-11-12] MEDS: pantoprazole DR 40 mg Tablet PO ×2 (08:31→17:41)
[2021-11-12] MEDS: mirtazapine 15 mg Tablet PO (08:31)
[2021-11-12] MEDS: cefTRIAXone 1,000 MG in sodium chloride 0.9% (plus) 50 ML 100 MG IV (10:01)
--- NOTE | 2021-11-12 10:41 | PM.PN ---
Subjective Subjective: weak but feels better. poor appetite. no n/v/f/c/leung/d/sob Medications: Reviewed: Yes Medication Review Details: Current Medications Acetaminophen (Acetaminophen 325 Mg Tablet) 650 mg PO Q6H PRN PRN Reason: Mild/Mod Pain Or Temp >/= 101 Last Admin: 11/12/21 04:40 Dose: 650 mg Allopurinol (Allopurinol 100 Mg Tablet) 100 mg PO DAILY@0800 [facility] Last Admin: 11/12/21 08:30 Dose: 100 mg Atorvastatin Calcium (Atorvastatin 40 Mg Tablet) 20 mg PO BEDTIME@2100 [facility] Last Admin: 11/11/21 20:33 Dose: 20 mg Bumetanide (Bumetanide 1 Mg Tablet) 2 mg PO DAILY@0900 [facility] Last Admin: 11/12/21 08:30 Dose: 2 mg Carvedilol (Carvedilol 25 Mg Tablet) 25 mg PO BID [facility] Last Admin: 11/12/21 08:30 Dose: 25 mg Dextrose (Dextrose 50% Syringe 50 Ml) 25 ml IVP ONCE PRN; Protocol PRN Reason: hypoglycemia protocol Dextrose (Dextrose 50% Syringe 50 Ml) 50 ml IVP PRN PRN; Protocol PRN Reason: hypoglycemia protocol Diltiazem HCl (Diltiazem Er (24hr) 120 Mg Capsule) 120 mg PO DAILY [facility] Last Admin: 11/10/21 08:01 Dose: 120 mg Glucagon (Glucagon 1 Mg/Ml Inj 1 Ml) 1 mg IM ONCE PRN; Protocol PRN Reason: Adult Acute Hypoglycemia Prot. Heparin Sodium (Porcine) (Heparin 5,000 Unit/Ml Inj 1 Ml) 5,000 unit SUBCUT Q8H [facility] Last Admin: 11/12/21 06:44 Dose: 5,000 unit Hydralazine HCl (Hydralazine 50 Mg Tablet) 100 mg PO TID@09,12,21 PRN PRN Reason: Hypertensive Emergency Sodium Chloride (Sodium Chloride 0.9%) 1,000 mls @ 0 mls/hr IV .Q0M PRN PRN Reason: hypotension or symptomatic Ceftriaxone Sodium 1,000 mg/ (Sodium Chloride) 50 mls @ 100 mls/hr IV Q24H [facility]; Protocol Last Admin: 11/12/21 10:01 Dose: 100 mls/hr Dextrose (D5w) 500 mls @ 100 mls/hr IV ONCE PRN; Protocol PRN Reason: Adult Acute Hypoglycemia Prot Ferric Sodium Gluconate 125 mg (/ Sodium Chloride) 110 mls @ 110 mls/hr IV Q24H [facility] Stop: 11/18/21 09:59 Last Infusion: 11/12/21 09:58 Dose: Infused Insulin Glargine (Insulin Glargine 100 Units/1 Ml) 20 unit SUBCUT BEDTIME [facility] Insulin Human Lispro (Insulin Lispro 100 Unit/1 Ml) 0 unit SUBCUT WM&BEDTIME [facility]; Protocol Last Admin: 11/12/21 08:29 Dose: 2 unit Mirtazapine (Mirtazapine 15 Mg Tablet) 15 mg PO DAILY [facility] Last Admin: 11/12/21 08:31 Dose: 15 mg Morphine Sulfate (Morphine 2 Mg/Ml Syr 1 Ml) 2 mg IVP Q4H PRN PRN Reason: SEVERE PAIN Non-Formulary Medication (Pnv,Calcium 97-Rwfz-Vqrjq Acid [M-Neo Plus]) 1 tab PO DAILY [facility] Last Admin: 11/12/21 08:31 Dose: Not Given Ondansetron HCl (Ondansetron 2 Mg/Ml Sdv 2 Ml) 4 mg IVP Q6H PRN PRN Reason: NAUSEA AND VOMITING Pantoprazole Sodium (Pantoprazole Dr 40 Mg Tablet) 40 mg PO BID [facility] Last Admin: 11/12/21 08:31 Dose: 40 mg Senna/Docusate Sodium (Sennosides-Docusate Tablet) 1 tab PO DAILY PRN PRN Reason: CONSTIPATION Last Admin: 11/11/21 16:30 Dose: 1 tab Spironolactone (Spironolactone 25 Mg Tablet) 50 mg PO DAILY [facility] Last Admin: 11/10/21 08:02 Dose: 50 mg Vitals/I&O/Wt Last Vital Signs Temp 97.9 F 11/12/21 04:00 Pulse 77 11/12/21 07:52 Resp 17 11/12/21 07:52 BP 171/81 11/12/21 07:52 Pulse Ox 95 11/12/21 07:52 O2 Del Method 11/12/21 07:52 O2 Flow Rate 1 11/11/21 20:00 11/11/21 11/12/21 11/12/21 22:59 06:59 14:59 Intake Total 240 / 572 230 / 230 Output Total 100 / 100 Balance 140 / 472 230 / 230 Physical Exam Narrative: comfortable, NARD in bed vss heent- nc/at, eomi, anicteric neck supple lungs clear b/l heart reg, + s1, s2 abd- soft, nt, nd, + bs ext 1+ b/l edema neuro- a,a, o x 3, mild asterixis Data : 11/12/21 04:36 11/12/21 04:36 Micro: Microbiology 11/09/21 12:29 Urine Culture - Preliminary Urine,Clean Catch Gamma hemolytic streptococcus A&P Assessment and plan (1) ESRD (end stage renal disease): 76 yr old femae h/o a fib, IDDM, RAAD, HfpEF, HTN, h/o PE, progressive renal failure. 1. ESRD vs CKD stage 4- new permacath placed- pt followed by Dr Chester at [facility]- computer scientist is Dr Chester -s/p first HD 11/09/21 u/a 2+ prot, 3+ blood, 1+ ketone, ur nitrite +, lots of wbc and 15-25 sq epi cell -h/o high free kappa/ lambda ratio- pt should see heme/ onc 2. leukocytosis improving 3. Anemia- high MCV and low iron sat 5.4%, ferritin 380- likely multi-factorial- give iron and epo -agree w/ prbc transfusion, given weakness 4. DM care per medicine 5. replete mag 6. HTN -can restart meds or monitor w/ fluid removal on dialysis seen and examined w/ RN- telehealth visit time spent 25+ minutes Status: Acute Plan as above Attestations Medical Necessity Statement*: anemia, ckd Time Spent in Patient Care: 16 - 35 minutes (>than 50% of time spent in counselling and/or direct pt care on unit). Coding Level of Care Code Acute Return To Vendor for Chg Fwd Diagnoses ESRD (end stage renal disease) N18.6
--- NOTE | 2021-11-12 11:08 | PC.SOCIAL ---
IMM Update pg 2 of IMM Updated and reviewed w/ patient. Copy provided. Copy dated, initialed and placed in chart.
[2021-11-12 11:14] LABS: Glucose Point of Care 161 mg/dL (70-110)
--- NOTE | 2021-11-12 12:34 | PC.CHAP ---
Pastoral Care Encounter/Spiritual Assessment Type of Contact [] Declined inventory control assistant visit [] Patient/Family/Request visit [] Outpatient visit [] Follow-up visit [] Physician referral [] Code/Alert [x] Routine visit [] Staff referral [] Actively dying [] Patient sleeping [] Family support [] [] Out of room [] Palliative care [] [] Receiving care in room [] Pre-surgical visit [] Trauma [] Long length of stay [] ICU visit [] Other: Relational/Emotional Strength [x] Patient feels connected with others/family/visitors/staff [] Distress [] Loneliness/isolation [] Abandonment Spirituality of Patient [x] Person of Nancy [] Attends [employer] of their Nancy [x] Believes in Prayer [] Reads Bible or Episcopal materials [] There are Spiritual issues to be addressed [place] Interventions [x] Prayer [x] Active listening [x] Non-anxious presence [] Spiritual/emotional support [] Crisis/trauma care [] Spiritual counseling [] Bereavement support [] Provided bereavement packet [] Provided Bible/devotional materials [] Provided toy/stuffed animal, coloring book to patient or family member [] Provided Communion [] Anointing/[place] [] Salvation [x] Completed spiritual assessment [] Other: Impact on Illness or Injury [] Angry [] Fearful [] Anxious [] Often cries [] Exhaustion [] Unable to work [] Unable to attend advent [] Unable to walk/stand [] Unable to read [] Unable to drive [] Unable to eat/drink [] Unable to sleep [] Unable to be with family [] Patient intubated [] Other: Summary Time spent with patient 10 min
--- NOTE | 2021-11-12 15:00 | P.PN_ITS ---
Subjective Subjective: No acute interim events. Complaining of fatigue, still feels very subjectively weak and lethargic. Plan for dialysis today. Medications: Reviewed: Yes Vitals/I&O/Wt Last Vital Signs Temp 98.1 F 11/12/21 12:20 Pulse 80 11/12/21 12:20 Resp 16 11/12/21 12:20 BP 135/60 11/12/21 12:20 Pulse Ox 97 11/12/21 12:00 O2 Del Method 11/12/21 12:00 O2 Flow Rate 1 11/12/21 08:00 11/12/21 11/12/21 11/12/21 06:59 14:59 22:59 Intake Total 280 / 280 Balance 280 / 280 Physical Exam Narrative: General: No acute distress, AO x3, chronically ill-appearing woman HEENT: PERRLA, pupils bilaterally equal and reactive, pallors not present Chest: Normal vesicular breath sounds, no added sounds, equal good air entry bilaterally CVS: S1-S2 regular, no murmurs, no tachycardia, no gallops, no rubs Abdomen: Soft, nontender, no organomegaly, bowel sounds present Neuro: No focal deficits, no facial deformity, AO x3, power 5/5 in all limbs Data : 11/12/21 04:36 11/12/21 04:36 Micro: Microbiology 11/09/21 12:29 Urine Culture - Final Urine,Clean Catch Enterococcus faecalis A&P Assessment and plan (1) ESRD (end stage renal disease): Status: Acute (2) History of atrial fibrillation: Status: Acute (3) Type 2 diabetes mellitus: Status: Acute Qualifiers: Diabetes mellitus rubber heel and sole press tender insulin use: without care home use Diabetes mellitus complication status: with hyperglycemia Qualified Code(s): E11.65 - Type 2 diabetes mellitus with hyperglycemia (4) Chronic cystitis: Status: Acute (5) Heart failure with preserved ejection fraction: Status: Chronic Qualifiers: Heart failure chronicity: chronic Qualified Code(s): I50.32 - Chronic diastolic (congestive) heart failure (6) Diabetes: Status: Chronic Qualifiers: Diabetes mellitus type: type 2 Diabetes mellitus care home insulin use: without rubber heel and sole press tender use Diabetes mellitus complication status: with kidney complications Diabetes mellitus complication detail: with chronic kidney disease Chronic kidney disease stage: stage 3 (moderate) Qualified Code(s): E11.22 - Type 2 diabetes mellitus with diabetic chronic kidney disease; N18.3 - Chronic kidney disease, stage 3 (moderate) (7) Iron deficiency anemia: Status: Acute Qualifiers: Iron deficiency anemia type: unspecified iron deficiency Qualified Code(s): D50.9 - Iron deficiency anemia, unspecified (8) HTN (hypertension): Status: Acute Qualifiers: Hypertension type: essential hypertension Qualified Code(s): I10 - Essential (primary) hypertension (9) ANA ROSA (acute kidney injury): Status: Acute (10) Generalized weakness: Status: Acute Plan #Generalized weakness, abdominal pain CT of the abdomen pelvis from November 09 inflammatory changes in the proximal duodenal C-loop. Normal pancreas. Normal gallbladder and liver. No other evident disease. Abdominal pain is now resolved. #Dialysis dependent end-stage renal disease Currently on hemodialysis. This is newly initiated for her. Will undergo dialysis today. Outpatient dialysis has been arranged at [facility] on Thursday. #Iron deficiency anemia Longstanding, likely to be multifactorial. Patient follows with heme-onc as outpatient. Has had bone marrow biopsies without a conclusive diagnosis in the past. No mention of multiple myeloma or MDS per oncology notes. She has been referred to [facility] hematology for a second opinion and is currently awaiting this consult. Hemoglobin at 7.5 which may be the main cause for her fatigue. #Heart failure preserved ejection fraction Currently on Bumex 2 mg p.o. daily in addition to hemodialysis. Currently appearing to be euvolemic on exam. #Hypertension Blood pressure is better controlled today after holding several medications including Cardizem, hydralazine and Aldactone. #Diabetes mellitus, insulin-dependent Continue sliding scale insulin #Abnormal urinalysis #Leukocytosis Suspected urinary tract infection. Urine culture with gamma hemolytic Strepto coccus. Currently on IV antibiotic treatment with ceftriaxone 1 g every 24. Leukocytosis trending down. CT of the abdomen and pelvis with bilateral renal cyst, no obstructive process noted. Disposition: Overall patient is stable for discharge after dialysis from a medicine standpoint. However she continues to report extreme lethargy and fatigue. States that she is afraid of being unable to manage her daily activities at home, afraid of falling.PT assessment ordered to assess stability, ensurance DNR/DNI All questions answered to patient satisfaction DVT prophylaxis: Heparin subcu Attestations Medical Necessity Statement*: HD today, PT assessment Coding Level of Care Code Acute Painting Supervisor for Chg Fwd Diagnoses ESRD (end stage renal disease) N18.6 History of atrial fibrillation Z86.79 Type 2 diabetes mellitus E11.65 Diabetes mellitus rubber heel and sole press tender insulin use: without rubber heel and sole press tender use Diabetes mellitus complication status: with hyperglycemia Chronic cystitis N30.20 Heart failure with preserved ejection fraction I50.32 Heart failure chronicity: chronic Diabetes E11.22; N18.3 Diabetes mellitus type: type 2 Diabetes mellitus care home insulin use: without care home use Diabetes mellitus complication status: with kidney complications Diabetes mellitus complication detail: with chronic kidney disease Chronic kidney disease stage: stage 3 (moderate) Iron deficiency anemia D50.9 Iron deficiency anemia type: unspecified iron deficiency HTN (hypertension) I10 Hypertension type: essential hypertension ANA ROSA (acute kidney injury) N17.9 Generalized weakness R53.1
[2021-11-12] MEDS: hyDRALAzine 25 mg Tablet PO ×2 (16:22→20:38)
[2021-11-12 16:38] LABS: Glucose Point of Care 177 mg/dL (70-110)
[2021-11-12] MEDS: sennosides-docusate Tablet 1 TAB PO (17:41)
[2021-11-12] MEDS: atorvastatin 40 mg Tablet 20 MG PO (20:38)
[2021-11-12 22:16] LABS: Glucose Point of Care 355 mg/dL (70-110)
[2021-11-13] VITALS (8 sets, daily range): BP systolic 108–163; BP diastolic 59–74; PULSE 78–93; RESP 15–28; TEMP 36.6–37.2; O2SAT 91–97
[2021-11-13 04:55] LABS: Basophils % 0.2 %; Eosinophils # 0.2 10^3/uL (0.0-0.8); Eosinophils % 1.5 %; Hemoglobin 7.4 g/dL (11.5-15.3); Lymphocytes # 1.6 10^3/uL (0.8-4.8); Mean Corpuscular HGB Conc 30.8 g/dL (30.0-36.0); Mean Corpuscular Hemoglobin 30.3 pg (28.0-34.0); Mean Corpuscular Volume 98.4 fl (81-99); Monocytes # 1.6 10^3/uL (0.2-0.9); Monocytes % 10.1 %; Neutrophils # 11.78 10^3/uL (1.8-7.7); Neutrophils % 75.9 %; Nucleated Red Blood Cells # 0.1 /100WBC; Nucleated Red Blood Cells % 0.5 %; Platelet Count 181 10^3/cmm (130-400); Red Blood Count 2.44 10^6/uL (4.1-5.3); Red Cell Distribution Width 16.1 % (12.1-15.1); White Blood Count 15.5 10^3/uL (4.0-10.0)
[2021-11-13 05:15] LABS: Alanine Aminotransferase 15 U/L (0-33); Albumin Level 2.2 g/dL (3.5-5.2); Alkaline Phosphatase 159 U/L (35-105); Anion Gap 13.8 (5-19); Aspartate Amino Transferase 17 U/L (0-32); Blood Urea Nitrogen 20 mg/dL (8-23); Calcium 8.7 mg/dL (8.5-10.5); Carbon Dioxide 26 mmol/L (22-29); Chloride 94 mmol/L (98-107); Globulin 2.6 g/dL (1.3-4.6); Glucose 225 mg/dL (65-115); Magnesium 1.6 mg/dL (1.7-2.3); Osmolality Calculated 280 mOsm/kg (285-295); Potassium 3.8 mmol/L (3.5-5.1); Sodium 130 mmol/L (136-145); Total Bilirubin 0.2 mg/dL (0.15-1.2); Total Protein 4.8 g/dL (6.6-8.7)
[2021-11-13 06:11] LABS: Glucose Point of Care 246 mg/dL (70-110)
--- NOTE | 2021-11-13 07:35 | P.PN_ITS ---
Subjective Subjective: weak, lethargic, black stools Medications: Reviewed: Yes Medication Review Details: Current Medications Acetaminophen (Acetaminophen 325 Mg Tablet) 650 mg PO Q6H PRN PRN Reason: Mild/Mod Pain Or Temp >/= 101 Last Admin: 11/12/21 20:39 Dose: 650 mg Allopurinol (Allopurinol 100 Mg Tablet) 100 mg PO DAILY@0800 [facility] Last Admin: 11/12/21 08:30 Dose: 100 mg Atorvastatin Calcium (Atorvastatin 40 Mg Tablet) 20 mg PO BEDTIME@2100 [facility] Last Admin: 11/12/21 20:38 Dose: 20 mg Bumetanide (Bumetanide 1 Mg Tablet) 2 mg PO DAILY@0900 [facility] Last Admin: 11/12/21 08:30 Dose: 2 mg Carvedilol (Carvedilol 25 Mg Tablet) 25 mg PO BID [facility] Last Admin: 11/12/21 17:41 Dose: 25 mg Dextrose (Dextrose 50% Syringe 50 Ml) 25 ml IVP ONCE PRN; Protocol PRN Reason: hypoglycemia protocol Dextrose (Dextrose 50% Syringe 50 Ml) 50 ml IVP PRN PRN; Protocol PRN Reason: hypoglycemia protocol Diltiazem HCl (Diltiazem Er (24hr) 120 Mg Capsule) 120 mg PO DAILY [facility] Last Admin: 11/10/21 08:01 Dose: 120 mg Glucagon (Glucagon 1 Mg/Ml Inj 1 Ml) 1 mg IM ONCE PRN; Protocol PRN Reason: Adult Acute Hypoglycemia Prot. Heparin Sodium (Porcine) (Heparin 5,000 Unit/Ml Inj 1 Ml) 5,000 unit SUBCUT Q8H [facility] Last Admin: 11/12/21 23:05 Dose: 5,000 unit Hydralazine HCl (Hydralazine 25 Mg Tablet) 25 mg PO TID [facility] Last Admin: 11/12/21 20:38 Dose: 25 mg Sodium Chloride (Sodium Chloride 0.9%) 1,000 mls @ 0 mls/hr IV .Q0M PRN PRN Reason: hypotension or symptomatic Ceftriaxone Sodium 1,000 mg/ (Sodium Chloride) 50 mls @ 100 mls/hr IV Q24H [facility]; Protocol Last Infusion: 11/12/21 10:40 Dose: Infused Dextrose (D5w) 500 mls @ 100 mls/hr IV ONCE PRN; Protocol PRN Reason: Adult Acute Hypoglycemia Prot Ferric Sodium Gluconate 125 mg (/ Sodium Chloride) 110 mls @ 110 mls/hr IV Q24H [facility] Stop: 11/18/21 09:59 Last Infusion: 11/12/21 09:58 Dose: Infused Insulin Glargine (Insulin Glargine 100 Units/1 Ml) 20 unit SUBCUT BEDTIME ROGELIO Insulin Human Lispro (Insulin Lispro 100 Unit/1 Ml) 0 unit SUBCUT WM&BEDTIME ROGELIO; Protocol Last Admin: 11/12/21 22:16 Dose: 12 unit Mirtazapine (Mirtazapine 15 Mg Tablet) 15 mg PO DAILY [facility] Last Admin: 11/12/21 08:31 Dose: 15 mg Morphine Sulfate (Morphine 2 Mg/Ml Syr 1 Ml) 2 mg IVP Q4H PRN PRN Reason: SEVERE PAIN Non-Formulary Medication (Pnv,Calcium 17-Wfns-Owtii Acid [M- Plus]) 1 tab PO DAILY [facility] Last Admin: 11/12/21 08:31 Dose: Not Given Ondansetron HCl (Ondansetron 2 Mg/Ml Sdv 2 Ml) 4 mg IVP Q6H PRN PRN Reason: NAUSEA AND VOMITING Pantoprazole Sodium (Pantoprazole Dr 40 Mg Tablet) 40 mg PO BID [facility] Last Admin: 11/12/21 17:41 Dose: 40 mg Senna/Docusate Sodium (Sennosides-Docusate Tablet) 1 tab PO DAILY PRN PRN Reason: CONSTIPATION Last Admin: 11/12/21 17:41 Dose: 1 tab Spironolactone (Spironolactone 25 Mg Tablet) 50 mg PO DAILY [facility] Last Admin: 11/10/21 08:02 Dose: 50 mg Vitals/I&O/Wt Last Vital Signs Temp 97.9 F 11/13/21 04:00 Pulse 78 11/13/21 05:41 Resp 17 11/13/21 04:00 BP 137/70 11/13/21 04:00 Pulse Ox 95 11/13/21 04:00 O2 Del Method 11/12/21 20:00 O2 Flow Rate 1 11/12/21 08:00 Weight last 48 hrs Weight 59.7 kg Physical Exam Narrative: comfortable, sleeping, NARD in bed vss heent- nc/at, eomi, anicteric neck supple lungs clear b/l heart reg, + s1, s2 abd- soft, nt, nd, + bs ext- min b/l edema neuro- lethargic, a,a, o x3 Data : 11/13/21 04:29 11/13/21 04:29 Micro: Microbiology 11/09/21 12:29 Urine Culture - Final Urine,Clean Catch Enterococcus faecalis A&P Assessment and plan (1) ESRD (end stage renal disease): 76 yr old femae h/o a fib, IDDM, RAAD, HfpEF, HTN, h/o PE, progressive renal failure. 1. ESRD vs CKD stage 4- new permacath placed- pt followed by Dr Chester at [facility]- micro computer specialist is Dr Chester -s/p first HD 11/09/21 and HD on 11/12- she feels wiped after dialysis- consider HD only 2 x/ week- verse seeing if she can wait till she needs HD u/a 2+ prot, 3+ blood, 1+ ketone, ur nitrite +, lots of wbc and 15-25 sq epi c ell -h/o high free kappa/ lambda ratio- pt should see heme/ onc 2. leukocytosis - wbc renains 15 3. Anemia- high MCV and low iron sat 5.4%, ferritin 380- likely multi-factorial- give iron and epo -agree w/ prbc transfusion, given weakness 4. DM care per medicine 5. replete mag 6. HTN -BP excellent 7. a fib 8. hyponatremia from HD= hold dliuretics seen and examined w/ RN- telehealth visit time spent 25+ minutes Status: Acute Plan as above Attestations Medical Necessity Statement*: anemia, leukocytosis, weakness Time Spent in Patient Care: 16 - 35 minutes (>than 50% of time spent in counselling and/or direct pt care on unit) . Coding Level of Care Code Acute Bioinformatics Specialist for Winter Coughlin Diagnoses ESRD (end stage renal disease) N18.6
[2021-11-13] MEDS: carvedilol 25 mg Tablet PO (08:49)
[2021-11-13] MEDS: pantoprazole DR 40 mg Tablet PO (08:49)
[2021-11-13] MEDS: mirtazapine 15 mg Tablet PO (08:49)
[2021-11-13] MEDS: heparin 5,000 unit/mL INJ 1 mL 5000 UNIT SUBCUT (08:49)
[2021-11-13] MEDS: insulin lispro 100 unit/1 mL SUBCUT ×2 (08:50→12:39)
[2021-11-13] MEDS: hyDRALAzine 25 mg Tablet PO (08:50)
[2021-11-13] MEDS: allopurinol 100 mg Tablet PO (08:50)
[2021-11-13] MEDS: bumetanide 1 mg Tablet 2 MG PO (08:58)
[2021-11-13] MEDS: ferric gluconate 125 MG in sodium chloride 0.9% (100 ml) 100 ML 110 MG IV (10:03)
--- NOTE | 2021-11-13 10:48 | PC.NURSE ---
Patient stated she slide off the side of the bed while turning around off the bedside commode. Patient obtained a skin tear on right forearm which was cleaned and optifoam applied. vitals take at time of fall at 0810 Blood Pressure 163/71, Pulse 93, Resp 28, O2 97. Patient helped to bed and vitals retaken at 0838 with Blood pressure 134/74, O2 95% RA, Pulse 80, and resp 16. Patient still states nothing is hurting especially hips or legs. Dr. Monaco was notified through secure message. No orders given and response of Okay, aware of the fall from Dr. Monaco.
[2021-11-13 10:52] LABS: Glucose Point of Care 204 mg/dL (70-110)
[2021-11-13] MEDS: amoxicillin-clav 875-125 mg Tablet 1 TAB PO (11:43)
[2021-11-13] MEDS: acetaminophen 325 mg Tablet 650 MG PO (12:37)
--- NOTE | 2021-11-13 12:49 | P.DS_ITS ---
Discharge Providers Date of Admission: 11/09/21 14:04 Date of Discharge: November 13, 2021 Attending Provider at Admission: Magalie Kim MD Attending Provider at Discharge: Britt Monaco MD Primary Care Provider: Vitaliy Morales MD Diagnoses at Discharge Discharge Diagnosis (1) Generalized weakness: Details from hospital stay: Multifactorial, improved after HD initiation and antibiotic coverage Status: Acute (2) ESRD (end stage renal disease): Status: Acute (3) Acute hemodialysis encounter: Details from hospital stay: Hemodialysis initiated this hospital stay Status: Acute (4) UTI (urinary tract infection): Details from hospital stay: Present on admission Status: Acute Qualifiers: Hematuria presence: without hematuria Urinary tract infection type: acute cystitis Qualified Code(s): N30.00 - Acute cystitis without hematuria (5) Heart failure with preserved ejection fraction: Details from hospital stay: Not acute Status: Chronic Qualifiers: Heart failure chronicity: chronic Qualified Code(s): I50.32 - Chronic diastolic (congestive) heart failure Permanent problem details: Grade 1 diastolic dysfunction, EF 65% 08/23/2018 (6) Iron deficiency anemia: Details from hospital stay: Recevied IV iron in hospital Status: Acute Qualifiers: Iron deficiency anemia type: unspecified iron deficiency Qualified Code(s): D50.9 - Iron deficiency anemia, unspecified (7) Type 2 diabetes mellitus: Status: Chronic Qualifiers: Diabetes mellitus complication status: with hyperglycemia Diabetes mellitus alf insulin use: without alf use Qualified Code(s): E11.65 - Type 2 diabetes mellitus with hyperglycemia (8) History of atrial fibrillation: Status: Acute Permanent problem details: Because of the patient's chronic anemia and GI bleed, she is not on any oral anticoagulant. (9) History of chronic cystitis: Status: Resolved Reason for Visit Reason for Visit: WEAKNESS; ABD PAIN Brief History: Per Dr Kim: Shilpi Nicole is a 76 year old female with past medical history of of heart failure with preserved EF, iron deficiency anemia, osteoporosis, pulmonary embolism August 2019, hypertension, end-stage renal disease followed by Dr. Chester, diabetes mellitus presented to the hospital today with complaints of abdominal pain and weakness.? She states she had a dialysis catheter placed yesterday at [place] and she was supposed to start dialysis this upcoming Thursday.? However she was having worsening abdominal pain and generalized weakness and therefore came to the hospital ER today.? She denies any chest pain, shortness of breath, diarrhea, constipation, and nausea.? Her main complaint is generalized weakness.? She also states that she would like to be a DNR/DNI.? She says she has a niece and a [id number] who will be responsible for making healthcare decisions in case she is unable to.? He does not have a list of medications with her and goes to [facility].? She would like us to call them and confirm her medications today.? Patient was seen at the time she was getting dialyzed today and room 274.? She is complaining of generalized weakness.? Denies any pain or any other complaints at this time.? Patient is on Lantus 20 units at home. ER course: Blood pressure on arrival 153/79, respiratory 16, pulse 94, temperature 98.3, pulse ox 95% on room air. Chest x-ray shows right central line in the right atrium.? CT abdomen pelvis shows inflammatory changes within proximal duodenal C-loop, hiatal hernia, cholecystectomy.? Proximal duodenal C-loop shows thickening of silva, narrowing of the lumen, omental inflammatory stranding.? Localized inflammation suggested.? Small hiatal hernia. WBC 27.7, hemoglobin 9.8, potassium 5.3, chloride 108, bicarb 12, BUN 105, creatinine 4.6, glucose 287. Hospital Course Hospital Course Nephrology was consulted and hemodialysis was initiated during this hospital stay. Dialysis catheter had been placed at an outside facility. Case management worked on arranging chair placement with percent he has dialysis. Urine was abnormal. Patient has known chronic cystitis but white count was 27,000 upon presentation. She was treated with Rocephin in the hospital stay but cultures came back revealing Enterococcus faecalis. She was changed to Augmentin at discharge. White count was improved. IV iron was given with plan for Epogen. Electrolytes and azotemia were improved with dialysis initiation. Patient was worried about going home but did feel stronger and hopes that she will continue to improve. She did have an episode in which she lost her footing getting back in bed and sustained a skin tear to her right forearm. No other injuries were reported. Arrangements were made for home health to include therapy. She will need follow-up with nephrology, primary care provider and dialysis clinic. On the day of discharge she had a chronic ill appearance but upon awakening was cooperative, able to answer questions. Dialysis catheter in place in the right upper chest. Lungs clear. Skin tear to right forearm covered with dressing with no drainage noted. Medications as listed below were reviewed with patient and she was given an opportunity to ask questions. I did go on and decrease her glimepiride dosing with dialysis initiation as blood sugars without this were in the 120s to 140s. It can be increased later on if necessary. Discharge Data Studies Completed and Pending Completed Studies During Hospitalization Category Date Time Status CT kidney stone [id number] Stat Cat Scan 11/09/21 12:59 Completed XR chest 1V portable [id number] Stat Exams 11/09/21 12:03 Completed Pending at discharge Category Date Time Status Blood Culture Routine Lab 11/09/21 16:42 Results Complete Blood Count w/Auto AM LABS Lab 11/14/21 04:00 Ordered Comprehensive Metabolic Panel AM LABS Lab 11/14/21 04:00 Ordered Magnesium AM LABS Lab 11/14/21 04:00 Ordered Phosphorus AM LABS Lab 11/14/21 04:00 Ordered Radiology Impressions Chest X-Ray 11/09/21 12:03 IMPRESSION: 1. No acute findings. 2. Right central line in the right atrium Abdomen/Pelvis CT 11/09/21 12:59 IMPRESSION: 1. Inflammatory changes are seen within the proximal duodenal C-loop. 2. Multiple benign bilateral renal cyst. 3. Hiatal hernia 4. Cardiac artery calcifications 5. Cholecystectomy Laboratory Results WBC 15.5 10^3/uL (4.0-10.0) H 11/13/21 04:29 RBC 2.44 10^6/uL (4.1-5.3) L 11/13/21 04:29 Hgb 7.4 g/dL (11.5-15.3) L 11/13/21 04:29 Hct 24.0 % (37.0-47.0) L 11/13/21 04:29 MCV 98.4 fl (81-99) 11/13/21 04:29 MCH 30.3 pg (28.0-34.0) 11/13/21 04:29 MCHC 30.8 g/dL (30.0-36.0) 11/13/21 04:29 RDW 16.1 % (12.1-15.1) H 11/13/21 04:29 Plt Count 181 10^3/cmm (130-400) 11/13/21 04:29 MPV 12.0 fL (7.4-10.4) H 11/13/21 04:29 Neut % (Auto) 75.9 % 11/13/21 04:29 Lymph % (Auto) 10.0 % 11/13/21 04:29 [place] % (Auto) 10.1 % 11/13/21 04:29 Eos % (Auto) 1.5 % 11/13/21 04:29 Baso % (Auto) 0.2 % 11/13/21 04:29 Neut # (Auto) 11.78 10^3/uL (1.8-7.7) H 11/13/21 04:29 Lymph # (Auto) 1.6 10^3/uL (0.8-4.8) 11/13/21 04:29 [place] # (Auto) 1.6 10^3/uL (0.2-0.9) H 11/13/21 04:29 Eos # (Auto) 0.2 10^3/uL (0.0-0.8) 11/13/21 04:29 Baso # (Auto) 0.0 10^3/uL (0.0-0.1) 11/13/21 04:29 Nucleated RBC % (auto) 0.5 % 11/13/21 04:29 Nucleated RBCs # 0.1 /100WBC 11/13/21 04:29 Sodium 130 mmol/L (136-145) L 11/13/21 04:29 Potassium 3.8 mmol/L (3.5-5.1) 11/13/21 04:29 Chloride 94 mmol/L (98-107) L 11/13/21 04:29 Carbon Dioxide 26 mmol/L (22-29) 11/13/21 04:29 Anion Gap 13.8 (5-19) 11/13/21 04:29 BUN 20 mg/dL (8-23) 11/13/21 04:29 Creatinine 3.3 mg/dL (0.5-0.9) H 11/13/21 04:29 GFR Calculation Not Reportable 11/13/21 04:29 Glucose 225 mg/dL (65-115) H 11/13/21 04:29 POC Glucose 204 mg/dL (70-110) H 11/13/21 10:48 Calculated Osmolality 280 mOsm/kg (285-295) L 11/13/21 04:29 Lactic Acid 1.4 mmol/L (0.5-2.2) 11/09/21 15:14 Calcium 8.7 mg/dL (8.5-10.5) 11/13/21 04:29 Phosphorus 3.0 mg/dL (2.5-4.5) 11/13/21 04:29 Magnesium 1.6 mg/dL (1.7-2.3) L 11/13/21 04:29 Iron 11 ug/dL (37-145) L 11/09/21 15:14 TIBC 203 mcg/dl 11/09/21 15:14 % Saturation 5.4 % (20-50) L 11/09/21 15:14 Unsat Iron Binding 192 ug/dL (112-347) 11/09/21 15:14 Ferritin 380 ng/mL (15-150) H 11/09/21 15:14 Total Bilirubin 0.2 mg/dL (0.15-1.2) 11/13/21 04:29 AST 17 U/L (0-32) 11/13/21 04:29 ALT 15 U/L (0-33) 11/13/21 04:29 Alkaline Phosphatase 159 U/L (35-105) H 11/13/21 04:29 NT-Pro-B Natriuret Pep 1011 pg/mL (0-450) H 11/09/21 15:14 Total Protein 4.8 g/dL (6.6-8.7) L 11/13/21 04:29 Albumin 2.2 g/dL (3.5-5.2) L 11/13/21 04:29 Globulin 2.6 g/dL (1.3-4.6) 11/13/21 04:29 Procalcitonin 1.02 ng/mL (0-0.5) H 11/09/21 15:14 TSH 0.34 uIU/mL (0.27-4.20) 11/09/21 15:14 Urine Color Yellow (Yellow) 11/10/21 23:45 Urine Appearance Cloudy (CLEAR) 11/10/21 23:45 Urine pH 5 (5-7) 11/10/21 23:45 Ur Specific [place] 1.020 (1.005-1.030) 11/10/21 23:45 Urine Protein 2+ (Negative) H 11/10/21 23:45 Urine Glucose (UA) Norm (Normal) 11/10/21 23:45 Urine Ketones 1+ (Negative) H 11/10/21 23:45 Urine Blood 3+ (Negative) H 11/10/21 23:45 Urine Nitrate Positive (Negative) H 11/10/21 23:45 Urine Bilirubin 1+ (Negative) H 11/10/21 23:45 Urine Urobilinogen Neg mg/dL (Negative) 11/10/21 23:45 Ur Leukocyte Esterase 2+ (Negative) H 11/10/21 23:45 Urine RBC 5-10 /hpf (0-2) H 11/10/21 23:45 Urine WBC Too numerous to cnt /hpf (0-5) H 11/10/21 23:45 Ur Squamous Epith Cells 15-25 /hpf (0-5) H 11/10/21 23:45 Amorphous Sediment Not Reportable 11/10/21 23:45 Urine Bacteria 1+ /hpf (NONE) H 11/10/21 23:45 Hep Bs Antigen Non-reactive (Nonreactive) 11/09/21 15:14 Hep Bs Antibody 3.5 (11.5-1000) L 11/09/21 15:14 Hepatitis C Antibody Non-reactive (Nonreactive) 11/09/21 15:14 Vitals Last Vital Signs Temp 98.3 F 11/13/21 11:38 Pulse 79 11/13/21 11:38 Resp 16 11/13/21 11:38 BP 112/65 11/13/21 11:38 Pulse Ox 91 11/13/21 11:38 O2 Del Method 11/13/21 11:38 O2 Flow Rate 1 11/12/21 08:00 Discharge Plan Discharge Patient Disposition: Home Health Service Condition: Stable Prescriptions: New amoxicillin-pot clavulanate 875-125 mg Tablet 1 tab PO BID 7 Days Qty: 14 0RF glimepiride 2 mg tablet 2 mg PO DAILY Qty: 30 0RF Rx Instructions: NEW DOSE 2mg instead of 4mg. Do NOT mix with other tablets. Monitor blood sugars. Hold for low blood sugar. ferrous sulfate 325 mg (65 mg iron) tablet 325 mg PO BID Qty: 60 0RF magnesium oxide 400 mg magnesium tablet 400 mg PO DAILY Qty: 30 0RF Continued hydralazine 100 mg tablet 100 mg PO TID@09,12,21 PRN (Reason: Hypertensive Emergency) Label Comments: pt takes 1/2 tab prn mirtazapine 15 mg tablet 15 mg PO DAILY spironolactone 50 mg tablet 50 mg PO DAILY bumetanide 2 mg tablet 2 mg PO DAILY@0900 Qty: 90 3RF diltiazem HCl [Tiadylt ER] 240 mg capsule,extended release 24 hr 120 mg PO DAILY Qty: 90 3RF atorvastatin 10 mg tablet 10 mg PO BEDTIME@2100 allopurinol 100 mg tablet 100 mg PO DAILY@0800 sodium bicarbonate 650 mg tablet 650 mg PO TID@0900,1200,2100 pantoprazole 40 mg tablet,delayed release (DR/EC) 40 mg PO BID@0900,2100 acetaminophen 325 mg Tablet 325 - 650 mg PO Q6H PRN (Reason: Pain) Lantus Solostar U-100 Insulin 100 unit/mL (3 mL) insulin pen 20 unit SUBCUT BEDTIME M- Plus 27 mg iron- 1 mg tablet 1 tab PO DAILY carvedilol 25 mg tablet 25 mg PO BID Discontinued glimepiride 4 mg tablet 4 mg PO DAILY@0900 Discharge Orders: Discharge Order (Routine); Ordered 11/13/21 Ordered By: Britt Monaco Referrals: Traci [Other] ([employer] company in [facility] that would be willing to transport to and from dialysis if needed. ) Sage Blas [Other] (Another # of [employer] in [facility] that you could call and see which is cheaper to take to and from dialysis if needed. ) [facility] [Other] (Your chair time is 12:00 on Tuesdays, , and Saturdays. ) [facility] [Outside] Vitaliy Morales MD [Primary Care Provider] - 11/20/21 3:30 pm (hospital follow up from admission with weakness, UTI and anemia) Discharge Diet: As Directed Discharge Activity: Increase activity as tolerated Patient Instructions: Dialysis Diet (DC), Hemodialysis (DC), Opioid Safety Activity Restrictions/Additional Instructions: You presented with worsening weakness and abdominal pain. You had had a d ialysis catheter placed in the outpatient setting in [place] prior to admission and plan had been for outpatient hemodialysis initiation. With your admission, hemodialysis was initiated during this hospital stay. A chair has been arranged on Tuesdays, and Saturdays at [facility] for continued dialysis care. Please keep your follow-up with your usual archeologist. Follow routine care as instructed by provider who placed your dialysis catheter. You had an abnormal urinalysis along with significant leukocytosis with white count at 27,000 upon presentation. While you have a known history of chronic cystitis, clinically felt to have acute cystitis. You received Rocephin in the hospital but once cultures came back revealing enteric coccus faecalis, you were changed to Augmentin, which will continue for total of 7 days. Count was improved to 15,000. You are anemic with hemoglobin at 7.4 at discharge. You received IV iron and Epogen in the hospital. Oral iron replacement to continue at discharge. You indicated that you did not wish to pursue follow-up at [facility] to further evaluate your anemia as had been previously recommended by hematology/oncology here. Your electrolytes after hemodialysis were improved. BUN and creatinine were 20/3.3. Potassium was 3.0 and your magnesium was low at 1.6 at the time of discharge. Overall you are feeling better after initiation of dialysis. You continue to have generalized weakness along with need for dialysis catheter care and medication and blood pressure plus glucose monitoring. Arrangements were made for home health care including therapy and nursing assistance. Be careful with position changes. Utilize assistive devices as instructed by therapy. Take medications as prescribed. I did decrease your dose of glimepiride with initiation of hemodialysis and the fact that your blood sugars here, without glimepiride were as low as 120s. Follow-up with Dr. Morales in a few days to ensure continued improvement. Information on local options for transportation assistance to dialysis were provided by case management. Discharge Attestations Time Spent in Discharge Care*: greater than 30 min Status at Discharge: Cognitive status at discharge: cognitively intact , Behavioral status at discharge: cooperative , Quality Metrics Clinical Quality Measures [ No reported AMI, CVA or VTE this stay] Coding Level of Care Code Acute Chg FW DC note Diagnoses Generalized weakness R53.1 ESRD (end stage renal disease) N18.6 Acute hemodialysis encounter Z99.2 UTI (urinary tract infection) N30.00 Hematuria presence: without hematuria Urinary tract infection type: acute cystitis Heart failure with preserved ejection fraction I50.32 Heart failure chronicity: chronic Iron deficiency anemia D50.9 Iron deficiency anemia type: unspecified iron deficiency Type 2 diabetes mellitus E11.65 Diabetes mellitus complication status: with hyperglycemia Diabetes mellitus predatory animal exterminator insulin use: without predatory animal exterminator use History of atrial fibrillation Z86.79 History of chronic cystitis Z87.448
--- NOTE | 2021-11-13 15:45 | PC.NURSE ---
Discussed discharge with patient and niece. Discussed new medications, changes and stopped medications as well as numbers for rides to attend dialysis and follow up appointments.
== END 2021-11-13 15:00 | disposition home health service (06) | DRG 699 ==
LOC: ER 13:55 → MEDSURG 15:18
PROVIDERS: Internal Medicine; Internal Medicine Nephrology; Student in an Organized Health Care Education/Training Program; Admitting Provider Internal Medicine; Emergency Provider Family Medicine; PCP Family Medicine; Visit Provider Hospitalist
DX: E11.22 Type 2 diabetes mellitus with diabetic chronic kidney disease (principal); E87.1 Hypo-osmolality and hyponatremia; E87.2 Acidosis; N30.00 Acute cystitis without hematuria; I50.32 Chronic diastolic (congestive) heart failure; I13.2 Hypertensive heart and chronic kidney disease with heart failure and with stage 5 chronic kidney disease, or end stage renal disease; N18.6 End stage renal disease; N17.9 Acute kidney failure, unspecified; B95.2 Enterococcus as the cause of diseases classified elsewhere; B95.4 Other streptococcus as the cause of diseases classified elsewhere; R53.1 Weakness; R10.9 Unspecified abdominal pain; E11.65 Type 2 diabetes mellitus with hyperglycemia; D63.1 Anemia in chronic kidney disease; D50.9 Iron deficiency anemia, unspecified; N30.20 Other chronic cystitis without hematuria; I48.91 Unspecified atrial fibrillation; M81.0 Age-related osteoporosis without current pathological fracture; E11.21 Type 2 diabetes mellitus with diabetic nephropathy; E87.5 Hyperkalemia; K21.9 Gastro-esophageal reflux disease without esophagitis; Z66 Do not resuscitate; Z99.2 Dependence on renal dialysis; Z87.19 Personal history of other diseases of the digestive system; Z86.711 Personal history of pulmonary embolism; Z85.43 Personal history of malignant neoplasm of ovary; Z79.4 Long term (current) use of insulin; Z90.722 Acquired absence of ovaries, bilateral
CPT/HCPCS: 36415; 36416; 71045; 74176; 80048; 80053; 81001; 81003; 82728; 82962; 83540; 83550; 83605; 83735; 83880; 84100; 84145; 84443; 85025; 86706; 86803; 87040; 87077; 87086; 87186; 87340; 93005; 94664; 96365; 96372; 96375; 97110; 97161; 99285; J0696; J1644; J1815; J2270; J2916; J3475; J7030; J7050; Q3014; Q4081

== ENCOUNTER 2022-01-27 12:20 | Inpatient (IN) | payer MEDICARE, SELFPAY ==
[2022-01-27] VITALS (84 sets, daily range): BP systolic 110–201; BP diastolic 45–128; PULSE 68–147; RESP 0–32; TEMP 36.3–36.4; O2SAT 95–100; BMI 24.7
--- NOTE | 2022-01-27 12:32 | ECG_ITS ---
[facility] Test Date: 2022-01-27 Pat Name: Shilpi Nicole Department: Room: Gender: Female Rn Unit Manager: : 1945 Requested By: Ambrocio Yoon Order Number: [id number] Dionne MD: Salas Seth M.D. Measurements Intervals [place] Rate: 151 P: 0 CO: 0 QRS: -56 QRSD: 74 T: 62 QT: 292 QTc: 464 Interpretive Statements ATRIAL FIBRILLATION WITH RAPID VENTRICULAR RESPONSE LEFT ANTERIOR FASCICULAR BLOCK [QRS AXIS <= -45, QR IN I, RS IN II] INTERPRETATION BASED ON A DEFAULT AGE OF 40 YEARS Compared to ECG 11/09/2021 12:42:33 Sinus rhythm no longer present Myocardial infarct finding no longer present Electronically Signed On 01-27-2022 17:07:14 [employer] WORK[employer] SUPERVISOR by Salas Seth M.D. [id number]
--- NOTE | 2022-01-27 12:40 | XR_ITS ---
WS: [id number] PORTABLE CHEST HISTORY: SOB COMPARISON: 01/20/2022 Large-bore dialysis catheter RIGHT subclavian. Lungs are clear and well expanded. No pleural effusion or pneumothorax. Cardiac size: Normal. Mediastinum/Aorta: Mild atherosclerosis aorta. No osseous abnormality seen. XR/XR chest 1V portable [id number] IMPRESSION: Mild atherosclerosis aorta. No acute cardiopulmonary disease.
--- NOTE | 2022-01-27 12:46 | PC.NURSE ---
PT IS ON CONTINUOUS SPO2, NIBP, AND CM.
--- NOTE | 2022-01-27 12:49 | CT_ITS ---
WS: [id number] CT HEAD NONCONTRAST HISTORY: confused, unknown cause TECHNIQUE: Contiguous axial imaging performed through the brain in 2.5 mm imaging. Bone and soft tiss ue windows. Sagittal and coronal reformats reviewed. All CT scans at [facility] use at least one of these dose optimization techniques: automated exposure control; mA and/or kV adjustment per pa tient size (includes targeted exams where dose is matched to clinical indication); or iterative recon struction. DLP: 942.05 mGy.cm COMPARISON: 08/07/2019 No acute intracranial hemorrhage, midline shift or mass effect. Mild to moderate atrophy and small vessel ischemic changes. Progression since 08/07/2019. Ventricles: Ventricles have mildly increased in size since the prior exam also. No hydrocephalus. No inferior displacement of cerebellar tonsils. Extensive calcifications in the distal vertebral amanda tanya and also within the intracranial carotid arteries. Paranasal sinuses: As visualized are clear. Mastoid air cells: Well pneumatized. Calvarium and scalp: Skull is intact with no soft tissue edema or swelling. CT/CT head wo con* [id number] IMPRESSION: 1. Mild progression of atrophy and small vessel ischemic change since 0. 2. No acute infarct or hemorrhage. 3. Mild progression of the ventriculomegaly on the basis of atrophy.
[2022-01-27 12:53] LABS: Basophils # 0.1 10^3/uL (0.0-0.1); Basophils % 0.4 %; Eosinophils # 0.3 10^3/uL (0.0-0.8); Hematocrit 40.9 % (37.0-47.0); Hemoglobin 12.7 g/dL (11.5-15.3); Lymphocytes # 2.5 10^3/uL (0.8-4.8); Lymphocytes % 17.4 %; Mean Corpuscular HGB Conc 31.1 g/dL (30.0-36.0); Mean Corpuscular Volume 93.4 fl (81-99); Mean Platelet Volume 10.7 fL (7.4-10.4); Monocytes % 6.9 %; Neutrophils # 10.36 10^3/uL (1.8-7.7); Neutrophils % 72.8 %; Nucleated Red Blood Cells % 0 %; Platelet Count 316 10^3/cmm (130-400); Red Blood Count 4.38 10^6/uL (4.1-5.3); White Blood Count 14.2 10^3/uL (4.0-10.0)
[2022-01-27] MEDS: dilTIAZem 5 mg/mL SDV 5 mL 10 MG IVP (12:57)
[2022-01-27] MEDS: dilTIAZem 100 MG in sodium chloride 0.9% (add-van) 100 ML IV (13:00)
[2022-01-27 13:14] LABS: Troponin(5th) Baseline 94 ng/L (0-10)
[2022-01-27 13:17] LABS: Ammonia 25 umol/L (11-51)
[2022-01-27 13:22] LABS: Alanine Aminotransferase 15 U/L (0-33); Albumin Level 3.1 g/dL (3.5-5.2); Alkaline Phosphatase 88 U/L (35-105); Anion Gap 16.2 (5-19); Aspartate Amino Transferase 15 U/L (0-32); Blood Urea Nitrogen 20 mg/dL (8-23); Carbon Dioxide 24 mmol/L (22-29); Chloride 97 mmol/L (98-107); Globulin 2.6 g/dL (1.3-4.6); Glucose 176 mg/dL (65-115); Osmolality Calculated 283 mOsm/kg (285-295); Potassium 4.2 mmol/L (3.5-5.1); Sodium 133 mmol/L (136-145); Total Bilirubin 0.3 mg/dL (0.15-1.2); Total Protein 5.7 g/dL (6.6-8.7)
[2022-01-27 13:43] LABS: NT Pro B Type Natriuretic Pept 54560 pg/mL (0-450)
--- NOTE | 2022-01-27 13:49 | ED_ITS ---
HPI - Arrhythmia/Palpitations General: Chief Complaint: Arrhythmia/Palpitations Stated Complaint: CONFUSION/ AFIB W/RVR Time Seen by Provider: 01/27/22 12:25 Source: old records reviewed Mode of arrival: EMS Limitations: altered mental status History of Present Illness: Shilpi Nicole is a 76 year old female with past medical history of of heart failure with preserved EF, iron deficiency anemia, osteoporosis, pulmonary embolism August 2019, hypertension, end-stage renal disease followed by Dr. Chester, diabetes mellitus Shilpi presents today by EMS after presenting to dialysis center with altered m ental status. Shilpi cannot remember the month, the year, the time of day, why she is here. At 1 point she forgot her own name. She reports that she came with an in-law to dialysis. She was able to tell me she did not get her dialysis. She has short episodes where she seems lucid but then is completely confused shortly thereafter. She is spontaneously moving all of her extremities. Her respirations are even and unlabored. Her pupils are equal and reactive. She does not have a fever. It is unknown when she was last normal. She is not hypoglycemic. There are no signs of trauma. Review of Systems Narrative: Unable to obtain review of systems due to altered mental status PFSH ED PFSH: Medical History Abnormal colonoscopy [address] White, sigmoid polyp Atrial fibrillation with RVR August 2019, suspect paroxysmal secondary to PE. Chronic cystitis Diabetes Fibula fracture Heart failure with preserved ejection fraction Grade 1 diastolic dysfunction, EF 65% 08/23/2018 History of atrial fibrillation Because of the patient's chronic anemia and GI bleed, she is not on any oral anticoagulant. HTN (hypertension) Chronically difficult to control Hx of cataract IBS (irritable bowel syndrome) Internal hemorrhoids Iron deficiency anemia Normal cardiac stress test Osteoporosis Ovarian cancer in remission 1963 Pulmonary embolism Diagnosed August 2019 Stage 3 chronic kidney disease Type 2 diabetes mellitus Surgical History H/O detached retina repair 1991 H/O oophorectomy 1963 Hx of cataract extraction Hx of cholecystectomy Family History Father CAD (coronary artery disease) Hx of myocardial infarction Mother CAD (coronary artery disease) Hx of myocardial infarction Brother Chronic kidney disease (CKD) Diabetes Family/Other Diabetes Sister Diabetes Denies family history of Clotting disorder Dementia Suicide Anesthesia complication Bleeding disorder Lung disease Cancer Stroke Social History Alcohol intake: never Lives independently: Yes Housing: House Physical Exam Const: COMMON NORMALS: no limitations, alert and well nourished EXAM LIMITATIONS: no altered mental status GENERAL APPEARANCE: cooperative, well kempt and well developed ORIENTATION/CONSCIOUSNESS: Yes awake, Yes oriented to person (Sometimes) and Yes oriented to place (She knows she is at [place] but does not know details); not oriented to time HENMT: COMMON NORMALS: normocephalic, atraumatic, external ears normal and Normal external nose present HEAD & SCALP: normal to inspection, normocephalic and atraumatic FACE & SINUS: face symmetric NOSE: Normal external nose present EXTERNAL EAR: Yes external ears normal MOUTH: lip normal; no muffled voice Eye: COMMON NORMALS: EOMs intact bilaterally and conjunctivae normal GENERAL EYE: appearance normal, both eyes and all related structures CONJUNCTIVA: Yes conjunctivae normal Neck/C-Spine: COMMON NORMALS: no meningeal signs GENERAL: Yes normal visual inspection and Yes trachea midline Resp: COMMON NORMALS: normal respiratory effort, No use of accessory muscles and clear to auscultation bilaterally EFFORT & INSPECTION: Yes able to speak in complete sentences and Yes symmetric chest movement AUSCULTATION: clear to auscultation bilaterally Cardio: RATE: tachycardic RHYTHM: abnormal rhythm PERIPHERAL PULSES: radial pulses present GI: COMMON NORMALS: Soft to palpation INSPECTION: Yes normal to inspection PALPATION: Yes Soft to palpation, No Tenderness to palpation present (GI) and No Guarding due to palpation present (GI) Back/Pelvis: COMMON NORMALS: thoraco-lumbar ROM normal Extremity: COMMON NORMALS: normal to inspection GENERAL: Yes normal exam except as noted Neuro: COMMON NORMALS: moves all extremities, no focal motor deficits and no sensory deficits noted SENSORIUM/ORIENTATION: Yes alert, Yes oriented to person (Sometimes), Yes oriented to place (She knows she is at [place] but does not know details), No oriented to time and Yes Orientation impaired MENINGEAL SIGNS: Yes no meningeal signs SPEECH: speech normal MOTOR EXAM: Pronator motor function not present, no tremor noted, no asterixis, Motor fasciculations not present and Normal motor muscle tone present throughout Psych: COMMON NORMALS: cooperative and speech normal APPEARANCE: Yes well kempt SPEECH: Yes normal speech Skin: COMMON NORMALS: no rashes or lesions noted and no jaundice GENERAL S KIN EXAM: no rashes or lesions noted Course 2 Vital Signs: Vital signs: Vital Signs Temperature 97.3 F L 01/27/22 12:32 Pulse Rate 111 H 01/27/22 13:37 Respiratory Rate 24 H 01/27/22 12:32 Blood Pressure 174/98 01/27/22 13:37 Pulse Oximetry 100 01/27/22 12:32 MDM - Arrhythmia/Palpitations Medical Decision Making Patient presents with altered mental status. This is not known to be chronic. The time of onset is unclear. She does not have fever, meningeal signs, signs of trauma. Large differential diagnosis including cerebrovascular accident, glycemic abnormalities, metabolic abnormalities, infectious, medication induced, and multiple others. She is found to be in atrial fibrillation with rapid ventricular response. I do not find any history of this. Patient was started on Cardizem. She does have a history of pulmonary embolism per her chart but is not having any hypoxemia or increased work of breathing. UPDATE: White blood cell count is elevated. Creatinine is mildly elevated to 1.9. Glucose is 176. Anion gap is normal. Chest x-ray showing her right chest central line which is her access point for dialysis. No other acute findings noted. CT scan of the head: 1.? Mild progression of atrophy and small vessel ischemic change since 08/07/2019. 2.? No acute infarct or hemorrhage. 3.? Mild progression of the ventriculomegaly on the basis of atrophy. Rpt EKG shows afib rvr 123 bpm, no ST elevations or ischemic depressions UA shows evidence of UTI. Blood/urine cultures pending. Rocephin ordered. Will give 500cc of NS, may need dialysis since missed today. Dr Monaco consulted for admission. On cardizem gtt and confused, so will need stepdown. Lab Data 01/27/22 12:47 01/27/22 12:47 Radiology Impressions Chest X-Ray 01/27/22 12:40 IMPRESSION: Mild atherosclerosis aorta. No acute cardiopulmonary disease. Head CT 01/27/22 12:49 IMPRESSION: 1. Mild progression of atrophy and small vessel ischemic change since 08/07/2019. 2. No acute infarct or hemorrhage. 3. Mild progression of the ventriculomegaly on the basis of atrophy. Laboratory Results WBC 14.2 10^3/uL (4.0-10.0) H 01/27/22 12:47 RBC 4.38 10^6/uL (4.1-5.3) 01/27/22 12:47 Hgb 12.7 g/dL (11.5-15.3) 01/27/22 12:47 Hct 40.9 % (37.0-47.0) 01/27/22 12:47 MCV 93.4 fl (81-99) 01/27/22 12:47 MCH 29.0 pg (28.0-34.0) 01/27/22 12:47 MCHC 31.1 g/dL (30.0-36.0) 01/27/22 12:47 RDW 15.0 % (12.1-15.1) 01/27/22 12:47 Plt Count 316 10^3/cmm (130-400) 01/27/22 12:47 MPV 10.7 fL (7.4-10.4) H 01/27/22 12:47 Neut % (Auto) 72.8 % 01/27/22 12:47 Lymph % (Auto) 17.4 % 01/27/22 12:47 [place] % (Auto) 6.9 % 01/27/22 12:47 Eos % (Auto) 2.0 % 01/27/22 12:47 Baso % (Auto) 0.4 % 01/27/22 12:47 Neut # (Auto) 10.36 10^3/uL (1.8-7.7) H 01/27/22 12:47 Lymph # (Auto) 2.5 10^3/uL (0.8-4.8) 01/27/22 12:47 [place] # (Auto) 1.0 10^3/uL (0.2-0.9) H 01/27/22 12:47 Eos # (Auto) 0.3 10^3/uL (0.0-0.8) 01/27/22 12:47 Baso # (Auto) 0.1 10^3/uL (0.0-0.1) 01/27/22 12:47 Nucleated RBC % (auto) 0 % 01/27/22 12:47 Nucleated RBCs # 0.0 /100WBC 01/27/22 12:47 Sodium 133 mmol/L (136-145) L 01/27/22 12:47 Potassium 4.2 mmol/L (3.5-5.1) 01/27/22 12:47 Chloride 97 mmol/L (98-107) L 01/27/22 12:47 Carbon Dioxide 24 mmol/L (22-29) 01/27/22 12:47 Anion Gap 16.2 (5-19) 01/27/22 12:47 BUN 20 mg/dL (8-23) 01/27/22 12:47 Creatinine 1.9 mg/dL (0.5-0.9) H 01/27/22 12:47 GFR Calculation Not Reportable 01/27/22 12:47 Glucose 176 mg/dL (65-115) H 01/27/22 12:47 Calculated Osmolality 283 mOsm/kg (285-295) L 01/27/22 12:47 Calcium 10.0 mg/dL (8.5-10.5) 01/27/22 12:47 Total Bilirubin 0.3 mg/dL (0.15-1.2) 01/27/22 12:47 AST 15 U/L (0-32) 01/27/22 12:47 ALT 15 U/L (0-33) 01/27/22 12:47 Alkaline Phosphatase 88 U/L (35-105) 01/27/22 12:47 Ammonia 25 umol/L (11-51) 01/27/22 12:47 Troponin T Baseline 94 ng/L (0-10) H 01/27/22 12:47 NT-Pro-B Natriuret Pep 94695 pg/mL (0-450) H 01/27/22 12:47 Total Protein 5.7 g/dL (6.6-8.7) L 01/27/22 12:47 Albumin 3.1 g/dL (3.5-5.2) L 01/27/22 12:47 Globulin 2.6 g/dL (1.3-4.6) 01/27/22 12:47 Urine Color Yellow (Yellow) 01/27/22 13:46 Urine Appearance Clear (CLEAR) 01/27/22 13:46 Urine pH 8 (5-7) H 01/27/22 13:46 Ur Specific [place] 1.010 (1.005-1.030) 01/27/22 13:46 Urine Protein 3+ (Negative) H 01/27/22 13:46 Urine Glucose (UA) Norm (Normal) 01/27/22 13:46 Urine Ketones Negative (Negative) 01/27/22 13:46 Urine Blood Neg (Negative) 01/27/22 13:46 Urine Nitrate Negative (Negative) 01/27/22 13:46 Urine Bilirubin Neg (Negative) 01/27/22 13:46 Urine Urobilinogen Norm mg/dL (Negative) 01/27/22 13:46 Ur Leukocyte Esterase 2+ (Negative) H 01/27/22 13:46 Urine RBC 0-4 /hpf (0-2) H 01/27/22 13:46 Urine WBC Too numerous to cnt /hpf (0-5) H 01/27/22 13:46 Ur Squamous Epith Cells 0-4 /hpf (0-5) H 01/27/22 13:46 Amorphous Sediment Not Reportable 01/27/22 13:46 Urine Bacteria 1+ /hpf (NONE) H 01/27/22 13:46 Discharge Plan Discharge Patient Disposition: Admitted As Inpatient Clinical Impression: UTI (urinary tract infection), ESRD (end stage renal disease), Infectious encephalopathy, Atrial fibrillation Coding Level of Care Code ED Twisting Operator for Chg Fwd Exam Comprehensive
[2022-01-27 14:05] LABS: Protein Urine 3+ (Negative); Urine Appearance Clear (CLEAR); Urine Color Yellow (Yellow); pH Urine 8 (5-7)
[2022-01-27 14:06] LABS: Add Urine Microscopic? YES; Bilirubin Urine Neg (Negative); Blood Urine Neg (Negative); Glucose Urine UA Norm (Normal); Ketones Urine Negative (Negative); Leukocyte Esterase Urine 2+ (Negative); Nitrate Urine Negative (Negative); RBC Urine 0-4 /hpf (0-2); Urobilinogen Urine Norm (Negative)
[2022-01-27 14:07] LABS: Add Urine Culture? Yes; Bacteria Urine 1+ /hpf; Squamous Epithelial Cell Urine 0-4 /hpf (0-5); WBC Urine TOO NUMEROUS TO CNT /hpf (0-5)
--- NOTE | 2022-01-27 14:40 | ECG_ITS ---
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 Measurements Intervals Reynolds Rate: 123 P: 0 UT: 0 QRS: -52 QRSD: 74 T: 56 QT: 320 QTc: 459 Interpretive Statements ATRIAL FIBRILLATION WITH RAPID VENTRICULAR RESPONSE LEFT ANTERIOR FASCICULAR BLOCK [QRS AXIS <= -45, QR IN I, RS IN II] Compared to ECG 01/27/2022 12:32:38 No significant changes Electronically Signed On 01-27-2022 18:27:41 WOOL SACKER by Salas Seth M.D. [id number]
[2022-01-27] MEDS: cefTRIAXone 1,000 MG in sodium chloride 0.9% (plus) 50 ML 100 MG IV (15:17)
[2022-01-27] MEDS: sodium chloride 0.9% 500 ML IV (15:18)
--- NOTE | 2022-01-27 15:24 | ED_ITS ---
HPI - Arrhythmia/Palpitations General: Chief Complaint: Arrhythmia/Palpitations Stated Complaint: CONFUSION/ AFIB W/RVR Time Seen by Provider: 01/27/22 12:25 Source: old records reviewed Mode of arrival: EMS Limitations: altered mental status [facility] ED PFSH: Medical History Abnormal colonoscopy [address] White, sigmoid polyp Atrial fibrillation with RVR August 2019, suspect paroxysmal secondary to PE. Chronic cystitis Diabetes Fibula fracture Heart failure with preserved ejection fraction Grade 1 diastolic dysfunction, EF 65% 08/23/2018 History of atrial fibrillation Because of the patient's chronic anemia and GI bleed, she is not on any oral anticoagulant. HTN (hypertension) Chronically difficult to control Hx of cataract IBS (irritable bowel syndrome) Internal hemorrhoids Iron deficiency anemia Normal cardiac stress test Osteoporosis Ovarian cancer in remission 1963 Pulmonary embolism Diagnosed August 2019 Stage 3 chronic kidney disease Type 2 diabetes mellitus Surgical History H/O detached retina repair 1991 H/O oophorectomy 1963 Hx of cataract extraction Hx of cholecystectomy Family History Father CAD (coronary artery disease) Hx of myocardial infarction Mother CAD (coronary artery disease) Hx of myocardial infarction Brother Chronic kidney disease (CKD) Diabetes Family/Other Diabetes Sister Diabetes Denies family history of Clotting disorder Dementia Suicide Anesthesia complication Bleeding disorder Lung disease Cancer Stroke Social History Alcohol intake: never Lives independently: Yes Housing: House Course Vital Signs: Vital signs: Vital Signs Temperature 97.3 F L 01/27/22 12:32 Pulse Rate 111 H 01/27/22 13:37 Respiratory Rate 24 H 01/27/22 12:32 Blood Pressure 174/98 01/27/22 13:37 Pulse Oximetry 100 01/27/22 12:32 MDM - Arrhythmia/Palpitations Lab Data 01/27/22 12:47 01/27/22 12:47 Radiology Impressions Chest X-Ray 01/27/22 12:40 IMPRESSION: Mild atherosclerosis aorta. No acute cardiopulmonary disease. Head CT 01/27/22 12:49 IMPRESSION: 1. Mild progression of atrophy and small vessel ischemic change since 08/07/2019. 2. No acute infarct or hemorrhage. 3. Mild progression of the ventriculomegaly on the basis of atrophy. Laboratory Results WBC 14.2 10^3/uL (4.0-10.0) H 01/27/22 12:47 RBC 4.38 10^6/uL (4.1-5.3) 01/27/22 12:47 Hgb 12.7 g/dL (11.5-15.3) 01/27/22 12:47 Hct 40.9 % (37.0-47.0) 01/27/22 12:47 MCV 93.4 fl (81-99) 01/27/22 12:47 MCH 29.0 pg (28.0-34.0) 01/27/22 12:47 MCHC 31.1 g/dL (30.0-36.0) 01/27/22 12:47 RDW 15.0 % (12.1-15.1) 01/27/22 12:47 Plt Count 316 10^3/cmm (130-400) 01/27/22 12:47 MPV 10.7 fL (7.4-10.4) H 01/27/22 12:47 Neut % (Auto) 72.8 % 01/27/22 12:47 Lymph % (Auto) 17.4 % 01/27/22 12:47 [place] % (Auto) 6.9 % 01/27/22 12:47 Eos % (Auto) 2.0 % 01/27/22 12:47 Baso % (Auto) 0.4 % 01/27/22 12:47 Neut # (Auto) 10.36 10^3/uL (1.8-7.7) H 01/27/22 12:47 Lymph # (Auto) 2.5 10^3/uL (0.8-4.8) 01/27/22 12:47 [place] # (Auto) 1.0 10^3/uL (0.2-0.9) H 01/27/22 12:47 Eos # (Auto) 0.3 10^3/uL (0.0-0.8) 01/27/22 12:47 Baso # (Auto) 0.1 10^3/uL (0.0-0.1) 01/27/22 12:47 Nucleated RBC % (auto) 0 % 01/27/22 12:47 Nucleated RBCs # 0.0 /100WBC 01/27/22 12:47 Sodium 133 mmol/L (136-145) L 01/27/22 12:47 Potassium 4.2 mmol/L (3.5-5.1) 01/27/22 12:47 Chloride 97 mmol/L (98-107) L 01/27/22 12:47 Carbon Dioxide 24 mmol/L (22-29) 01/27/22 12:47 Anion Gap 16.2 (5-19) 01/27/22 12:47 BUN 20 mg/dL (8-23) 01/27/22 12:47 Creatinine 1.9 mg/dL (0.5-0.9) H 01/27/22 12:47 GFR Calculation Not Reportable 01/27/22 12:47 Glucose 176 mg/dL (65-115) H 01/27/22 12:47 Calculated Osmolality 283 mOsm/kg (285-295) L 01/27/22 12:47 Calcium 10.0 mg/dL (8.5-10.5) 01/27/22 12:47 Total Bilirubin 0.3 mg/dL (0.15-1.2) 01/27/22 12:47 AST 15 U/L (0-32) 01/27/22 12:47 ALT 15 U/L (0-33) 01/27/22 12:47 Alkaline Phosphatase 88 U/L (35-105) 01/27/22 12:47 Ammonia 25 umol/L (11-51) 01/27/22 12:47 Troponin T Baseline 94 ng/L (0-10) H 01/27/22 12:47 NT-Pro-B Natriuret Pep 10662 pg/mL (0-450) H 01/27/22 12:47 Total Protein 5.7 g/dL (6.6-8.7) L 01/27/22 12:47 Albumin 3.1 g/dL (3.5-5.2) L 01/27/22 12:47 Globulin 2.6 g/dL (1.3-4.6) 01/27/22 12:47 Urine Color Yellow (Yellow) 01/27/22 13:46 Urine Appearance Clear (CLEAR) 01/27/22 13:46 Urine pH 8 (5-7) H 01/27/22 13:46 Ur Specific [place] 1.010 (1.005-1.030) 01/27/22 13:46 Urine Protein 3+ (Negative) H 01/27/22 13:46 Urine Glucose (UA) Norm (Normal) 01/27/22 13:46 Urine Ketones Negative (Negative) 01/27/22 13:46 Urine Blood Neg (Negative) 01/27/22 13:46 Urine Nitrate Negative (Negative) 01/27/22 13:46 Urine Bilirubin Neg (Negative) 01/27/22 13:46 Urine Urobilinogen Norm mg/dL (Negative) 01/27/22 13:46 Ur Leukocyte Esterase 2+ (Negative) H 01/27/22 13:46 Urine RBC 0-4 /hpf (0-2) H 01/27/22 13:46 Urine WBC Too numerous to cnt /hpf (0-5) H 01/27/22 13:46 Ur Squamous Epith Cells 0-4 /hpf (0-5) H 01/27/22 13:46 Amorphous Sediment Not Reportable 01/27/22 13:46 Urine Bacteria 1+ /hpf (NONE) H 01/27/22 13:46 Discharge Plan Discharge Patient Disposition: Admitted As Inpatient Clinical Impression: UTI (urinary tract infection), ESRD (end stage renal disease), Infectious encephalopathy, Atrial fibrillation Coding Level of Care Code ED Power And Recovery Superintendent for [place]
[2022-01-27 15:26] LABS: Troponin 5 2HR 96.96 ng/L (0-10)
[2022-01-27 15:27] LABS: Troponin 5 2HR Delta 2.96 ABS# (0-10)
--- NOTE | 2022-01-27 16:10 | PM.HP ---
Providers/Chief Complaint Admitting Physician: Britt Monaco MD Primary Care Provider: Vitaliy Morales MD Chief Complaint: CONFUSION/ AFIB W/RVR History of Present Illness Shilpi Nicole is a 76 year old female who presented to the emergency room from hemodialysis clinic. Normal dialysis days are Thursday, and Thursday. Because of the holiday week she was scheduled for dialysis today. Since last she has not been feeling well. She started having diarrhea that day. Denies any abdominal pain. Bowel movements were normal prior to that. She has had loose watery stools several times a day but is not able to specifically quantify volume. No blood or mucus has been noted. She has not had any fever or chills. No nausea or vomiting. She has not had much of an appetite however. She had her dialysis on Thursday as usual. She usually will feel better after she has had dialysis but not this week. Family noted that she was very weak today. She required significant assistance to get out of the house utilizing wheelchair and then a walker. She also required a wheelchair to get into dialysis clinic. She had had episodes of not responding as she usually does at home and when the dialysis clinic staff saw her today they also noted that she was not acting like herself. When they checked her vital signs they found her to be tachycardic and sent her to the emergency room for further evaluation. She was noted to be in atrial fibrillation with rapid ventricular response with heart rate as high as 150s. Review of records shows that she has had atrial fibrillation in the past most recently documented in 2019 when she had pulmonary embolism. Holter monitor several months after that showed intermittent atrial fibrillation but subsequent evaluation in 2020 showed she was in sinus rhythm. She is on rate controlling agents in the form of carvedilol and diltiazem chronically. Not on any anticoagulation due to a history of anemia and GI bleeding in the past. Denies any recent GI bleeding. No known family members or other close contacts are known to be sick. History is obtained from a combination of Mrs. Nicole, her [id number], her niece and her great niece who are present in the room. She is able to provide majority of information while her family supplements details. She does not really recall many of the events of this morning. CT of the head was done revealing some mild progression of atrophy and small vessel ischemic changes since prior comparative study in 2019 but no acute process was identified. Chest x-ray was unremarkable. She did have an elevated white count at 14,000 and an abnormal urinalysis with too numerous to count white blood cells. She has a longstanding history of recurrent UTIs and previous issues with chronic cystitis. Continues to have frequent burning and stinging with urination. No hematuria has been noted. She received IV fluids, initiation of a Cardizem drip and IV Rocephin in the emergency room. Hospitalist were contacted for admission for further care. She did not receive dialysis today. Potassium was 4.2 and BUN and creatinine were 20/1.9. Nephrology was contacted by the ER provider. Other than general weakness, patient denies focal weakness. No new medical problems since last hospitalization in November 2021 when she also had urinary tract infection. Review of Systems Const: Reports: change in appetite, fatigue and malaise; Denies: fever(s) or chills ENMT: Reports: dry mouth; Denies: throat pain or nasal congestion Card: Reports: edema (sometimes at feet mostly); Denies: chest pain, palpitations, syncope, dyspnea on exertion, orthopnea or leg pain with exertion Resp: Denies: dyspnea, productive cough, non-productive cough, pain on inspiration, hemoptysis or chest congestion GI: Reports: diarrhea; Denies: abdominal pain, nausea, vomiting, constipation or hematochezia : Reports: dysuria (burning an stinging, chronically and acutely); Denies: difficulty voiding or hematuria Musc: Reports: muscle weakness Skin/Breast: Reports: dry skin; Denies: rash or pruritus Neuro: Reports: weakness in extremities, difficulty walking and difficulty communicating thoughts (transient noted at home, HD and in ED, resolved at my evaluation); Denies: numbness in extremities Endo: Denies: polyuria José Miguel/Lymph: Denies: easy bruising or easy bleeding Medications/Allergies Home Medications Medication Instructions Recorded Confirmed Last Taken Type acetaminophen 325 mg tablet 325 - 650 mg PO Q6H PRN Pain 05/22/20 01/27/22 09/16/20 History allopurinol 100 mg tablet 100 mg PO DAILY@0800 05/22/20 01/27/22 01/26/22 History atorvastatin 10 mg tablet 10 mg PO BEDTIME@2100 05/22/20 01/27/2201/26/22 History pantoprazole 40 mg tablet,delayed 40 mg PO BID@0900,2100 05/22/20 01/27/22 01/26/22 History release sodium bicarbonate 650 mg tablet 650 mg PO TID@0900,1200,2100 05/22/20 01/27/22 01/26/22 History hydralazine 100 mg tablet 100 mg PO TID@, PRN 01/17/21 01/27/22 Unknown History Hypertensive Emergency bumetanide 2 mg tablet 2 mg PO DAILY@0900 #90 tabs 06/12/21 01/27/22 01/26/22 Rx diltiazem HCl 240 mg capsule,24 120 mg PO DAILY #90 caps 06/13/21 01/27/22 01/26/22 Rx hr,extended release (Tiadylt ER) carvedilol 25 mg tablet 25 mg PO BID 11/09/21 01/27/22 01/26/22 History insulin glargine 100 unit/mL (3 See Rx Instructions .Route .COMPLEX 11/09/21 01/27/22 01/26/22 History mL) subcutaneous pen (Lantus Solostar U-100 Insulin) vitamin with calcium 1 tab PO DAILY 11/09/21 01/27/22 01/26/22 History no.72-iron 27 mg-folic acid 1 mg tablet (M-Neo Plus) ferrous sulfate 325 mg (65 mg 325 mg PO BID #60 tabs 11/13/21 01/27/22 01/26/22 Rx iron) tablet glimepiride 2 mg tablet 2 mg PO DAILY #30 tabs 11/13/21 01/27/22 01/26/22 Rx magnesium oxide 400 mg PO DAILY #30 tabs 11/13/21 01/27/22 01/26/22 Rx loperamide 2 mg capsule 2 mg PO Q8H PRN Diarrhea 01/27/22 01/27/22 Unknown History megestrol 400 mg/10 mL (40 mg/mL) 400 mg PO DAILY PRN appetite 01/27/22 01/27/22 Unknown History oral suspension mirtazapine 30 mg tablet 30 mg PO BEDTIME 01/27/22 01/27/22 01/26/22 History vit B,C-folic ac 800 mcg-zinc 12.5 1 tab PO DAILY 01/27/22 01/27/22 01/26/22 History mg-selen-D3 2,000 unit-vit E tablet (RenaPlex-D) Allergies Allergy/AdvReac Type Severity Reaction Status Date / Time No Known Allergies Allergy Verified 01/17/21 12:59 PFSH Acute PFSH: Medical History (Updated 01/27/22 @ 18:47 by Kristina Light DO) Abnormal colonoscopy [address] White, sigmoid polyp Bilateral renal cysts long standing, simple-appearing cysts, evaluated 08/26 Chronic cystitis Chronic kidney disease, stage V requiring chronic dialysis Fibula fracture Heart failure with preserved ejection fraction Grade 1 diastolic dysfunction, EF 65% 08/23/2018 History of atrial fibrillation In 2019 at time of PE diagnosis, confirmed on holter monitoring several months later but not persistent. Holter in 2020 without atrial fibrillation noted. Because of the patient's chronic anemia and GI bleed, she is not on any oral anticoagulant. History of recurrent UTIs History of urethral narrowing In 2017, at time of cystoscopy, required dilation with Brenda sounds from 14 [place] HTN (hypertension) Chronically difficult to control Hx of cataract IBS (irritable bowel syndrome) Internal hemorrhoids Iron deficiency anemia Seen by heme-onc with extensive anemia work up in 2020, felt multifactorial with iron deficiency but referred to [facility] for 2nd opinion, though declined to complete this evaluation Normal cardiac stress test Osteoporosis Ovarian cancer in remission 1963 Pulmonary embolism Diagnosed August 2019 via high probability VQ scan Type 2 diabetes mellitus Surgical History (Updated 01/27/22 @ 17:33 by Britt Monaco MD) H/O detached retina repair 1991 H/O oophorectomy 1964 History of biopsy right flank abdominal wall mass Hx of cataract extraction Hx of cholecystectomy S/P dialysis catheter insertion tunneled catheter x 2 Family History Father CAD (coronary artery disease) Hx of myocardial infarction Mother CAD (coronary artery disease) Hx of myocardial infarction Brother Chronic kidney disease (CKD) Diabetes Family/Other Diabetes Sister Diabetes Denies family history of Clotting disorder Dementia Suicide Anesthesia complication Bleeding disorder Lung disease Cancer Stroke Social History Alcohol intake: never Lives independently: Yes Housing: House Vitals/I&O/Wt Last Vital Signs Temp 97.3 F L 01/27/22 12:32 Pulse 91 01/27/22 16:05 Resp 16 01/27/22 16:05 BP 170/87 01/27/22 16:05 Pulse Ox 95 01/27/22 16:05 Weight last 48 hrs Weight 40.823 kg Physical Exam Narrative: Constitutional: Awake, alert but tired looking, ill appearing, able to answer questions and provide history, cooperative HEENT: Normocephalic, extra ocular movements are intake, oropharynx is dry Neck: Supple Respiratory: Clear to auscultation bilaterally without any rales rhonchi or wheezes noted, no accessory muscle use Cardiovascular: Tachycardic, intermittently irregular rhythm interspersed with irregular rhythm and monitor showing what looks to be attempts at conversion to sinus rhythm. No murmurs. No JVD. Abdomen: Soft, nontender, positive bowel sounds, no masses Extremities: No pitting edema or calf tenderness Skin: Dry, no large bruises or sores noted, not pale Neuro: Speech clear, face symmetric, handgrip equal, moves both lower extremities, gait not currently assessed Psych: Normal affect, oriented to person, place and situation although not able to give me some details of recent illness such as quantity of diarrhea that she has been experiencing since last or specifics of some of her past history nor confirm when it was that she quit taking insulin Data 01/27/22 12:47 01/27/22 12:47 Other Labs: Radiology Impressions Chest X-Ray 01/27/22 12:40 IMPRESSION: Mild atherosclerosis aorta. No acute cardiopulmonary disease. Head CT 01/27/22 12:49 IMPRESSION: 1. Mild progression of atrophy and small vessel ischemic change since 08/07/2019. 2. No acute infarct or hemorrhage. 3. Mild progression of the ventriculomegaly on the basis of atrophy. Laboratory Results WBC 14.2 10^3/uL (4.0-10.0) H 01/27/22 12:47 RBC 4.38 10^6/uL (4.1-5.3) 01/27/22 12:47 Hgb 12.7 g/dL (11.5-15.3) 01/27/22 12:47 Hct 40.9 % (37.0-47.0) 01/27/22 12:47 MCV 93.4 fl (81-99) 01/27/22 12:47 MCH 29.0 pg (28.0-34.0) 01/27/22 12:47 MCHC 31.1 g/dL (30.0-36.0) 01/27/22 12:47 RDW 15.0 % (12.1-15.1) 01/27/22 12:47 Plt Count 316 10^3/cmm (130-400) 01/27/22 12:47 MPV 10.7 fL (7.4-10.4) H 01/27/22 12:47 Neut % (Auto) 72.8 % 01/27/22 12:47 Lymph % (Auto) 17.4 % 01/27/22 12:47 [place] % (Auto) 6.9 % 01/27/22 12:47 Eos % (Auto) 2.0 % 01/27/22 12:47 Baso % (Auto) 0.4 % 01/27/22 12:47 Neut # (Auto) 10.36 10^3/uL (1.8-7.7) H 01/27/22 12:47 Lymph # (Auto) 2.5 10^3/uL (0.8-4.8) 01/27/22 12:47 [place] # (Auto) 1.0 10^3/uL (0.2-0.9) H 01/27/22 12:47 Eos # (Auto) 0.3 10^3/uL (0.0-0.8) 01/27/22 12:47 Baso # (Auto) 0.1 10^3/uL (0.0-0.1) 01/27/22 12:47 Nucleated RBC % (auto) 0 % 01/27/22 12:47 Nucleated RBCs # 0.0 /100WBC 01/27/22 12:47 Sodium 133 mmol/L (136-145) L 01/27/22 12:47 Potassium 4.2 mmol/L (3.5-5.1) 01/27/22 12:47 Chloride 97 mmol/L (98-107) L 01/27/22 12:47 Carbon Dioxide 24 mmol/L (22-29) 01/27/22 12:47 Anion Gap 16.2 (5-19) 01/27/22 12:47 BUN 20 mg/dL (8-23) 01/27/22 12:47 Creatinine 1.9 mg/dL (0.5-0.9) H 01/27/22 12:47 GFR Calculation Not Reportable 01/27/22 12:47 Glucose 176 mg/dL (65-115) H 01/27/22 12:47 Calculated Osmolality 283 mOsm/kg (285-295) L 01/27/22 12:47 Calcium 10.0 mg/dL (8.5-10.5) 01/27/22 12:47 Total Bilirubin 0.3 mg/dL (0.15-1.2) 01/27/22 12:47 AST 15 U/L (0-32) 01/27/22 12:47 ALT 15 U/L (0-33) 01/27/22 12:47 Alkaline Phosphatase 88 U/L (35-105) 01/27/22 12:47 Ammonia 25 umol/L (11-51) 01/27/22 12:47 Troponin T Baseline 94 ng/L (0-10) H 01/27/22 12:47 Troponin T 120 Minute 96.96 ng/L (0-10) H 01/27/22 15:01 Delta Troponin T 2.96 ABS# (0-10) 01/27/22 15:01 NT-Pro-B Natriuret Pep 05946 pg/mL (0-450) H 01/27/22 12:47 Total Protein 5.7 g/dL (6.6-8.7) L 01/27/22 12:47 Albumin 3.1 g/dL (3.5-5.2) L 01/27/22 12:47 Globulin 2.6 g/dL (1.3-4.6) 01/27/22 12:47 Urine Color Yellow (Yellow) 01/27/22 13:46 Urine Appearance Clear (CLEAR) 01/27/22 13:46 Urine pH 8 (5-7) H 01/27/22 13:46 Ur Specific [place] 1.010 (1.005-1.030) 01/27/22 13:46 Urine Protein 3+ (Negative) H 01/27/22 13:46 Urine Glucose (UA) Norm (Normal) 01/27/22 13:46 Urine Ketones Negative (Negative) 01/27/22 13:46 Urine Blood Neg (Negative) 01/27/22 13:46 Urine Nitrate Negative (Negative) 01/27/22 13:46 Urine Bilirubin Neg (Negative) 01/27/22 13:46 Urine Urobilinogen Norm mg/dL (Negative) 01/27/22 13:46 Ur Leukocyte Esterase 2+ (Negative) H 01/27/22 13:46 Urine RBC 0-4 /hpf (0-2) H 01/27/22 13:46 Urine WBC Too numerous to cnt /hpf (0-5) H 01/27/22 13:46 Ur Squamous Epith Cells 0-4 /hpf (0-5) H 01/27/22 13:46 Amorphous Sediment Not Reportable 01/27/22 13:46 Urine Bacteria 1+ /hpf (NONE) H 01/27/22 13:46 Laboratory Tests 11/09/21 15:14 TSH 0.34 Micro: Microbiology 01/27/22 15:30 Blood Culture - Preliminary Blood SPECIMEN COLLECTED 01/27/22 15:34 Blood Culture - Preliminary Blood SPECIMEN COLLECTED 01/27/22 13:46 Urine Urine Culture - Received A&P Assessment and plan (1) Infectious encephalopathy: Present at home, at hemodialysis clinic and upon arrival to the emergency room. Improved with fluids and antibiotics administered already. (2) UTI (urinary tract infection): In a patient with known recurrent UTIs, present on admission. Has urethral narrowing as a contributing factor and a history of chronic cystitis. Reports dysuria and baseline and recently. Elevated WBC, abnormal urinalysis with too numerous to count WBCs, general malaise lately and GI symptoms. Qualifiers: Urinary tract infection type: acute cystitis Hematuria presence: without hematuria Qualified Code(s): N30.00 - Acute cystitis without hematuria (3) Diarrhea: Started last , several times per day, watery. Unable to quantify further. No blood or mucus reported. No abdominal pain. Bowels movements normal prior to onset of diarrhea. No known sick contact with similar symptoms. During hospital stay in November of this year patient has CT of the abdomen and pelvis that showed thickening of the proximal duodenal loops, narrowing of the lumen and omental inflammatory stranding suggesting localized inflammatory disease. She did complain of abdominal pain, cramping and poor appetite then but no other GI symptoms were reported. (4) Atrial fibrillation: With rapid ventricular response, in a patient with history of intermittent atrial fibrillation in past, first noted after episode of pulmonary embolism in 2019. Holter in 2020 without evidence of afib noted. In sinus rhythm. Is chronically on rate controlling medications of carvedilol and diltiazem. No anticoagulation due to history of anemia and GI bleeding. Qualifiers: Atrial fibrillation type: paroxysmal Qualified Code(s): I48.0 - Paroxysmal atrial fibrillation (5) Generalized weakness: Has to some degree at baseline, but more pronounced than usual today, requiring wheelchair and other assitance she does not usually require. (6) Chronic kidney disease, stage V requiring chronic dialysis: Usually Thursday, , Thursday, but for Thu/Thu/Thu this week in lieu of holiday week. Missed today. Follows with another doctor in Dr Chester's group. (7) HTN (hypertension): Not controlled currently; did not take morning or midday medications today and missed hemodialysis. Normally on Bumex, diltiazem, carvedilol, hydralazine. Qualifiers: Hypertension type: primary hypertension Qualified Code(s): I10 - Essential (primary) hypertension (8) Type 2 diabetes mellitus: Chronically on glimepiride 2mg. Prescribed glargine insulin but has not been taking it for some time. Qualifiers: Diabetes mellitus ferry terminal supervisor insulin use: without ferry terminal supervisor use Diabetes mellitus complication status: with kidney complications Diabetes mellitus complication detail: with chronic kidney disease Chronic kidney disease stage: on chronic dialysis Qualified Code(s): E11.22 - Type 2 diabetes mellitus with diabetic chronic kidney disease; N18.6 - End stage renal disease; Z99.2 - Dependence on renal dialysis (9) Heart failure with preserved ejection fraction: Not acute Qualifiers: Heart failure chronicity: chronic Qualified Code(s): I50.32 - Chronic diastolic (congestive) heart failure (10) Iron deficiency anemia: Presently with hemoglobin of 12.7 though appear volume depleted. No recent gross blood loss noted. Qualifiers: Iron deficiency anemia type: unspecified iron deficiency Qualified Code(s): D50.9 - Iron deficiency anemia, unspecified Plan Mild to moderate dehydration Elevated baseline troponin with unremarkable 2-hour delta Elevated BNP in a known chronic kidney disease patient without recent or current respiratory symptoms nor edema Inpatient admission Continue Rocephin, add Levaquin Follow up pending urine and blood cultures Stool studies Check ESR/CRP Continue cardiazem drip for now, reinstate oral cardizem ER at 180mg daily tomorrow Continue carvedilol 25 mg bid Telemetry monitoring Continue serial cardiac enzymes Check D dimer; have comparative value from 2019 though that was when she had active PE diagnosis Echocardiogram when heart rate controlled PT and OT evaluation Nephrology for regular hemodialysis Resume home hydralazine, home carvedilol, increased dose of diltiazem as noted above and hold bumex x one dose on 01/28, resuming on 01/29 or as per nephrology recommendations Monitor blood pressure response to treatment Hold glimepiride while oral intake is low in a patient with known CKD Hold long acting insulin as she has not been taking it at home for some time Sliding scale insulin Check A1c Recheck TSH, along with free T4, as was low normal in 11/2021 Watch I&Os, overall volume status Monitor hemoglobin for drop with hydration Continue home atorvastatin, allopurinol, half usual dose mirtazepine and sodium bicarbonate plus renal vitamin SQ heparin for DVT prophylaxis PPI for GI prophylaxis Lactobacilus Supportive care otherwise Anticipate home with follow up to nephrology, dialysis clinic (will need to check holiday chair schedule), and Dr Morales, primary care provider plus or minus Dr Mosquera. Depending on clinical course with diarrhea, could consider further diagnostic evaluation regarding inflammatory cahnges noted on CT imaging of abdomen in November. Findings, concerns and plans were discussed with patient and family members in the room. These included her [id number], her niece and her great niece. All were given an opportunity to ask questions. Full code Attestations Medical Necessity Statement*: Anticipated stay greater than 2 midnights in a patient presenting with altered mental status, significant weakness, diarrhea and findings consistent with urinary tract infection on work-up in the emergency room. In addition she had atrial fibrillation with rapid ventricular response presently requiring IV treatment. While she has a history of intermittent atrial fibrillation she has been in sinus rhythm since at least middle of last year from what I can tell. Clinically appears volume depleted from reported GI losses and lack of oral intake in someone who is chronically on a diuretic. Current suspicion is this is the nidus for A. fib with RVR. She is quite hypertensive but has not had her home medications today due to overall malaise. Missed her usual dialysis today. At high risk of rapid clinical decline given comorbid conditions as outlined. Plans are as noted above. Presently on IV antibiotics, receiving IV fluids, IV Cardizem drip and close monitoring. Coding Level of Care Code Acute Gold Blower for g Fwd Diagnoses Infectious encephalopathy G93.49; B99.9 UTI (urinary tract infection) N30.00 Urinary tract infection type: acute cystitis Hematuria presence: without hematuria Diarrhea R19.7 Atrial fibrillation I48.0 Atrial fibrillation type: paroxysmal Generalized weakness R53.1 Chronic kidney disease, stage V requiring chronic dialysis N18.6; Z99.2 HTN (hypertension) I10 Hypertension type: primary hypertension Type 2 diabetes mellitus E11.22; N18.6; Z99.2 Diabetes mellitus ferry terminal supervisor insulin use: without skilled nursing use Diabetes mellitus complication status: with kidney complications Diabetes mellitus complication detail: with chronic kidney disease Chronic kidney disease stage: on chronic dialysis Heart failure with preserved ejection fraction I50.32 Heart failure chronicity: chronic Iron deficiency anemia D50.9 Iron deficiency anemia type: unspecified iron deficiency
[2022-01-27] MEDS: dilTIAZem ER (12HR) 60 mg Capsule PO (17:21)
[2022-01-27] MEDS: hyDRALAzine 50 mg Tablet 100 MG PO ×2 (17:21→21:14)
[2022-01-27] MEDS: ferrous sulfate EC 325 mg Tablet PO (17:21)
[2022-01-27] MEDS: heparin 5,000 unit/mL INJ 1 mL 5000 UNIT SUBCUT (17:22)
[2022-01-27 17:43] LABS: Glucose Point of Care 120 mg/dL (70-110)
--- NOTE | 2022-01-27 18:00 | USCV_ITS ---
Shilpi Nicole Age: 76 Gender: F : 1945 Exam Date: 01/27/2022 20:06 Ordering Phys: Britt Monaco MD Technologist: ADELE [place] [facility] [place]: afib with rvr. BP: 97 / 74 HR: 95 Rhythm: Mostly Sinus with strings of A- flutter Technical Quality: Adequate MEASUREMENTS (Male / Female) Normal Values 2D ECHO LV Diastolic Diameter PLAX 3.1 cm 4.2 - 5.9 / 3.9 - 5.3 cm LV Systolic Diameter PLAX 1.9 cm IVS Diastolic Thickness 1.9 cm 0.6 - 1.0 / 0.6 - 0.9 cm IVS Systolic Thickness 1.9 cm LVPW Diastolic Thickness 1.4 cm 0.6 - 1.0 / 0.6 - 0.9 cm LVPW Systolic Thickness 1.4 cm LVOT Diameter 1.9 cm LV Ejection Fraction 2D Teich 72.3 % LV Ejection Fraction MOD 2C 74.9 % LV Ejection Fraction 2C AL 74.9 % LA Diameter 2.8 cm LA Width 3.3 cm LA Height 4.5 cm RA Width 2.7 cm RA Height 3.5 cm Aorta at Sinotubular Diameter 2.4 cm IVC Diameter 0.7 cm M-MODE Aortic Annulus Diameter 2.7 cm LA Ao Ratio MM 1.2 MV E Point Septal Separation 0.4 cm DOPPLER AV Peak Velocity 197.0 cm/s LVOT Peak Velocity 103.0 cm/s AV Area Cont Eq vti 1.7 cm squared AV Area Cont Eq pk 1.5 cm squared MV Peak Velocity 147.0 cm/s MV Area PHT 4.5 cm squared Mitral E to A Ratio 0.6 MV E' Velocity 50.0 cm/s Mitral E to MV E' Ratio 16.7 Mitral E to LV E' Lateral Ratio 19.8 Mitral E to LV E' Septal Ratio 14.4 TR Peak Velocity 276.0 cm/s TR Peak Gradient 30.5 mmHg TV Peak E Velocity 46.0 cm/s Right Atrial Pressure 5.0 mmHg Pulmonary Artery Systolic Pressu 35.5 mmHg PV Peak Velocity 139.0 cm/s RV Acceleration Time 0.1 s RV Ejection Time 0.3 s RV AcT/ET 0.4 FINDINGS Left Ventricle Normal left ventricular size and systolic function, EF 68 %. No regional wall motion abnormalities. Mild to moderate concentric left ventricular hypertrophy. Grade I/IV diastolic dysfunction (abnormal relaxation filling pattern), normal to mildly elevated filling pressures. Right Ventricle The right ventricle is normal in size and function. Right Atrium The right atrium is normal in size. Left Atrium Mildly increased left atrial size. Mitral Valve Moderate mitral annular calcification. Aortic Valve Moderate aortic valve calcification. Thickened aortic valve. Mild aortic valve regurgitation. Aortic valve sclerosis. Tricuspid Valve No gross abnormalities noted.Trace tricuspid valve regurgitation. Pulmonic Valve Mild pulmonary valve regurgitation. Pericardium Normal pericardium without effusion. Aorta Normal ascending aorta dimension. IVC Normal inferior vena cava. CONCLUSIONS Normal left ventricular size and systolic function, EF 68 %. No regional wall motion abnormalities. Mild to moderate concentric left ventricular hypertrophy. Grade I/IV diastolic dysfunction (abnormal relaxation filling pattern), normal to mildly elevated filling pressures. Mildly increased left atrial size. Moderate mitral annular calcification. Moderate aortic valve calcification. Thickened aortic valve. Mild aortic valve regurgitation. Aortic valve sclerosis. Trace tricuspid valve regurgitation. Mild pulmonary valve regurgitation. Estimated pulmonary artery peak systolic pressure 36 mmHg There is no pericardial effusion. There are no intracardiac masses. There is no pericardial effusion. Comparison with the previous study is difficult because of the difference in the technical quality. However there may not be a significant change in the 2D findings Dr Cal Torres MD [facility] (Electronically Signed) Final Date: 28 January 2022 08:38 S
[2022-01-27] MEDS: levofloxacin-dextrose 5 % 500 MG/100 ML PREMIX 100 MG IV (18:28)
--- NOTE | 2022-01-27 18:40 | ECG_ITS ---
[facility] Test Date: 2022-01-27 Pat Name: Shilpi Nicole Department: Room: 106 Gender: Female Telephone Directory Deliverer: : 1945 Requested By: Ambrocio Yoon Order Number: [id number] Dionne MD: Cal Torres M.D. Measurements Intervals [place] Rate: 95 P: 11 [place]: 156 QRS: -53 QRSD: 75 T: -88 QT: 363 QTc: 457 Interpretive Statements SINUS RHYTHM LEFT ANTERIOR FASCICULAR BLOCK [QRS AXIS <= -45, QR IN I, RS IN II] INFERIOR MYOCARDIAL INFARCTION , OF INDETERMINATE AGE [40+ ms Q WAVE AND/OR ST/T ABNORMALITY IN II/aVF] Compared to ECG 01/27/2022 15:05:12 Myocardial infarct finding now present Atrial fibrillation no longer present Electronically Signed On 01-28-2022 20:44:04 WAREHOUSE SORTER by Cal Torres M.D. [id number]
--- NOTE | 2022-01-27 18:45 | P.CONIM_ITS ---
Providers/Reason For Consult Consulting Physician/Specialty*: Kristina Light DO, telenephrolgogy Reason for Consult*: ESRD Requesting Physician: Britt Monaco MD Attending Physician: Britt Monaco MD Primary Care Provider: Vitaliy Morales MD History of Present Illness History of Present Illness Shilpi Nicole is a 76 year old female, was sent to ER from dialysis for evaluation of altered mental status, tachycardia. Improved with administration of IVF. Started HD in November. Medications/Allergies Home Medications Medication Instructions Recorded Confirmed Last Taken Type acetaminophen 325 mg tablet 325 - 650 mg PO Q6H PRN Pain 05/22/20 01/27/22 09/16/20 History allopurinol 100 mg tablet 100 mg PO DAILY@0800 05/22/20 01/27/22 01/26/22 History atorvastatin 10 mg tablet 10 mg PO BEDTIME@209905/22/20 01/27/22 01/26/22 History pantoprazole 40 mg tablet,delayed 40 mg PO BID@0900,209905/22/20 01/27/22 01/26/22 History release sodium bicarbonate 650 mg tablet 650 mg PO TID@0900,1200,209905/22/20 01/27/22 01/26/22 History hydralazine 100 mg tablet 100 mg PO TID@,, PRN 01/17/21 01/27/22 Unknown History Hypertensive Emergency bumetanide 2 mg tablet 2 mg PO DAILY@0900 #90 tabs 06/12/21 01/27/22 01/26/22 Rx diltiazem HCl 240 mg capsule,24 120 mg PO DAILY #90 caps 06/13/21 01/27/22 01/26/22 Rx hr,extended release (Tiadylt ER) carvedilol 25 mg tablet 25 mg PO BID 11/09/21 01/27/22 01/26/22 History insulin glargine 100 unit/mL (3 See Rx Instructions .Route .COMPLEX 11/09/21 01/27/22 01/26/22 History mL) subcutaneous pen (Lantus Solostar U-100 Insulin) vitamin with calcium 1 tab PO DAILY 11/09/21 01/27/22 01/26/22 History no.72-iron 27 mg-folic acid 1 mg tablet (M- Plus) ferrous sulfate 325 mg (65 mg 325 mg PO BID #60 tabs 11/13/21 01/27/22 01/26/22 Rx iron) tablet glimepiride 2 mg tablet 2 mg PO DAILY #30 tabs 11/13/21 01/27/22 01/26/22 Rx magnesium oxide 400 mg PO DAILY #30 tabs 11/13/21 01/27/22 01/26/22 Rx loperamide 2 mg capsule 2 mg PO Q8H PRN Diarrhea 01/27/22 01/27/22 Unknown History megestrol 400 mg/10 mL (40 mg/mL) 400 mg PO DAILY PRN appetite 01/27/22 01/27/22 Unknown History oral suspension mirtazapine 30 mg tablet 30 mg PO BEDTIME 01/27/22 01/27/22 01/26/22 History vit B,C-folic ac 800 mcg-zinc 12.5 1 tab PO DAILY 01/27/22 01/27/22 01/26/22 History mg-selen-D3 2,000 unit-vit E tablet (RenaPlex-D) Allergies Allergy/AdvReac Type Severity Reaction Status Date / Time No Known Allergies Allergy Verified 01/17/21 12:59 Current Medications Generic Name Dose Route Start Last Admin Trade Name Freq PRN Reason Stop Dose Admin Ferrous Sulfate 325 mg 01/27/22 18:00 01/27/22 17:21 Ferrous Sulfate Ec 325 Mg Tablet PO 325 mg BIDWM ROGELIO Administration Heparin Sodium (Porcine) 5,000 unit 01/27/22 18:00 01/27/22 17:22 Heparin 5,000 Unit/Ml Inj 1 Ml SUBCUT 5,000 unit Q12H ROGELIO Administration Hydralazine HCl 100 mg 01/27/22 16:55 01/27/22 17:21 Hydralazine 50 Mg Tablet PO 100 mg TID ROGELIO Administration Diltiazem HCl 100 mg/ Sodium 100 mls @ 0 mls/hr 01/27/22 12:45 01/27/22 13:00 Chloride IV 5 mg/hr .Q0M ROGELIO 5 mls/hr Administration Protocol Per Protocol Levofloxacin/Dextrose 500 mg in 100 mls @ 100 mls/hr 01/27/22 18:00 01/27/22 18:28 Levaquin-D5w IV 100 mls/hr Q24H ROGELIO Administration Protocol Insulin Human Lispro 0 unit 01/27/22 18:00 01/27/22 17:30 Insulin Lispro 100 Unit/1 Ml SUBCUT Not Given TIDWM [facility] Protocol PFSH Acute PFSH: Medical History Abnormal colonoscopy [address] White, sigmoid polyp Bilateral renal cysts long standing, simple-appearing cysts, evaluated 08/26 Chronic cystitis Chronic kidney disease, stage V requiring chronic dialysis Fibula fracture Heart failure with preserved ejection fraction Grade 1 diastolic dysfunction, EF 65% 08/23/2018 History of atrial fibrillation In 2019 at time of PE diagnosis, confirmed on holter monitoring several months later but not persistent. Holter in 2020 without atrial fibrillation noted. Because of the patient's chronic anemia and GI bleed, she is not on any oral anticoagulant. History of recurrent UTIs History of urethral narrowing In 2017, at time of cystoscopy, required dilation with Ponce sounds from 14 [place] HTN (hypertension) Chronically difficult to control Hx of cataract IBS (irritable bowel syndrome) Internal hemorrhoids Iron deficiency anemia Seen by heme-onc with extensive anemia work up in 2020, felt multifactorial with iron deficiency but referred to [facility] for 2nd opinion, though declined to complete this evaluation Normal cardiac stress test Osteoporosis Ovarian cancer in remission 1963 Pulmonary embolism Diagnosed August 2019 via high probability VQ scan Type 2 diabetes mellitus Surgical History H/O detached retina repair 1991 H/O oophorectomy 1964 History of biopsy right flank abdominal wall mass Hx of cataract extraction Hx of cholecystectomy S/P dialysis catheter insertion tunneled catheter x 2 Family History Father CAD (coronary artery disease) Hx of myocardial infarction Mother CAD (coronary artery disease) Hx of myocardial infarction Brother Chronic kidney disease (CKD) Diabetes Family/Other Diabetes Sister Diabetes Denies family history of Clotting disorder Dementia Suicide Anesthesia complication Bleeding disorder Lung disease Cancer Stroke Social History Alcohol intake: never Lives independently: Yes Housing: House Vitals/I&O/Wt Last Vital Signs Temp 97.3 F L 01/27/22 16:29 Pulse 95 01/27/22 17:58 Resp 20 H 01/27/22 17:58 BP 173/83 01/27/22 17:58 Pulse Ox 99 01/27/22 17:58 O2 Del Method 01/27/22 16:55 01/27/22 01/27/22 01/27/22 06:59 14:59 22:59 Intake Total 550 / 550 Balance 550 / 550 Weight last 48 hrs Weight 40.823 kg Physical Exam Const: COMMON NORMALS: no acute distress and alert Neck/C-Spine: OTHER: right IJ tunneled HD catheter Extremity: GENERAL: No edema Neuro: SENSORIUM/ORIENTATION: Yes alert Data 01/27/22 12:47 01/27/22 12:47 Other Labs: urine TNTC WBC Micro: Microbiology 01/27/22 15:30 Blood Culture - Preliminary Blood SPECIMEN COLLECTED 01/27/22 15:34 Blood Culture - Preliminary Blood SPECIMEN COLLECTED CXR: Radiologist's impression: no acute pathology A&P Assessment and plan (1) ESRD (end stage renal disease): seen via telemedicine with assistance of RN at bedside Plan 1. Dialysis patient. Started HD in November. 2. Diarrhea, UTI, atrial fibrillation. BC, urine culture pending 3. altered mental status has improved back to baseline 4. hypertension 5. diabetes Serum creatinine is better than prior. will hold dialysis now, repeat labs in AM. Consider and 24h urine CrCl. check Mg and phos Consult Attestations Medical Necessity Statement: see above Time Spent in Patient Care: 16 - 35 minutes Coding Level of Care Code Acute Rn Geriatric for g Fwd Diagnoses ESRD (end stage renal disease) N18.6
[2022-01-27 19:20] LABS: D Dimer 1.93 ug/mIFEU (0-0.59)
[2022-01-27 19:25] LABS: Troponin 5 6HR 92.17 ng/L (0-10)
[2022-01-27 19:26] LABS: Troponin 5 6HR Delta -1.83 ng/L (0-12)
[2022-01-27 20:55] LABS: Glucose Point of Care 217 mg/dL (70-110)
[2022-01-27] MEDS: carvedilol 25 mg Tablet PO (21:14)
[2022-01-27] MEDS: atorvastatin 40 mg Tablet 10 MG PO (21:15)
[2022-01-27] MEDS: mirtazapine 30 mg Tablet 15 MG PO (21:15)
[2022-01-27] MEDS: insulin lispro 100 unit/1 mL SUBCUT (21:17)
[2022-01-27] MEDS: sodium bicarbonate 650 mg Tablet PO (21:20)
[2022-01-28] VITALS (143 sets, daily range): BP systolic 102–181; BP diastolic 45–116; PULSE 62–93; RESP 8–34; TEMP 36.4–37; O2SAT 90–100
[2022-01-28 05:41] LABS: Basophils % 0.3 %; Eosinophils # 0.2 10^3/uL (0.0-0.8); Hematocrit 38.9 % (37.0-47.0); Hemoglobin 12.2 g/dL (11.5-15.3); Lymphocytes # 2.1 10^3/uL (0.8-4.8); Lymphocytes % 20.3 %; Mean Corpuscular HGB Conc 31.4 g/dL (30.0-36.0); Mean Corpuscular Hemoglobin 28.8 pg (28.0-34.0); Mean Platelet Volume 11.1 fL (7.4-10.4); Monocytes # 0.7 10^3/uL (0.2-0.9); Monocytes % 6.7 %; Neutrophils # 7.25 10^3/uL (1.8-7.7); Neutrophils % 70.2 %; Nucleated Red Blood Cells % 0 %; Platelet Count 266 10^3/cmm (130-400); Red Blood Count 4.23 10^6/uL (4.1-5.3); Red Cell Distribution Width 15.1 % (12.1-15.1); White Blood Count 10.3 10^3/uL (4.0-10.0)
[2022-01-28 06:01] LABS: Estmated Average Glucose 183
--- NOTE | 2022-01-28 06:04 | PM.PN ---
Subjective Subjective: stroke alert called, she received TPA and has been moved to ICU Vitals/I&O/Wt Last Vital Signs Temp 97.8 F 01/28/22 04:30 Pulse 86 01/28/22 05:52 Resp 21 H 01/28/22 04:40 BP 176/76 01/28/22 04:40 Pulse Ox 97 01/28/22 03:15 O2 Del Method 01/27/22 21:08 01/27/22 01/27/22 01/28/22 14:59 22:59 06:59 Intake Total 682.167 / 682.167 153.833 / 836.000 Balance 682.167 / 682.167 153.833 / 836.000 Weight last 48 hrs Weight 59.562 kg Weight 40.823 kg Physical Exam Const: COMMON NORMALS: no acute distress and alert OTHER: answers simple questions HENMT: OTHER: right sided HD catheter Extremity: GENERAL: No edema Neuro: SENSORIUM/ORIENTATION: Yes alert Data 01/28/22 04:37 01/27/22 12:47 Other Labs: Cr 2.7, Ca 9.7, phos 3.1, Mg 1.5 Micro: Microbiology 01/27/22 15:30 Blood Culture - Preliminary Blood SPECIMEN COLLECTED 01/27/22 15:34 Blood Culture - Preliminary Blood SPECIMEN COLLECTED A&P Assessment and plan (1) ESRD (end stage renal disease): seen via telemedicine with assistance of RN at bedside Plan 1. ESRD since November 2021. HD T/Th/S via right IJ tunneled HD catheter 2. Admitted with Diarrhea, UTI, culture growing strep species. atrial fibrillation. 3. Possible CVA with plan for Agram today 4. hypertension 5. diabetes Plan for HD after arteriogram today. 3h, 1L UF, 3K Attestations Medical Necessity Statement*: see above Time Spent in Patient Care: 16 - 35 minutes Coding Level of Care Code Acute Mortician Supplies Sales Representative for Winter Coughlin Diagnoses ESRD (end stage renal disease) N18.6
[2022-01-28 06:10] LABS: Anion Gap 16.9 (5-19); Blood Urea Nitrogen 25 mg/dL (8-23); Calcium 9.5 mg/dL (8.5-10.5); Carbon Dioxide 22 mmol/L (22-29); Chloride 102 mmol/L (98-107); Free T4 Free Thyroxine 1.74 ng/dL (0.82-1.77); Glucose 130 mg/dL (65-115); Magnesium 1.5 mg/dL (1.7-2.3); Osmolality Calculated 290 mOsm/kg (285-295); Phosphorus 3.1 mg/dL (2.5-4.5); Potassium 3.9 mmol/L (3.5-5.1); Sodium 137 mmol/L (136-145); Thyroid Stimulating Hormone 1.03 uIU/mL (0.27-4.20)
[2022-01-28 06:12] LABS: Glucose Point of Care 136 mg/dL (70-110)
[2022-01-28] MEDS: heparin 5,000 unit/mL INJ 1 mL 5000 UNIT SUBCUT (06:12)
[2022-01-28] MEDS: allopurinol 100 mg Tablet PO (08:52)
[2022-01-28] MEDS: hyDRALAzine 50 mg Tablet 100 MG PO (08:52)
[2022-01-28] MEDS: ferrous sulfate EC 325 mg Tablet PO ×2 (08:52→18:05)
[2022-01-28] MEDS: sodium bicarbonate 650 mg Tablet PO ×2 (08:52→20:48)
[2022-01-28] MEDS: b-complex-vitamin c Tablet 1 EACH PO (08:52)
[2022-01-28] MEDS: magnesium oxide 400 mg tablet PO (08:52)
[2022-01-28] MEDS: dilTIAZem ER (24HR) 180 mg Capsule PO (08:52)
[2022-01-28] MEDS: pantoprazole DR 40 mg Tablet PO (08:52)
[2022-01-28] MEDS: carvedilol 25 mg Tablet PO (08:52)
[2022-01-28] MEDS: prenatal vitamin Capsule 1 CAP PO (08:52)
--- NOTE | 2022-01-28 10:12 | CT_ITS ---
WS: [id number] CT HEAD NONCONTRAST HISTORY: ams TECHNIQUE: Contiguous axial imaging performed through the brain in 2.5 mm imaging. Bone and soft tiss ue windows. Sagittal and coronal reformats reviewed. All CT scans at [facility] use at least one of these dose optimization techniques: automated exposure control; mA and/or kV adjustment per pa tient size (includes targeted exams where dose is matched to clinical indication); or iterative recon struction. DLP: 1013.79 mGy.cm COMPARISON: 01/27/2022 No acute intracranial hemorrhage, midline shift or mass effect. Mild atrophy and small vessel ischemic disease. No hemorrhage or acute sulcal effacement. Ventricles: Ventricles are mildly prominent on the basis of atrophy. No intraventricular blood. Heavy calcification in the distal vertebral arteries and through the intracranial carotid arteries. Paranasal sinuses: As visualized are clear. Mastoid air cells: Well pneumatized. Calvarium and scalp: Skull is intact with no soft tissue edema or swelling. CT/CT head wo con* [id number] IMPRESSION: 1. No acute intracranial hemorrhage or edema. 2. Cerebral atrophy and small vessel ischemic disease. Similar to 01/27/2022. No interval change. Notified Oral Palacio MD at 01/28/2022 10:44 AM.
--- NOTE | 2022-01-28 10:13 | ECG_ITS ---
[facility] Test Date: 2022-01-28 Pat Name: Shilpi Nicole Department: Room: 106 Gender: Female Cota: : 1945 Requested By: Oral Palaico Order Number: [id number] Dionne MD: Cal Torres M.D. Measurements Intervals [place] Rate: 75 P: 57 DC: 154 QRS: -46 QRSD: 74 T: -79 QT: 379 QTc: 426 Interpretive Statements SINUS RHYTHM PATTERN CONSISTENT WITH PULMONARY DISEASE LEFT ANTERIOR FASCICULAR BLOCK [QRS AXIS <= -45, QR IN I, RS IN II] INFERIOR MYOCARDIAL INFARCTION , OF INDETERMINATE AGE [40+ ms Q WAVE AND/OR ST/T ABNORMALITY IN II/aVF] MODERATE T-WAVE ABNORMALITY, CONSIDER ANTEROLATERAL ISCHEMIA [-0.1+ mV T-WAVE IN V3-V6] Compared to ECG 01/27/2022 21:56:32 T-wave abnormality now present Possible ischemia now present Myocardial infarct finding still present Electronically Signed On 01-28-2022 20:35:40 TIMBER SPOTTER by Cal Torres M.D. [id number]
[2022-01-28 10:37] LABS: Basophils % 0.2 %; Eosinophils # 0.2 10^3/uL (0.0-0.8); Eosinophils % 1.7 %; Hematocrit 36.9 % (37.0-47.0); Hemoglobin 11.7 g/dL (11.5-15.3); Lymphocytes % 20.5 %; Mean Corpuscular HGB Conc 31.7 g/dL (30.0-36.0); Mean Corpuscular Hemoglobin 29.4 pg (28.0-34.0); Mean Corpuscular Volume 92.7 fl (81-99); Mean Platelet Volume 11.9 fL (7.4-10.4); Monocytes # 0.7 10^3/uL (0.2-0.9); Monocytes % 7.6 %; Neutrophils # 6.76 10^3/uL (1.8-7.7); Neutrophils % 69.6 %; Nucleated Red Blood Cells % 0 %; Platelet Count 307 10^3/cmm (130-400); Red Blood Count 3.98 10^6/uL (4.1-5.3); Red Cell Distribution Width 15.5 % (12.1-15.1); White Blood Count 9.7 10^3/uL (4.0-10.0)
--- NOTE | 2022-01-28 10:45 | CT_ITS ---
WS: [id number] CT ANGIOGRAM CEREBRAL AND CAROTID ARTERIES HISTORY: cva TECHNIQUE: CT angiogram is performed of the carotid and cerebral arteries. During arterial injection imaging is obtained from the skull vertex to the aortic arch in 1.25 mm imaging. Coronal and sagittal reformats are submitted. Additional multi planar reformats of the carotid and cerebral arteries are submitted, MIP imaging also reviewed. NASCET criteria utilized. [facility] CT [facility] at least one of these dose optimization techniques: automated exposure control; mA and/or kV adjust ment per patient size (includes targeted exams where dose is matched to clinical indication); or iter ative reconstruction. CONTRAST: Omnipaque 350; 100 mL IV. DLP: 906.46 mGy.cm COMPARISON: None available. Carotid Angiogram: Right carotid: Common carotid artery: Arises normally from the innominate artery. No significant plaque or stenosis. Internal carotid artery: Tortuous carotid artery with scattered calcified plaque. Stenosis near 50%. No high-grade stenosis. External carotid artery: Patent. Left carotid: Common carotid artery: Tortuous artery. Scattered plaque. Internal carotid artery: Focal calcified plaque near the bifurcation. Stenosis near 50%. External carotid artery: Patent. Right vertebral artery: Unremarkable. Left vertebral artery: Unremarkable. Arises normally from the subclavian artery. Subclavian arteries: No stenosis or significant abnormality. Upper thorax: 3 mm nodule RIGHT apex. Thyroid gland: Enlarged nodular goiter. Osseous structures: Advanced spondylitic changes throughout the cervical spine. C5 retrolisthesis by 5 mm Large osteophytic ridging and C5-6. CEREBRAL ANGIOGRAM: Intracranial vertebral arteries: Moderate nearly circumferential calcification in the distal vertebra l arteries but no occlusion. Basilar artery: Mild scattered plaque. Intracranial Internal carotid arteries: Heavy calcified plaque through the cavernous sinuses and into the supraclinoid carotid arteries. Stenosis calculated at approximately 60-70% greatest on the RIGHT but no occlusion. Middle cerebral arteries: Normal. Anterior cerebral arteries and ACOM: Normal. Posterior cerebral arteries and PCOM's: Normal. Dural venous sinuses are normally enhancing. Mastoid air cells: Normal. Paranasal sinuses: Normal. Calvarium: Normal. CT/CT angio headneck* [id number] IMPRESSION: 1. No high-grade cervical carotid artery stenosis. Calcified plaque in the bif urcations. Stenosis estimated 50%. 2. Extensive calcified plaque in the distal intracranial carotid arteries with stenoses approximately 60-70% in greatest on the RIGHT. 3. No thrombus in the middle cerebral artery. 4. Moderately calcified distal vertebral arteries.
[2022-01-28 10:53] LABS: Lactate (Lactic Acid level) 1.9 mmol/L (0.5-2.2)
--- NOTE | 2022-01-28 10:55 | P.PNCC_ITS ---
Critical Care Event Note The high probability of a clinically significant, sudden or life threatening deterioration of the patient's [] system(s) required my full and direct attention, intervention and personal management. The critical care time is as shown. This time is in addition to time spent performing any reported procedures but includes the following: [x] Data and vital sign review and interpretation [x] Patient assessment, examination and intervention [x] Documentation [x] Medication orders and management Critical Care Time Code activated: Yes Critical Care Time (min): 55 Additional information about critical care time: - Patient was examined by me early this morning at about 845 -She is alert to person, to place, not to time, did not know who the president was, but no facial droop no slurring of her words, no focal neurologic deficits, had good strength bilaterally -She is able to tell me that she lives here in [place], she does not have any family, she does not have any children, -I discussed her atrial fibrillation, now she is back in normal sinus rhythm, her UTI, -She tells that she needs dialysis today her dialysis days are Thursday and Thursday -Rapid response:10:06am -Patient was up at the commode, with nursing students at her side, when she became nonverbal nonresponsive, and slumped over -I immediately came in and examined patient, she was being put into the bed blood pressures were 90s over 60s, blood sugars within normal limits -She became much more alert and awake, alert to person, to place, not to time, no facial droop no slurring of her words, strength in upper and lower extremities were 5 out of 5, she was following commands -The thought at this time is likely she had a vasovagal episode, nursing staff were getting an IV and she was getting fluids -I reexamined patient at about 1030, she was receiving fluids, blood pressures were 120s over 60s, normal sinus rhythm, saturating high 90s on room air, -She was nonverbal at this point, she would not respond to her name, she would not track, pupils were equal round reactive to light, I discern a slight right facial droop -She also had some right upper extremity weakness compared to the left -Left upper extremity held up against gravity did not fall and hit the bed -Right upper extremity was held up against gravity but would fall and hit the bed -I calculated her NIH stroke scale at 10 -code stroke: 10;31am -Patient was taken to CT scan -Head CT negative for acute stroke, negative for intracranial bleed -Dr. 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
[2022-01-28 10:58] LABS: Troponin(5th) Baseline 89 ng/L (0-10)
[2022-01-28 11:06] LABS: Alanine Aminotransferase 18 U/L (0-33); Albumin Level 2.8 g/dL (3.5-5.2); Alkaline Phosphatase 76 U/L (35-105); Anion Gap 17.3 (5-19); Aspartate Amino Transferase 18 U/L (0-32); Blood Urea Nitrogen 25 mg/dL (8-23); Calcium 9.1 mg/dL (8.5-10.5); Carbon Dioxide 21 mmol/L (22-29); Chloride 102 mmol/L (98-107); Globulin 1.9 g/dL (1.3-4.6); Glucose 180 mg/dL (65-115); Osmolality Calculated 291 mOsm/kg (285-295); Potassium 4.3 mmol/L (3.5-5.1); Sodium 136 mmol/L (136-145); Total Bilirubin 0.3 mg/dL (0.15-1.2); Total Protein 4.7 g/dL (6.6-8.7)
[2022-01-28 11:16] LABS: INR 1.02 (0.8-1.2)
[2022-01-28 11:16] LABS: Glucose Point of Care 165 mg/dL (70-110)
--- NOTE | 2022-01-28 11:26 | PC.NURSE ---
pt assisted to restroom by nurse tech.pt stated she was finished..nurse tech assisted pt up from toilet.pt took a few steps and stated i cant .nurse tech helped pt back on to commode and pt slumped over.nurse tech pulled emergency call light.pt total lift onto bed.rapid response called.blood sugar 165.bp 99/62.hr 75 (sr).resp 22 and unlabored.pt opens eyes to name.dr hoff present and he preformed nihss stroke scale.pt appears weaker on right side.speech present..but slow to respond.emergent cta ordered.tpa given in ct scan..and pt transferred to icu.
[2022-01-28 11:38] LABS: Hepatitis B Surface AB 286.6 (11.5-1000); Hepatitis B Surface Antigen Non-Reactive (Nonreactive); Hepatitis C Virus Antibody Non-Reactive (Nonreactive)
[2022-01-28 11:50] LABS: Glucose Point of Care 177 mg/dL (70-110)
--- NOTE | 2022-01-28 11:54 | PC.NURSE ---
TPA done infusing at 1138
--- NOTE | 2022-01-28 11:56 | PC.NURSE ---
Pt brought to ICU at 1120. Initial stroke scale at 16. Patient is A&O to self and place. See assessment for details. All belongings placed in room.
[2022-01-28] MEDS: insulin lispro 100 unit/1 mL SUBCUT ×2 (12:25→20:49)
[2022-01-28] MEDS: magnesium sulfate premix 4 GM/100 ML PREMIX IV (12:27)
--- NOTE | 2022-01-28 12:40 | PM.PN ---
Subjective Subjective: - Please look at my critical care progress note -Patient was examined in the ICU she is alert to person, to place, no significant right facial droop, expressive aphasia has resolved she can follow commands, easily arousable, has equal strength bilateral upper and lower extremities, saturating 100% room air, she is in normal sinus rhythm on telemetry, blood pressure 162/69 Vitals/I&O/Wt Last Vital Signs Temp 97.6 F 01/28/22 11:32 Pulse 84 01/28/22 12:15 Resp 17 01/28/22 12:15 BP 162/69 01/28/22 12:15 Pulse Ox 90 01/28/22 12:15 O2 Del Method 01/28/22 10:57 01/27/22 01/28/22 01/28/22 22:59 06:59 14:59 Intake Total 682.167 / 682.167 153.833 / 836.000 Balance 682.167 / 682.167 153.833 / 836.000 Weight last 48 hrs Weight 59.562 kg Weight 40.823 kg Physical Exam Const: COMMON NORMALS: no acute distress ORIENTATION/CONSCIOUSNESS: Yes awake, Yes oriented to person and Yes oriented to place; not oriented to time Chest: OTHER: Left breast, mass, superficial, seems like a hematoma versus mass measuring 5 x 5 cm round monitor Resp: COMMON NORMALS: normal respiratory effort, No retractions, No use of accessory muscles and clear to auscultation bilaterally AUSCULTATION: clear to auscultation bilaterally Cardio: COMMON NORMALS: S2 normal heart sound present HEART SOUNDS: S2 normal heart sound present GI: COMMON NORMALS: Normal to inspection, nondistended, normoactive bowel sounds present and non-tender Extremity: COMMON NORMALS: no pedal edema Neuro: COMMON NORMALS: CN's II-XII intact bilaterally, moves all extremities and no focal motor deficits SENSORIUM/ORIENTATION: Yes oriented to person, Yes oriented to place and No oriented to time Psych: COMMON NORMALS: mental status grossly normal Data 01/28/22 10:25 01/28/22 10:25 Micro: Microbiology 01/27/22 13:46 Urine Culture - Preliminary Urine,Clean Catch Strep species, gamma-hemolytic 01/27/22 15:30 Blood Culture - Preliminary Blood SPECIMEN COLLECTED 01/27/22 15:34 Blood Culture - Preliminary Blood SPECIMEN COLLECTED A&P Assessment and plan (1) Acute CVA (cerebrovascular accident): - NIH stroke scale 10 -CT head on admission within normal limits no acute bleed -Repeat CT head no acute findings -?Normal left ventricular size and systolic function, EF 68 %. No ?regional wall motion abnormalities. Mild to moderate concentric ?left ventricular hypertrophy. Grade I/IV diastolic dysfunction ?(abnormal relaxation filling pattern), normal to mildly elevated ?filling pressures. ?Mildly increased left atrial size. ?Moderate mitral annular calcification. ?Moderate aortic valve calcification. Thickened aortic valve.? ?Mild aortic valve regurgitation. Aortic valve sclerosis. ?Trace tricuspid valve regurgitation. ?Mild pulmonary valve regurgitation. ?Estimated pulmonary artery peak systolic pressure 36 mmHg ?There is no pericardial effusion. ?There are no intracardiac masses. ?There is no pericardial effusion. ?Comparison with the previous study is difficult because of the ?difference in the technical quality.? However there may not be a ?significant change in the 2D findings -Expressive aphasia, right facial droop, slightly lower right upper extremity weakness and left -History of A. fib, paroxysmal not on anticoagulation due to history of GI bleed -Admitted for altered mental status, A. fib with RVR, converted to normal sinus rhythm sometime during the night -Currently in normal sinus rhythm, not on anticoagulation due to history of bleeding -Status post tPA -Currently ICU -Alert to person, to place, following commands, no significant facial droop, no significant weakness -Allow for permissive hypertension -Treat systolic of greater than 180, diastolic greater than 100 -Nurse dysphagia screen -Aspirin, statin -PT OT -Hold blood thinners -CT angiogram of the head and neck ordered -The ultimate question is whether this was an embolic phenomenon from her atrial fibrillation given the clinical presentation is highly suspicious -The issue is with her history of GI bleeds -We will have to look if she is ever had a EGD or colonoscopy -We might consider a trial of anticoagulation in 2 weeks depending on what neurology recommends -We will do iron studies, Hemoccult stool, but I cannot see that in the past she has had a Hemoccult positive stool (2) Infectious encephalopathy: -Was at baseline in the morning before acute CVA -On broad-spectrum antibiotic therapy (3) UTI (urinary tract infection): In a patient with known recurrent UTIs, present on admission. Has urethral narrowing as a contributing factor and a history of chronic cystitis. Reports dysuria and baseline and recently. Elevated WBC, abnormal urinalysis with too numerous to count WBCs, general malaise lately and GI symptoms. Qualifiers: Urinary tract infection type: acute cystitis Hematuria presence: without hematuria Qualified Code(s): N30.00 - Acute cystitis without hematuria (4) Diarrhea: Started last , several times per day, watery. Unable to quantify further. No blood or mucus reported. No abdominal pain. Bowels movements normal prior to onset of diarrhea. No known sick contact with similar symptoms. During hospital stay in November of this year patient has CT of the abdomen and pelvis that showed thickening of the proximal duodenal loops, narrowing of the lumen and omental inflammatory stranding suggesting localized inflammatory disease. She did complain of abdominal pain, cramping and poor appetite then but no other GI symptoms were reported. (5) Atrial fibrillation: With rapid ventricular response, in a patient with history of intermittent atrial fibrillation in past, first noted after episode of pulmonary embolism in 2019. Holter in 2020 without evidence of afib noted. In sinus rhythm. Is chronically on rate controlling medications of carvedilol and diltiazem. No anticoagulation due to history of anemia and GI bleeding. -We will find records for GI bleed Qualifiers: Atrial fibrillation type: paroxysmal Qualified Code(s): I48.0 - Paroxysmal atrial fibrillation (6) Generalized weakness: Has to some degree at baseline, but more pronounced than usual today, requiring wheelchair and other assitance she does not usually require. (7) Chronic kidney disease, stage V requiring chronic dialysis: Usually Thursday, , Thursday, but for Thu/Thu/Thu this week in lieu of holiday week. Missed today. Follows with another doctor in Dr Chester's group. (8) HTN (hypertension): Not controlled currently; did not take morning or midday medications today and missed hemodialysis. Normally on Bumex, diltiazem, carvedilol, hydralazine. Qualifiers: Hypertension type: primary hypertension Qualified Code(s): I10 - Essential (primary) hypertension (9) Type 2 diabetes mellitus: Chronically on glimepiride 2mg. Prescribed glargine insulin but has not been taking it for some time. Qualifiers: Diabetes mellitus watch hairspring assembler insulin use: without watch hairspring assembler use Diabetes mellitus complication status: with kidney complications Diabetes mellitus complication detail: with chronic kidney disease Chronic kidney disease stage: on chronic dialysis Qualified Code(s): E11.22 - Type 2 diabetes mellitus with diabetic chronic kidney disease; N18.6 - End stage renal disease; Z99.2 - Dependence on renal dialysis (10) Heart failure with preserved ejection fraction: Not acute Qualifiers: Heart failure chronicity: chronic Qualified Code(s): I50.32 - Chronic diastolic (congestive) heart failure (11) Iron deficiency anemia: Presently with hemoglobin of 12.7 though appear volume depleted. No recent gross blood loss noted. Qualifiers: Iron deficiency anemia type: unspecified iron deficiency Qualified Code(s): D50.9 - Iron deficiency anemia, unspecified Plan Inpatient admission Continue Zosyn Follow up pending urine and blood cultures Stool studies Off Cardizem drip Kidneys metoprolol pushes or Cardizem pushes for A. fib with RVR Telemetry monitoring Continue serial cardiac enzymes PT and OT evaluation Nephrology for regular hemodialysis Monitor blood pressure response to treatment Sliding scale insulin Check A1c 8 -Replace magnesium Recheck TSH, along with free T4, as was low normal in 11/2021 Watch I&Os, overall volume status Monitor hemoglobin for drop with hydration Continue home atorvastatin, allopurinol, half usual dose mirtazepine and sodium bicarbonate plus renal vitamin SQ heparin for DVT prophylaxis currently on hold, SCDs PPI for GI prophylaxis Lactobacilus Supportive care otherwise Anticipate home with follow up to nephrology, dialysis clinic (will need to check holiday chair schedule), and Dr Morales, primary care provider plus or minus Dr Mosquera. Depending on clinical course with diarrhea, could consider further diagnostic evaluation regarding inflammatory cahnges noted on CT imaging of abdomen in November. Findings, concerns and plans were discussed with patient and family members in the room. These included her [id number], her niece and her great niece. All were given an opportunity to ask questions. Full code Attestations Medical Necessity Statement*: Patient requires hospitalization for acute CVA inpatient, greater than 2 midnights Coding Level of Care Code Acute Bark Grinder for [facility] Fwd Diagnoses Acute CVA (cerebrovascular accident) I63.9 Infectious encephalopathy G93.49; B99.9 UTI (urinary tract infection) N30.00 Urinary tract infection type: acute cystitis Hematuria presence: without hematuria Diarrhea R19.7 Atrial fibrillation I48.0 Atrial fibrillation type: paroxysmal Generalized weakness R53.1 Chronic kidney disease, stage V requiring chronic dialysis N18.6; Z99.2 HTN (hypertension) I10 Hypertension type: primary hypertension Type 2 diabetes mellitus E11.22; N18.6; Z99.2 Diabetes mellitus watch hairspring assembler insulin use: without watch hairspring assembler use Diabetes mellitus complication status: with kidney complications Diabetes mellitus complication detail: with chronic kidney disease Chronic kidney disease stage: on chronic dialysis Heart failure with preserved ejection fraction I50.32 Heart failure chronicity: chronic Iron deficiency anemia D50.9 Iron deficiency anemia type: unspecified iron deficiency
--- NOTE | 2022-01-28 12:42 | US_ITS ---
WS: [id number] RENAL ULTRASOUND HISTORY: uti COMPARISON: 07/10/2020 TECHNIQUE: 2-D and color Doppler imaging of the kidney submitted. Right kidney: 10.3 cm x 4.1 cm x 4.3 cm. Normal size kidney. Increased echogenicity without significant cortical thinning. Cortex measures 1.2 cm. There are numerous small acquired renal cysts. No solid mass. Largest cyst measures 1.7 cm in th e lower pole. Left kidney: 9.4 cm x 3.2 cm x 4.0 cm. Low normal size kidney with increased echogenicity. Cortex measures 1.2 cm. Several small acquired cy sts. The largest measures 2.3 x 1.9 x 2.8 cm from the lower pole. No solid mass. Aorta: Atherosclerotic disease. Urinary Bladder: Minimally distended. US/US renal BI* [id number] IMPRESSION: 1. Unchanged mild bilateral chronic medical renal disease. No progression of c ortical atrophy or cortical thinning. 2. Bilateral renal cysts are stable.
[2022-01-28 12:58] LABS: Troponin 5 2HR 109.6 ng/L (0-10); Troponin 5 2HR Delta 20.6 ABS# (0-10)
[2022-01-28 13:51] LABS: Ferritin 117 ng/mL (15-150); Iron 80 ug/dL (37-145); Percent Saturation 33.6 % (20-50); Total Iron Binding Capacity 238 mcg/dl; Unsaturated Iron Binding 158 ug/dL (112-347)
[2022-01-28 14:06] LABS: Vitamin B12 401 pg/mL (232-1245)
[2022-01-28 14:22] LABS: Basophils % 0.4 %; Eosinophils # 0.2 10^3/uL (0.0-0.8); Eosinophils % 1.6 %; Hematocrit 35.1 % (37.0-47.0); Hemoglobin 10.9 g/dL (11.5-15.3); Lymphocytes # 1.8 10^3/uL (0.8-4.8); Lymphocytes % 17.7 %; Mean Corpuscular HGB Conc 31.1 g/dL (30.0-36.0); Mean Corpuscular Hemoglobin 29.3 pg (28.0-34.0); Mean Corpuscular Volume 94.4 fl (81-99); Mean Platelet Volume 10.9 fL (7.4-10.4); Monocytes # 0.8 10^3/uL (0.2-0.9); Monocytes % 7.4 %; Neutrophils % 72.4 %; Nucleated Red Blood Cells % 0 %; Platelet Count 218 10^3/cmm (130-400); Red Blood Count 3.72 10^6/uL (4.1-5.3); Red Cell Distribution Width 15.1 % (12.1-15.1); White Blood Count 10.2 10^3/uL (4.0-10.0)
[2022-01-28 14:36] LABS: Folate Level > 20.0 ng/mL (4.8-37.3)
[2022-01-28] MEDS: iohexol 350 mg/mL 500 mL Btl (per mL) IV (14:42)
[2022-01-28 15:29] LABS: ABG PCO2 31.3 mmHg (35-45); ABG PH Result 7.47 (7.35-7.45); Arterial Blood Gas Hematocrit 33.5 % (37-47); Blood Gas Allen Test Pos; Blood Gas Operator Identificat GD; Blood Gas Sample Site Radial, right; Blood Gas Sample Type Arterial; Oxygen Device ROOM AIR; PO2 ABG 65.8 mmHg (80.0-100.0)
--- NOTE | 2022-01-28 16:13 | ECG_ITS ---
[facility] Test Date: 2022-01-28 Pat Name: Shilpi Nicole Department: Room: [facility] Gender: Female Barge Hand: : 1945 Requested By: Oral Palacio Order Number: [id number] Dionne MD: Cal Torres M.D. Measurements Intervals [place] Rate: 76 P: -9 MO: 157 QRS: -32 QRSD: 76 T: -67 QT: 380 QTc: 427 Interpretive Statements SINUS RHYTHM WITH OCCASIONAL SUPRAVENTRICULAR PREMATURE COMPLEXES INFERIOR MYOCARDIAL INFARCTION , OF INDETERMINATE AGE [40+ ms Q WAVE AND/OR ST/T ABNORMALITY IN II/aVF] Compared to ECG 01/28/2022 10:12:08 Left anterior fascicular block no longer present Possible ischemia no longer present Myocardial infarct finding still present Electronically Signed On 01-28-2022 20:46:05 PROFESSOR OF POULTRY SCIENCE by Cal Torres M.D. [email or web address]
[2022-01-28 17:04] LABS: Glucose Point of Care 92 mg/dL (70-110)
[2022-01-28 17:38] LABS: Troponin 5 6HR 98.85 ng/L (0-10)
[2022-01-28 17:47] LABS: Troponin 5 6HR Delta 9.85 ng/L (0-12)
[2022-01-28] MEDS: lactobacillus 1 Tablet 1 TAB PO (18:05)
[2022-01-28 20:16] LABS: Glucose Point of Care 180 mg/dL (70-110)
[2022-01-28] MEDS: mirtazapine 30 mg Tablet 15 MG PO (20:48)
[2022-01-28] MEDS: atorvastatin 40 mg Tablet 10 MG PO (20:48)
[2022-01-28] MEDS: labetalol 5 mg/mL SDV 20mL 10 MG IVP (22:37)
[2022-01-29] VITALS (39 sets, daily range): BP systolic 141–198; BP diastolic 67–150; PULSE 78–116; RESP 12–31; TEMP 36.8–37.2; O2SAT 90–99
[2022-01-29] MEDS: labetalol 5 mg/mL SDV 20mL 10 MG IVP ×4 (02:35→17:19)
[2022-01-29] MEDS: acetaminophen 325 mg Tablet 650 MG PO ×2 (02:50→22:40)
[2022-01-29 03:50] LABS: Basophils % 0.3 %; Eosinophils # 0.2 10^3/uL (0.0-0.8); Eosinophils % 1.4 %; Hematocrit 35.1 % (37.0-47.0); Lymphocytes # 1.8 10^3/uL (0.8-4.8); Mean Corpuscular HGB Conc 31.3 g/dL (30.0-36.0); Mean Corpuscular Volume 92.6 fl (81-99); Mean Platelet Volume 11.4 fL (7.4-10.4); Monocytes # 0.9 10^3/uL (0.2-0.9); Neutrophils # 7.85 10^3/uL (1.8-7.7); Neutrophils % 72.6 %; Nucleated Red Blood Cells % 0 %; Platelet Count 243 10^3/cmm (130-400); Red Blood Count 3.79 10^6/uL (4.1-5.3); Red Cell Distribution Width 15.4 % (12.1-15.1); White Blood Count 10.8 10^3/uL (4.0-10.0)
[2022-01-29 04:21] LABS: Procalcitonin 0.25 ng/mL (0-0.5)
[2022-01-29 04:24] LABS: INR 1.01 (0.8-1.2)
[2022-01-29 04:25] LABS: Fibrinogen 410 mg/dL (174-498)
[2022-01-29 04:34] LABS: Alanine Aminotransferase 20 U/L (0-33); Alkaline Phosphatase 87 U/L (35-105); Anion Gap 15.3 (5-19); Aspartate Amino Transferase 22 U/L (0-32); Blood Urea Nitrogen 11 mg/dL (8-23); C Reactive Protein 8.8 mg/L (0.0-4.9); Calcium 8.9 mg/dL (8.5-10.5); Carbon Dioxide 26 mmol/L (22-29); Chloride 98 mmol/L (98-107); Globulin 2.2 g/dL (1.3-4.6); Glucose 314 mg/dL (65-115); Magnesium 2.2 mg/dL (1.7-2.3); Osmolality Calculated 293 mOsm/kg (285-295); Phosphorus 2.3 mg/dL (2.5-4.5); Potassium 3.3 mmol/L (3.5-5.1); Sodium 136 mmol/L (136-145); Total Bilirubin 0.2 mg/dL (0.15-1.2); Total Protein 5.2 g/dL (6.6-8.7)
--- NOTE | 2022-01-29 04:35 | PC.NURSE ---
Addendum entered by Vane Rios RN 01/29/22 04:54: Dr. Villarreal gave new BP parameters for a max of 185/105. Original Note: Pt has had PRN labetalol twice. BP continues to be elevated. Current BP is 188/79. Dr. Villarreal updated. No news orders at this time.
[2022-01-29 04:41] LABS: NT Pro B Type Natriuretic Pept 27598 pg/mL (0-450)
--- NOTE | 2022-01-29 06:57 | PM.PN ---
Subjective Subjective: more alert today, speech improved, slightly confused Vitals/I&O/Wt Last Vital Signs Temp 98.0 F 01/28/22 20:30 Pulse 84 01/29/22 06:00 Resp 25 H 01/29/22 05:30 BP 187/73 01/29/22 05:30 Pulse Ox 95 01/29/22 05:30 O2 Del Method 01/29/22 03:00 01/28/22 01/28/22 01/29/22 14:59 22:59 06:59 Intake Total 100 / 100 Output Total 60 / 70 Balance 90 / 90 -60 / 30 Weight last 48 hrs Weight 59.562 kg Weight 40.823 kg Physical Exam Const: COMMON NORMALS: no acute distress and alert HENMT: OTHER: right IJ/SCV tunneled HD catheter Neuro: SENSORIUM/ORIENTATION: Yes alert Data 01/29/22 02:36 01/29/22 02:36 Micro: Microbiology 01/27/22 15:30 Blood Culture - Preliminary Blood NEGATIVE TO DATE 01/27/22 15:34 Blood Culture - Preliminary Blood NEGATIVE TO DATE 01/27/22 13:46 Urine Culture - Preliminary Urine,Clean Catch Strep species, gamma-hemolytic A&P Assessment and plan (1) ESRD (end stage renal disease): seen via telemedicine with assistance of RN at bedside Plan 1. ESRD since November 2021. HD T//S via right IJ tunneled HD catheter 2. Admitted with Diarrhea, UTI, culture growing strep species. atrial fibrillation. 3. Possible CVA s/p CTA 4. hypertension 5. diabetes Plan: HD tomorrow, 3h, 1500 ml UF, 3k. Discontinue sodium bicarbonate, iron, Mg Attestations Medical Necessity Statement*: per primary service Time Spent in Patient Care: 16 - 35 minutes Coding Level of Care Code Acute Records Management Manager for [facility] Fwd Diagnoses ESRD (end stage renal disease) N18.6
[2022-01-29 07:40] LABS: Glucose Point of Care 237 mg/dL (70-110)
[2022-01-29] MEDS: pantoprazole DR 40 mg Tablet PO (08:02)
[2022-01-29] MEDS: sodium bicarbonate 650 mg Tablet PO (08:03)
[2022-01-29] MEDS: ferrous sulfate EC 325 mg Tablet PO (08:03)
[2022-01-29] MEDS: magnesium oxide 400 mg tablet PO (08:03)
[2022-01-29] MEDS: bumetanide 1 mg Tablet 2 MG PO (08:03)
[2022-01-29] MEDS: allopurinol 100 mg Tablet PO (08:03)
[2022-01-29] MEDS: lactobacillus 1 Tablet 1 TAB PO ×2 (08:03→18:19)
[2022-01-29] MEDS: b-complex-vitamin c Tablet 1 EACH PO (08:03)
[2022-01-29] MEDS: aspirin 81 mg EC Tablet PO (08:03)
[2022-01-29] MEDS: insulin lispro 100 unit/1 mL SUBCUT ×2 (08:04→18:20)
[2022-01-29] MEDS: prenatal vitamin Capsule 1 CAP PO (09:39)
--- NOTE | 2022-01-29 10:23 | PC.CHAP ---
Pastoral Care Encounter/Spiritual Assessment Type of Contact [] Declined administrative processor visit [] Patient/Family/Request visit [] Outpatient visit [] Follow-up visit [] Physician referral [] Code/Alert [x] Routine visit [] Staff referral [] Actively dying [x] Patient sleeping [] Family support [] [] Out of room [] Palliative care [] [] Receiving care in room [] Pre-surgical visit [] Trauma [] Long length of stay [x] ICU visit [] Other: Relational/Emotional Strength [] Patient feels connected with others/family/visitors/staff [] Distress [] Loneliness/isolation [] Abandonment Spirituality of Patient [] Person of Nancy [] Attends Yazidi of their Nancy [] Believes in Prayer [] Reads Bible or Mormon materials [] There are Spiritual issues to be addressed Construction Or Leak Gang Laborer Interventions [x] Prayer [] Active listening [] Non-anxious presence [] Spiritual/emotional support [] Crisis/trauma care [] Spiritual counseling [] Bereavement support [] Provided bereavement packet [] Provided Bible/devotional materials [] Provided toy/stuffed animal, coloring book to patient or family member [] Provided Communion [] Anointing/[place] [] Salvation [x] Completed spiritual assessment [] Other: Impact on Illness or Injury [] Angry [] Fearful [] Anxious [] Often cries [] Exhaustion [] Unable to work [] Unable to attend anabaptism [] Unable to walk/stand [] Unable to read [] Unable to drive [] Unable to eat/drink [] Unable to sleep [] Unable to be with family [] Patient intubated [] Other: Summary Time spent with patient
--- NOTE | 2022-01-29 11:27 | CT_ITS ---
WS: [id number] CT HEAD NONCONTRAST HISTORY: s/p tpa TECHNIQUE: Contiguous axial imaging performed through the brain in 2.5 mm imaging. Bone and soft tiss ue windows. Sagittal and coronal reformats reviewed. All CT scans at [facility] use at least one of these dose optimization techniques: automated exposure control; mA and/or kV adjustment per pa tient size (includes targeted exams where dose is matched to clinical indication); or iterative recon struction. DLP: 991.62 mGy.cm COMPARISON: 01/28/2022 No acute intracranial hemorrhage, midline shift or mass effect. Moderate atrophy and extensive small vessel ischemic disease. No new area of sulcal effacement. Ventricles: Mild ventriculomegaly. No inferior displacement of the cerebellar tonsils. Paranasal sinuses: As visualized are clear. Mastoid air cells: Well pneumatized. Calvarium and scalp: Skull is intact with no soft tissue edema or swelling. CT/CT head wo con* [id number] IMPRESSION: 1. No acute intracranial hemorrhage or edema. 2. Moderate atrophy with extensive small vessel ischemic changes which are sta ble.
[2022-01-29] MEDS: metoprolol tartrate 25 mg Tablet PO (11:42)
[2022-01-29 11:48] LABS: Glucose Point of Care 132 mg/dL (70-110)
--- NOTE | 2022-01-29 12:34 | P.PN_ITS ---
Subjective Subjective: patient was seen this morning, she is alert oriented X3, follows all commands, she has not complaints of productive or rceptive apahasia, no focal weakness but feels tired all over, no visual changes Vitals/I&O/Wt Last Vital Signs Temp 98.9 F 01/29/22 09:00 Pulse 89 01/29/22 09:00 Resp 26 H 01/29/22 09:00 BP 156/122 01/29/22 09:00 Pulse Ox 95 01/29/22 05:30 O2 Del Method 01/29/22 03:00 01/28/22 01/29/22 01/29/22 22:59 06:59 14:59 Intake Total 100 / 100 236 / 236 Output Total 60 / 70 30 / 30 Balance 90 / 90 -60 30 206 / 206 Weight last 48 hrs Weight 59.562 kg Physical Exam Const: COMMON NORMALS: no acute distress and patient oriented x3 Resp: COMMON NORMALS: normal respiratory effort, No retractions, No use of accessory muscles and clear to auscultation bilaterally AUSCULTATION: clear to auscultation bilaterally Cardio: COMMON NORMALS: regular rate, regular rhythm, S1 normal heart sound present and S2 normal heart sound present RATE: regular rate RHYTHM: regular rhythm HEART SOUNDS: S1 normal heart sound present and S2 normal heart sound present GI: COMMON NORMALS: Normal to inspection, nondistended, normoactive bowel sounds present and non-tender Extremity: COMMON NORMALS: no pedal edema Neuro: COMMON NORMALS: patient oriented x3, CN's II-XII intact bilaterally, moves all extremities and no focal motor deficits Psych: COMMON NORMALS: mental status grossly normal Data 01/29/22 02:36 01/29/22 02:36 Micro: Microbiology 01/29/22 07:17 Stool Lactoferrin - Final Stool Occult Blood (FIT) - Final 01/27/22 15:30 Blood Culture - Preliminary Blood NEGATIVE TO DATE 01/27/22 15:34 Blood Culture - Preliminary Blood NEGATIVE TO DATE 01/27/22 13:46 Urine Culture - Preliminary Urine,Clean Catch Strep species, gamma-hemolytic A&P Assessment and plan (1) Acute CVA (cerebrovascular accident): - NIH stroke scale 10 -CT head on admission within normal limits no acute bleed -Repeat CT head no acute findings -?Normal left ventricular size and systolic function, EF 68 %. No ?regional wall motion abnormalities. Mild to moderate concentric ?left ventricular hypertrophy. Grade I/IV diastolic dysfunction ?(abnormal relaxation filling pattern), normal to mildly elevated ?filling pressures. ?Mildly increased left atrial size. ?Moderate mitral annular calcification. ?Moderate aortic valve calcification. Thickened aortic valve.? ?Mild aortic valve regurgitation. Aortic valve sclerosis. ?Trace tricuspid valve regurgitation. ?Mild pulmonary valve regurgitation. ?Estimated pulmonary artery peak systolic pressure 36 mmHg ?There is no pericardial effusion. ?There are no intracardiac masses. ?There is no pericardial effusion. ?Comparison with the previous study is difficult because of the ?difference in the technical quality.? However there may not be a ?significant change in the 2D findings -ct angio head and neck 1.? No high-grade cervical carotid artery stenosis. Calcified plaque in the bifurcations. Stenosis estimated 50%. 2.? Extensive calcified plaque in the distal intracranial carotid arteries with stenoses approximately 60-70% in greatest on the RIGHT. 3.? No thrombus in the middle cerebral artery. 4.? Moderately calcified distal vertebral arteries. -Expressive aphasia, right facial droop, slightly lower right upper extremity we akness and left resolved -History of A. fib, paroxysmal not on anticoagulation due to history of GI bleed -Admitted for altered mental status, A. fib with RVR, converted to normal sinus rhythm sometime during the night -Currently in normal sinus rhythm, not on anticoagulation due to history of bleeding -Status post tPA -Currently ICU -aaox3, no focal weakness, no visual deficits -start metoprolol 25mg BID -Treat systolic of greater than 180, diastolic greater than 100 -Nurse dysphagia screen -Aspirin, statin -PT OT -heparin for dvt prophylaxis -The ultimate question is whether this was an embolic phenomenon from her atrial fibrillation given the clinical presentation is highly suspicious -The issue is with her history of GI bleeds, she denies any but her hemmocut stool is positive and she has had anemia of hgb<7 -We will have to look if she is ever had a EGD or colonoscopy -We might consider a trial of anticoagulation in 2 weeks or sooner (2) Infectious encephalopathy: -Was at baseline in the morning before acute CVA -On broad-spectrum antibiotic therapy (3) UTI (urinary tract infection): In a patient with known recurrent UTIs, present on admission. Has urethral narrowing as a contributing factor and a history of chronic cystitis. Reports dysuria and baseline and recently. Elevated WBC, abnormal urinalysis with too numerous to count WBCs, general malaise lately and GI symptoms. Qualifiers: Urinary tract infection type: acute cystitis Hematuria presence: without hematuria Qualified Code(s): N30.00 - Acute cystitis without hematuria (4) Diarrhea: Started last , several times per day, watery. Unable to quantify further. No blood or mucus reported. No abdominal pain. Bowels movements normal prior to onset of diarrhea. No known sick contact with similar symptoms. During hospital stay in November of this year patient has CT of the abdomen and pelvis that showed thickening of the proximal duodenal loops, narrowing of the lumen and omental inflammatory stranding suggesting localized inflammatory disease. She did complain of abdominal pain, cramping and poor appetite then but no other GI symptoms were reported. (5) Atrial fibrillation: With rapid ventricular response, in a patient with history of intermittent atrial fibrillation in past, first noted after episode of pulmonary embolism in 2019. Holter in 2020 without evidence of afib noted. In sinus rhythm. Is chronically on rate controlling medications of carvedilol and diltiazem. No anticoagulation due to history of anemia and GI bleeding. -We will find records for GI bleed Qualifiers: Atrial fibrillation type: paroxysmal Qualified Code(s): I48.0 - Paroxysmal atrial fibrillation (6) Generalized weakness: Has to some degree at baseline, but more pronounced than usual today, requiring wheelchair and other assitance she does not usually require. (7) Chronic kidney disease, stage V requiring chronic dialysis: Usually Thursday, , Thursday, but for Thu/Thu/Thu this week in lieu of holiday week. Missed today. Follows with another doctor in Dr Chester's group. (8) HTN (hypertension): Not controlled currently; did not take morning or midday medications today and missed hemodialysis. Normally on Bumex, diltiazem, carvedilol, hydralazine. Qualifiers: Hypertension type: primary hypertension Qualified Code(s): I10 - Essential (primary) hypertension (9) Type 2 diabetes mellitus: Chronically on glimepiride 2mg. Prescribed glargine insulin but has not been taking it for some time. Qualifiers: Diabetes mellitus ferry terminal agent insulin use: without retirement use Diabetes mellitus complication status: with kidney complications Diabetes mellitus complication detail: with chronic kidney disease Chronic kidney disease stage: on chronic dialysis Qualified Code(s): E11.22 - Type 2 diabetes mellitus with diabetic chronic kidney disease; N18.6 - End stage renal disease; Z99.2 - Dependence on renal dialysis (10) Heart failure with preserved ejection fraction: Not acute Qualifiers: Heart failure chronicity: chronic Qualified Code(s): I50.32 - Chronic diastolic (congestive) heart failure (11) Iron deficiency anemia: Presently with hemoglobin of 12.7 though appear volume depleted. No recent gross blood loss noted. Qualifiers: Iron deficiency anemia type: unspecified iron deficiency Qualified Code(s): D50.9 - Iron deficiency anemia, unspecified Plan Inpatient admission Continue Zosyn Follow up pending urine and blood cultures Stool studies Off Cardizem drip Kidneys metoprolol pushes or Cardizem pushes for A. fib with RVR Telemetry monitoring Continue serial cardiac enzymes PT and OT evaluation Nephrology for regular hemodialysis Monitor blood pressure response to treatment Sliding scale insulin Check A1c 8 -Replace magnesium Recheck TSH, along with free T4, as was low normal in 11/2021 Watch I&Os, overall volume status Monitor hemoglobin for drop with hydration Continue home atorvastatin, allopurinol, half usual dose mirtazepine and sodium bicarbonate plus renal vitamin SQ heparin for DVT prophylaxis, SCDs PPI for GI prophylaxis Lactobacilus Supportive care otherwise Anticipate home with follow up to nephrology, dialysis clinic (will need to check holiday chair schedule), and Dr Morales, primary care provider plus or minus Dr Mosquera. Depending on clinical course with diarrhea, could consider further diagnostic evaluation regarding inflammatory cahnges noted on CT imaging of abdomen in November. Findings, concerns and plans were discussed with patient and family members in the room. These included her [id number], her niece and her great niece. All were given an opportunity to ask questions. Full code Attestations Medical Necessity Statement*: patient requires hospitalization for embolic cva Coding Level of Care Code Acute Strategic Debriefing Officer for [facility] Fwd Diagnoses Acute CVA (cerebrovascular accident) I63.9 Infectious encephalopathy G93.49; B99.9 UTI (urinary tract infection) N30.00 Urinary tract infection type: acute cystitis Hematuria presence: without hematuria Diarrhea R19.7 Atrial fibrillation I48.0 Atrial fibrillation type: paroxysmal Generalized weakness R53.1 Chronic kidney disease, stage V requiring chronic dialysis N18.6; Z99.2 HTN (hypertension) I10 Hypertension type: primary hypertension Type 2 diabetes mellitus E11.22; N18.6; Z99.2 Diabetes mellitus ferry terminal agent insulin use: without retirement use Diabetes mellitus complication status: with kidney complications Diabetes mellitus complication detail: with chronic kidney disease Chronic kidney disease stage: on chronic dialysis Heart failure with preserved ejection fraction I50.32 Heart failure chronicity: chronic Iron deficiency anemia D50.9 Iron deficiency anemia type: unspecified iron deficiency
--- NOTE | 2022-01-29 13:48 | XRR_ITS ---
PROCEDURE INFORMATION: Exam: XR Left Ankle Exam date and time: 01/29/2022 1:39 PM Age: 76 years old Clinical indication: Pain; Ankle; Left; Additional info: Lt ankle pain TECHNIQUE: Imaging protocol: Radiologic exam of the Left ankle. Views: 1 or 2 views. COMPARISON: No relevant prior studies available. FINDINGS: Bones/joints: Negative for acute bony abnormality. Soft tissues: Unremarkable XR/XR ankle LT 2V [id number] IMPRESSION: No acute findings.
[2022-01-29] MEDS: amlodipine 10 mg Tablet PO (14:15)
--- NOTE | 2022-01-29 16:37 | P.PNCC_ITS ---
Stroke Alert Activation ED Arrival Date: 01/28/22 ED Arrival Time: 10:30 ED Physican at Bedside: 10:30 Other Last Known Well Infomation: Stroke alert was called on this patient who was in room 106 on the cardiac stepdown unit. Dr. Palacio was the witness. He saw her in the morning and found that she was mildly confused in a nonspecific way but fully oriented and with clear speech and no focal findings on neurologic exam. He was called by the nurses because she got up to the commode and had a syncopal episode. They got her back to the bed at and she was awake and alert with no abnormal findings on exam but then a short time later she was found to be aphasic with flattening of the right side of the face and right-sided weakness. Dr. Palacio called a code stroke and I met him in the CAT scan suite. The patient completed her CT of the head while I watched on the monitor and the study did not show any abnormalities. I performed a neurologic exam and Dr. Palacio asked the staff to pull tPA. The patient would make eye contact but would not follow commands and she appeared to have receptive aphasia. I could not convince myself that she had a right visual field cut but she was not responding to threat well on either side. She would say occasional words but they were not appropriate, again suggesting a receptive more than expressive aphasia. She had flattening of the right nasolabial fold. She did not have any other clear focal findings at the time of my exam. I felt that because of the density of her aphasia we should go ahead with tPA and the bolus was given there in the CAT scan suite and tPA was started. The primary care coordinator gave the bolus and wasted the remainder as appropriate. Patient only had 1 IVs so she was transferred back to ICU with a plan to complete her CT angiogram later. Stroke Alert Activated by: First Floor nurses and Dr. Palacio Stroke Alert Activation Date: 01/28/22 Stroke Alert Activation Time: 10:30 NIH Stroke Scale Time: 10:50 NIH stroke score NIHSS: Level Of Consciousness - 1a: 1 Level Of Consciousness Commands - 1c: Neither Correct Best Gaze - 2: Normal Visual Rosario - 3: No Visual Loss Facial Palsy - 4: Minor Paralysis Motor Arm Right - 5: No Drift Motor Arm Left - 5: No Drift Motor Leg Right - 6: No Drift Motor Leg Left - 6: No Drift Limb Ataxia - 7: Absent Sensory - 8: Normal Best Language - 9: Severe Aphasia Dysarthia - 10: Normal Extinction And Inattention - 11: 0 Stroke Alert Data/Treatment CT Impression: No focal findings Stroke Risk Factors: atrial fibrillation Critical Care Time Critical Care Time: 30 - 74 mins A&P Assessment and plan (1) Left acute arterial ischemic stroke, MCA (middle cerebral artery): The patient was in atrial fibrillation with rapid ventricular response and was treated for that in the evening before her focal neurologic symptoms began. Presumably she had an embolic stroke in the left middle cerebral artery distribution that would account for her focal findings of global aphasia and transient right hemiparesis that was already improved by the time I saw her. I felt that the patient should receive tPA because she had global aphasia which is a severely disabling condition and Dr. Palacio and I agreed to go ahead with tPA. She received the bolus before she left CAT scan and the tPA was hanging as she was being transferred back to ICU bed. (2) Atrial fibrillation: Presumably the atrial fibrillation was cause for her stroke. She needs to be on anticoagulation if possible. Qualifiers: Atrial fibrillation type: paroxysmal Qualified Code(s): I48.0 - Paroxysmal atrial fibrillation Coding Level of Care Code Acute Calciner Feeder for [facility] Diagnoses Left acute arterial ischemic stroke, MCA (middle cerebral artery) I63.512 Atrial fibrillation I48.0 Atrial fibrillation type: paroxysmal
[2022-01-29 18:12] LABS: Glucose Point of Care 342 mg/dL (70-110)
[2022-01-29] MEDS: heparin 5,000 unit/mL INJ 1 mL 5000 UNIT SUBCUT (18:19)
[2022-01-29 20:59] LABS: Glucose Point of Care 134 mg/dL (70-110)
[2022-01-29] MEDS: atorvastatin 40 mg Tablet PO (21:15)
[2022-01-29] MEDS: mirtazapine 30 mg Tablet 15 MG PO (21:15)
[2022-01-29] MEDS: hyDRALAzine 50 mg Tablet 25 MG PO ×2 (21:29→21:46)
[2022-01-30] VITALS (11 sets, daily range): BP systolic 158–196; BP diastolic 64–104; PULSE 82–146; RESP 16–26; TEMP 36.3–37.1; O2SAT 94–99
[2022-01-30] MEDS: metoprolol tartrate 25 mg Tablet PO (00:59)
[2022-01-30 05:44] LABS: Basophils % 0.3 %; Eosinophils # 0.3 10^3/uL (0.0-0.8); Eosinophils % 2.3 %; Hematocrit 35.7 % (37.0-47.0); Hemoglobin 10.9 g/dL (11.5-15.3); Lymphocytes # 1.8 10^3/uL (0.8-4.8); Lymphocytes % 16.5 %; Mean Corpuscular HGB Conc 30.5 g/dL (30.0-36.0); Mean Corpuscular Volume 94.9 fl (81-99); Mean Platelet Volume 11.1 fL (7.4-10.4); Monocytes # 0.9 10^3/uL (0.2-0.9); Monocytes % 8.4 %; Neutrophils # 7.63 10^3/uL (1.8-7.7); Neutrophils % 71.7 %; Nucleated Red Blood Cells % 0 %; Platelet Count 232 10^3/cmm (130-400); Red Blood Count 3.76 10^6/uL (4.1-5.3); Red Cell Distribution Width 15.7 % (12.1-15.1); White Blood Count 10.7 10^3/uL (4.0-10.0)
[2022-01-30 05:58] LABS: Fibrinogen 522 mg/dL (174-498); INR 0.95 (0.8-1.2)
[2022-01-30 06:13] LABS: NT Pro B Type Natriuretic Pept 29332 pg/mL (0-450); Procalcitonin 0.37 ng/mL (0-0.5)
[2022-01-30 06:25] LABS: Alanine Aminotransferase 21 U/L (0-33); Albumin Level 2.9 g/dL (3.5-5.2); Alkaline Phosphatase 89 U/L (35-105); Anion Gap 18.5 (5-19); Aspartate Amino Transferase 22 U/L (0-32); Blood Urea Nitrogen 17 mg/dL (8-23); C Reactive Protein 51.6 mg/L (0.0-4.9); Calcium 9.5 mg/dL (8.5-10.5); Carbon Dioxide 22 mmol/L (22-29); Chloride 101 mmol/L (98-107); Globulin 2.7 g/dL (1.3-4.6); Glucose 194 mg/dL (65-115); Magnesium 2.2 mg/dL (1.7-2.3); Osmolality Calculated 293 mOsm/kg (285-295); Potassium 3.5 mmol/L (3.5-5.1); Sodium 138 mmol/L (136-145); Total Bilirubin 0.3 mg/dL (0.15-1.2); Total Protein 5.6 g/dL (6.6-8.7)
--- NOTE | 2022-01-30 06:39 | PC.NURSE ---
patient has bouts of confusion, can answer questions approp, knows name, birthdate, but has to be reorientated to place, attempted several times to get oob to go downstairs patient is upset that she is nwb, instructed on nwb, fall risk, verbalizes understanding, but does not always comply. resting quietly at present, but refused iv, refused heparin injection.
--- NOTE | 2022-01-30 07:52 | PM.PN ---
Subjective Subjective: seen on dialysis feels well. feels weak. had a recent CVA. Medications: Reviewed: Yes Medication Review Details: Current Medications Acetaminophen (Acetaminophen 325 Mg Tablet) 650 mg PO Q6H PRN PRN Reason: Mild/Mod Pain Or Temp >/= 101 Last Admin: 01/29/22 22:40 Dose: 650 mg Allopurinol (Allopurinol 100 Mg Tablet) 100 mg PO DAILY@0800 [facility] Last Admin: 01/29/22 08:03 Dose: 100 mg Amlodipine Besylate (Amlodipine 10 Mg Tablet) 10 mg PO DAILY [facility] Last Admin: 01/29/22 14:15 Dose: 10 mg Aspirin (Aspirin 81 Mg Ec Tablet) 81 mg PO DAILY [facility] Last Admin: 01/29/22 08:03 Dose: 81 mg Atorvastatin Calcium (Atorvastatin 40 Mg Tablet) 40 mg PO BEDTIME [facility] Last Admin: 01/29/22 21:15 Dose: 40 mg Bisacodyl (Bisacodyl 5 Mg Tablet) 10 mg PO DAILY PRN; Protocol PRN Reason: Constipation (see protocol) Bumetanide (Bumetanide 1 Mg Tablet) 2 mg PO DAILY [facility] Last Admin: 01/29/22 08:03 Dose: 2 mg Dextrose (Dextrose 50% Syringe 50 Ml) 25 ml IVP ONCE PRN; Protocol PRN Reason: hypoglycemia protocol Dextrose (Dextrose 50% Syringe 50 Ml) 50 ml IVP PRN PRN; Protocol PRN Reason: hypoglycemia protocol Glucagon (Glucagon 1 Mg/Ml Inj 1 Ml) 1 mg IM ONCE PRN; Protocol PRN Reason: Adult Acute Hypoglycemia Prot. Heparin Sodium (Porcine) (Heparin 5,000 Unit/Ml Inj 1 Ml) 5,000 unit SUBCUT Q12H [facility] Last Admin: 01/30/22 06:31 Dose: Not Given Hydralazine HCl (Hydralazine 50 Mg Tablet) 25 mg PO TID [facility] Last Admin: 01/29/22 21:46 Dose: 25 mg Dextrose (D5w) 500 mls @ 100 mls/hr IV ONCE PRN; Protocol PRN Reason: Adult Acute Hypoglycemia Prot Sodium Chloride (Sodium Chloride 0.9%) 1,000 mls @ 0 mls/hr IV .Q0M PRN PRN Reason: hypotension or symptomatic Sodium Chloride (Sodium Chloride 0.9%) 1,000 mls @ 0 mls/hr IV .Q0M PRN PRN Reason: hypotension or symptomatic Insulin Human Lispro (Insulin Lispro 100 Unit/1 Ml) 0 unit SUBCUT BEDTIME [facility]; Protocol Last Admin: 01/29/22 21:00 Dose: Not Given Insulin Human Lispro (Insulin Lispro 100 Unit/1 Ml) 0 unit SUBCUT TIDWM ROGELIO; Protocol Last Admin: 01/29/22 18:20 Dose: 10 unit Labetalol HCl (Labetalol 5 Mg/Ml Sdv 20ml) 10 mg IVP Q4H PRN PRN Reason: for sbp>180 or DBP>100, hold if HR<60 Last Admin: 01/29/22 17:19 Dose: 10 mg Lactobacillus Acidophilus (Lactobacillus 1 Tablet) 1 tab PO BID [facility] Last Admin: 01/29/22 18:19 Dose: 1 tab Metoprolol Tartrate (Metoprolol Tartrate 25 Mg Tablet) 25 mg PO Q12H [facility] Last Admin: 01/30/22 00:59 Dose: 25 mg Mirtazapine (Mirtazapine 30 Mg Tablet) 15 mg PO BEDTIME [facility] Last Admin: 01/29/22 21:15 Dose: 15 mg Multivitamins (K-Mkxthjc-Vxinupw C Tablet) 1 each PO DAILY [facility] Last Admin: 01/29/22 08:03 Dose: 1 each Non-Formulary Medication (Vit B,K-Jo-Expn-Selen-Vit D3-E [Renaplex-D]) 1 tab PO DAILY [facility] Pantoprazole Sodium (Pantoprazole Dr 40 Mg Tablet) 40 mg PO DAILY [facility] Last Admin: 01/29/22 08:02 Dose: 40 mg Multivit/Folic Acid/Iron ( Vitamin Capsule) 1 cap PO DAILY [facility] Last Admin: 01/29/22 09:39 Dose: 1 cap Vitals/I&O/Wt Last Vital Signs Temp 97.4 F L 01/30/22 04:00 Pulse 96 01/30/22 04:00 Resp 16 01/30/22 04:00 BP 196/86 01/30/22 04:00 Pulse Ox 97 01/30/22 04:00 O2 Del Method 01/30/22 04:00 01/29/22 01/30/22 01/30/22 22:59 06:59 14:59 Intake Total 100 / 536 Balance 100 / 506 Physical Exam Narrative: comfortable in bed nard HR 146 heent- nc/at neuro- a,a, o x3 lungs dull heart irreg, irreg abd soft, nt, nd, + bs ext + edema dialysis access- RT IJ Permacath Data 01/30/22 04:46 01/30/22 04:46 Micro: Microbiology 01/29/22 07:17 Stool Lactoferrin - Final Stool Enteric Pathogens (PCR) - Final Parasite Antigen Panel - Final C.difficile Toxin B Gene (PCR) - Final Occult Blood (FIT) - Final 01/27/22 13:46 Urine Culture - Final Urine,Clean Catch Enterococcus faecalis A&P Assessment and plan (1) ESRD (end stage renal disease): 76 yr old female ESRD, a fib, CVA 1. ESRD- hd now 3 hrs, remove 2.5 l 2. htn- remove fluids on dialysis 3. a fib w/ RVR- per medicine- consider dig, beta felicitas 4. hgb okay 5. CVA per neuro seen and examined w/ HD RN- telehealth visit time spent 30 min Plan as aove Attestations Medical Necessity Statement*: cva, esrd, htn, a fib w/ RVR Coding Level of Care Code Acute Lab Engineer for [facility] Diagnoses ESRD (end stage renal disease) N18.6
--- NOTE | 2022-01-30 08:11 | PC.HD ---
Patient arrived with no dressing on her HD access site. insertion site reddened, but no pus or drainage noted. area cleansed with chloraprep and dressing applied. patient refused to keep mask on during treatment initiation, despite repeated attempts at infection control education by this RN. Upon initiation, patient became restless and agitated, frequently pulling at lines and attempting to get out of bed. Primary RN called for possible restraint orders to maintain patient safety in a confused patient.
[2022-01-30] MEDS: LORazepam 2 mg/mL INJ 1 mL 0.5 MG IVP (08:59)
[2022-01-30] MEDS: labetalol 5 mg/mL SDV 20mL 10 MG IVP (11:09)
[2022-01-30] MEDS: metoprolol tartrate 25 mg Tablet 50 MG PO ×2 (11:17→20:48)
[2022-01-30] MEDS: b-complex-vitamin c Tablet 1 EACH PO (11:18)
[2022-01-30] MEDS: lactobacillus 1 Tablet 1 TAB PO (11:18)
[2022-01-30] MEDS: bumetanide 1 mg Tablet 2 MG PO (11:18)
[2022-01-30] MEDS: aspirin 81 mg EC Tablet PO (11:18)
[2022-01-30] MEDS: prenatal vitamin Capsule 1 CAP PO (11:18)
[2022-01-30] MEDS: amlodipine 10 mg Tablet PO (11:19)
[2022-01-30] MEDS: losartan 50 mg Tablet PO (11:19)
[2022-01-30 11:34] LABS: Glucose Point of Care 131 mg/dL (70-110)
--- NOTE | 2022-01-30 11:51 | PM.PN ---
Subjective Subjective: Patient was seen in the dialysis suite, she had episodes of A. fib with RVR heart rates in the 140s currently her heart rates are in the 110s, A. fib, she had episodes of agitation requiring Ativan, she is in soft restraints, according to staff during dialysis she is pulling out her lines becoming very agitated, she is alert to person, complaints, she can follow commands she can squeeze her fingers she is able to open her eyes with small she is much more alert and awake and cooperative Vitals/I&O/Wt Last Vital Signs Temp 98.6 F 01/30/22 11:35 Pulse 113 H 01/30/22 11:35 Resp 16 01/30/22 11:35 BP 158/83 01/30/22 11:35 Pulse Ox 97 01/30/22 11:17 O2 Del Method 01/30/22 11:17 01/29/22 01/30/22 01/30/22 22:59 06:59 14:59 Intake Total 100 / 536 300 / 300 Output Total 2321 / 2321 Balance 100 / 506 -2020 / -2020 Weight last 48 hrs Weight 57.1 kg Physical Exam Const: COMMON NORMALS: no acute distress ORIENTATION/CONSCIOUSNESS: Yes awake, Yes oriented to person, Yes oriented to place and Yes confused; not oriented to time Resp: COMMON NORMALS: normal respiratory effort, No retractions, No use of accessory muscles and clear to auscultation bilaterally AUSCULTATION: clear to auscultation bilaterally Cardio: COMMON NORMALS: regular rate, regular rhythm, S1 normal heart sound present and S2 normal heart sound present RATE: regular rate RHYTHM: regular rhythm HEART SOUNDS: S1 normal heart sound present and S2 normal heart sound present GI: COMMON NORMALS: Normal to inspection, nondistended, normoactive bowel sounds present and non-tender Extremity: COMMON NORMALS: no pedal edema Neuro: COMMON NORMALS: CN's II-XII intact bilaterally and moves all extremities SENSORIUM/ORIENTATION: Yes oriented to person, Yes oriented to place and No oriented to time Data 01/30/22 04:46 01/30/22 04:46 Micro: Microbiology 01/29/22 07:17 Stool Lactoferrin - Final Stool Enteric Pathogens (PCR) - Final Parasite Antigen Panel - Final C.difficile Toxin B Gene (PCR) - Final Occult Blood (FIT) - Final 01/27/22 13:46 Urine Culture - Final Urine,Clean Catch Enterococcus faecalis A&P Assessment and plan (1) Acute CVA (cerebrovascular accident): - NIH stroke scale 10 -CT head on admission within normal limits no acute bleed -Repeat CT head no acute findings -?Normal left ventricular size and systolic function, EF 68 %. No ?regional wall motion abnormalities. Mild to moderate concentric ?left ventricular hypertrophy. Grade I/IV diastolic dysfunction ?(abnormal relaxation filling pattern), normal to mildly elevated ?filling pressures. ?Mildly increased left atrial size. ?Moderate mitral annular calcification. ?Moderate aortic valve calcification. Thickened aortic valve.? ?Mild aortic valve regurgitation. Aortic valve sclerosis. ?Trace tricuspid valve regurgitation. ?Mild pulmonary valve regurgitation. ?Estimated pulmonary artery peak systolic pressure 36 mmHg ?There is no pericardial effusion. ?There are no intracardiac masses. ?There is no pericardial effusion. ?Comparison with the previous study is difficult because of the ?difference in the technical quality.? However there may not be a ?significant change in the 2D findings -ct angio head and neck 1.? No high-grade cervical carotid artery stenosis. Calcified plaque in the bifurcations. Stenosis estimated 50%. 2.? Extensive calcified plaque in the distal intracranial carotid arteries with stenoses approximately 60-70% in greatest on the RIGHT. 3.? No thrombus in the middle cerebral artery. 4.? Moderately calcified distal vertebral arteries. -Expressive aphasia, right facial droop, slightly lower right upper extremity weakness and left resolved -History of A. fib, paroxysmal not on anticoagulation due to history of GI bleed -Admitted for altered mental status, A. fib with RVR, converted to normal sinus rhythm -Status post tPA -Head CT 24 hours status post tPA, no acute findings, no acute bleed -Currently in dialysis suite, back in A. fib with RVR heart rates in the 150s -aaox2, no focal weakness, no visual deficits -start metoprolol 25mg BID -Treat systolic of greater than 180, diastolic greater than 100 -Nurse dysphagia screen -Aspirin, statin -PT OT -heparin for dvt prophylaxis -The ultimate question is whether this was an embolic phenomenon from her atrial fibrillation given the clinical presentation is highly suspicious -The issue is with her history of GI bleeds, she denies any but her hemmocut stool is positive and she has had anemia of hgb<7 -She has never had a EGD or colonoscopy -We will do a trial of anticoagulation here in the hospital, monitor hemoglobin closely, start heparin drip, no bolus (2) Infectious encephalopathy: -Was at baseline in the morning before acute CVA -Urine culture showing Enterococcus, ciprofloxacin (3) UTI (urinary tract infection): In a patient with known recurrent UTIs, present on admission. Has urethral narrowing as a contributing factor and a history of chronic cystitis. Reports dysuria and baseline and recently. Elevated WBC, abnormal urinalysis with too numerous to count WBCs, general malaise lately and GI symptoms. Qualifiers: Urinary tract infection type: acute cystitis Hematuria presence: without hematuria Qualified Code(s): N30.00 - Acute cystitis without hematuria (4) Diarrhea: Started last , several times per day, watery. Unable to quantify further. No blood or mucus reported. No abdominal pain. Bowels movements normal prior to onset of diarrhea. No known sick contact with similar symptoms. During hospital stay in November of this year patient has CT of the abdomen and pelvis that showed thickening of the proximal duodenal loops, narrowing of the lumen and omental inflammatory stranding suggesting localized inflammatory disease. She did complain of abdominal pain, cramping and poor appetite then but no other GI symptoms were reported. (5) Atrial fibrillation: With rapid ventricular response, in a patient with history of intermittent atrial fibrillation in past, first noted after episode of pulmonary embolism in 2019. Holter in 2020 without evidence of afib noted. In sinus rhythm. Is chronically on rate controlling medications of carvedilol and diltiazem. No anticoagulation due to history of anemia and GI bleeding. -As above Qualifiers: Atrial fibrillation type: paroxysmal Qualified Code(s): I48.0 - Paroxysmal atrial fibrillation (6) Generalized weakness: Has to some degree at baseline, but more pronounced than usual today, requiring wheelchair and other assitance she does not usually require. (7) Chronic kidney disease, stage V requiring chronic dialysis: Usually Thursday, , Thursday, but for Thu/Thu/Thu this week in lieu of holiday week. Missed today. Follows with another doctor in Dr Chester's group. (8) HTN (hypertension): Not controlled currently; did not take morning or midday medications today and missed hemodialysis. Normally on Bumex, diltiazem, carvedilol, hydralazine. Qualifiers: Hypertension type: primary hypertension Qualified Code(s): I10 - Essential (primary) hypertension (9) Type 2 diabetes mellitus: Chronically on glimepiride 2mg. Prescribed glargine insulin but has not been taking it for some time. Qualifiers: Diabetes mellitus ad terminal makeup operator insulin use: without ad terminal makeup operator use Diabetes mellitus complication status: with kidney complications Diabetes mellitus complication detail: with chronic kidney disease Chronic kidney disease stage: on chronic dialysis Qualified Code(s): E11.22 - Type 2 diabetes mellitus with diabetic chronic kidney disease; N18.6 - End stage renal disease; Z99.2 - Dependence on renal dialysis (10) Heart failure with preserved ejection fraction: Not acute Qualifiers: Heart failure chronicity: chronic Qualified Code(s): I50.32 - Chronic diastolic (congestive) heart failure (11) Iron deficiency anemia: Presently with hemoglobin of 12.7 though appear volume depleted. No recent gross blood loss noted. Qualifiers: Iron deficiency anemia type: unspecified iron deficiency Qualified Code(s): D50.9 - Iron deficiency anemia, unspecified Plan Inpatient admission Continue Cipro Follow up pending urine and blood cultures Stool studies Kidneys metoprolol pushes or Cardizem pushes for A. fib with RVR Telemetry monitoring Continue serial cardiac enzymes PT and OT evaluation Nephrology for regular hemodialysis Monitor blood pressure response to treatment Sliding scale insulin Check A1c 8 -Replace magnesium Recheck TSH, along with free T4, as was low normal in 11/2021 Watch I&Os, overall volume status Monitor hemoglobin for drop with hydration Continue home atorvastatin, allopurinol, half usual dose mirtazepine and sodium bicarbonate plus renal vitamin SQ heparin for DVT prophylaxis, SCDs PPI for GI prophylaxis Lactobacilus Supportive care otherwise Anticipate home with follow up to nephrology, dialysis clinic (will need to check holiday chair schedule), and Dr Morales, primary care provider plus or minus Dr Mosquera. Depending on clinical course with diarrhea, could consider further diagnostic evaluation regarding inflammatory cahnges noted on CT imaging of abdomen in November. Findings, concerns and plans were discussed with patient and family members in the room. These included her [id number], her niece and her great niece. All were given an opportunity to ask questions. Full code Attestations Medical Necessity Statement*: Patient requires hospitalization with atrial fibrillation with RVR Coding Level of Care Code Acute Medication Coordinator for [facility] Fwd Diagnoses Acute CVA (cerebrovascular accident) I63.9 Infectious encephalopathy G93.49; B99.9 UTI (urinary tract infection) N30.00 Urinary tract infection type: acute cystitis Hematuria presence: without hematuria Diarrhea R19.7 Atrial fibrillation I48.0 Atrial fibrillation type: paroxysmal Generalized weakness R53.1 Chronic kidney disease, stage V requiring chronic dialysis N18.6; Z99.2 HTN (hypertension) I10 Hypertension type: primary hypertension Type 2 diabetes mellitus E11.22; N18.6; Z99.2 Diabetes mellitus ad terminal makeup operator insulin use: without jail use Diabetes mellitus complication status: with kidney complications Diabetes mellitus complication detail: with chronic kidney disease Chronic kidney disease stage: on chronic dialysis Heart failure with preserved ejection fraction I50.32 Heart failure chronicity: chronic Iron deficiency anemia D50.9 Iron deficiency anemia type: unspecified iron deficiency
--- NOTE | 2022-01-30 12:01 | PC.SOCIAL ---
Pg 2 IMM Explained to pt Pg 2 IMM. No questions voiced. Provided pt a copy. Initialed, dated,& timed a copy & placed in chart.
[2022-01-30] MEDS: ciprofloxacin 500 mg Tablet PO ×2 (13:08→20:49)
[2022-01-30 15:21] LABS: Hematocrit 33.4 % (37.0-47.0); Hemoglobin 10.7 g/dL (11.5-15.3)
[2022-01-30 16:25] LABS: Glucose Point of Care 177 mg/dL (70-110)
[2022-01-30] MEDS: heparin 5,000 unit/mL INJ 1 mL 5000 UNIT SUBCUT (17:53)
--- NOTE | 2022-01-30 19:27 | PC.NURSE ---
Received bedside report from LEYDA Stern. Patient resting in bed. Denies pain or needs at this time. Family at bedside. Will continue to monitor.
[2022-01-30] MEDS: insulin lispro 100 unit/1 mL SUBCUT (20:47)
[2022-01-30] MEDS: mirtazapine 30 mg Tablet 15 MG PO (20:48)
[2022-01-30] MEDS: pantoprazole 40 mg SDV IVP (20:48)
[2022-01-30] MEDS: atorvastatin 40 mg Tablet PO (20:48)
[2022-01-30] MEDS: sucralfate 1 gm Tablet PO (20:48)
[2022-01-31] VITALS (12 sets, daily range): BP systolic 139–183; BP diastolic 69–84; PULSE 81–700; RESP 12–22; TEMP 36.8–37.5; O2SAT 95–98
[2022-01-31 02:12] LABS: Glucose Point of Care 227 mg/dL (70-110)
[2022-01-31] MEDS: heparin 5,000 unit/mL INJ 1 mL 5000 UNIT SUBCUT ×2 (02:59→17:14)
[2022-01-31] MEDS: morphine 4 mg/mL SDV 1 mL 1 MG IVP (02:59)
[2022-01-31 03:49] LABS: Basophils % 0.2 %; Eosinophils # 0.3 10^3/uL (0.0-0.8); Eosinophils % 2.3 %; Hematocrit 37.4 % (37.0-47.0); Hemoglobin 11.5 g/dL (11.5-15.3); Lymphocytes # 1.8 10^3/uL (0.8-4.8); Lymphocytes % 14.1 %; Mean Corpuscular HGB Conc 30.7 g/dL (30.0-36.0); Mean Corpuscular Hemoglobin 28.4 pg (28.0-34.0); Mean Corpuscular Volume 92.3 fl (81-99); Mean Platelet Volume 10.8 fL (7.4-10.4); Monocytes # 1.2 10^3/uL (0.2-0.9); Neutrophils % 73.8 %; Nucleated Red Blood Cells % 0 %; Platelet Count 243 10^3/cmm (130-400); Red Blood Count 4.05 10^6/uL (4.1-5.3); Red Cell Distribution Width 15.8 % (12.1-15.1); White Blood Count 12.9 10^3/uL (4.0-10.0)
[2022-01-31] MEDS: acetaminophen 325 mg Tablet 650 MG PO ×2 (03:52→20:06)
[2022-01-31 03:58] LABS: INR 1.02 (0.8-1.2)
[2022-01-31 04:18] LABS: NT Pro B Type Natriuretic Pept 25557 pg/mL (0-450); Procalcitonin 0.53 ng/mL (0-0.5)
[2022-01-31 04:53] LABS: Alanine Aminotransferase 21 U/L (0-33); Albumin Level 3.3 g/dL (3.5-5.2); Alkaline Phosphatase 97 U/L (35-105); Anion Gap 17.7 (5-19); Aspartate Amino Transferase 24 U/L (0-32); Blood Urea Nitrogen 11 mg/dL (8-23); Calcium 9.4 mg/dL (8.5-10.5); Carbon Dioxide 24 mmol/L (22-29); Chloride 99 mmol/L (98-107); Globulin 2.9 g/dL (1.3-4.6); Glucose 219 mg/dL (65-115); Magnesium 1.9 mg/dL (1.7-2.3); Osmolality Calculated 290 mOsm/kg (285-295); Phosphorus 2.8 mg/dL (2.5-4.5); Potassium 3.7 mmol/L (3.5-5.1); Sodium 137 mmol/L (136-145); Total Bilirubin 0.3 mg/dL (0.15-1.2); Total Protein 6.2 g/dL (6.6-8.7)
[2022-01-31 06:35] LABS: Glucose Point of Care 192 mg/dL (70-110)
[2022-01-31] MEDS: b-complex-vitamin c Tablet 1 EACH PO (08:36)
[2022-01-31] MEDS: metoprolol tartrate 25 mg Tablet 50 MG PO ×2 (08:37→20:06)
[2022-01-31] MEDS: bumetanide 1 mg Tablet 2 MG PO (08:37)
[2022-01-31] MEDS: amlodipine 10 mg Tablet PO (08:38)
[2022-01-31] MEDS: losartan 50 mg Tablet PO (08:38)
--- NOTE | 2022-01-31 08:38 | PM.PN ---
Subjective Subjective: no new issues cannot remember dialysis yesterday Vitals/I&O/Wt Last Vital Signs Temp 98.6 F 01/31/22 07:18 Pulse 85 01/31/22 07:18 Resp 21 H 01/31/22 07:18 BP 151/75 01/31/22 07:18 Pulse Ox 96 01/31/22 07:18 O2 Del Method 01/31/22 03:50 01/30/22 01/31/22 01/31/22 22:59 06:59 14:59 Intake Total 120 / 420 Balance 120 / -1901 Weight last 48 hrs Weight 57.1 kg Physical Exam Const: COMMON NORMALS: no acute distress and alert Extremity: NARRATIVE EXTREMITY EXAM: trace edema Neuro: SENSORIUM/ORIENTATION: Yes alert Data 01/31/22 02:56 01/31/22 02:56 Other data: seen via telemedicine with assistance of RN at bedside A&P Assessment and plan (1) ESRD (end stage renal disease): 76 yr old female ESRD, a fib, CVA 1. ESRD- hd T//S - next treatment tomorrow 2. htn- well-controlled. discontinue hydralazine, increase losartan to 100 mg daily 3. enterococcus UTI - cipro dose is 250 - 500 mg daily for ESRD. Rec: cannot use sucralfate long-term in ESRD due to aluminum content. Discontinue if not necessary Plan as above Attestations Medical Necessity Statement*: per primary service Time Spent in Patient Care: 16 - 35 minutes Coding Level of Care Code Acute Civil Preparedness Coordinator for [facility] Fwd Diagnoses ESRD (end stage renal disease) N18.6
[2022-01-31] MEDS: allopurinol 100 mg Tablet PO (08:39)
[2022-01-31] MEDS: prenatal vitamin Capsule 1 CAP PO (08:39)
[2022-01-31] MEDS: pantoprazole 40 mg SDV IVP ×2 (08:40→20:07)
[2022-01-31] MEDS: aspirin 81 mg EC Tablet PO (08:40)
[2022-01-31] MEDS: hyDRALAzine 10 mg Tablet PO (08:40)
[2022-01-31] MEDS: insulin lispro 100 unit/1 mL SUBCUT ×4 (08:42→17:15)
[2022-01-31 11:16] LABS: Glucose Point of Care 236 mg/dL (70-110)
--- NOTE | 2022-01-31 12:49 | PM.PN ---
Subjective Subjective: Patient was seen multiple times this morning, she is alert to person, to place, to time, she knows the president, I also examined her at lunchtime with her family was at bedside, I discussed in detail currently her clinical status, she had a stroke status post tPA, issues in terms of anticoagulation her Hemoccult stools were positive and she has been quite anemic in the past, she does not report any history of bleeding no history of EGD or colonoscopy, but a review of her records have shown that she has developed anemia down to 6.9 requiring 2 units PRBC she was actually on Eliquis at that time for a history of DVT and pulm embolism and here Hemoccult stools positive. I would say at this point it is a risk and benefit discussion, I had this discussion with her in detail and for now we have held off on anticoagulation however will we have to readdress this in the near future. Vitals/I&O/Wt Last Vital Signs Temp 98.6 F 01/31/22 07:18 Pulse 91 01/31/22 12:22 Resp 20 H 01/31/22 12:22 BP 162/69 01/31/22 12:22 Pulse Ox 96 01/31/22 08:00 O2 Del Method 01/31/22 08:00 01/30/22 01/31/22 01/31/22 22:59 06:59 14:59 Intake Total 120 / 420 120 / 120 Balance 120 / -1901 120 / 120 Weight last 48 hrs Weight 57.1 kg Physical Exam Const: COMMON NORMALS: no acute distress and patient oriented x3 Resp: COMMON NORMALS: normal respiratory effort, No retractions, No use of accessory muscles and clear to auscultation bilaterally AUSCULTATION: clear to auscultation bilaterally Cardio: COMMON NORMALS: regular rate, regular rhythm, S1 normal heart sound present and S2 normal heart sound present RATE: regular rate RHYTHM: regular rhythm HEART SOUNDS: S1 normal heart sound present and S2 normal heart sound present GI: COMMON NORMALS: Normal to inspection, nondistended, normoactive bowel sounds present and non-tender Extremity: COMMON NORMALS: no pedal edema Neuro: COMMON NORMALS: patient oriented x3 Psych: COMMON NORMALS: mental status grossly normal Data 01/31/22 02:56 01/31/22 02:56 A&P Assessment and plan (1) Acute CVA (cerebrovascular accident): - NIH stroke scale 10 -CT head on admission within normal limits no acute bleed -Repeat CT head no acute findings -?Normal left ventricular size and systolic function, EF 68 %. No ?regional wall motion abnormalities. Mild to moderate concentric ?left ventricular hypertrophy. Grade I/IV diastolic dysfunction ?(abnormal relaxation filling pattern), normal to mildly elevated ?filling pressures. ?Mildly increased left atrial size. ?Moderate mitral annular calcification. ?Moderate aortic valve calcification. Thickened aortic valve.? ?Mild aortic valve regurgitation. Aortic valve sclerosis. ?Trace tricuspid valve regurgitation. ?Mild pulmonary valve regurgitation. ?Estimated pulmonary artery peak systolic pressure 36 mmHg ?There is no pericardial effusion. ?There are no intracardiac masses. ?There is no pericardial effusion. ?Comparison with the previous study is difficult because of the ?difference in the technical quality.? However there may not be a ?significant change in the 2D findings -ct angio head and neck 1.? No high-grade cervical carotid artery stenosis. Calcified plaque in the bifurcations. Stenosis estimated 50%. 2.? Extensive calcified plaque in the distal intracranial carotid arteries with stenoses approximately 60-70% in greatest on the RIGHT. 3.? No thrombus in the middle cerebral artery. 4.? Moderately calcified distal vertebral arteries. -Expressive aphasia, right facial droop, slightly lower right upper extremity weakness and left resolved -History of A. fib, paroxysmal not on anticoagulation due to history of GI bleed -Admitted for altered mental status, A. fib with RVR, converted to normal sinus rhythm -Status post tPA -Head CT 24 hours status post tPA, no acute findings, no acute bleed -Currently in dialysis suite, back in A. fib with RVR heart rates in the 150s -aaox2, no focal weakness, no visual deficits -start metoprolol 25mg BID -Treat systolic of greater than 180, diastolic greater than 100 -Nurse dysphagia screen -Aspirin, statin -PT OT -heparin for dvt prophylaxis -The ultimate question is whether this was an embolic phenomenon from her atrial fibrillation given the clinical presentation is highly suspicious -The issue is with her history of GI bleeds, she denies any but her hemmocut stool is positive and she has had anemia of hgb<7 -I reviewed her records in detail patient had a history of a pulm embolism and A. fib with RVR, she was placed on Eliquis roughly in October 2020, however she suffered anemia result in 2 units PRBC, and there was concerns for GI bleed -She finished a year of anticoagulation for pulmonary embolism, and she has some event monitor was ordered which did not show any recurrence of her atrial fibrillation events, thus she was not put back on anticoagulation -She also saw Dr. Walsh for her anemia had a bone marrow biopsy which showed no overt dyspoietic or metaplastic changes, adequate iron stores normocellular marrow and she was referred to [place] [facility] for a second opinion however patient is unsure of exactly what happened at [place] -She has never had a EGD or colonoscopy -I have avoided added trial of anticoagulation as her Hemoccult stool have been positive -And as she has had a stroke requiring tPA, generally the recommendation is to wait 2 weeks before initiating anticoagulation -I will have her follow-up with neurology as outpatient, then decide if we need to do anticoagulation, have her follow-up with cardiology, shared decision making (2) Infectious encephalopathy: -Was at baseline in the morning before acute CVA -Urine culture showing Enterococcus, ciprofloxacin (3) UTI (urinary tract infection): In a patient with known recurrent UTIs, present on admission. Has urethral narrowing as a contributing factor and a history of chronic cystitis. Reports dysuria and baseline and recently. Elevated WBC, abnormal urinalysis with too numerous to count WBCs, general malaise lately and GI symptoms. Qualifiers: Urinary tract infection type: acute cystitis Hematuria presence: without hematuria Qualified Code(s): N30.00 - Acute cystitis without hematuria (4) Diarrhea: -Resolved Started last , several times per day, watery. Unable to quantify further. No blood or mucus reported. No abdominal pain. Bowels movements normal prior to onset of diarrhea. No known sick contact with similar symptoms. During hospital stay in November of this year patient has CT of the abdomen and pelvis that showed thickening of the proximal duodenal loops, narrowing of the lumen and omental inflammatory stranding suggesting localized inflammatory disease. She did complain of abdominal pain, cramping and poor appetite then but no other GI symptoms were reported. (5) Atrial fibrillation: -A. fib well controlled With rapid ventricular response, in a patient with history of intermittent atrial fibrillation in past, first noted after episode of pulmonary embolism in 2019. Holter in 2020 without evidence of afib noted. In sinus rhythm. Is chronically on rate controlling medications of carvedilol and diltiazem. No anticoagulation due to history of anemia and GI bleeding. -As above Qualifiers: Atrial fibrillation type: paroxysmal Qualified Code(s): I48.0 - Paroxysmal atrial fibrillation (6) Generalized weakness: Has to some degree at baseline, but more pronounced than usual today, requiring wheelchair and other assitance she does not usually require. (7) Chronic kidney disease, stage V requiring chronic dialysis: Usually Thursday, , Thursday, but for Thu/Thu/Thu this week in lieu of holiday week. Missed today. Follows with another doctor in Dr Chester's group. (8) HTN (hypertension): Not controlled currently; did not take morning or midday medications today and missed hemodialysis. Normally on Bumex, diltiazem, carvedilol, hydralazine. Qualifiers: Hypertension type: primary hypertension Qualified Code(s): I10 - Essential (primary) hypertension (9) Type 2 diabetes mellitus: Chronically on glimepiride 2mg. Prescribed glargine insulin but has not been taking it for some time. Qualifiers: Diabetes mellitus usp insulin use: without termite exterminator use Diabetes mellitus complication status: with kidney complications Diabetes mellitus complication detail: with chronic kidney disease Chronic kidney disease stage: on chronic dialysis Qualified Code(s): E11.22 - Type 2 diabetes mellitus with diabetic chronic kidney disease; N18.6 - End stage renal disease; Z99.2 - Dependence on renal dialysis (10) Heart failure with preserved ejection fraction: Not acute Qualifiers: Heart failure chronicity: chronic Qualified Code(s): I50.32 - Chronic diastolic (congestive) heart failure (11) Iron deficiency anemia: Qualifiers: Iron deficiency anemia type: unspecified iron deficiency Qualified Code(s): D50.9 - Iron deficiency anemia, unspecified Plan Inpatient admission Continue Cipro Follow up pending urine and blood cultures Stool studies Telemetry monitoring PT and OT evaluation Nephrology for regular hemodialysis Monitor blood pressure response to treatment Sliding scale insulin Check A1c 8 -Replace magnesium Recheck TSH, along with free T4, as was low normal in 11/2021 Watch I&Os, overall volume status Monitor hemoglobin for drop with hydration Continue home atorvastatin, allopurinol, half usual dose mirtazepine and sodium bicarbonate plus renal vitamin SQ heparin for DVT prophylaxis, SCDs PPI for GI prophylaxis Lactobacilus Supportive care otherwise Anticipate home with follow up to nephrology, dialysis clinic (will need to check holiday chair schedule), and Dr Morales, primary care provider plus or minus Dr Mosquera. Depending on clinical course with diarrhea, could consider further diagnostic evaluation regarding inflammatory cahnges noted on CT imaging of abdomen in November. Findings, concerns and plans were discussed with patient and family members in the room. These included her [id number], her niece and her great niece. All were given an opportunity to ask questions. Full code Attestations Medical Necessity Statement*: Patient requires hospitalization for acute CVA Coding Level of Care Code Acute Director Of Labor Relations for [facility] Fw Diagnoses Acute CVA (cerebrovascular accident) I63.9 Infectious encephalopathy G93.49; B99.9 UTI (urinary tract infection) N30.00 Urinary tract infection type: acute cystitis Hematuria presence: without hematuria Diarrhea R19.7 Atrial fibrillation I48.0 Atrial fibrillation type: paroxysmal Generalized weakness R53.1 Chronic kidney disease, stage V requiring chronic dialysis N18.6; Z99.2 HTN (hypertension) I10 Hypertension type: primary hypertension Type 2 diabetes mellitus E11.22; N18.6; Z99.2 Diabetes mellitus termite exterminator insulin use: without termite exterminator use Diabetes mellitus complication status: with kidney complications Diabetes mellitus complication detail: with chronic kidney disease Chronic kidney disease stage: on chronic dialysis Heart failure with preserved ejection fraction I50.32 Heart failure chronicity: chronic Iron deficiency anemia D50.9 Iron deficiency anemia type: unspecified iron deficiency
[2022-01-31 15:43] LABS: Add Urine Microscopic? YES; Bilirubin Urine Neg (Negative); Blood Urine Neg (Negative); Glucose Urine UA Norm (Normal); Ketones Urine Negative (Negative); Leukocyte Esterase Urine 2+ (Negative); Nitrate Urine Negative (Negative); Protein Urine 3+ (Negative); Specific Gravity, Urine 1.015 (1.005-1.030); Sulfosalicylic Acid Urine Positive (Negative); Urine Appearance Hazy (CLEAR); Urine Color Yellow (Yellow); Urobilinogen Urine Norm (Negative); pH Urine 9 (5-7)
[2022-01-31 15:45] LABS: Add Urine Culture? Yes; Bacteria Urine TRACE /hpf; RBC Urine 0-4 /hpf (0-2); Squamous Epithelial Cell Urine 25-40 /hpf (0-5); WBC Urine TOO NUMEROUS TO CNT /hpf (0-5)
[2022-01-31 16:49] LABS: Glucose Point of Care 277 mg/dL (70-110)
[2022-01-31] MEDS: atorvastatin 40 mg Tablet PO (20:07)
[2022-01-31] MEDS: mirtazapine 30 mg Tablet 15 MG PO (20:07)
[2022-01-31] MEDS: sucralfate 1 gm Tablet PO (20:07)
[2022-01-31 20:15] LABS: Glucose Point of Care 289 mg/dL (70-110)
[2022-02-01] VITALS (16 sets, daily range): BP systolic 102–182; BP diastolic 65–91; PULSE 87–105; RESP 15–30; TEMP 37.1–37.4; O2SAT 90–100
[2022-02-01] MEDS: heparin 5,000 unit/mL INJ 1 mL 5000 UNIT SUBCUT ×2 (04:08→16:14)
[2022-02-01 05:19] LABS: Basophils % 0.2 %; Eosinophils # 0.3 10^3/uL (0.0-0.8); Eosinophils % 2.3 %; Hematocrit 32.8 % (37.0-47.0); Hemoglobin 10.3 g/dL (11.5-15.3); Lymphocytes # 1.7 10^3/uL (0.8-4.8); Lymphocytes % 15.1 %; Mean Corpuscular HGB Conc 31.4 g/dL (30.0-36.0); Mean Corpuscular Hemoglobin 28.8 pg (28.0-34.0); Mean Corpuscular Volume 91.6 fl (81-99); Mean Platelet Volume 11.5 fL (7.4-10.4); Monocytes # 0.8 10^3/uL (0.2-0.9); Monocytes % 7.2 %; Neutrophils # 8.57 10^3/uL (1.8-7.7); Neutrophils % 74.5 %; Nucleated Red Blood Cells % 0 %; Platelet Count 255 10^3/cmm (130-400); Red Blood Count 3.58 10^6/uL (4.1-5.3); Red Cell Distribution Width 15.6 % (12.1-15.1); White Blood Count 11.5 10^3/uL (4.0-10.0)
[2022-02-01 05:44] LABS: Alanine Aminotransferase 16 U/L (0-33); Albumin Level 2.6 g/dL (3.5-5.2); Alkaline Phosphatase 99 U/L (35-105); Anion Gap 17.7 (5-19); Aspartate Amino Transferase 14 U/L (0-32); Blood Urea Nitrogen 17 mg/dL (8-23); Calcium 9.1 mg/dL (8.5-10.5); Carbon Dioxide 22 mmol/L (22-29); Chloride 100 mmol/L (98-107); Globulin 2.8 g/dL (1.3-4.6); Glucose 273 mg/dL (65-115); Magnesium 1.8 mg/dL (1.7-2.3); Osmolality Calculated 293 mOsm/kg (285-295); Phosphorus 4.1 mg/dL (2.5-4.5); Potassium 3.7 mmol/L (3.5-5.1); Sodium 136 mmol/L (136-145); Total Bilirubin 0.2 mg/dL (0.15-1.2); Total Protein 5.4 g/dL (6.6-8.7)
[2022-02-01 07:44] LABS: Glucose Point of Care 288 mg/dL (70-110)
--- NOTE | 2022-02-01 08:19 | P.PN_ITS ---
Subjective Subjective: no complaints eating breakfast, OOB to commode family member reports she will be discharged to rehab on Thursday Vitals/I&O/Wt Last Vital Signs Temp 98.8 F 02/01/22 07:46 Pulse 88 02/01/22 07:46 Resp 24 H 02/01/22 07:46 BP 153/88 02/01/22 07:46 Pulse Ox 94 02/01/22 07:08 O2 Del Method 02/01/22 07:08 01/31/22 02/01/22 02/01/22 22:59 06:59 14:59 Intake Total 580 / 700 100 / 800 Output Total 200 / 200 350 / 550 Balance 380 / 500 -250 / 250 Weight last 48 hrs Weight 57.1 kg Physical Exam Const: COMMON NORMALS: no acute distress and alert HENMT: OTHER: right IJ dialysis catheter Extremity: GENERAL: No edema Neuro: SENSORIUM/ORIENTATION: Yes alert Data 02/01/22 03:22 02/01/22 03:22 A&P Assessment and plan (1) ESRD (end stage renal disease): 76 yr old female ESRD, a fib, CVA 1. ESRD- hd T/Th/S 2. htn- well-controlled 3. enterococcus UTI - cipro 500 mg daily Rec: HD today, 3h, 1500 ml UF, 3K bath. cannot use sucralfate long-term in ESRD due to aluminum content. Discontinue if not necessary Plan as above Attestations Medical Necessity Statement*: per primary service Time Spent in Patient Care: 16 - 35 minutes Coding Level of Care Code Acute [employer] for [employer] Fwd Diagnoses ESRD (end stage renal disease) N18.6
[2022-02-01] MEDS: sucralfate 1 gm Tablet PO ×2 (08:29→22:01)
[2022-02-01] MEDS: losartan 50 mg Tablet 100 MG PO (08:29)
[2022-02-01] MEDS: b-complex-vitamin c Tablet 1 EACH PO (08:29)
[2022-02-01] MEDS: metoprolol tartrate 25 mg Tablet 50 MG PO ×2 (08:29→19:43)
[2022-02-01] MEDS: aspirin 81 mg EC Tablet PO (08:29)
[2022-02-01] MEDS: ciprofloxacin 500 mg Tablet PO (08:30)
[2022-02-01] MEDS: allopurinol 100 mg Tablet PO (08:30)
[2022-02-01] MEDS: pantoprazole 40 mg SDV IVP ×2 (08:30→22:01)
[2022-02-01] MEDS: prenatal vitamin Capsule 1 CAP PO (08:30)
[2022-02-01] MEDS: bumetanide 1 mg Tablet 2 MG PO (08:30)
[2022-02-01] MEDS: amlodipine 10 mg Tablet PO (08:30)
[2022-02-01] MEDS: insulin lispro 100 unit/1 mL SUBCUT ×3 (08:45→17:08)
--- NOTE | 2022-02-01 08:55 | PC.SOCIAL ---
Imm update Imm updated at bedside. Copy of page 2 provided. Patient verbalized understanding. Copy in chart initiated, dated and timed.
[2022-02-01] MEDS: lactobacillus 1 Tablet 1 TAB PO ×2 (09:46→17:08)
[2022-02-01 11:14] LABS: Glucose Point of Care 309 mg/dL (70-110)
[2022-02-01] MEDS: acetaminophen 325 mg Tablet 650 MG PO (11:57)
--- NOTE | 2022-02-01 13:58 | PC.OT ---
OT treatment attempted. Pt. not in room--receiving dialysis. OT will attempt to see pt. on 02/02.
--- NOTE | 2022-02-01 15:46 | P.PN_ITS ---
Subjective Subjective: Patient seen while undergoing dialysis today. No acute interim events. Denies any chest pain dyspnea. Heart rate is currently well controlled. Had a few bigeminy and couplets while on dialysis, but otherwise has remained rate controlled. She is currently awake alert and oriented. Medications: Reviewed: Yes Medication Review Details: Current Medications Acetaminophen (Acetaminophen 325 Mg Tablet) 650 mg PO Q6H PRN PRN Reason: Mild/Mod Pain Or Temp >/= 101 Last Admin: 01/29/22 22:40 Dose: 650 mg Allopurinol (Allopurinol 100 Mg Tablet) 100 mg PO DAILY@0800 [facility] Last Admin: 01/29/22 08:03 Dose: 100 mg Amlodipine Besylate (Amlodipine 10 Mg Tablet) 10 mg PO DAILY [facility] Last Admin: 01/29/22 14:15 Dose: 10 mg Aspirin (Aspirin 81 Mg Ec Tablet) 81 mg PO DAILY [facility] Last Admin: 01/29/22 08:03 Dose: 81 mg Atorvastatin Calcium (Atorvastatin 40 Mg Tablet) 40 mg PO BEDTIME [facility] Last Admin: 01/29/22 21:15 Dose: 40 mg Bisacodyl (Bisacodyl 5 Mg Tablet) 10 mg PO DAILY PRN; Protocol PRN Reason: Constipation (see protocol) Bumetanide (Bumetanide 1 Mg Tablet) 2 mg PO DAILY [facility] Last Admin: 01/29/22 08:03 Dose: 2 mg Dextrose (Dextrose 50% Syringe 50 Ml) 25 ml IVP ONCE PRN; Protocol PRN Reason: hypoglycemia protocol Dextrose (Dextrose 50% Syringe 50 Ml) 50 ml IVP PRN PRN; Protocol PRN Reason: hypoglycemia protocol Glucagon (Glucagon 1 Mg/Ml Inj 1 Ml) 1 mg IM ONCE PRN; Protocol PRN Reason: Adult Acute Hypoglycemia Prot. Heparin Sodium (Porcine) (Heparin 5,000 Unit/Ml Inj 1 Ml) 5,000 unit SUBCUT Q12H [facility] Last Admin: 01/30/22 06:31 Dose: Not Given Hydralazine HCl (Hydralazine 50 Mg Tablet) 25 mg PO TID [facility] Last Admin: 01/29/22 21:46 Dose: 25 mg Dextrose (D5w) 500 mls @ 100 mls/hr IV ONCE PRN; Protocol PRN Reason: Adult Acute Hypoglycemia Prot Sodium Chloride (Sodium Chloride 0.9%) 1,000 mls @ 0 mls/hr IV .Q0M PRN PRN Reason: hypotension or symptomatic Sodium Chloride (Sodium Chloride 0.9%) 1,000 mls @ 0 mls/hr IV .Q0M PRN PRN Reason: hypotension or symptomatic Insulin Human Lispro (Insulin Lispro 100 Unit/1 Ml) 0 unit SUBCUT BEDTIME [facility]; Protocol Last Admin: 01/29/22 21:00 Dose: Not Given Insulin Human Lispro (Insulin Lispro 100 Unit/1 Ml) 0 unit SUBCUT TIDWM [facility]; Protocol Last Admin: 01/29/22 18:20 Dose: 10 unit Labetalol HCl (Labetalol 5 Mg/Ml Sdv 20ml) 10 mg IVP Q4H PRN PRN Reason: for sbp>180 or DBP>100, hold if HR<60 Last Admin: 01/29/22 17:19 Dose: 10 mg Lactobacillus Acidophilus (Lactobacillus 1 Tablet) 1 tab PO BID [facility] Last Admin: 01/29/22 18:19 Dose: 1 tab Metoprolol Tartrate (Metoprolol Tartrate 25 Mg Tablet) 25 mg PO Q12H [facility] Last Admin: 01/30/22 00:59 Dose: 25 mg Mirtazapine (Mirtazapine 30 Mg Tablet) 15 mg PO BEDTIME [facility] Last Admin: 01/29/22 21:15 Dose: 15 mg Multivitamins (Y-Nyjgrsk-Hehicmx C Tablet) 1 each PO DAILY [facility] Last Admin: 01/29/22 08:03 Dose: 1 each Non-Formulary Medication (Vit B,Z-Uf-Hetw-Selen-Vit D3-E [Renaplex-D]) 1 tab PO DAILY [facility] Pantoprazole Sodium (Pantoprazole Dr 40 Mg Tablet) 40 mg PO DAILY [facility] Last Admin: 01/29/22 08:02 Dose: 40 mg Multivit/Folic Acid/Iron ( Vitamin Capsule) 1 cap PO DAILY [facility] Last Admin: 01/29/22 09:39 Dose: 1 cap Vitals/I&O/Wt Last Vital Signs Temp 98.8 F 02/01/22 07:46 Pulse 98 02/01/22 15:41 Resp 20 H 02/01/22 11:54 BP 148/70 02/01/22 11:54 Pulse Ox 95 02/01/22 11:54 O2 Del Method 02/01/22 07:08 1102/01/22 02/01/22 06:59 14:59 22:59 Intake Total 100 / 800 120 / 120 Output Total 350 / 550 Balance -250 / 250 120 / 120 Physical Exam Narrative: General: No acute distress, AO x3 HEENT: PERRLA, pupils bilaterally equal and reactive, pallors not present Chest: Normal vesicular breath sounds, no added sounds, equal good air entry bilaterally CVS: S1-S2 regular, no murmurs, no tachycardia, no gallops, no rubs Abdomen: Soft, nontender, no organomegaly, bowel sounds present Neuro: No focal deficits, no facial deformity, AO x3, power 5/5 in all limbs Data 02/01/22 03:22 02/01/22 03:22 Micro: Microbiology 01/27/22 15:30 Blood Culture - Final Blood NO GROWTH AFTER 5 DAYS 01/27/22 15:34 Blood Culture - Final Blood NO GROWTH AFTER 5 DAYS 01/31/22 15:24 Urine Culture - Preliminary Urine,Clean Catch A&P Assessment and plan (1) Acute CVA (cerebrovascular accident): - NIH stroke scale 10 upon presentation. -Received tPA in the emergency room on admission. -CT head on admission within normal limits no acute bleed No significant carotid artery stenosis, echocardiogram with EF 68% no R WMA, grade 1 diastolic dysfunction, mild to moderate LVH. -History of A. fib, paroxysmal not on anticoagulation due to history of GI bleed, current anemia -Had intermittent episodic confusion upon presentation which is now currently much improved. -Continue aspirin, statin -PT OT -The ultimate question is whether this was an embolic phenomenon from her atrial fibrillation given the clinical presentation is highly suspicious -The issue is with her history of GI bleeds, she denies any but her hemmocut stool is positive and she has had anemia of hgb<7 -Of note patient has a past history of pulm embolism and A. fib with RVR, for which she was placed on Eliquis roughly in October 2020, however she suffered anemia result in 2 units PRBC, and there was concerns for GI bleed -She finished a year of anticoagulation for pulmonary embolism, and she has some event monitor was ordered which did not show any recurrence of her atrial fibrillation events, thus she was not put back on anticoagulation -She also saw Dr. Walsh for her anemia had a bone marrow biopsy which showed no overt dyspoietic or metaplastic changes, adequate iron stores normocellular marrow and she was referred to [facility] for a second opinion however patient is unsure of exactly what happened at [facility] -She has never had a EGD or colonoscopy. She will likely need this as an outpatient. During hospital stay in November of this year patient has CT of the abdomen and pelvis that showed thickening of the proximal duodenal loops, narrowing of the lumen and omental inflammatory stranding suggesting localized inflammatory disease - trial of anticoagulation has not been attempted as her Hemoccult stool have been positive -And as she has had a stroke requiring tPA, generally the recommendation is to wait 2 weeks before initiating anticoagulation -we will have her follow-up with neurology as outpatient, then decide if we need to do anticoagulation, have her follow-up with cardiology, shared decision rosmery andersen (2) Infectious encephalopathy: Less likely appearing to be metabolic encephalopathy, however she did have a positive urine culture on 01/27/2022. Urine culture from that time is showing amp susceptible Enterococcus faecalis for which she is currently on ciprofloxacin.. Discontinue ciprofloxacin. Start Augmentin 875 twice daily. We will aim for a 5-day course. She denies any current dysuria or other urinary symptoms. (3) UTI (urinary tract infection): In a patient with known recurrent UTIs, present on admission. Has urethral narrowing as a contributing factor and a history of chronic cystitis. Reports dysuria and baseline and recently. Elevated WBC, abnormal urinalysis with too numerous to count WBCs, general malaise lately and GI symptoms. Qualifiers: Urinary tract infection type: acute cystitis Hematuria presence: without hematuria Qualified Code(s): N30.00 - Acute cystitis without hematuria (4) Diarrhea: -Resolved Started last , several times per day, watery. Unable to quantify further. No blood or mucus reported. No abdominal pain. Bowels movements normal prior to onset of diarrhea. No known sick contact with similar symptoms. . She did complain of abdominal pain, cramping and poor appetite then but no other GI symptoms were reported. (5) Atrial fibrillation: -A. fib well controlled With rapid ventricular response, in a patient with history of intermittent atrial fibrillation in past, first noted after episode of pulmonary embolism in 2019. Holter in 2020 without evidence of afib noted. In sinus rhythm. Is chronically on rate controlling medications of carvedilol and diltiazem. No anticoagulation due to history of anemia and GI bleeding. -As above Qualifiers: Atrial fibrillation type: paroxysmal Qualified Code(s): I48.0 - Paroxysmal atrial fibrillation (6) Generalized weakness: Improving (7) Chronic kidney disease, stage V requiring chronic dialysis: Usually Thursday, , Thursday, but for Thu/Thu/Thu this week in lieu of holiday week. (8) HTN (hypertension): Continue Bumex, diltiazem, carvedilol, hydralazine. Qualifiers: Hypertension type: primary hypertension Qualified Code(s): I10 - Essential (primary) hypertension (9) Type 2 diabetes mellitus: Chronically on glimepiride 2mg. Prescribed glargine insulin but has not been taking it for some time. Qualifiers: Diabetes mellitus intermediate frame tender insulin use: without longterm use Diabetes mellitus complication status: with kidney complications Diabetes mellitus complication detail: with chronic kidney disease Chronic kidney disease stage: on chronic dialysis Qualified Code(s): E11.22 - Type 2 diabetes mellitus with diabetic chronic kidney disease; N18.6 - End stage renal disease; Z99.2 - Dependence on renal dialysis (10) Heart failure with preserved ejection fraction: Not acute Qualifiers: Heart failure chronicity: chronic Qualified Code(s): I50.32 - Chronic diastolic (congestive) heart failure (11) Iron deficiency anemia: Qualifiers: Iron deficiency anemia type: unspecified iron deficiency Qualified Code(s): D50.9 - Iron deficiency anemia, unspecified Plan Disposition: Awaiting SNF placement DVT prophylaxis: Heparin Attestations Medical Necessity Statement*: Hemodialysis today, awaiting appropriate disposition planning. Coding Level of Care Code Acute [employer] for [facility] Fwd Diagnoses Acute CVA (cerebrovascular accident) I63.9 Infectious encephalopathy G93.49; B99.9 UTI (urinary tract infection) N30.00 Urinary tract infection type: acute cystitis Hematuria presence: without hematuria Diarrhea R19.7 Atrial fibrillation I48.0 Atrial fibrillation type: paroxysmal Generalized weakness R53.1 Chronic kidney disease, stage V requiring chronic dialysis N18.6; Z99.2 HTN (hypertension) I10 Hypertension type: primary hypertension Type 2 diabetes mellitus E11.22; N18.6; Z99.2 Diabetes mellitus longterm insulin use: without longterm use Diabetes mellitus complication status: with kidney complications Diabetes mellitus complication detail: with chronic kidney disease Chronic kidney disease stage: on chronic dialysis Heart failure with preserved ejection fraction I50.32 Heart failure chronicity: chronic Iron deficiency anemia D50.9 Iron deficiency anemia type: unspecified iron deficiency
[2022-02-01] MEDS: heparin, porcine 1,000 unit/mL INJ 10 mL 1000 UNIT IV (16:12)
[2022-02-01] MEDS: amoxicillin-clav 875-125 mg Tablet 1 TAB PO (17:08)
[2022-02-01 17:22] LABS: Glucose Point of Care 175 mg/dL (70-110)
[2022-02-01 17:44] LABS: Glucose Point of Care 262 mg/dL (70-110)
[2022-02-01 18:46] LABS: Glucose Point of Care 228 mg/dL (70-110)
[2022-02-01] MEDS: morphine 4 mg/mL SDV 1 mL 1 MG IVP (19:44)
[2022-02-01 21:25] LABS: Glucose Point of Care 297 mg/dL (70-110)
[2022-02-01] MEDS: mirtazapine 30 mg Tablet 15 MG PO (22:01)
[2022-02-01] MEDS: atorvastatin 40 mg Tablet PO (22:01)
[2022-02-02] VITALS (11 sets, daily range): BP systolic 136–166; BP diastolic 74–77; PULSE 89–105; RESP 16–20; TEMP 36.9–37.6; O2SAT 91–98
--- NOTE | 2022-02-02 01:37 | PC.NURSE ---
Patient requested assistance to get up to [facility]. Patient was unable to stand due to report of pain in her feet. Patient then requested a bedpan.
[2022-02-02] MEDS: heparin 5,000 unit/mL INJ 1 mL 5000 UNIT SUBCUT ×2 (03:13→16:18)
[2022-02-02 04:19] LABS: Basophils % 0.2 %; Eosinophils # 0.2 10^3/uL (0.0-0.8); Eosinophils % 1.9 %; Hematocrit 30.2 % (37.0-47.0); Hemoglobin 9.3 g/dL (11.5-15.3); Lymphocytes # 1.8 10^3/uL (0.8-4.8); Lymphocytes % 14.9 %; Mean Corpuscular HGB Conc 30.8 g/dL (30.0-36.0); Mean Corpuscular Hemoglobin 28.9 pg (28.0-34.0); Mean Corpuscular Volume 93.8 fl (81-99); Mean Platelet Volume 11.1 fL (7.4-10.4); Monocytes # 0.8 10^3/uL (0.2-0.9); Monocytes % 7.1 %; Neutrophils # 8.96 10^3/uL (1.8-7.7); Neutrophils % 75.2 %; Nucleated Red Blood Cells % 0 %; Platelet Count 260 10^3/cmm (130-400); Red Blood Count 3.22 10^6/uL (4.1-5.3); Red Cell Distribution Width 15.6 % (12.1-15.1); White Blood Count 11.9 10^3/uL (4.0-10.0)
[2022-02-02 04:51] LABS: Alanine Aminotransferase 14 U/L (0-33); Albumin Level 2.4 g/dL (3.5-5.2); Alkaline Phosphatase 107 U/L (35-105); Anion Gap 14.1 (5-19); Aspartate Amino Transferase 12 U/L (0-32); Blood Urea Nitrogen 12 mg/dL (8-23); Carbon Dioxide 24 mmol/L (22-29); Chloride 99 mmol/L (98-107); Globulin 2.9 g/dL (1.3-4.6); Glucose 325 mg/dL (65-115); Magnesium 1.7 mg/dL (1.7-2.3); Osmolality Calculated 288 mOsm/kg (285-295); Phosphorus 2.5 mg/dL (2.5-4.5); Potassium 4.1 mmol/L (3.5-5.1); Sodium 133 mmol/L (136-145); Total Bilirubin 0.2 mg/dL (0.15-1.2); Total Protein 5.3 g/dL (6.6-8.7)
[2022-02-02 05:52] LABS: Glucose Point of Care 292 mg/dL (70-110)
[2022-02-02] MEDS: losartan 50 mg Tablet 100 MG PO (08:42)
[2022-02-02] MEDS: metoprolol tartrate 25 mg Tablet 50 MG PO ×2 (08:43→20:06)
[2022-02-02] MEDS: b-complex-vitamin c Tablet 1 EACH PO (08:43)
[2022-02-02] MEDS: bumetanide 1 mg Tablet 2 MG PO (08:43)
[2022-02-02] MEDS: sucralfate 1 gm Tablet PO ×2 (08:44→20:05)
[2022-02-02] MEDS: amlodipine 10 mg Tablet PO (08:44)
[2022-02-02] MEDS: allopurinol 100 mg Tablet PO (08:44)
[2022-02-02] MEDS: prenatal vitamin Capsule 1 CAP PO (08:44)
[2022-02-02] MEDS: aspirin 81 mg EC Tablet PO (08:44)
[2022-02-02] MEDS: amoxicillin-clav 875-125 mg Tablet 1 TAB PO ×2 (08:44→17:00)
[2022-02-02] MEDS: insulin lispro 100 unit/1 mL SUBCUT ×4 (08:45→20:06)
[2022-02-02] MEDS: pantoprazole 40 mg SDV IVP ×2 (08:45→20:06)
[2022-02-02] MEDS: acetaminophen 325 mg Tablet 650 MG PO ×2 (09:01→20:05)
[2022-02-02] MEDS: lactobacillus 1 Tablet 1 TAB PO ×2 (09:02→17:00)
[2022-02-02 12:07] LABS: Glucose Point of Care 226 mg/dL (70-110)
[2022-02-02] MEDS: morphine 4 mg/mL SDV 1 mL 1 MG IVP (12:46)
--- NOTE | 2022-02-02 13:08 | P.PN_ITS ---
Subjective Subjective: T-max noted to be 99.2 Fahrenheit. Complaining of left ankle pain. Left ankle is swollen, erythematous and warm to touch. Tenderness present. Medications: Reviewed: Yes Medication Review Details: Current Medications Acetaminophen (Acetaminophen 325 Mg Tablet) 650 mg PO Q6H PRN PRN Reason: Mild/Mod Pain Or Temp >/= 101 Last Admin: 01/29/22 22:40 Dose: 650 mg Allopurinol (Allopurinol 100 Mg Tablet) 100 mg PO DAILY@0800 [facility] Last Admin: 01/29/22 08:03 Dose: 100 mg Amlodipine Besylate (Amlodipine 10 Mg Tablet) 10 mg PO DAILY [facility] Last Admin: 01/29/22 14:15 Dose: 10 mg Aspirin (Aspirin 81 Mg Ec Tablet) 81 mg PO DAILY [facility] Last Admin: 01/29/22 08:03 Dose: 81 mg Atorvastatin Calcium (Atorvastatin 40 Mg Tablet) 40 mg PO BEDTIME [facility] Last Admin: 01/29/22 21:15 Dose: 40 mg Bisacodyl (Bisacodyl 5 Mg Tablet) 10 mg PO DAILY PRN; Protocol PRN Reason: Constipation (see protocol) Bumetanide (Bumetanide 1 Mg Tablet) 2 mg PO DAILY [facility] Last Admin: 01/29/22 08:03 Dose: 2 mg Dextrose (Dextrose 50% Syringe 50 Ml) 25 ml IVP ONCE PRN; Protocol PRN Reason: hypoglycemia protocol Dextrose (Dextrose 50% Syringe 50 Ml) 50 ml IVP PRN PRN; Protocol PRN Reason: hypoglycemia protocol Glucagon (Glucagon 1 Mg/Ml Inj 1 Ml) 1 mg IM ONCE PRN; Protocol PRN Reason: Adult Acute Hypoglycemia Prot. Heparin Sodium (Porcine) (Heparin 5,000 Unit/Ml Inj 1 Ml) 5,000 unit SUBCUT Q12H [facility] Last Admin: 01/30/22 06:31 Dose: Not Given Hydralazine HCl (Hydralazine 50 Mg Tablet) 25 mg PO TID [facility] Last Admin: 01/29/22 21:46 Dose: 25 mg Dextrose (D5w) 500 mls @ 100 mls/hr IV ONCE PRN; Protocol PRN Reason: Adult Acute Hypoglycemia Prot Sodium Chloride (Sodium Chloride 0.9%) 1,000 mls @ 0 mls/hr IV .Q0M PRN PRN Reason: hypotension or symptomatic Sodium Chloride (Sodium Chloride 0.9%) 1,000 mls @ 0 mls/hr IV .Q0M PRN PRN Reason: hypotension or symptomatic Insulin Human Lispro (Insulin Lispro 100 Unit/1 Ml) 0 unit SUBCUT BEDTIME [facility]; Protocol Last Admin: 01/29/22 21:00 Dose: Not Given Insulin Human Lispro (Insulin Lispro 100 Unit/1 Ml) 0 unit SUBCUT TIDWM [facility]; Protocol Last Admin: 01/29/22 18:20 Dose: 10 unit Labetalol HCl (Labetalol 5 Mg/Ml Sdv 20ml) 10 mg IVP Q4H PRN PRN Reason: for sbp>180 or DBP>100, hold if HR<60 Last Admin: 01/29/22 17:19 Dose: 10 mg Lactobacillus Acidophilus (Lactobacillus 1 Tablet) 1 tab PO BID [facility] Last Admin: 01/29/22 18:19 Dose: 1 tab Metoprolol Tartrate (Metoprolol Tartrate 25 Mg Tablet) 25 mg PO Q12H [facility] Last Admin: 01/30/22 00:59 Dose: 25 mg Mirtazapine (Mirtazapine 30 Mg Tablet) 15 mg PO BEDTIME [facility] Last Admin: 01/29/22 21:15 Dose: 15 mg Multivitamins (G-Nmovbye-Owyjcua C Tablet) 1 each PO DAILY [facility] Last Admin: 01/29/22 08:03 Dose: 1 each Non-Formulary Medication (Vit B,A-Ok-Siqp-Selen-Vit D3-E [Renaplex-D]) 1 tab PO DAILY [facility] Pantoprazole Sodium (Pantoprazole Dr 40 Mg Tablet) 40 mg PO DAILY [facility] Last Admin: 01/29/22 08:02 Dose: 40 mg Multivit/Folic Acid/Iron ( Vitamin Capsule) 1 cap PO DAILY [facility] Last Admin: 01/29/22 09:39 Dose: 1 cap Vitals/I&O/Wt Last Vital Signs Temp 99.2 F 02/02/22 11:43 Pulse 89 02/02/22 11:43 Resp 17 02/02/22 12:46 BP 156/75 02/02/22 11:43 Pulse Ox 95 02/02/22 12:46 O2 Del Method 02/02/22 11:43 02/01/22 02/02/22 02/02/22 22:59 06:59 14:59 Intake Total 100 / 220 Output Total 150 / 150 Balance 100 / 220 -150 / 70 Physical Exam Narrative: General: No acute distress, AO x3 HEENT: PERRLA, pupils bilaterally equal and reactive, pallors not present Chest: Normal vesicular breath sounds, no added sounds, equal good air entry bilaterally CVS: S1-S2 regular, no murmurs, no tachycardia, no gallops, no rubs Abdomen: Soft, nontender, no organomegaly, bowel sounds present Neuro: No focal deficits, no facial deformity, AO x3, power 5/5 in all limbs Extremities: Left lateral malleolus swollen, erythematous, warm and tender to touch. Data 02/02/22 03:10 02/02/22 03:10 Other Labs: Radiology Impressions Chest X-Ray 01/27/22 12:40 IMPRESSION: Mild atherosclerosis aorta. No acute cardiopulmonary disease. Head/Neck CTA 01/28/22 10:45 IMPRESSION: 1. No high-grade cervical carotid artery stenosis. Calcified plaque in the bifurcations. Stenosis estimated 50%. 2. Extensive calcified plaque in the distal intracranial carotid arteries with stenoses approximately 60-70% in greatest on the RIGHT. 3. No thrombus in the middle cerebral artery. 4. Moderately calcified distal vertebral arteries. Renal Ultrasound 01/28/22 12:42 IMPRESSION: 1. Unchanged mild bilateral chronic medical renal disease. No progression of cortical atrophy or cortical thinning. 2. Bilateral renal cysts are stable. Head CT 01/29/22 11:27 IMPRESSION: 1. No acute intracranial hemorrhage or edema. 2. Moderate atrophy with extensive small vessel ischemic changes which are stable. Ankle X-Ray 01/29/22 13:48 IMPRESSION: No acute findings. Laboratory Results WBC 11.9 10^3/uL (4.0-10.0) H 02/02/22 03:10 RBC 3.22 10^6/uL (4.1-5.3) L 02/02/22 03:10 Hgb 9.3 g/dL (11.5-15.3) L 02/02/22 03:10 Hct 30.2 % (37.0-47.0) L 02/02/22 03:10 MCV 93.8 fl (81-99) 02/02/22 03:10 MCH 28.9 pg (28.0-34.0) 02/02/22 03:10 MCHC 30.8 g/dL (30.0-36.0) 02/02/22 03:10 RDW 15.6 % (12.1-15.1) H 02/02/22 03:10 Plt Count 260 10^3/cmm (130-400) 02/02/22 03:10 MPV 11.1 fL (7.4-10.4) H 02/02/22 03:10 Neut % (Auto) 75.2 % 02/02/22 03:10 Lymph % (Auto) 14.9 % 02/02/22 03:10 [place] % (Auto) 7.1 % 02/02/22 03:10 Eos % (Auto) 1.9 % 02/02/22 03:10 Baso % (Auto) 0.2 % 02/02/22 03:10 Neut # (Auto) 8.96 10^3/uL (1.8-7.7) H 02/02/22 03:10 Lymph # (Auto) 1.8 10^3/uL (0.8-4.8) 02/02/22 03:10 [place] # (Auto) 0.8 10^3/uL (0.2-0.9) 02/02/22 03:10 Eos # (Auto) 0.2 10^3/uL (0.0-0.8) 02/02/22 03:10 Baso # (Auto) 0.0 10^3/uL (0.0-0.1) 02/02/22 03:10 Nucleated RBC % (auto) 0 % 02/02/22 03:10 Nucleated RBCs # 0.0 /100WBC 02/02/22 03:10 PT 13.70 SECONDS (12.1-14.9) 01/31/22 02:56 INR 1.02 (0.8-1.2) 01/31/22 02:56 Fibrinogen 522 mg/dL (174-498) H 01/30/22 04:46 D-Dimer 1.93 ug/mIFEU (0-0.59) H 01/27/22 18:47 Specimen Type Arterial 01/28/22 15:08 Sample Site Radial, right 01/28/22 15:08 ABG pH 7.47 (7.35-7.45) H 01/28/22 15:08 ABG pCO2 31.3 mmHg (35-45) L 01/28/22 15:08 ABG pO2 65.8 mmHg (80.0-100.0) L 01/28/22 15:08 ABG HCO3 23.0 mmol/L (22-26) 01/28/22 15:08 ABG Base Excess 0.0 mmol/L (-2.0-2.0) 01/28/22 15:08 Edre Test Pos 01/28/22 15:08 Hematocrit 33.5 % (37-47) L 01/28/22 15:08 O2 Delivery Device Room air 01/28/22 15:08 FiO2 21.0 % 01/28/22 15:08 Regional Recruiter ID Gd 01/28/22 15:08 Sodium 133 mmol/L (136-145) L 02/02/22 03:10 Potassium 4.1 mmol/L (3.5-5.1) 02/02/22 03:10 Chloride 99 mmol/L (98-107) 02/02/22 03:10 Carbon Dioxide 24 mmol/L (22-29) 02/02/22 03:10 Anion Gap 14.1 (5-19) 02/02/22 03:10 BUN 12 mg/dL (8-23) 02/02/22 03:10 Creatinine 2.8 mg/dL (0.5-0.9) H 02/02/22 03:10 GFR Calculation Not Reportable 02/02/22 03:10 Glucose 325 mg/dL (65-115) H 02/02/22 03:10 POC Glucose 226 mg/dL (70-110) H 02/02/22 11:45 Estimat Average Glucose 183 01/28/22 04:37 Hemoglobin A1c 8.0 % (4.0-6.0) H 01/28/22 04:37 Calculated Osmolality 288 mOsm/kg (285-295) 02/02/22 03:10 Lactate 1.9 mmol/L (0.5-2.2) 01/28/22 10:25 Calcium 9.0 mg/dL (8.5-10.5) 02/02/22 03:10 Phosphorus 2.5 mg/dL (2.5-4.5) 02/02/22 03:10 Magnesium 1.7 mg/dL (1.7-2.3) 02/02/22 03:10 Iron 80 ug/dL (37-145) 01/28/22 10:25 TIBC 238 mcg/dl 01/28/22 10:25 % Saturation 33.6 % (20-50) 01/28/22 10:25 Unsat Iron Binding 158 ug/dL (112-347) 01/28/22 10:25 Ferritin 117 ng/mL (15-150) 01/28/22 10:25 Total Bilirubin 0.2 mg/dL (0.15-1.2) 02/02/22 03:10 AST 12 U/L (0-32) 02/02/22 03:10 ALT 14 U/L (0-33) 02/02/22 03:10 Alkaline Phosphatase 107 U/L (35-105) H 02/02/22 03:10 Ammonia 25 umol/L (11-51) 01/27/22 12:47 Troponin T Baseline 89 ng/L (0-10) H 01/28/22 10:25 Troponin T 120 Minute 109.6 ng/L (0-10) H 01/28/22 12:20 Delta Troponin T 20.6 ABS# (0-10) H* 01/28/22 12:20 Troponin T Hi Sens 6Hr 98.85 ng/L (0-10) H 01/28/22 17:05 Troponin T Hi Sens 6Hr Delta 9.85 ng/L (0-12) 01/28/22 17:05 C-Reactive Protein 144.0 mg/L (0.0-4.9) H 01/31/22 02:56 NT-Pro-B Natriuret Pep 98409 pg/mL (0-450) H 01/31/22 02:56 Total Protein 5.3 g/dL (6.6-8.7) L 02/02/22 03:10 Albumin 2.4 g/dL (3.5-5.2) L 02/02/22 03:10 Globulin 2.9 g/dL (1.3-4.6) 02/02/22 03:10 Vitamin B12 401 pg/mL (232-1245) 01/28/22 10:25 Folate > 20.0 ng/mL (4.8-37.3) 01/28/22 10:25 Procalcitonin 0.53 ng/mL (0-0.5) H 01/31/22 02:56 TSH 1.03 uIU/mL (0.27-4.20) 01/28/22 04:37 Free T4 1.74 ng/dL (0.82-1.77) 01/28/22 04:37 Urine Color Yellow (Yellow) 01/31/22 15:24 Urine Appearance Hazy (CLEAR) A 01/31/22 15:24 Urine pH 9 (5-7) H 01/31/22 15:24 Ur Specific [place] 1.015 (1.005-1.030) 01/31/22 15:24 Urine Protein 3+ (Negative) H 01/31/22 15:24 Urine Glucose (UA) Norm (Normal) 01/31/22 15:24 Urine Ketones Negative (Negative) 01/31/22 15:24 Urine Blood Neg (Negative) 01/31/22 15:24 Urine Nitrate Negative (Negative) 01/31/22 15:24 Urine Bilirubin Neg (Negative) 01/31/22 15:24 Prot Sulfosalicylic Acd Positive (Negative) 01/31/22 15:24 Urine Urobilinogen Norm mg/dL (Negative) 01/31/22 15:24 Ur Leukocyte Esterase 2+ (Negative) H 01/31/22 15:24 Urine RBC 0-4 /hpf (0-2) H 01/31/22 15:24 Urine WBC Too numerous to cnt /hpf (0-5) H 01/31/22 15:24 Ur Squamous Epith Cells 25-40 /hpf (0-5) H 01/31/22 15:24 Amorphous Sediment Not Reportable 01/31/22 15:24 Urine Bacteria Trace /hpf (NONE) 01/31/22 15:24 Hep Bs Antigen Non-reactive (Nonreactive) 01/28/22 10:25 Hep Bs Antibody 286.6 (11.5-1000) 01/28/22 10:25 Hepatitis C Antibody Non-reactive (Nonreactive) 01/28/22 10:25 Micro: Microbiology 01/31/22 15:24 Urine Culture - Final Urine,Clean Catch Enterococcus faecalis VRE 01/27/22 15:30 Blood Culture - Final Blood NO GROWTH AFTER 5 DAYS 01/27/22 15:34 Blood Culture - Final Blood NO GROWTH AFTER 5 DAYS A&P Assessment and plan (1) Acute CVA (cerebrovascular accident): - NIH stroke scale 10 upon presentation. -Received tPA in the emergency room on admission. -CT head on admission within normal limits no acute bleed No significant carotid artery stenosis, echocardiogram with EF 68% no R WMA, grade 1 diastolic dysfunction, mild to moderate LVH. -History of A. fib, paroxysmal not on anticoagulation due to history of GI bleed, current anemia -Had intermittent episodic confusion upon presentation which is now currently much improved. -Continue aspirin, statin -PT OT -The ultimate question is whether this was an embolic phenomenon from her atrial fibrillation given the clinical presentation is highly suspicious -The issue is with her history of GI bleeds, she denies any but her hemmocut stool is positive and she has had anemia of hgb<7 -Of note patient has a past history of pulm embolism and A. fib with RVR, for which she was placed on Eliquis roughly in October 2020, however she suffered anemia result in 2 units PRBC, and there was concerns for GI bleed -She finished a year of anticoagulation for pulmonary embolism, and she has some event monitor was ordered which did not show any recurrence of her atrial fibrillation events, thus she was not put back on anticoagulation -She also saw Dr. Walsh for her anemia had a bone marrow biopsy which showed no overt dyspoietic or metaplastic changes, adequate iron stores normocellular marrow and she was referred to [place] [facility] for a second opinion however patient is unsure of exactly what happened at [place] -She has never had a EGD or colonoscopy. She will likely need this as an outpatient. During hospital stay in November of this year patient has CT of the abdomen and pelvis that showed thickening of the proximal duodenal loops, narrowing of the lumen and omental inflammatory stranding suggesting localized inflammatory disease - trial of anticoagulation has not been attempted as her Hemoccult stool have been positive -And as she has had a stroke requiring tPA, generally the recommendation is to wait 2 weeks before initiating anticoagulation -we will have her follow-up with neurology as outpatient, then decide if we need to do anticoagulation, have her follow-up with cardiology, shared decision making (2) Infectious encephalopathy: Less likely appearing to be metabolic encephalopathy, however she did have a positive urine culture on 01/27/2022. Urine culture from that time is showing amp susceptible Enterococcus faecalis for which she is currently on ciprofloxacin.. Discontinue ciprofloxacin. Start Augmentin 875 twice daily. We will aim for a 5-day course. She denies any current dysuria or other urinary symptoms. (3) UTI (urinary tract infection): In a patient with known recurrent UTIs, present on admission. Has urethral narrowing as a contributing factor and a history of chronic cystitis. Reports dysuria and baseline and recently. Elevated WBC, abnormal urinalysis with too numerous to count WBCs, general malaise lately and GI symptoms. Qualifiers: Urinary tract infection type: acute cystitis Hematuria presence: without hematuria Qualified Code(s): N30.00 - Acute cystitis without hematuria (4) Diarrhea: -Resolved Started last , several times per day, watery. Unable to quantify further. No blood or mucus reported. No abdominal pain. Bowels movements normal prior to onset of diarrhea. No known sick contact with similar symptoms. . She did complain of abdominal pain, cramping and poor appetite then but no other GI symptoms were reported. (5) Atrial fibrillation: -A. fib well controlled With rapid ventricular response, in a patient with history of intermittent atrial fibrillation in past, first noted after episode of pulmonary embolism in 2019. Holter in 2020 without evidence of afib noted. In sinus rhythm. Is chronically on rate controlling medications of carvedilol and diltiazem. No anticoagulation due to history of anemia and GI bleeding. -As above Qualifiers: Atrial fibrillation type: paroxysmal Qualified Code(s): I48.0 - Paroxysmal atrial fibrillation (6) Generalized weakness: Improving (7) Chronic kidney disease, stage V requiring chronic dialysis: Usually Thursday, , Thursday, but for Thu/Thu/Thu this week in lieu of holiday week. (8) HTN (hypertension): Continue Bumex, diltiazem, carvedilol, hydralazine. Qualifiers: Hypertension type: primary hypertension Qualified Code(s): I10 - Essential (primary) hypertension (9) Type 2 diabetes mellitus: Chronically on glimepiride 2mg. Prescribed glargine insulin but has not been taking it for some time. Qualifiers: Diabetes mellitus traffic routing engineer insulin use: without traffic routing engineer use Diabetes mellitus complication status: with kidney complications Diabetes mellitus complication detail: with chronic kidney disease Chronic kidney disease stage: on chronic dialysis Qualified Code(s): E11.22 - Type 2 diabetes mellitus with diabetic chronic kidney disease; N18.6 - End stage renal disease; Z99.2 - Dependence on renal dialysis (10) Heart failure with preserved ejection fraction: Not acute Qualifiers: Heart failure chronicity: chronic Qualified Code(s): I50.32 - Chronic diastolic (congestive) heart failure (11) Iron deficiency anemia: Qualifiers: Iron deficiency anemia type: unspecified iron deficiency Qualified Code(s): D50.9 - Iron deficiency anemia, unspecified (12) Acute gout: Left ankle warm, swollen, erythematous. Patient does not recall any injuries to the site. Ankle x-ray from January 29 did not show any bony abnormalities. Clinically appears to be acute gout. Continue her allopurinol. Add prednisone 40 mg p.o. for 5 days for acute gout flare. Avoiding NSAIDs due to renal insufficiency. Plan Disposition: Awaiting SNF placement DVT prophylaxis: Heparin Attestations Medical Necessity Statement*: Awaiting appropriate awaiting appropriate disposition planning. Coding Level of Care Code Acute Clinical Leader for [facility] Fwd Diagnoses Acute CVA (cerebrovascular accident) I63.9 Infectious encephalopathy G93.49; B99.9 UTI (urinary tract infection) N30.00 Urinary tract infection type: acute cystitis Hematuria presence: without hematuria Diarrhea R19.7 Atrial fibrillation I48.0 Atrial fibrillation type: paroxysmal Generalized weakness R53.1 Chronic kidney disease, stage V requiring chronic dialysis N18.6; Z99.2 HTN (hypertension) I10 Hypertension type: primary hypertension Type 2 diabetes mellitus E11.22; N18.6; Z99.2 Diabetes mellitus traffic routing engineer insulin use: without senior care use Diabetes mellitus complication status: with kidney complications Diabetes mellitus complication detail: with chronic kidney disease Chronic kidney disease stage: on chronic dialysis Heart failure with preserved ejection fraction I50.32 Heart failure chronicity: chronic Iron deficiency anemia D50.9 Iron deficiency anemia type: unspecified iron deficiency Acute gout M10.9
[2022-02-02] MEDS: predniSONE 20 mg Tablet 40 MG PO (14:41)
[2022-02-02 16:39] LABS: Glucose Point of Care 307 mg/dL (70-110)
[2022-02-02 19:46] LABS: Glucose Point of Care 380 mg/dL (70-110)
[2022-02-02] MEDS: mirtazapine 30 mg Tablet 15 MG PO (20:06)
[2022-02-02] MEDS: atorvastatin 40 mg Tablet PO (20:06)
--- NOTE | 2022-02-02 20:57 | P.PN_ITS ---
Subjective Subjective: no new complaints Medications: Reviewed: Yes Vitals/I&O/Wt Last Vital Signs Temp 99.7 F H 02/02/22 20:09 Pulse 105 H 02/02/22 20:09 Resp 19 H 02/02/22 20:09 BP 150/74 02/02/22 20:09 Pulse Ox 97 02/02/22 20:09 O2 Del Method 02/02/22 11:43 02/02/22 02/02/22 02/02/22 06:59 14:59 22:59 Intake Total 360 / 360 360 / 720 Output Total 150 / 150 Balance -150 / 70 360 / 360 360 / 720 Physical Exam Narrative: General: No acute distress, AO x3 HEENT: PERRLA, pupils bilaterally equal and reactive, pallors not present Chest: Normal vesicular breath sounds, no added sounds, equal good air entry bilaterally-per report CVS: S1-S2 regular, no murmurs, no tachycardia, no gallops, no rubs- per report Abdomen: Soft, nontender, no organomegaly, bowel sounds present-per report . Data 02/02/22 03:10 02/02/22 03:10 Micro: Microbiology 01/31/22 15:24 Urine Culture - Final Urine,Clean Catch Enterococcus faecalis VRE 01/27/22 15:30 Blood Culture - Final Blood NO GROWTH AFTER 5 DAYS 01/27/22 15:34 Blood Culture - Final Blood NO GROWTH AFTER 5 DAYS A&P Assessment and plan (1) ESRD (end stage renal disease): 76 yr old female ESRD, a fib, CVA 1. ESRD-? hd T//S 2. htn- well-controlled 3. enterococcus UTI - cipro? 500 mg daily? Attestations Medical Necessity Statement*: Awaiting appropriate awaiting appropriate disposition planning. Coding Level of Care Code Acute Examination Grader for [facility] Fwd Diagnoses ESRD (end stage renal disease) N18.6
[2022-02-03] VITALS (8 sets, daily range): BP systolic 137–192; BP diastolic 71–90; PULSE 101–102; RESP 15–21; TEMP 37.1–37.3; O2SAT 98–100
[2022-02-03] MEDS: heparin 5,000 unit/mL INJ 1 mL 5000 UNIT SUBCUT (03:04)
[2022-02-03 04:48] LABS: Basophils % 0.2 %; Hematocrit 33.2 % (37.0-47.0); Hemoglobin 10.3 g/dL (11.5-15.3); Lymphocytes # 0.6 10^3/uL (0.8-4.8); Lymphocytes % 4.3 %; Mean Corpuscular Hemoglobin 28.7 pg (28.0-34.0); Mean Corpuscular Volume 92.5 fl (81-99); Mean Platelet Volume 11.1 fL (7.4-10.4); Monocytes # 0.2 10^3/uL (0.2-0.9); Monocytes % 1.3 %; Neutrophils # 11.87 10^3/uL (1.8-7.7); Neutrophils % 93.5 %; Nucleated Red Blood Cells % 0 %; Platelet Count 323 10^3/cmm (130-400); Red Blood Count 3.59 10^6/uL (4.1-5.3); Red Cell Distribution Width 15.5 % (12.1-15.1); White Blood Count 12.7 10^3/uL (4.0-10.0)
[2022-02-03 05:11] LABS: Alanine Aminotransferase 16 U/L (0-33); Albumin Level 2.9 g/dL (3.5-5.2); Alkaline Phosphatase 139 U/L (35-105); Anion Gap 18.9 (5-19); Aspartate Amino Transferase 14 U/L (0-32); Blood Urea Nitrogen 24 mg/dL (8-23); Calcium 9.7 mg/dL (8.5-10.5); Carbon Dioxide 21 mmol/L (22-29); Chloride 90 mmol/L (98-107); Globulin 3.5 g/dL (1.3-4.6); Magnesium 1.7 mg/dL (1.7-2.3); Osmolality Calculated 293 mOsm/kg (285-295); Phosphorus 4.1 mg/dL (2.5-4.5); Potassium 4.9 mmol/L (3.5-5.1); Sodium 125 mmol/L (136-145); Total Bilirubin 0.2 mg/dL (0.15-1.2); Total Protein 6.4 g/dL (6.6-8.7)
[2022-02-03 05:16] LABS: Glucose 627 mg/dL (65-115)
--- NOTE | 2022-02-03 05:30 | PC.NURSE ---
Lab reported critical lab of blood glucose 627. Performed POC and obtained value of 589. Informed Dr Kim and received order for onetime dose of Humalog 20units SC. RBVO
[2022-02-03 05:31] LABS: Glucose Point of Care 589 mg/dL (70-110)
[2022-02-03] MEDS: insulin lispro 100 unit/1 mL 20 UNIT SUBCUT ×2 (05:42→08:44)
[2022-02-03 07:59] LABS: Glucose Point of Care 571 mg/dL (70-110)
[2022-02-03 08:15] LABS: Glucose Point of Care 557 mg/dL (70-110)
[2022-02-03 08:19] LABS: Glucose Point of Care 528 mg/dL (70-110)
--- NOTE | 2022-02-03 08:20 | PC.NURSE ---
Critical glucose of 571 reported to physician. Received orders for 20 units of lispro once. Rechecked blood sugar prior to giving insulin and glucose was 528. Physician notified.
[2022-02-03] MEDS: amlodipine 10 mg Tablet PO (08:42)
[2022-02-03] MEDS: aspirin 81 mg EC Tablet PO (08:43)
[2022-02-03] MEDS: sucralfate 1 gm Tablet PO (08:43)
[2022-02-03] MEDS: metoprolol tartrate 25 mg Tablet 50 MG PO (08:43)
[2022-02-03] MEDS: allopurinol 100 mg Tablet PO (08:43)
[2022-02-03] MEDS: predniSONE 20 mg Tablet 40 MG PO (08:43)
[2022-02-03] MEDS: b-complex-vitamin c Tablet 1 EACH PO (08:43)
[2022-02-03] MEDS: losartan 50 mg Tablet 100 MG PO (08:43)
[2022-02-03] MEDS: bumetanide 1 mg Tablet 2 MG PO (08:43)
[2022-02-03] MEDS: prenatal vitamin Capsule 1 CAP PO (08:43)
[2022-02-03] MEDS: pantoprazole 40 mg SDV IVP (08:57)
[2022-02-03] MEDS: amoxicillin-clav 875-125 mg Tablet 1 TAB PO (09:03)
[2022-02-03] MEDS: lactobacillus 1 Tablet 1 TAB PO (09:03)
--- NOTE | 2022-02-03 09:40 | PC.SOCIAL ---
IMM Updated Updated pt on IMM. No questions voiced. Provided pt a copy. Initialed, dated, & timed copy in chart.
--- NOTE | 2022-02-03 10:46 | P.PN_ITS ---
Subjective Subjective: elevated blood sugars Medications: Reviewed: Yes Vitals/I&O/Wt Last Vital Signs Temp 98.8 F 02/03/22 07:51 Pulse 102 H 02/03/22 07:51 Resp 21 H 02/03/22 07:51 BP 169/79 02/03/22 08:43 Pulse Ox 98 02/03/22 07:51 O2 Del Method 02/03/22 07:51 02/02/22 02/03/22 02/03/22 22:59 06:59 14:59 Intake Total 480 / 840 Output Total 140 / 140 30 / 30 Balance 480 / 840 -140 / 700 -30 / -30 Physical Exam Narrative: General: No acute distress, AO x3 HEENT: PERRLA, pupils bilaterally equal and reactive, pallors not present Chest: Normal vesicular breath sounds, no added sounds, equal good air entry bilaterally-per report CVS: S1-S2 regular, no murmurs, no tachycardia, no gallops, no rubs- per report Abdomen: Soft, nontender, no organomegaly, bowel sounds present-per report . Data 02/03/22 04:15 02/03/22 04:15 Micro: Microbiology 01/31/22 15:24 Urine Culture - Final Urine,Clean Catch Enterococcus faecalis VRE A&P Assessment and plan (1) ESRD (end stage renal disease): (1) ESRD (end stage renal disease): 76 yr old female ESRD, a fib, CVA 1. ESRD-? hd T/Th/S-HD tomorrow 2. htn- well-controlled 3. enterococcus UTI - cipro? 500 mg daily? 4. Acute gout : on PO steroids 5. Hyperglycemia : h/o DM , sec to steroids - mx per primary team , on Insulin 6. Hyponatremia : peudo hyponatremia due to hyperglycemia Attestations Medical Necessity Statement*: Awaiting appropriate awaiting appropriate disposition planning. Coding Level of Care Code Acute Records Analysis Manager for [place] Fwd Diagnoses ESRD (end stage renal disease) N18.6
[2022-02-03 11:02] LABS: Glucose Point of Care 422 mg/dL (70-110)
[2022-02-03 12:10] LABS: Glucose Point of Care 388 mg/dL (70-110)
[2022-02-03] MEDS: insulin lispro 100 unit/1 mL 16 UNIT SUBCUT (12:18)
--- NOTE | 2022-02-03 13:27 | PM.DCS ---
Discharge Providers Date of Admission: 01/27/22 15:23 Date of Discharge: February 03, 2022 Attending Provider at Admission: Britt Monaco MD Attending Provider at Discharge: Beckie Trna MD Primary Care Provider: Vitaliy Morales MD Diagnoses at Discharge Discharge Diagnosis (1) ESRD (end stage renal disease): Status: Acute Reason for Visit Reason for Visit: CONFUSION/ AFIB W/RVR Hospital Course Hospital Course Shilpi Nicole is a 76 year old female who presented to the emergency room from hemodialysis clinic. She was initially admitted for a UTI and altered mental status thought to be infectious encephalopathy. Urine culture had shown Enterococcus and she was treated with ciprofloxacin. During the course of admission she eventually developed a right facial droop, right-sided weakness, and was diagnosed with a CVA. Stroke alert was called and patient received tPA on 01/29/2022. NIH stroke scale was 10 at that time. When patient had initially presented she was noted to be in A. fib with RVR. It was thought that possibly patient has had an embolic phenomenon from her A. fib RVR.No significant carotid artery stenosis, echocardiogram with EF 68% no R WMA, grade 1 diastolic dysfunction, mild to moderate LVH. She was not considered a candidate for being placed on anticoagulation because of several reasons. Firstly she had just received tPA and anticoagulation is recommended to be started 2 weeks afterwards. Additionally patient has a history of GI bleed, her hemoglobin was 7. She has a past history of pulmonary embolism and A. fib with RVR for which she had been placed on Eliquis in October 2020, however this was complicated by anemia requiring blood transfusion. There was a concern for GI bleed at that time. CT of the abdomen and pelvis had shown some thickening of the proximal duodenal loops and narrowing of the lumen with inflammatory stranding of the omentum. She has not had a follow-up EGD or colonoscopy. She will likely need 1 going forward. In October 2020 anticoagulation was not continued as she had an event monitor placed which did not show any recurrence of atrial fibrillation. She had also seen hematology Dr. Walsh at that time and had a bone marrow biopsy which showed no overt dyspoietic or metaplastic changes. Iron studies were adequate. She was referred to [facility] for a second opinion for her anemia however it was uncertain exactly what happened at [facility]. She will need to follow-up as outpatient with neurology and cardiology and undergo shared decision making regarding long-term anticoagulation. Her mentation is currently back at baseline. She has no focal neurological deficits at this time. Urine culture on 01/27/2022 had shown amp susceptible Enterococcus faecalis for which she was treated with ciprofloxacin, later changed to Augmentin. For uncertain reasons her urine culture was recently repeated on 1124 and now showed VRE E faecalis. I am uncertain if this is a true UTI as patient is fairly asymptomatic at this point. However linezolid is being ordered for 3 days to complete treatment for uncomplicated cystitis. On 02/02/2022, patient developed acute swelling of the left lateral malleolus of the left leg. There was warmth erythema and swelling and acute tenderness. Findings are most consistent with a gout flare. She was started on prednisone 40 mg and just after 1 dose she has had significant improvement in her left ankle. There is no longer any erythema or swelling. Some tenderness persists but is significantly improved. Unfortunately with initiation of prednisone her blood sugars this morning trended towards 500-600 which has been brought under controlled with insulin. For the next 4 days, prednisone has been cut back to 20 mg daily and it is recommended to check her fingerstick every 4-6 hours to ensure that blood sugar is under control and use insulin as needed. She will resume dialysis on Sunday 02/04 per Thursday schedule Physical Exam Narrative: General: No acute distress, AO x3 HEENT: PERRLA, pupils bilaterally equal and reactive, pallors not present Chest: Normal vesicular breath sounds, no added sounds, equal good air entry bilaterally CVS: S1-S2 regular, no murmurs, no tachycardia, no gallops, no rubs Abdomen: Soft, nontender, no organomegaly, bowel sounds present Neuro: No focal deficits, no facial deformity, AO x3, power 5/5 in all limbs Extremities: SIGNIFICANTLY IMPROVED SWELLING OVER LEFT ANKLE Discharge Data Studies Completed and Pending Completed Studies During Hospitalization Category Date Time Status CT angio head neck [CT angio headneck* 21918/[id number]] Cat Scan 01/28/22 10:[address] head wo con* [id number] Routine Cat Scan 01/28/22 10:[address] head wo con* [id number] Stat Cat Scan 01/27/22 12:[address] head wo con* [id number] Stat Cat Scan 01/29/22 11:27 Completed XR ankle LT 2V [id number] Routine Exams 01/29/22 13:48 Completed XR chest 1V portable [id number] Stat Exams 01/27/22 12:40 Completed CV. echo complete* [id number] Routine Ultrasound 01/27/22 18:00 Completed US renal BI* [id number] Routine Ultrasound 01/28/22 12:42 Completed Pending at discharge Category Date Time Status SARS Covid-2 Antigen Stat Lab 02/03/22 11:50 Received Radiology Impressions Chest X-Ray 01/27/22 12:40 IMPRESSION: Mild atherosclerosis aorta. No acute cardiopulmonary disease. Head/Neck CTA 01/28/22 10:45 IMPRESSION: 1. No high-grade cervical carotid artery stenosis. Calcified plaque in the bifurcations. Stenosis estimated 50%. 2. Extensive calcified plaque in the distal intracranial carotid arteries with stenoses approximately 60-70% in greatest on the RIGHT. 3. No thrombus in the middle cerebral artery. 4. Moderately calcified distal vertebral arteries. Renal Ultrasound 01/28/22 12:42 IMPRESSION: 1. Unchanged mild bilateral chronic medical renal disease. No progression of cortical atrophy or cortical thinning. 2. Bilateral renal cysts are stable. Head CT 01/29/22 11:27 IMPRESSION: 1. No acute intracranial hemorrhage or edema. 2. Moderate atrophy with extensive small vessel ischemic changes which are stable. Ankle X-Ray 01/29/22 13:48 IMPRESSION: No acute findings. Laboratory Results WBC 12.7 10^3/uL (4.0-10.0) H 02/03/22 04:15 RBC 3.59 10^6/uL (4.1-5.3) L 02/03/22 04:15 Hgb 10.3 g/dL (11.5-15.3) L 02/03/22 04:15 Hct 33.2 % (37.0-47.0) L 02/03/22 04:15 MCV 92.5 fl (81-99) 02/03/22 04:15 MCH 28.7 pg (28.0-34.0) 02/03/22 04:15 MCHC 31.0 g/dL (30.0-36.0) 02/03/22 04:15 RDW 15.5 % (12.1-15.1) H 02/03/22 04:15 Plt Count 323 10^3/cmm (130-400) 02/03/22 04:15 MPV 11.1 fL (7.4-10.4) H 02/03/22 04:15 Neut % (Auto) 93.5 % 02/03/22 04:15 Lymph % (Auto) 4.3 % 02/03/22 04:15 [place] % (Auto) 1.3 % 02/03/22 04:15 Eos % (Auto) 0.0 % 02/03/22 04:15 Baso % (Auto) 0.2 % 02/03/22 04:15 Neut # (Auto) 11.87 10^3/uL (1.8-7.7) H 02/03/22 04:15 Lymph # (Auto) 0.6 10^3/uL (0.8-4.8) L 02/03/22 04:15 [place] # (Auto) 0.2 10^3/uL (0.2-0.9) 02/03/22 04:15 Eos # (Auto) 0.0 10^3/uL (0.0-0.8) 02/03/22 04:15 Baso # (Auto) 0.0 10^3/uL (0.0-0.1) 02/03/22 04:15 Nucleated RBC % (auto) 0 % 02/03/22 04:15 Nucleated RBCs # 0.0 /100WBC 02/03/22 04:15 PT 13.70 SECONDS (12.1-14.9) 01/31/22 02:56 INR 1.02 (0.8-1.2) 01/31/22 02:56 Fibrinogen 522 mg/dL (174-498) H 01/30/22 04:46 D-Dimer 1.93 ug/mIFEU (0-0.59) H 01/27/22 18:47 Specimen Type Arterial 01/28/22 15:08 Sample Site Radial, right 01/28/22 15:08 ABG pH 7.47 (7.35-7.45) H 01/28/22 15:08 ABG pCO2 31.3 mmHg (35-45) L 01/28/22 15:08 ABG pO2 65.8 mmHg (80.0-100.0) L 01/28/22 15:08 ABG HCO3 23.0 mmol/L (22-26) 01/28/22 15:08 ABG Base Excess 0.0 mmol/L (-2.0-2.0) 01/28/22 15:08 Eder Test Pos 01/28/22 15:08 Hematocrit 33.5 % (37-47) L 01/28/22 15:08 O2 Delivery Device Room air 01/28/22 15:08 FiO2 21.0 % 01/28/22 15:08 Supervisor [employer]assis [employer] ID [id number] 01/28/22 15:08 Sodium 125 mmol/L (136-145) L 02/03/22 04:15 Potassium 4.9 mmol/L (3.5-5.1) 02/03/22 04:15 Chloride 90 mmol/L (98-107) L 02/03/22 04:15 Carbon Dioxide 21 mmol/L (22-29) L 02/03/22 04:15 Anion Gap 18.9 (5-19) 02/03/22 04:15 BUN 24 mg/dL (8-23) H 02/03/22 04:15 Creatinine 3.8 mg/dL (0.5-0.9) H 02/03/22 04:15 GFR Calculation Not Reportable 02/03/22 04:15 Glucose 627 mg/dL (65-115) H* 02/03/22 04:15 POC Glucose 388 mg/dL (70-110) H 02/03/22 12:08 Estimat Average Glucose 183 01/28/22 04:37 Hemoglobin A1c 8.0 % (4.0-6.0) H 01/28/22 04:37 Calculated Osmolality 293 mOsm/kg (285-295) 02/03/22 04:15 Lactate 1.9 mmol/L (0.5-2.2) 01/28/22 10:25 Calcium 9.7 mg/dL (8.5-10.5) 02/03/22 04:15 Phosphorus 4.1 mg/dL (2.5-4.5) 02/03/22 04:15 Magnesium 1.7 mg/dL (1.7-2.3) 02/03/22 04:15 Iron 80 ug/dL (37-145) 01/28/22 10:25 TIBC 238 mcg/dl 01/28/22 10:25 % Saturation 33.6 % (20-50) 01/28/22 10:25 Unsat Iron Binding 158 ug/dL (112-347) 01/28/22 10:25 Ferritin 117 ng/mL (15-150) 01/28/22 10:25 Total Bilirubin 0.2 mg/dL (0.15-1.2) 02/03/22 04:15 AST 14 U/L (0-32) 02/03/22 04:15 ALT 16 U/L (0-33) 02/03/22 04:15 Alkaline Phosphatase 139 U/L (35-105) H 02/03/22 04:15 Ammonia 25 umol/L (11-51) 01/27/22 12:47 Troponin T Baseline 89 ng/L (0-10) H 01/28/22 10:25 Troponin T 120 Minute 109.6 ng/L (0-10) H 01/28/22 12:20 Delta Troponin T 20.6 ABS# (0-10) H* 01/28/22 12:20 Troponin T Hi Sens 6Hr 98.85 ng/L (0-10) H 01/28/22 17:05 Troponin T Hi Sens 6Hr Delta 9.85 ng/L (0-12) 01/28/22 17:05 C-Reactive Protein 144.0 mg/L (0.0-4.9) H 01/31/22 02:56 NT-Pro-B Natriuret Pep 12223 pg/mL (0-450) H 01/31/22 02:56 Total Protein 6.4 g/dL (6.6-8.7) L 02/03/22 04:15 Albumin 2.9 g/dL (3.5-5.2) L 02/03/22 04:15 Globulin 3.5 g/dL (1.3-4.6) 02/03/22 04:15 Vitamin B12 401 pg/mL (232-1245) 01/28/22 10:25 Folate > 20.0 ng/mL (4.8-37.3) 01/28/22 10:25 Procalcitonin 0.53 ng/mL (0-0.5) H 01/31/22 02:56 TSH 1.03 uIU/mL (0.27-4.20) 01/28/22 04:37 Free T4 1.74 ng/dL (0.82-1.77) 01/28/22 04:37 Urine Color Yellow (Yellow) 01/31/22 15:24 Urine Appearance Hazy (CLEAR) A 01/31/22 15:24 Urine pH 9 (5-7) H 01/31/22 15:24 Ur Specific [place] 1.015 (1.005-1.030) 01/31/22 15:24 Urine Protein 3+ (Negative) H 01/31/22 15:24 Urine Glucose (UA) Norm (Normal) 01/31/22 15:24 Urine Ketones Negative (Negative) 01/31/22 15:24 Urine Blood Neg (Negative) 01/31/22 15:24 Urine Nitrate Negative (Negative) 01/31/22 15:24 Urine Bilirubin Neg (Negative) 01/31/22 15:24 Prot Sulfosalicylic Acd Positive (Negative) 01/31/22 15:24 Urine Urobilinogen Norm mg/dL (Negative) 01/31/22 15:24 Ur Leukocyte Esterase 2+ (Negative) H 01/31/22 15:24 Urine RBC 0-4 /hpf (0-2) H 01/31/22 15:24 Urine WBC Too numerous to cnt /hpf (0-5) H 01/31/22 15:24 Ur Squamous Epith Cells 25-40 /hpf (0-5) H 01/31/22 15:24 Amorphous Sediment Not Reportable 01/31/22 15:24 Urine Bacteria Trace /hpf (NONE) 01/31/22 15:24 Hep Bs Antigen Non-reactive (Nonreactive) 01/28/22 10:25 Hep Bs Antibody 286.6 (11.5-1000) 01/28/22 10:25 Hepatitis C Antibody Non-reactive (Nonreactive) 01/28/22 10:25 Vitals Last Vital Signs Temp 99.0 F 02/03/22 11:30 Pulse 101 H 02/03/22 11:30 Resp 18 02/03/22 11:30 BP 137/71 02/03/22 11:30 Pulse Ox 98 02/03/22 11:30 O2 Del Method 02/03/22 11:30 Discharge Plan Discharge Patient Disposition: Xfer SNF Condition: Stable Prescriptions: New amlodipine 10 mg Tablet 10 mg PO DAILY 30 Days Qty: 30 0RF linezolid 600 mg tablet 600 mg PO Q12H 3 Days Qty: 6 0RF losartan 50 mg Tablet 100 mg PO DAILY 30 Days Qty: 30 0RF sucralfate 1 gram Tablet 1 g PO Q12H 7 Days Qty: 14 0RF prednisone 20 mg Tablet 20 mg PO DAILY 3 Days Qty: 3 0RF aspirin 81 mg Tablet,Delayed Release (Dr/Ec) 81 mg PO DAILY 30 Days Qty: 30 0RF metoprolol tartrate 25 mg Tablet 50 mg PO Q12H 30 Days Qty: 120 0RF Protonix 40 mg tablet,delayed release (DR/EC) 40 mg PO DAILY 30 Days Qty: 30 0RF Continued hydralazine 100 mg tablet 100 mg PO TID@09,12,21 PRN (Reason: Hypertensive Emergency) Label Comments: pt takes 1/2 tab prn bumetanide 2 mg tablet 2 mg PO DAILY@0900 Qty: 90 3RF atorvastatin 10 mg tablet 10 mg PO BEDTIME@2100 allopurinol 100 mg tablet 100 mg PO DAILY@0800 sodium bicarbonate 650 mg tablet 650 mg PO TID@0900,1200,2100 pantoprazole 40 mg tablet,delayed release (DR/EC) 40 mg PO BID@0900,2100 acetaminophen 325 mg Tablet 325 - 650 mg PO Q6H PRN (Reason: Pain) megestrol 400 mg/10 mL (40 mg/mL) suspension 400 mg PO DAILY PRN (Reason: appetite) loperamide 2 mg capsule 2 mg PO Q8H PRN (Reason: Diarrhea) mirtazapine 30 mg tablet 30 mg PO BEDTIME RenaPlex-D 800 mcg-12.5 mg -2,000 unit tablet 1 tab PO DAILY insulin glargine [Lantus Solostar U-100 Insulin] 100 unit/mL (3 mL) insulin pen See Rx Instructions .ROUTE .COMPLEX Rx Instructions: Pt has not been taking insulin lately nor checking blood sugars M-Neo Plus 27 mg iron- 1 mg tablet 1 tab PO DAILY glimepiride 2 mg tablet 2 mg PO DAILY Qty: 30 0RF Rx Instructions: NEW DOSE 2mg instead of 4mg. Do NOT mix with other tablets. Monitor blood sugars. Hold for low blood sugar. ferrous sulfate 325 mg (65 mg iron) tablet 325 mg PO BID Qty: 60 0RF magnesium oxide 400 mg magnesium tablet 400 mg PO DAILY Qty: 30 0RF Discontinued diltiazem HCl [Tiadylt ER] 240 mg capsule,extended release 24 hr 120 mg PO DAILY Qty: 90 3RF carvedilol 25 mg tablet 25 mg PO BID Discharge Orders: Discharge Order (Routine); Ordered 02/03/22 Ordered By: Beckie Tran Referrals: [facility] [Outside] Vitaliy Morales MD [Primary Care Provider] - 1 week Discharge Diet: Diabetic Discharge Activity: Resume usual activity Discharge Attestations Time Spent in Discharge Care*: greater than 30 min Status at Discharge: Cognitive status at discharge: cognitively intact, Behavioral status at discharge: cooperative, Quality Metrics Clinical Quality Measures [ Cerebrovascular Accident { Contraindication to Antithrombotic: None; antithrombotic prescribed; Contraindication to Anticoagulation: Medical contraindication; Contraindication to Statin: None; Statin prescribed;}] Coding Level of Care Code Acute [facility] FW DC note Diagnoses ESRD (end stage renal disease) N18.6
[2022-02-03 13:29] LABS: SARS Covid-2 Antigen negative (Negative)
[2022-02-03 13:57] LABS: Glucose Point of Care 383 mg/dL (70-110)
--- NOTE | 2022-02-03 14:19 | PC.NURSE ---
Discharge Note Patient discharged to SNF via w/c accompanied by [facility] staff. Discharge instructions reviewed with patient and/or kiosk sales representative. Mobile pharmacy medications and/or prescriptions provided. Belongings/home medications returned.
== END 2022-02-03 14:19 | disposition skilled nursing facility (03) | DRG 689 ==
LOC: ER 15:50 → CSU 15:53 → ICU 01-28 11:14 → MEDSURG 01-29 20:03 → CSU 01-30 10:04
PROVIDERS: Family Medicine; Internal Medicine; Admitting Provider Hospitalist; Emergency Provider Emergency Medicine; PCP Family Medicine; Visit Provider Student in an Organized Health Care Education/Training Program
DX: N30.00 Acute cystitis without hematuria (principal); I63.412 Cerebral infarction due to embolism of left middle cerebral artery; N18.6 End stage renal disease; I13.2 Hypertensive heart and chronic kidney disease with heart failure and with stage 5 chronic kidney disease, or end stage renal disease; I50.32 Chronic diastolic (congestive) heart failure; G93.49 Other encephalopathy; E87.1 Hypo-osmolality and hyponatremia; R47.01 Aphasia; G81.91 Hemiplegia, unspecified affecting right dominant side; N30.20 Other chronic cystitis without hematuria; I48.0 Paroxysmal atrial fibrillation; E11.22 Type 2 diabetes mellitus with diabetic chronic kidney disease; E11.65 Type 2 diabetes mellitus with hyperglycemia; Z99.2 Dependence on renal dialysis; D63.1 Anemia in chronic kidney disease; Z87.440 Personal history of urinary (tract) infections; K58.0 Irritable bowel syndrome with diarrhea; D50.9 Iron deficiency anemia, unspecified; M81.0 Age-related osteoporosis without current pathological fracture; Z85.43 Personal history of malignant neoplasm of ovary; Z86.711 Personal history of pulmonary embolism; N35.92 Unspecified urethral stricture, female; Z79.84 Long term (current) use of oral hypoglycemic drugs; Z79.4 Long term (current) use of insulin; M10.9 Gout, unspecified; B95.2 Enterococcus as the cause of diseases classified elsewhere; B95.5 Unspecified streptococcus as the cause of diseases classified elsewhere; R45.1 Restlessness and agitation; E86.0 Dehydration; R29.810 Facial weakness; R29.710 NIHSS score 10
CPT/HCPCS: 12345; 36415; 36416; 36600; 51701; 70450; 70496; 70498; 71045; 73600; 76770; 80048; 80053; 81001; 82140; 82274; 82607; 82728; 82746; 82803; 82962; 83036; 83540; 83550; 83605; 83630; 83735; 83880; 84100; 84145; 84439; 84443; 84484; 85014; 85018; 85025; 85378; 85384; 85610; 86140; 86706; 86803; 87040; 87077; 87086; 87186; 87340; 87426; 87493; 87506; 90935; 92507; 92523; 92526; 92610; 93005; 93306; 96365; 96367; 96372; 96375; 97110; 97161; 97167; 97535; 99285; C9113; J0696; J1644; J1815; J1956; J2060; J2270; J2997; J3475; J3490; J7040; J7512; Q3014; Q9967

== ENCOUNTER → 2022-04-29 14:14 | Outpatient (BNVA) | payer OTHER, SELFPAY | PROVIDERS: PCP Family Medicine; Visit Provider Surgery | DX: Z51.5 Encounter for palliative care (principal); T82.41XA Breakdown (mechanical) of vascular dialysis catheter, initial encounter; X58.XXXA Exposure to other specified factors, initial encounter | CPT/HCPCS: 36590; 99203 ==